=== PATIENT | female | born 1955 | race Caucasian/White ===

== ENCOUNTER 2024-03-14 15:14 | Emergency (ER) | payer SELFPAY | END 2024-03-14 15:23 | disposition left against medical advice (07) | LOC: ER 15:24 | PROVIDERS: Emergency Provider Emergency Medicine; PCP Internal Medicine | DX: Z53.21 Procedure and treatment not carried out due to patient leaving prior to being seen by health care provider (principal) ==

== ENCOUNTER 2024-07-25 16:10 | Emergency (ER) | payer MEDICARE, OTHER, SELFPAY ==
[2024-07-25 16:12] VITALS: BP 138/94; PULSE 82; TEMP 36.8; O2SAT 99; BMI 28.0
--- OUTSIDE RECORDS SUMMARY | 2024-07-25 16:24 | XMS_ITS | CCD ---
Author Organization [facility] [place] Care Team Providers Care Aeronautical Engineering Technologist Name Role Phone Edgard Brady Unavailable Unavailable Unavailable Unavailable Unavailable Dragan Sánchez Unavailable Unavailable JANE, DR MAYO Consulting Unavailable HAY, DR MAYO Attending Unavailable JANE, DR MAYO Admitting Unavailable JOSE ANTONIO, DR RENE Primary Care Unavailable REQUEST, DR MEDINA LISTED Consulting Unavaila bon BRADY, DR RENE Primary Care Unavailable REQUEST, DR MEDINA LISTED Attending Unavaila ble REQUEST, DR MEDINA LISTED Admitting Unavaila Edgard Vinson Unavailable Unavailable Unavailable Bev Alcantara Unavailable Ramon Chang Unavailable Ramon Chang Unavailable Chitra Singh Unavailable Park Morgan Unavailable Maty Rodas Unavailable DO Charlene Ramon E Primary Care Provider DO Estrella Changlin E Attending Provider Blanca Serrano Referring Unavailable Dr. Edgard Brady Primary Care Unavailab Blanca Tracy Attending Unavailable Blanca Serrano Referring Unavailable Dr. Edgard Brady Primary Care Unavailab Blanca Tracy Attending Unavailable Jf Toro Unavailable DO Charlene Ramon E Primary Care Provider DO Charlene Ramon E Attending Provider JONO Rodas Attending Provider Christiano Beyer Unavailable Ashley Willis Unavailable DO Charlene Ramon E Primary Care Provider DO Charlene Ramon E Referring Provider Self, Referral Attending Provider Unavailable DO Sugey Changitlin E Attending Provider MD Park Morgan Attending Provider CatoosaJaneth caraballo Unavailable Eriberto Albertina Unavailable DO Charlene Ramon E Primary Care Provider [phone] DO Dashawn Rodriguez Emergency Provider [phone] DO Ramon Chang E Attending Provider MD Park Morgan Referring Provider DO Charlene Ramon E Primary Care Provider CHAN Luu Emergency Provider Ramon Chang DO Primary Care Provider BLANCA SERRANO Attending EDGARD Hinds Primary Care Unavailable BLANCA SERRANO Attending EDGARD Hinds Primary Care Unavailable BLANCA SERRANO Attending EDGARD Hinds Primary Care Unavailable BLANCA SERRANO Attending EDGARD Hinds Primary Care Unavailable DRAGAN SÁNCHEZ Attending EDGARD Szymanski Primary Care Unavailable SUSANA SARAVIA Attending Unavailab le ANGELA-NOSSUSANA PARMAR Attending Unavailab le ANGELA-NOSSUSANA PARMAR Attending Unavailab le ANGELA-NOSSUSANA PARMAR Attending Unavailab le ANGELA-NOSSESUSANA Pino Attending Unavailab le SCHWERER, RAMON Primary Care Unavailable BELLO VÁZQUEZ Attending Unavailable SCHWERER, RAMON Primary Care Unavailable SCHWERER, RAMON Primary Care Unavailable DIETER WHITTINGTON Attending Unavailable Schwerer DO, Ramon E Primary Care Provider [phone] Mo Alcantara APRN Emergency Provider Schwerer DO, Ramon E Attending Provider Schwerer, Ramon E Admitting Unavailable Eddie, Park Referring Unavailable Schwerer, Ramon E Primary Care Unavailable Schwerer, Ramon E Attending Unavailable Schwerer, Ramon E Primary Care Unavailable Schwerer, Ramon E Attending Unavailable Schwerer, Ramon E Admitting Unavailable Antoine Luu Admitting Unavailable Antoine Luu Attending Unavailable Schwerer, Ramon E Primary Care Unavailable Dashawn Rodriguez Admitting Unavailable Dashawn Rodriguez Attending Unavailable Schwerer, Ramon E Primary Care Unavailable Mo Alcantara Admitting Unavailable Mo Alcantara Attending Unavailable Schwerer, Ramon E Primary Care Unavailable Schwerer DO, Ramon E Primary Care Provider [phone] Mo Alcantara APRN Emergency Provider [phone] Schwerer DO, Ramon E Attending Provider Allergies Allergy Classification Reported Allergen(s) Allergy Type Date of Onset Reaction(s) Facility (1 source) ARIPiprazole; Translations: [ARIPIPRAZOLE] Drug Allergy [address] [place] [address] 3 Repository (1 source) terconazole; Translations: [TERCONAZOLE] Drug Allergy [address] [place] [address] 3 Repository (1 source) DIVALPROEX; Translations: [DIVALPROEX] Propensity to adverse reactions to drug (disorder) [address] [place] [address] 3 Repository Medications Current Medications Medication Drug Class(es) Dates Sig (Normalized) Sig (Original) acetylcysteine 600 mg oral capsule (20 sources) Antidote, Mucolytic, Antidote for Acetaminophen Overdose take 2 capsules by mouth every twelve hours Nac 600 600 MG 2 tablets Orally Bid Active amitriptyline hydrochloride 50 mg oral tablet (20 sources) Tricyclic Antidepressant Start: 04-29-2024 End: 07-28-2024 take 2 tablets by mouth at bedtime amitriptyline (Elavil) 50 MG tablet Indications: Insomnia, unspecified type Take 2 tablets (100 mg) by mouth at bedtime 180 tablet 04/29/2024 07/28/2024 Active Start: 09-18-2023 End: 07-18-2024 take 1 tablet by mouth once daily at bedtime as needed Amitriptyline 50 mg tablet Active 50 MG PO Daily at bedtime as needed for insomnia September 18, 2023 12:00am Start: 03-07-2021 take 1 tablet by george th at bedtime Amitriptyline HCl - 25 MG Oral Tablet TAKE 1 TABLET BY MOUTH AT BEDTIME Quantity: 30 Refills: 0 Ordered: 07-Mar-2021 DO Start : 07-Mar-2021 Active Start: 10-20-2020 End: 09-18-2023 take 1 tablet by mouth once daily at bedtime as needed Amitriptyline 10 mg Tablet Discontinued 10 MG PO Daily at bedtime as needed for Insomnia October 20, 2020 12:00am September 18, 2023 9:55am take 1 tablet by george th every twenty-four hours Amitriptyline HCl 50 MG 1 tablet at bedtime Orally Once a day Active ascorbic acid 60 mg / beta carotene 5000 unt / copper sulfate 40 mg / dl-alpha tocopheryl acetate 30 unt / sodium selenite 0.04 mg / zinc oxide 40 mg oral tablet (7 sources) Vitamin C Multiple Vitamin (Multivitamin Adult) tablet 1 (one) time each day at the same time. Active atorvastatin 10 mg oral tablet (20 sources) HMG-CoA Reductase Inhibitor Start: End: take 1 tablet by mouth once daily at bedtime Atorvastatin (Lipitor) 10 mg tablet Active 10 MG PO Daily at bedtime July 02, 2024 1:34pm Start: 12-12-2020 take 1 tablet by george th every twenty-four hours Lipitor 20 MG 1 tablet Orally Once a day Dec, Active Augmentin Tablets 875 MG (2 sources) Start: 03-07-2021 take 1 tablet by mouth every twelve hours Augmentin Tablets 875 MG 1 tab(s) orally bid for 10 day(s) Feb, Active benzonatate 200 mg oral capsule (4 sources) Non-narcotic Antitussive Start: 06-23-2023 take 1 capsule by mouth three times daily as needed for cough Benzonatate 200 MG 1 capsule Orally Three times a day PRN cough for 7 days Jun, Active Start: 06-10-2023 take 1 capsule by mo [facility] three times daily as needed Tessalon Perles 100 MG 1 capsule as needed Orally Three times a day for 7 days May, Active carboxymethylcellulose 0.01 mg/mg ophthalmic gel (6 sources) Start: 01-11-2024 Carboxymethylcellulose Sodium (Refresh Celluvisc) 1 % dropperette,gel Active 1 DROPS EYE-BOTH Five times daily as needed for dry eye(s) January 11, 2024 12:00am cephalexin 500 mg oral capsule (9 sources) Cephalosporin Antibacterial Start: 04-26-2021 take 1 capsule by mouth every six hours Cephalexin 500 MG 1 capsule Orally QID for 10 Apr, Active Start: 03-20-2021 take 1 capsule by [facility] every six hours Cephalexin 500 MG 1 capsule Orally QID for 7 days Mar, Active cycloSPORINE 0.5 mg/ml ophthalmic suspension (20 sources) Calcineurin Inhibitor Immunosuppressant take 1 drop(s) into the eye(s) twice daily Restasis 0.05 % 1 drop into affected eye Ophthalmic Twice a day for 90 days Active take 1 drop(s) into the eye(s) twice daily Restasis 0.05 % 1 drop into affected eye Ophthalmic Twice a day for 90 days Active Cyclosporine (Restasis) 0.05 % dropperette (6 sources) Start: 01-11-2024 take 1 drop(s) into the eye(s) every twelve hours Cyclosporine (Restasis) 0.05 % dropperette Active 1 DROPS EYE-BOTH Every 12 hours January 10, 2024 11:00pm Start: 01-11-2024 take 1 drop(s) into the eye(s) every twelve hours Cyclosporine (Restasis) 0.05 % dropperette Active 1 DROPS EYE-BOTH Every 12 hours January 11, 2024 12:00am desoximetasone 2.5 mg/ml top ical cream (20 sources) Corticosteroid Topicort 0.25 % 1 application Externally Twice a day for 90 days Active Topicort 0.25 % 1 application Externally Twice a day for 90 days Active ergocalciferol 1.25 mg oral capsule (20 sources) Provitamin D2 Compound Start: 06-03-2024 Ergocalciferol (Ryan min D2) 1,250 mcg (50,000 unit) capsule Active 31455 UNIT PO every week June 03, 2024 5:01pm Start: 10-29-2023 End: 06-03-2024 take 1 capsule by mouth every week Ergocalciferol (Vitamin D2) 1,250 mcg (50,000 unit) capsule Discontinued 0 .ROUTE .COMPLEX October 29, 2023 1:01pm June 03, 2024 5:03pm TAKE 1 CAPSULE BY MOUTH EVERY WEEK Start: 10-29-2023 End: 06-03-2024 take 1 capsule by mouth every week Ergocalciferol (Vitamin D2) 1,250 mcg (50,000 unit) capsule Discontinued 0 .ROUTE .COMPLEX October 29, 2023 12:01pm June 03, 2024 4:03pm TAKE 1 CAPSULE BY MOUTH EVERY WEEK Start: 10-29-2023 take 1 capsule by mo ut every week Ergocalciferol (Vitamin D2) Active 0 .ROUTE .COMPLEX October 29, 2023 1:01pm TAKE 1 CAPSULE BY MOUTH EVERY WEEK Start: 2023 End: 2023 Ergocalciferol (Vitamin D2) 1,250 mcg (50,000 unit) capsule Discontinued 96702 UNIT PO every week 2023 12:00am 2023 8:48am Start: 2023 End: 2023 Ergocalciferol (Vitamin D2) 1,250 mcg (50,000 unit) capsule Discontinued 11122 UNIT PO every week October 27, 2023 11:00pm 2023 7:48am Start: 2023 End: 2023 take 80230 [IU] by mouth every week Ergocalciferol (Vitamin D2) Discontinued 82507 UNIT PO every week 2023 12:00am 2023 8:48am Start: 09-19-2022 End: 10-29-2023 take 1 capsule by mouth every week Ergocalciferol (Vitamin D2) 1,250 mcg (50,000 unit) capsule Discontinued 1250 MCG PO every week 2023 8:47am October 29, 2023 1:02pm Start: 05-29-2021 take 1 capsule by mo nch every week Vitamin D (Ergocalciferol) 1.25 MG (97198 UT) Oral Capsule TAKE 1 CAPSULE BY MOUTH EVERY WEEK Quantity: 12 Refills: 0 Ordered: 29-May-2021 DO Start : 29-May-2021 Active ferrous sulfate 325 mg oral tablet (20 sources) Start: 02-25-2019 End: 09-18-2023 Ferrous Sulfate 325 mg (65 m g iron) tablet Active 325 MG PO Every 48 hours September 18, 2023 9:57am Start: 02-25-2019 Ferrous Sulfat e Active 325 MG PO As Directed February 25, 2019 12:00am hydrALAZINE (4 sources) Arteriolar Vasodilator hydrALAZI NE HCl Active Iron (7 sources) take 1 tablet by mouth every oth er day Iron 325 (65 Fe) MG 1 tablet Orally every other day Active levothyroxine sodium 0.075 mg oral tablet (20 sources) l-Thyroxine Start: 06-08-2024 take 1 tablet by mouth once daily Levothyroxine (Synthroid) 75 mcg tablet Active 75 MCG PO Daily June 08, 2024 1:00am Start: 09-18-2023 End: 06-08-2024 take 1 capsule by mouth once daily Levothyroxine 75 mcg capsule Discontinued 75 MCG PO Daily June 07, 2024 9:58am June 08, 2024 8:50am Start: 10-09-2017 End: 09-18-2023 take 2 tablets by mouth once daily Levothyroxine 50 mcg Tablet Discontinued 100 MCG PO Daily October 09, 2017 12:00am September 18, 2023 9:58am Start: 10-09-2017 End: 09-18-2023 take 100 ug by mouth once daily Levothyroxine Disconti nued 100 MCG PO Daily October 09, 2017 12:00am September 18, 2023 9:58am take 1 tablet by george th before mealtime levothyroxine (Synthroid, Levoxyl) 75 MCG tablet Take 75 mcg by mouth in the morning. Take before meals. Active take 1 tablet by george once daily in the morning Synthroid 75 MCG TAKE ONE TABLET BY MOUTH EVERY DAY IN THE MORNING ON AN EMPTY STOMACH for 90 days Active Synthroid 25 MCG Oral Tablet Quantity: 0 Refills: 0 Ordered: 20-Feb-2016 DO Active Synthroid 25 MCG Oral Tablet Refills: 0 Active Magnesium (20 sources) Start: 02-25-2019 take 2 tablets by [facility] once daily Magnesium 200 mg Tablet Active 400 MG PO Daily February 25, 2019 12:00am Start: 02-25-2019 take 2 tablets by mo [facility] once daily Magnesium 200 mg Tablet Active 400 MG PO Daily February 24, 2019 11:00pm Start: 02-25-2019 take 400 mg by mouth once marilou y Magnesium Active 400 MG PO Daily February 24, 2019 11:00pm Start: 02-25-2019 take 400 mg by mouth once marilou y Magnesium Active 400 MG PO Daily February 25, 2019 12:00am Magnesium 400 MG as directed Orally Active Magnesium 400 MG as directed Orally BID Active magnesium oxide 400 mg oral tablet (7 sources) take 1 tablet by mouth in the morning magnesium oxide (Mag-Ox) 400 MG tablet Take 400 mg by mouth in the morning. Active Medrol Dose Pack as directed (2 sources) Start: 03-07-2021 Medrol Dose Pack as directed as directed orally as directed for 6 days Feb, Active Multivitamin preparation (12 sources) Start: 10-09-2017 take 1 tablet by mouth once daily Multivitamin Active 1 TAB PO Daily October 08, 2017 11:00pm Start: 10-09-2017 take 1 tablet by george once daily Multivitamin Active 1 TAB PO Daily October 09, 2017 12:00am Multivitamin Tablet (4 sources) Start: 10-09-2017 take 1 tablet by mouth once daily Multivitamin Tablet Active 1 TAB PO Daily October 09, 2017 12:00am Start: 10-09-2017 take 1 tablet by george once daily Multivitamin Tablet Active 1 TAB PO Daily October 08, 2017 11:00pm mupirocin 0.02 mg/mg topical ointment (20 sources) RNA Synthetase Inhibitor Antibacterial Start: 07-30-2021 Mupirocin 2 % 1 application PRN Externally Twice a day Jul, Active Start: 03-07-2021 Bactroban 2% 1 application topically bid Feb, Active Start: 01-29-2021 Mupirocin 2 % 1 application Externally Three times a day PRN for 5 day(s) Jan, Active Start: 09-12-2020 Mupirocin 2 % 1 application to affected area Externally once per day for 7 days September, Active ondansetron 8 mg oral tablet (3 sources) Serotonin-3 Receptor Antagonist Start: 06-10-2023 take 1 tablet by mouth every eight hours as needed Ondansetron HCl 8 MG 1 tablet Orally every 8 hours as needed for 7 days May, Active phentermine hydrochloride 37.5 mg oral capsule (2 sources) Sympathomimetic Amine Anorectic Start: 03-20-2021 take 1 capsule by mouth every twenty-four hours Adipex-P 37.5 MG 1 capsule Orally Once a day for 30 days Mar, Active 24 hr phentermine 7.5 mg / topiramate 46 mg extended release oral capsule (20 sources) Sympathomimetic Amine Anorectic Start: 11-28-2021 take 1 capsule by mouth every twenty-four hours Qsymia 7.5-46 MG 1 capsule Orally Once a day for 30 days BMI 33.97 Apr, Active Start: 11-28-2021 take 1 capsule by mo [facility] every twenty-four hours Qsymia 3.75-23 MG 1 capsule Orally Once a day for 14 days BMI 35.24 Nov, Active sertraline 100 mg oral tablet (20 sources) Serotonin Reuptake Inhibitor Start: 09-18-2023 End: 07-18-2024 take 1 tablet by mouth once daily Sertraline 100 mg tablet Active 100 MG PO Daily September 18, 2023 12:00am Start: 08-20-2021 take 1 tablet by george th once daily Sertraline HCl - 50 MG Oral Tablet TAKE 1 TABLET BY MOUTH ONCE DAILY Quantity: 90 Refills: 0 Ordered: 20-Aug-2021 DO Start : 20-Aug-2021 Active take 1 tablet by george th every twenty-four hours Zoloft 100 MG 1 tablet Orally Once a day Active Syringe 2-3 ML 3 ML (20 sources) Start: 05-29-2021 Start: 01-18-2022 Syringe 2-3 ML 3 ML as directed IM monthly for 90 days 25 g 1 in needle May, Active vancomycin 125 mg oral capsule (5 sources) Glycopeptide Antibacterial Start: 12-13-2021 take 1 capsule by mouth every six hours Vancomycin HCl 125 MG 1 capsule Orally every 6 hrs for 10 day(s) Dec, Active vitamin b12 1 mg/ml injectable solution (20 sources) Vitamin B12 Start: 06-07-2024 End: 06-08-2024 inject 1 mL by subcutaneous injection every month Cyanocobalamin (Vitamin B-12) 1,000 mcg/mL solution Active 0 .ROUTE .COMPLEX June 08, 2024 1:50pm INJECT 1 ml SUBCUTANEOUSLY EVERY month Start: 12-15-2023 inject 1 mL by subcu taneous injection every month Cyanocobalamin (Vitamin B-12) Active 0 .ROUTE .COMPLEX December 15, 2023 11:34am INJECT 1 ml SUBCUTANEOUSLY EVERY month Start: 07-04-2023 End: 12-15-2023 inject 1000 ug by subcutaneous injection every month Cyanocobalamin (Vitamin B-12) 1,000 mcg/mL solution Discontinued 1000 MCG SUBCUT every month July 04, 2023 9:58am December 15, 2023 11:34am Start: 07-04-2023 End: 12-15-2023 inject 1000 ug by subcutaneous injection every month Cyanocobalamin (Vitamin B-12) Discontinued 1000 MCG SUBCUT every month July 04, 2023 9:58am December 15, 2023 11:34am Start: 10-09-2017 End: 07-04-2023 inject 1000 ug by intramuscular injection every month Cyanocobalamin (Vitamin B-12) (Vitamin B-12) 1,000 mcg/mL Solution Discontinued 1000 MCG IM every month October 09, 2017 12:00am July 04, 2023 10:03am take 1 tablet by george th in the morning cyanocobalamin (Vitamin B-12) 1000 MCG tablet Take 1,000 mcg by mouth in the morning. Active Cyanocobalamin 1 000 MCG/ML 1 ml Injection ONCE A MONTH Active [facility] Vitamin B-12 1000 MCG Oral Tablet Quantity: 0 Refills: 0 Ordered: 20-Feb-2016 DO Active vitamin b6 100 mg oral tablet (20 sources) Start: 10-09-2017 take 1 tablet by mouth once daily Pyridoxine (Vitamin B6) (Vitamin B-6) 100 mg Tablet Active 100 MG PO Daily October 09, 2017 12:00am Vitamin B6 100 MG (20 sources) take 1 tablet by mouth once marilou y Vitamin B6 100 MG 1 tablet Orally Once a day Active Completed/Discontinued Medications Medication Drug Class(es) Dates Sig (Normalized) Sig (Original) acetaminophen 325 mg / oxyCODONE hydrochloride 5 mg oral tablet (6 sources) Opioid Agonist Start: 01-11-2024 End: 06-17-2024 take 1 tablet by mouth every six hours as needed for pain Oxycodone-Acetamino phen (Percocet) 5-325 mg tablet Discontinued 1 TAB PO Q6H as needed for pain 02 11January 11, 2024 June 17, 2024 9:43am B-12 - up to 1000 mcg (20 sources) Start: 01-24-2023 B-12 - up to 1000 mcg Jan, 1000 mcg Start: 08-12-2022 B-12 - up to 1 000 mcg Aug, 1000 mcg Start: 06-06-2022 B-12 - up to 1 000 mcg May, 1000 mcg Start: 03-25-2022 B-12 - up to 1 000 mcg Mar, 1 mL Start: 02-21-2022 B-12 - up to 1 000 mcg Feb, 1000 mcg Start: 01-21-2022 B-12 - up to 1 000 mcg Jan, 1000 mcg Start: 12-13-2021 B-12 - up to 1 000 mcg Dec, 1000 mcg Start: 11-08-2021 B-12 - up to 1 000 mcg Oct, 1000 mcg Start: 10-02-2021 B-12 - up to 1 000 mcg September, 1000 mcg Start: 09-03-2021 B-12 - up to 1 000 mcg Aug, 1000 mcg Start: 04-26-2021 B-12 - up to 1 000 mcg Apr, 1000 mcg Start: 11-28-2020 B-12 - up to 1 000 mcg Nov, 1000 mcg 24 hr buPROPion hydrochloride 150 mg extended release oral tablet (20 sources) Aminoketone Start: 10-09-2017 End: 02-25-2019 take 1 tablet by mouth once daily in the morning Bupropion Hcl (Wellbutrin Xl) 150 mg Tablet Extended Release 24 Hr Discontinued 150 MG PO Every morning October 09, 2017 12:00am February 25, 2019 9:44am [facility] Wellbutrin SR 150 MG Oral Tablet Extende d Release 12 Hour Quantity: 0 Refills: 0 Ordered: 20-Feb-2016 DO Active Centrum Silver Oral Tablet (2 sources) Centrum Silver O ral Tablet Refills: 0 Active Centrum Silver Oral Tablet (2 sources) Centrum Silver O ral Tablet Quantity: 0 Refills: 0 Ordered: 20-Feb-2016 DO Active cholestyramine resin 4000 mg powder for oral suspension (14 sources) Bile Acid Sequestrant Start: 08-14-19 take 1 dose by mouth twice daily as needed Cholestyramine 4 GM 1 packet mixed with water or non-carbonated drink Orally BID for 30 days Aug, Not-Taking/PRN Start: 08-13-2022 take 1 dose by mouth twice daily Cholestyramine 4 GM 1 packet mixed with water or non-carbonated drink Orally BID for 30 days Aug, Not-Taking ciprofloxacin 3 mg/ml ophthalmic solution (10 sources) Quinolone Antimicrobial Start: 08-23-2023 End: 09-18-2023 take 1 drop(s) into the eye(s) every six hours Ciprofloxacin Hcl 0.3 % drops Discontinued 2 DROPS EYE-LEFT Every 6 hours 09 13August 23, 2023 12:00am September 18, 2023 9:56am administer while awake Start: 08-23-2023 End: 09-18-2023 take 1 drop(s) into the eye(s) every six hours Ciprofloxacin Hcl Discontinued 2 DROPS EYE-LEFT Every 6 hours 09 13August 23, 2023 12:00am September 18, 2023 9:56am administer while awake colestipol hydrochloride 1000 mg oral tablet (20 sources) Bile Acid Sequestrant Start: 02-25-2019 End: 07-23-2023 Colestipol (Colestid) 1 gram Tablet Discontinued 1 GM PO Daily February 25, 2019 12:00am July 23, 2023 8:01am take 2 tablets by mo [facility] every twenty-four hours Colestid 1 GM 2 tablets Orally Once a da y for 30 days Not-Taking/PRN take 2 tablets by [facility] every twenty-four hours Colestid 1 GM 2 tablets Orally Once a da y for 30 days Not-Taking take 2 tablets by [facility] every twenty-four hours Cyanocobalamin (Vitamin B-12) 1,000 mcg/mL solution (4 sources) Start: 12-15-2023 End: 06-07-2024 inject 1 mL by subcutaneous injection every month Cyanocobalamin (Vitamin B-12) 1,000 mcg/mL solution Discontinued 0 .ROUTE .COMPLEX 1 December 15, 2023 11:34am June 07, 2024 9:54am INJECT 1 ml SUBCUTANEOUSLY EVERY month Start: 12-15-2023 End: 06-07-2024 inject 1 mL by subcutaneous injection every month Cyanocobalamin (Vitamin B-12) 1,000 mcg/mL solution Discontinued 0 .ROUTE .COMPLEX 1 December 15, 2023 10:34am June 07, 2024 8:54am INJECT 1 ml SUBCUTANEOUSLY EVERY month dexamethasone 1 mg/ml / neomycin 3.5 mg/ml / polymyxin b [id number] unt/ml ophthalmic suspension (6 sources) Aminoglycoside Antibacterial, Polymyxin-class Antibacterial, Corticosteroid Start: 01-11-2024 End: 06-17-2024 Neomycin-Polymyxin B-Dexameth 3.5mg/mL-10,000 unit/mL-0.1 % drops,suspension Discontinued DROPS January 11, 2024 12:00am June 17, 2024 9:43am dicyclomine hydrochloride 10 mg oral capsule (20 sources) Anticholinergic Start: 10-09-2017 End: 09-18-2023 take 1 capsule by mouth at bedtime Dicyclomine 10 mg Capsule Discontinued 10 MG PO before meals and at bedtime October 09, 2017 12:00am September 18, 2023 9:56am DULoxetine 30 mg delayed release oral capsule (20 sources) Serotonin and Norepinephrine Reuptake Inhibitor Start: 10-09-2017 End: 09-18-2023 take 1 capsule by mouth once daily Duloxetine 30 mg Capsule,Delayed Release(Dr/Ec) Discontinued 30 MG PO Daily October 09, 2017 12:00am September 18, 2023 9:56am Cymbalta 30 MG O ral Capsule Delayed Release Particles Quantity: 0 Refills: 0 Ordered: 20-Feb-2016 DO Active take 1 capsule by [facility] every twenty-four hours DULoxetine HCl 60 MG 1 capsule Orally On a day Active erythromycin 0.005 mg/mg ophthalmic ointment (2 sources) Macrolide, Macrolide Antimicrobial Start: 06-22-2019 Erythromycin 5 MG/GM Ophthalmic Ointment APPLY 1 STRIP Bedtime OS Quantity: 1 Refills: 3 Ordered: 22-Jun-2019 Abraham MCCLAIN, PhD, Blanca Start : 22-Jun-2019 Active famotidine 20 mg oral tablet (16 sources) Histamine-2 Receptor Antagonist Start: 10-20-2020 End: 09-18-2023 take 1 tablet by mouth twice daily Famotidine 20 mg Tablet Discontinued 20 MG PO Twice daily October 20, 2020 12:00am September 18, 2023 9:57am folic acid 1 mg oral tablet (20 sources) Start: 10-09-2017 End: 04-21-2024 take 1 tablet by mouth once daily Folic Acid 1 mg tablet Discontinued 1 MG PO Daily April 20, 2024 1:00pm April 21, 2024 10:07am Folic Acid 1 MG Oral Tablet Quantity: 0 Refills: 0 Ordered: 20-Feb-2016 DO Active furosemide 40 mg oral tablet (16 sources) Loop Diuretic Start: 02-25-2019 End: 10-20-2020 take 1 tablet by mouth once daily Furosemide (Lasix) 40 mg Tablet Discontinued 40 MG PO Daily February 25, 2019 12:00am October 20, 2020 11:04am hydroCHLOROthiazide 25 mg / triamterene 37.5 mg oral capsule (16 sources) Potassium-sparing Diuretic, Thiazide Diuretic Start: 02-25-2019 End: 10-20-2020 take 1 capsule by mouth once daily Triamterene-Hydr ochlorothiazid (Dyazide) 37.5-25 mg Capsule Discontinued 1 CAP PO Daily February 25, 2019 12:00am October 20, 2020 11:07am hydrOXYzine hydrochloride 25 mg oral tablet (20 sources) Antihistamine Start: 08-05-2023 End: 03-02-2024 take 1-2 tablets by mouth every eight hours as needed Hydroxyzine Hcl 25 mg tablet Discontinued 0 .ROUTE .COMPLEX March 02, 2024 7:57am March 02, 2024 7:58am 1-2 tabs by mouth every 8 hours as needed; Start: 01-12-2021 take 1-2 tablets by mouth every eight hours as needed hydrOXYzine HCl 25 MG 1-2 tabs Orally every 8 hrs, prn for 90 day(s) ATARAX Jan, Active Start: 01-01-2021 take 1 capsule by mo uth every eight hours as needed for anxiety hydrOXYzine Pamoate 25 MG Oral Capsule TAKE 1 CAPSULE EVERY 8 HOURS NEEDED for anxiety Quantity: 270 Refills: 0 Ordered: 20-Mar-2021 DO Start : 20-Mar-2021 Active Start: 10-09-2017 End: 08-05-2023 Hydroxyzine Hcl 10 mg Tablet Discontinued 25 MG PO Q4H as needed for Itching October 09, 2017 12:00am August 05, 2023 4:34pm Start: 10-09-2017 End: 08-05-2023 take 25 mg by mouth every four hours Hydroxyzine Hcl Discontinued 25 MG PO Q4H October 09, 2017 12:00am August 05, 2023 4:34pm take 1 tablet by george every six hours as needed for anxiety hydrOXYzine HCl (Atarax) 25 MG tablet Take 25 mg by mouth every 6 (six) hours if needed for anxiety (1-2 tablets). Active lamoTRIgine 25 mg oral tablet (4 sources) Mood Stabilizer, Anti-epileptic Agent LaMICtal 25 MG Oral Tablet Quantity: 0 Refills: 0 Ordered: 20-Feb-2016 DO Active LaMICtal 25 MG O ral Tablet Refills: 0 Active lisinopril 2.5 mg oral tablet (4 sources) Angiotensin Converting Enzyme Inhibitor Lisinopril 2.5 MG Or al Tablet Quantity: 0 Refills: 0 Ordered: 20-Feb-2016 DO Active Lisinopril 2.5 M G Oral Tablet Refills: 0 Active LORazepam 1 mg oral tablet (20 sources) Benzodiazepine Start: 10-09-2017 End: 09-18-2023 take 1 tablet by mouth once daily as needed for anxiety Lorazepam 1 mg Tablet Discontinued 1 MG PO Daily as needed for Anxiety October 09, 2017 12:00am September 18, 2023 9:58am LORazepam 1 MG O ral Tablet Quantity: 0 Refills: 0 Ordered: 20-Feb-2016 DO Active naproxen 500 mg oral tablet (20 sources) Nonsteroidal Anti-inflammatory Drug Start: 10-09-2017 End: 02-25-2019 take 1 tablet by mouth twice daily as needed for pain Naproxen 500 mg Tablet Discontinued 500 MG PO Twice daily as needed for Pain October 09, 2017 12:00am February 25, 2019 9:46am Naproxen Sodium 550 MG Oral Tablet Quantity: 0 Refills: 0 Ordered: 20-Feb-2016 DO Active Naproxen Sodium 550 MG Oral Tablet Refills: 0 Active omeprazole 20 mg delayed release oral tablet (20 sources) Proton Pump Inhibitor Start: 10-09-2017 End: 10-20-2020 take 1 tablet by mouth once daily Omeprazole 20 mg Tablet,Delayed Release (Dr/Ec) Discontinued 20 MG PO Daily October 09, 2017 12:00am October 20, 2020 11:06am [facility] Omeprazole 2 0 MG Oral Tablet Delayed Release Quantity: 0 Refills: 0 Ordered: 20-Feb-2016 DO Active pantoprazole 40 mg delayed release oral tablet (20 sources) Proton Pump Inhibitor Start: 09-18-2023 End: 06-08-2024 take 1 tablet by mouth twice daily Pantoprazole (Protonix) 40 mg tablet,delayed release (DR/EC) Discontinued 40 MG PO Twice daily June 07, 2024 9:58am June 08, 2024 1:51pm Start: 10-26-2020 take 1 tablet by george th every twenty-four hours Pantoprazole Sodium 40 MG 1 tablet Orally Once a day for 90 days Oct, Active potassium chloride 20 meq extended release oral tablet (16 sources) Start: 02-25-2019 End: 10-20-2020 take 1 tablet by mouth once daily Potassium Chloride 20 mEq Tablet Extended Release Discontinued 20 MEQ PO Daily February 25, 2019 12:00am October 20, 2020 11:06am 24 hr propranolol hydrochloride 80 mg extended release oral capsule (20 sources) beta-Adrenergi c Briana Start: 09-18-2023 End: 04-21-2024 take 1 capsule by mouth once daily Propranolol 80 mg capsule,extended release 24 hr Discontinued 80 MG PO Daily April 20, 2024 1:01pm April 21, 2024 10:07am Start: 10-09-2017 End: 09-18-2023 take 4 tablets by mouth twice daily Propranolol 20 mg Tablet Discontinued 80 MG PO Twice daily October 09, 2017 12:00am September 18, 2023 9:58am Start: 10-09-2017 End: 09-18-2023 take 80 mg by mouth twice daily Propranolol Discontinu ed 80 MG PO Twice daily October 09, 2017 12:00am September 18, 2023 9:58am take 1 capsule by mo [facility] every twenty-four hours at bedtime propranolol XL (Innopran XL) 80 MG 24 hr capsule Take 80 mg by mouth at bedtime. Active take 1 capsule by mo uth once daily Propranolol HCl ER 80 MG TAKE ONE CAPSULE BY MOUTH EVERY DAY for 90 Active Propranolol HCl - 20 MG Oral Tablet Quantity: 0 Refills: 0 Ordered: 20-Feb-2016 DO Active Propranolol HCl - 20 MG Oral Tablet Refills: 0 Active traZODone hydrochloride 50 mg oral tablet (20 sources) Serotonin Reuptake Inhibitor Start: 10-09-2017 End: 02-25-2019 take 25-100 mg by mouth once daily at bedtime as needed Trazodone 50 mg Tablet Discontinued 25 - 100 MG PO Daily at bedtime as needed for Insomnia October 09, 2017 12:00am February 25, 2019 9:46am traZODone HCl - 50 MG Oral Tablet Quantity: 0 Refills: 0 Ordered: 20-Feb-2016 DO Active triamcinolone acetonide 40 mg/ml injectable suspension (20 sources) Corticosteroid Start: 04-15-2022 Kenalog-40 Nov, 40 mg Start: 05-01-2020 Kenalog -40 mg Apr, 40 mg Start: 10-26-2019 Kenalog -40 mg Oct, 40 mg Start: 02-16-2019 Kenalog -40 mg Feb, 40 mg Problems Active Problems Problem Classification Problem Date Documented Da te Episodic/Chronic Allergic reactions (3 sources) Atopic neurodermatitis; Translations: [Atopic neurodermatitis] Onset: 1 Resolved: 1 Chronic Anxiety disorders (20 sources) Generalized anxiety disorder; Translations: [Generalized anxiety disorder] Onset: 2 Resolved: 2 Chronic Cardiac dysrhythmias (16 sources) Paroxysmal supraventricular tachycardia; Translations: [Supraventricular tachycardia] 12-13-2018 Chronic Cataract (7 sources) Nuclear senile cataract; Translations: [Senile nuclear sclerosis] Onset: 4 Chronic Chronic kidney disease (20 sources) Chronic kidney disease stage 3; Translations: [Chronic kidney disease, stage 3 (moderate)] 09-18-2023 Chronic Chronic kidney disease (9 sources) Chronic kidney disease; Translations: [Chronic kidney disease, stage 3 unspecified] Onset: 2 Resolved: 2 Coagulation and hemorrhagic disorders (1 source) Heterozygous Factor V Leiden mutation; Translations: [Activated protein C resistance] 07-09-2024 Chronic Deficiency and other anemia (20 sources) Anemia of renal disease; Translations: [Anemia in chronic kidney disease] Chronic Deficiency and other anemia (20 sources) Iron deficiency anemia; Translations: [Iron deficiency anemia, unspecified] 02-25-2019 Episodic Deficiency and other anemia (16 sources) Anemia; Translations: [Anemia, unspecified] 12-13-2018 Episodic Deficiency and other anemia (4 sources) Iron deficiency anemia, unspecified; Translations: [Iron deficiency anemia, unspecified] Onset: 5 06-17-2024 Episodic Disorders of lipid metabolism (20 sources) Mixed hyperlipidemia; Translations: [Mixed hyperlipidemia] Onset: 2 Resolved: 2 Chronic E Codes: Fall (1 source) Unspecified fall, initial encounter; Translations: [UNSPECIFIED FALL INITIAL ENCOUNTER] Onset: 2 Episodic Esophageal disorders (20 sources) Gastroesophageal reflux disease; Translations: [Gastro-esophageal reflux disease without esophagitis] 10-20-2020 Chronic Essential hypertension (20 sources) Essential hypertension; Translations: [Essential (primary) hypertension] Onset: 2 Resolved: 2 Chronic Gastroduodenal ulcer (except hemorrhage) (20 sources) Peptic ulcer; Translations: [Peptic ulcer, site unspecified, unspecified as acute or chronic, without hemorrhage or perforation] Chronic Hypertension with complications and secondary hypertension (20 sources) Chronic kidney disease due to hypertension; Translations: [Hypertensive chronic kidney disease with stage 1 through stage 4 chronic kidney disease, or unspecified chronic kidney disease] Onset: 2 Resolved: 2 Chronic Immunizations and screening for infectious disease (6 sources) Contact with and (suspected) exposure to other viral communicable diseases; Translations: [Contact with and (suspected) exposure to other viral communicable diseases] Onset: 1 Resolved: 1 Episodic Inflammation; infection of eye (except that caused by tuberculosis or sexually transmitteddisease) (2 sources) Punctate keratitis, bilateral; Translations: [Punctate keratitis, bilateral] Onset: 4 Chronic Influenza (1 source) Influenza due to other identified influenza virus with other respiratory manifestations Episodic Mood disorders (20 sources) Moderate major depression ; Translations: [Major depressive disorder, single episode, moderate] Onset: 2 Resolved: 2 Chronic Nutritional deficiencies (20 sources) Vitamin D deficiency; Translations: [Vitamin D deficiency, unspecified] Onset: 2 Resolved: 2 Chronic Nutritional deficiencies (20 sources) Deficiency of other specified B group vitamins; Translations: [Iron deficiency] Onset: 2 Resolved: 2 Episodic Open wounds of head; neck; and trunk (1 source) Penetrating wound with foreign body of left eyeball, initial encounter; Translations: [Penetrating wound with foreign body of left eyeball, initial encounter] Onset: 4 Episodic Osteoarthritis (20 sources) Arthritis of hand; Translations: [Primary osteoarthritis, 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 Other aftercare (1 source) Other halfway (current) drug therapy; Translations: [OTH STATE COMPTROLLER CURRENT DRUG THERAPY] Onset: 2 Episodic Other connective tissue disease (1 source) Presence of left artificial knee joint; Translations: [PRESENCE LEFT ARTIFICIAL KNEE JOINT] Onset: 2 Chronic Other connective tissue disease (20 sources) Recurrent falls ; Translations: [Repeated falls] Episodic Other connective tissue disease (11 sources) Trochanteric bursitis, left hip; Translations: [Enthesopathy of hip region] Episodic Other connective tissue disease (10 sources) Trochanteric bursitis; Translations: [Trochanteric bursitis, left hip] 07-22-2023 Episodic Other disorders of stomach and duodenum (16 sources) Disorder of function of stomach; Translations: [Disease of stomach and duodenum, unspecified] 10-20-2020 Episodic Other eye disorders (5 sources) Posterior vitreous detachment; Translations: [Vitreous degeneration] Chronic Other eye disorders (2 sources) Vitreous degeneration, bilateral; Translations: [Vitreous degeneration, bilateral] Onset: 4 Chronic Other eye disorders (1 source) Retained (nonmagnetic) (old) foreign body in lens, bilateral; Translations: [Retained (nonmagnetic) (old) foreign body in lens, bilateral] Onset: 5 Chronic Other eye disorders (3 sources) Corneal scar; Translations: [Bilateral corneal scars] Episodic Other eye disorders (2 sources) Corneal ulcer; Translations: [Corneal ulcer, unspecified] Episodic Other eye disorders (2 sources) Scar of cornea of bilateral eyes; Translations: [Corneal opacity, unspecified] Episodic Other eye disorders (2 sources) Dry eyes; Translations: [Tear film insufficiency, unspecified] Episodic Other eye disorders (6 sources) Pain in eye; Translations: [Ocular pain, right eye] 01-11-2024 Episodic Other eye disorders (3 sources) Device adherence; Translations: [Other specified disorders of eye and adnexa] 06-17-2024 Episodic Other gastrointestinal disorders (20 sources) Irritable bowel syndrome; Translations: [Mixed irritable bowel syndrome] Chronic Other gastrointestinal disorders (4 sources) Diarrhea, unspecified Onset: 2 Resolved: 2 Episodic Other injuries and conditions due to external causes (4 sources) Other specified injuries of head, initial encounter; Translations: [OTH SPEC INJURIES HEAD INITIAL ENC] Onset: 2 Episodic Other injuries and conditions due to external causes (10 sources) Disorder of eye; Translations: [Foreign body on external eye, part unspecified, unspecified eye, initial encounter] 08-23-2023 Episodic Other non-traumatic joint disorders (11 sources) Pain in left hip; Translations: [Pain in joint, pelvic region and thigh] Episodic Other non-traumatic joint disorders (10 sources) Hip pain; Translations: [Pain in left hip] 07-22-2023 Episodic Other nutritional; endocrine; and metabolic disorders (20 sources) Body mass index 30+ - obesity; Translations: [Body mass index (BMI) 34.0-34.9, adult] Chronic Other nutritional; endocrine; and metabolic disorders (1 source) Body mass index (BMI) 32.0-32.9, adult Onset: 2 Resolved: 2 Chronic Other nutritional; endocrine; and metabolic disorders (20 sources) Hypomagnesemia; Translations: [Hypomagnesemia] 09-18-2023 Chronic Other nutritional; endocrine; and metabolic disorders (5 sources) Hypomagnesemia; Translations: [Disorders of magnesium metabolism] Onset: 2 Resolved: 2 Chronic Other nutritional; endocrine; and metabolic disorders (20 sources) Obese class II; Translations: [Body mass index (BMI) 35.0-35.9, adult] Chronic Other nutritional; endocrine; and metabolic disorders (20 sources) Obesity; Translations: [Obesity, unspecified] Chronic Other nutritional; endocrine; and metabolic disorders (2 sources) Body mass index (BMI) 35.0-35.9, adult Onset: 2 Resolved: 2 Chronic Other nutritional; endocrine; and metabolic disorders (6 sources) Obesity, unspecified; Translations: [Obesity] Onset: 2 Resolved: 2 Chronic Other nutritional; endocrine; and metabolic disorders (20 sources) Obese class I; Translations: [Body mass index (BMI) 33.0-33.9, adult] Chronic Other nutritional; endocrine; and metabolic disorders (3 sources) Body mass index (BMI) 33.0-33.9, adult; Translations: [BMI 33.0-33.9,adult] Chronic Other nutritional; endocrine; and metabolic disorders (20 sources) Body mass index 40+ - severely obese; Translations: [Body mass index (BMI) 40.0-44.9, adult] Chronic Other nutritional; endocrine; and metabolic disorders (2 sources) Body mass index (BMI) 34.0-34.9, adult; Translations: [BMI 34.0-34.9,adult] Chronic Other nutritional; endocrine; and metabolic disorders (3 sources) H/O: hypothyroidism; Translations: [Personal history of other endocrine, metabolic, and immunity disorders] Episodic Other screening for suspected conditions (not mental disorders or infectious disease) (20 sources) Mammography abnormal; Translations: [Other abnormal and inconclusive findings on diagnostic imaging of breast] Onset: 2 Resolved: 2 Episodic Residual codes; unclassified (1 source) Acquired absence of other specified parts of digestive tract; Translations: [ACQ ABSENCE OTH PART DIGESTV TRACT] Onset: 2 Episodic Residual codes; unclassified (1 source) Acquired absence of both cervix and uterus; Translations: [ACQUIRED ABSENCE BOTH CERVIX AND UTERUS] Onset: 2 Episodic Residual codes; unclassified (2 sources) History of clinical finding in subject; Translations: [Personal history of other specified diseases] Episodic Residual codes; unclassified (3 sources) Insomnia; Translations: [Insomnia, unspecified] 04-19-2024 Episodic Residual codes; unclassified (3 sources) Family history of blood coagulation disorder; Translations: [Family history of diseases of the blood and blood-forming organs and certain disorders involving the immune mechanism] 06-17-2024 Episodic Residual codes; unclassified (4 sources) Family history of diseases of the blood and blood-forming organs and certain disorders involving the immune mechanism; Translations: [Family history of other blood disorders] Onset: 5 06-17-2024 Episodic Superficial injury; contusion (17 sources) Abrasion of left cornea; Translations: [Superficial injury of cornea] 08-23-2023 Episodic Thyroid disorders (20 sources) Hypothyroidism, unspecified; Translations: [Acquired hypothyroidism] Onset: 2 Resolved: 2 Chronic Unclassified (2 sources) Eye Exam; Translations: [Eye Exam] Onset: 4 Unclassified (2 sources) Contact Lens Follow-up; Translations: [Contact Lens Follow-up] Onset: 4 Unclassified (2 sources) Foreign Body in Eye Onset: 4 Unclassified (1 source) Eye Problem Onset: 4 Past or Other Problems Problem Classification Problem Date Documented Date Episodic/Chronic Blindness and vision defects (14 sources) Irregular astigmatism, bilateral; Translations: [Presbyopia] Onset: 07-01-2023 Episodic E Codes: Natural/environment (1 source) Bitten by dog, initial encounter; Translations: [Bitten by dog, initial encounter W54.0XXA] Onset: 03-07-2021 Resolved: 03-07-2021 Episodic Gastritis and duodenitis (2 sources) Gastritis; Translations: [Gastritis, unspecified, without bleeding] Episodic Intestinal infection (1 source) Enterocolitis due to Clostridium difficile, not specified as recurrent Onset: 12-21-2021 Resolved: 12-21-2021 Episodic Open wounds of extremities (1 source) Open bite of right hand, initial encounter; Translations: [Open bite of right hand, initial encounter S61.451A] Onset: 03-07-2021 Resolved: 03-07-2021 Episodic Other eye disorders (11 sources) Keratoconus, unspecified, bilateral; 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] Onset: 07-01-2023 Episodic Other eye disorders (2 sources) Dry eye; Translations: [Dry Eye] Onset: 10-07-2023 Episodic Other eye disorders (2 sources) Keratoconus Onset: 10-07-2023 Episodic Other eye disorders (2 sources) Dry eye syndrome of bilateral lacrimal glands; Translations: [Dry eye syndrome of bilateral lacrimal glands] Onset: 07-01-2023 Episodic Other eye disorders (2 sources) Unspecified corneal scar and opacity; Translations: [Unspecified corneal scar and opacity] Onset: 07-01-2023 Episodic Other eye disorders (2 sources) Other specified disorders of eye and adnexa; Translations: [Other specified disorders of eye and adnexa] Onset: 08-23-2023 Episodic Other eye disorders (1 source) Other specified disorders of eyelid; Translations: [Other specified disorders of eyelid] Onset: 01-11-2024 Episodic Other eye disorders (1 source) Ocular pain, bilateral; Translations: [Ocular pain, bilateral] Onset: 01-11-2024 Episodic Other eye disorders (1 source) Ocular pain, right eye; Translations: [Ocular pain, right eye] Onset: 01-11-2024 Episodic Other inflammatory condition of skin (3 sources) Lichen simplex chronicus Onset: 05-31-2021 Resolved: 09-03-2021 Episodic Unclassified (2 sources) Acute cough R05.1 Viral infection (1 source) COVID-19 Onset: 04-11-2021 Resolved: 04-11-2021 NEGATED: Highlighted row has not occurred!Residual codes; unclassified (2 sources) Disease Episodic Results Test Name Value Interpretation Reference Range Facility Alanine aminotransferase [En zymatic activity/volume] in Serum or PlasmaOrdered By: Ramon Chang on 07-01-2024 ALT [Catalytic activity/Vol] Alanine aminotransferase [Enzymatic activity/volume] in Serum or Plasma [facility] Albumin [Mass/volume] in Ser um or Plasma by Bromocresol green (BCG) dye binding methoOrdered By: Ramon Chang on 07-01-2024 Albumin BCG dye [Mass/Vol] Albumin [Mass/volume] in Serum or Plasma by Bromocresol green (BCG) dye binding metho 3.5-5.7 [facility] Alkaline phosphatase [Enzyma tic activity/volume] in Serum or PlasmaOrdered By: Ramon Chang on 07-01-2024 ALP [Catalytic activity/Vol] Alkaline phosphatase [Enzymatic activity/volume] in Serum or Plasma 34-104 [facility] Aspartate aminotransferase [ Enzymatic activity/volume] in Serum or PlasmaOrdered By: Ramon Chang on 07-01-2024 AST [Catalytic activity/Vol] Aspartate aminotransferase [Enzymatic activity/volume] in Serum or Plasma Low 13-39 [facility] Basophils Auto (Bld) [#/Vol] Ordered By: Ramon Chang on 07-01-2024 Basophils (Bld) [#/Vol] Automated basophil count 0.0-0.2 [facility] Basophils/100 WBC Auto (Bld) Ordered By: Ramon Chang on 07-01-2024 Basophils/100 WBC (Bld) Automated basophil % . [facility] Bilirubin.total [Mass/volume ] in Serum or PlasmaOrdered By: Ramon Chang on 07-01-2024 Bilirubin [Mass/Vol] Bilirubin.total [Mass/volume] in Serum or Plasma 0.3-1.0 [facility] Blood or tissue F5 gene muta tions identification by molecular genetics methodOrdered By: Ramon Chang on 07-01-2024 F5 gene targeted mutation analysis [employer] Nom (Bld/Tiss) F5 gene mutations found [Identifier] in Blood or Tissue by Molecular genetics method Abnormal . [facility] Comment on above: Result: c.1601G>A (p .[id number]) - Detected, HeterozygousThis result is associated with a 6- to 8-fold increased risk forvenous thromboembolism. See Additional Clinical Information andComments.Additional Clinical Information:Venous thromboembolism is a multifactorial diseaseinfluenced by genetic, environmental, and circumstantialrisk factors. The c.1601G>A (p. [id number]) variant in theF5 gene, commonly referred to as Factor V Leiden, is agenetic risk factor for venous thromboembolism.Heterozygous carriers of this variant have a 6- to 8-foldincreased risk for venous thromboembolism. Individualshomozygous for this variant (ie, with a copy of the varianton each chromosome) have an approximately 80-fold increasedrisk for venous thromboembolism. Individuals who carry tika c.*97G>A variant in the F2 gene and Factor V Leiden havean approximately 20-fold increased risk for venousthromboembolism. Risks are likely to be even higher in morecomplex genotype combinations involving the F2 c.*97G>Avariant and Factor V Leiden (PMID: [id number]). Additionalrisk factors include but are not limited to: deficiency ofprotein C, protein S, or antithrombin III, age, male sex,personal or family history of deep vein thromboembolism,smoking, surgery, prolonged immobilization, malignantneoplasm, tamoxifen treatment, raloxifene treatment, oralcontraceptive use, hormone replacement therapy, andpregnancy. Management of thrombotic risk and thromboticevents should follow established guidelines and fit theclinical circumstance. This result cannot predict theoccurrence or recurrence of a thrombotic event.Comment:Genetic counseling is recommended to discuss thepotential clinical implications of positive results, aswell as recommendations for testing family members.Genetic Coordinators are available for health careproviders to discuss results at [phone] ([phone]).Test Details:Variant Analyzed: c.1601G>A (p. [id number]), referred toas Factor V LeidenMethods/Limitations:DNA analysis of the F5 gene (NM_000130.5) was performedby PCR amplification followed by restriction enzymeanalysis. The diagnostic sensitivity is >99%. Results mustbe combined with clinical information for the most accurateinterpretation. Molecular-based testing is highly accurate,but as in any laboratory test, diagnostic errors may occur.False positive or false negative results may occur forreasons that include genetic variants, blood transfusions,bone marrow transplantation, somatic or tissue-specificmosaicism, mislabeled samples, or erroneous representationof family relationships.This test was developed and its performance characteristicsdetermined by [facility]. It has not been cleared orapproved by the Food and Drug Administration.References:Krunal S, Cherie TOLBERT, Chandana R, Monie WW, Uziel JH; ACMGProfessional Practice and Guidelines Committee. Addendum:[place] [employer] consensus statement onfactor V Leiden mutation testing. [employer] Med. 2020Jul 14.doi: 10.1038/c58050-066-66560-r. PMID: 28452222.Danielito TORRES. Factor V Leiden Thrombophilia. 1998September 22(Updated 2017May 15). In: Ellis MP, Panchito HH, Shiloh RA,et al., editors. [employer] Solutionsidris(R) (Internet). [place] ([place]):[facility]; 5438-3059. Availablefrom: https://www.ncbi.nlm.nih.gov/books/QNF5776/Nader S, Cherie TOLBERT, Hossein X, Zacarias B, Tamara EB, Magi P,Jay CS; ACMG Laboratory Logistics Research Engineer Committee.Venous thromboembolism laboratory testing (factor V Leidenand factor II c.*97G>A), 2018 update: a technical standardof the [place] [employer]). Jennifer Med. 2018 Apr;20(12):3998-1913. doi:10.1038/q62521-648-4887-h. Epub 2017Feb 13. PMID: 34506780. Calcium [Mass/volume] in Ser um or PlasmaOrdered By: Ramon Schwute on 07-01-2024 Calcium [Mass/Vol] Calcium [Mass/volume ] in Serum or Plasma 8.6-10.3 [facility] Carbon dioxide, total [Moles /volume] in Serum or PlasmaOrdered By: Ramon Schwerer on 07-01-2024 CO2 [Moles/Vol] Carbon dioxide, tota l [Moles/volume] in Serum or Plasma High 21.0-31.0 [facility] Chloride [Moles/volume] in S alicia or PlasmaOrdered By: Ramon Schwerer on 07-01-2024 Chloride [Moles/Vol] Chloride [Moles/vol ume] in Serum or Plasma 98-107 [facility] Cholesterol [Mass/volume] in Serum or PlasmaOrdered By: Ramon Chang on 07-01-2024 Cholesterol [Mass/Vol] Cholesterol [Mass/volume] in Serum or Plasma 140-200 [facility] Comment on above: Chol less than 200 m g/dl low riskChol 201-239 mg/dl borderline riskChol 240 mg/dl and greater high risk Cholesterol in HDL [Mass/vol ume] in Serum or PlasmaOrdered By: Ramon Chang on 07-01-2024 Cholesterol in HDL [Mass/Vol] Serum or plasma high density lipoprotein (HDL) cholesterol measurement 23- [facility] Comment on above: HDL CHOL ATP-III CLA SSIFICATION Cardiovascular RiskHDL > or equal to 60 mg/dL LOWHDL < 40 mg/dL HIGH Cholesterol in LDL Calc [Mas s/Vol]Ordered By: Ramon Chang on 07-01-2024 Cholesterol in LDL [Mass/Vol] Cholesterol in LDL [Mass/volume] in Serum or Plasma by calculation High 0-100 [facility] Comment on above: LDL ATP III CLASSIFI CATIONLDL less than 100 mg/dL OptimalLDL 100-129 mg/dL Near or above optimalLDL 130-159 mg/dL Borderline highLDL 160-189 mg/dL HighLDL greater than 189 mg/dL Very high Cholesterol in VLDL Calc [Ma ss/Vol]Ordered By: Ramon Chang on 07-01-2024 Cholesterol in VLDL [Mass/Vol] Cholesterol in VLDL [Mass/volume] in Serum or Plasma by calculation [facility] Complete Blood Count Auto Di ffon 07-01-2024 Basophils (Bld) [#/Vol] 0.0 10*3/uL Normal 0.0-0.2 [facility] Comment on above: Result Comment: PERF ORMED BY: [place] [address] PATHOLOGIST SAND MILL OPERATOR ROSS SAUL M.D. Performed By: #### T 4F, LIPID, CMP, TSH3, SCAN CBC #### [facility] [address] Basophils/100 WBC (Bld) 0.4 % Normal . [facility] Comment on above: Performed By: #### T 4F, LIPID, CMP, TSH3, SCAN CBC #### [address] Eosinophils (Bld) [#/Vol] 0.3 10*3/uL Normal 0.0-0.45 [facility] Comment on above: Performed By: #### T 4F, LIPID, CMP, TSH3, SCAN CBC #### [address] Eosinophils/100 WBC (Bld) 3.7 % Normal . [facility] Comment on above: Performed By: #### T 4F, LIPID, CMP, TSH3, SCAN CBC #### [address] Erythrocyte distribution width (RBC) [Ratio] 14.1 % Normal 11.9-15.3 [facility] Comment on above: Performed By: #### T 4F, LIPID, CMP, TSH3, SCAN CBC #### [address] Hematocrit (Bld) [Volume fraction] 39.2 % Normal 34.0-46.4 [facility] Comment on above: Performed By: #### T 4F, LIPID, CMP, TSH3, SCAN CBC #### [address] Hemoglobin (Bld) [Mass/Vol] 13.2 g/dL Normal 11.8-15.4 [facility] Comment on above: Performed By: #### T 4F, LIPID, CMP, TSH3, SCAN CBC #### [address] Lymphocytes (Bld) [#/Vol] 2.1 10*3/uL Normal 1.00-4.8 [facility] Comment on above: Performed By: #### T 4F, LIPID, CMP, TSH3, SCAN CBC #### [address] Lymphocytes/100 WBC (Bld) 26.3 % Normal . [facility] Comment on above: Performed By: #### T 4F, LIPID, CMP, TSH3, SCAN CBC #### [address] MCH (RBC) [Entitic mass] 29.8 pg Normal 24.7-34.3 [facility] Comment on above: Performed By: #### T 4F, LIPID, CMP, TSH3, SCAN CBC #### [address] MCV (RBC) [Entitic vol] 88.8 fL Normal 80-100 [facility] Comment on above: Performed By: #### T 4F, LIPID, CMP, TSH3, SCAN CBC #### [address] Mean Corpuscular HGB Conc 33.6 g/dL Normal 32.0-35.0 [facility] Comment on above: Performed By: #### T 4F, LIPID, CMP, TSH3, SCAN CBC #### [address] Monocytes (Bld) [#/Vol] 0.5 10*3/uL Normal 0.0-0.8 [facility] Comment on above: Performed By: #### T 4F, LIPID, CMP, TSH3, SCAN CBC #### [address] Monocytes/100 WBC (Bld) 6.4 % Normal . [facility] Comment on above: Performed By: #### T 4F, LIPID, CMP, TSH3, SCAN CBC #### [address] Neutrophils (Bld) [#/Vol] 5.0 10*3/uL Normal 1.8-7.7 [facility] Comment on above: Performed By: #### T 4F, LIPID, CMP, TSH3, SCAN CBC #### [address] Neutrophils/100 WBC (Bld) 63.2 % Normal . [facility] Comment on above: Performed By: #### T 4F, LIPID, CMP, TSH3, SCAN CBC #### [address] NRBC% 0.1 /100{WBC} Normal 0-0.5 [facility] Comment on above: Performed By: #### T 4F, LIPID, CMP, TSH3, SCAN CBC #### [address] Platelet mean volume (Bld) [Entitic vol] 9.0 fL Normal 6.3-10.[address] [facility] Comment on above: Performed By: #### T 4F, LIPID, CMP, TSH3, SCAN CBC #### [address] Platelets (Bld) [#/Vol] 311 10*3/uL Normal 150-450 [facility] Comment on above: Performed By: #### T 4F, LIPID, CMP, TSH3, SCAN CBC #### [address] RBC (Bld) [#/Vol] 4.42 10*6/uL Normal 3.60-5.00 [facility] Comment on above: Performed By: #### T 4F, LIPID, CMP, TSH3, SCAN CBC #### [address] WBC (Bld) [#/Vol] 7.9 10*3/uL Normal 3.8-11.6 [facility] Comment on above: Performed By: #### T 4F, LIPID, CMP, TSH3, SCAN CBC #### [address] Comprehensive Metabolic Pane rae 07-01-2024 Albumin [Mass/Vol] 3.9 g/dL Normal 3.5-5.7 [facility] Comment on above: Performed By: #### T 4F, LIPID, CMP, TSH3, SCAN CBC #### [address] Albumin/Globulin [Mass ratio] 1.7 {ratio} Normal [facility] Comment on above: Performed By: #### T 4F, LIPID, CMP, TSH3, SCAN CBC #### [facility] [address] [place] [address] ALP [Catalytic activity/Vol] 58 U/L Normal 34-104 [facility] Comment on above: Performed By: #### T 4F, LIPID, CMP, TSH3, SCAN CBC #### [address] ALT [Catalytic activity/Vol] 7 U/L Normal 7-52 [facility] Comment on above: Performed By: #### T 4F, LIPID, CMP, TSH3, SCAN CBC #### [address] Anion gap [Moles/Vol] 9.0 mmol/L Normal 6.0-15.0 [facility] Comment on above: Performed By: #### T 4F, LIPID, CMP, TSH3, SCAN CBC #### [address] AST [Catalytic activity/Vol] 12 U/L Low 13-39 [facility] Comment on above: Performed By: #### T 4F, LIPID, CMP, TSH3, SCAN CBC #### [place] [address] [place] Bilirubin [Mass/Vol] 0.4 mg/dL Normal 0.3-1.0 [facility] Comment on above: Performed By: #### T 4F, LIPID, CMP, TSH3, SCAN CBC #### [place] [address] [place] Calcium [Mass/Vol] 9.2 mg/dL Normal 8.6-10.3 [facility] Comment on above: Performed By: #### T 4F, LIPID, CMP, TSH3, SCAN CBC #### [facility] [address] [place] [address] [place] Chloride [Moles/Vol] 105 mmol/L Normal 98-107 [facility] Comment on above: Performed By: #### T 4F, LIPID, CMP, TSH3, SCAN CBC #### [facility] [address] [place] [address] [place] CO2 [Moles/Vol] 32.2 mmol/L High 21.0-31.0 [facility] Comment on above: Performed By: #### T 4F, LIPID, CMP, TSH3, SCAN CBC #### [address] Creatinine [Mass/Vol] 1.14 mg/dL Normal 0.60-1.20 [facility] Comment on above: Performed By: #### T 4F, LIPID, CMP, TSH3, SCAN CBC #### [address] Estimated GFR 51.788 mL/Min Normal [facility] Comment on above: Performed By: #### T 4F, LIPID, CMP, TSH3, SCAN CBC #### [address] Globulin (S) [Mass/Vol] 2.3 g/dL Normal [facility] Comment on above: Performed By: #### T 4F, LIPID, CMP, TSH3, SCAN CBC #### [address] Glucose [Mass/Vol] 74 mg/dL Normal 70-100 [facility] Comment on above: Result Comment: [facility] Glucose Reference Range is dependent on time and content of last meal. Glucose of more than 200 mg/dL in a nonstressed, ambulatory subject supports the diagnosis of Diabetes Mellitus. ADA recommended reference range Performed By: #### T 4F, LIPID, CMP, TSH3, SCAN CBC #### [address] Potassium [Moles/Vol] 4.2 mmol/L Normal 3.5-5.1 [facility] Comment on above: Performed By: #### T 4F, LIPID, CMP, TSH3, SCAN CBC #### [address] Protein [Mass/Vol] 6.2 g/dL Low 6.4-8.9 [facility] Comment on above: Performed By: #### T 4F, LIPID, CMP, TSH3, SCAN CBC #### [address] [address] [place] Sodium [Moles/Vol] 142 mmol/L Normal 136-145 [facility] Comment on above: Performed By: #### T 4F, LIPID, CMP, TSH3, SCAN CBC #### [facility] [address] Urea nitrogen [Mass/Vol] 12 mg/dL Normal 7-25 [facility] Comment on above: Performed By: #### T 4F, LIPID, CMP, TSH3, SCAN CBC #### [facility] [address] [place] [address] [place] Creatinine [Mass/volume] in Serum or PlasmaOrdered By: Ramon Chang on 07-01-2024 Creatinine [Mass/Vol] Creatinine [Mass/v olume] in Serum or Plasma 0.60-1.20 [facility] Eosinophils Auto (Bld) [#/Vo l]Ordered By: Ramon Chang on 07-01-2024 Eosinophils (Bld) [#/Vol] Automated eosinophil count 0.0-0.45 [facility] Eosinophils/100 WBC Auto (Bl d)Ordered By: Ramon Chang on 07-01-2024 Eosinophils/100 WBC (Bld) Automated eosinophil % . [facility] Erythrocyte distribution wid th Auto (RBC) [Ratio]Ordered By: Ramon Chang on 07-01-2024 Erythrocyte distribution width (RBC) [Ratio] Erythrocyte distribution width [Ratio] by Automated count 11.9-15.3 [facility] FE PROon 07-01-2024 % Iron Saturation 22.7 % Normal 20-50 [facility] Comment on above: Performed By: #### T 4F, LIPID, CMP, TSH3, SCAN CBC #### [facility] [address] [place] [address] [place] Ferritin [Mass/Vol] 123.4 ng/mL Normal 11.0-306.8 [facility] Comment on above: Performed By: #### T 4F, LIPID, CMP, TSH3, SCAN CBC #### [facility] [address] [place] [address] [place] Iron [Mass/Vol] 57 ug/dL Normal 50-212 [facility] Comment on above: Performed By: #### T 4F, LIPID, CMP, TSH3, SCAN CBC #### [facility] [address] [place] [id number] [facility] Total Iron Binding Capacity 251 ug/dL Low 255-450 [facility] Comment on above: Performed By: #### T 4F, LIPID, CMP, TSH3, SCAN CBC #### [facility] [address] [place] [id number] [facility] Transferrin [Mass/Vol] 179 mg/dL Low 203-362 [facility] Comment on above: Performed By: #### T 4F, LIPID, CMP, TSH3, SCAN CBC #### [facility] [address] [place] [id number] [facility] Factor V Leiden Mutationon 0 07-01-2024 Factor V Leiden Comment Critically abnormal . [facility] Comment on above: Result Comment: Resu lt: c.1601G>A ([id number]) - Detected, Heterozygous This result is associated with a 6- to 8-fold increased risk for venous thromboembolism. See Additional Clinical Information and Comments. Additional Clinical Information: Venous thromboembolism is a multifactorial disease influenced by genetic, environmental, and circumstantial risk factors. The c.1601G>A (p. [id number]) variant in the F5 gene, commonly referred to as Factor V Leiden, is a genetic risk factor for venous thromboembolism. Heterozygous carriers of this variant have a 6- to 8-fold increased risk for venous thromboembolism. Individuals homozygous for this variant (ie, with a copy of the variant on each chromosome) have an approximately 80-fold increased risk for venous thromboembolism. Individuals who carry both a c.*97G>A variant in the F2 gene and Factor V Leiden have an approximately 20-fold increased risk for venous thromboembolism. Risks are likely to be even higher in more complex genotype combinations involving the F2 c.*97G>A variant and Factor V Leiden (PMID: [id number]). Additional risk factors include but are not limited to: deficiency of protein C, protein S, or antithrombin III, age, male sex, personal or family history of deep vein thromboembolism, smoking, surgery, prolonged immobilization, malignant neoplasm, tamoxifen treatment, raloxifene treatment, oral contraceptive use, hormone replacement therapy, and . Management of thrombotic risk and thrombotic events should follow established guidelines and fit the clinical circumstance. This result cannot predict the occurrence or recurrence of a thrombotic event. Comment: Genetic counseling is recommended to discuss the potential clinical implications of positive results, as well as recommendations for testing family members. Genetic Coordinators are available for health care providers to discuss results at [phone] ([phone]). Test Details: Variant Analyzed: c.1601G>A (p. [id number]), referred to as Factor V Leiden Methods/Limitations: DNA analysis of the F5 gene (NM_000130.5) was performed by PCR amplification followed by restriction enzyme analysis. The diagnostic sensitivity is >99%. Results must be combined with clinical information for the most accurate interpretation. Molecular-based testing is highly accurate, but as in any laboratory test, diagnostic errors may occur. False positive or false negative results may occur for reasons that include genetic variants, blood transfusions, bone marrow transplantation, somatic or tissue-specific mosaicism, mislabeled samples, or erroneous representation of family relationships. This test was developed and its performance characteristics determined by [facility]. It has not been cleared or approved by the Food and Drug Administration. References: Krunal Godoy, Cherie TOLBERT, Chandana R, Monie WW, Uziel JH; ACMG Professional Practice and Guidelines Committee. Addendum: [place] [employer] consensus statement on factor V Leiden mutation testing. Jennifer Med. 2020Jul 14. doi: 10.1038/g23547-203-62703-i. PMID: 38038555. Danielito TORRES. Factor V Leiden Thrombophilia. 1998September 22 (Updated 2017May 15). In: Ellis MP, Panchito HH, Shiloh RA, et al., editors. Eve(R) (Internet). [place] ([place]): [facility], [place]; 6619-0120. Available from: https://www.ncbi.nlm.nih.gov/books/AFF1214/ Nader Godoy, Cherie TOLBERT, Hossein X, Zacarias B, Tamara EB, Magi P, Jay CS; [employer] Laboratory Logistics Research Engineer Committee. Venous thromboembolism laboratory testing (factor V Leiden and factor II c.*97G>A), 2018 update: a technical standard of the [place] [employer] and [employer]omics (ACMG). Jennifer Med. 2018 Apr;20(12):3768-4088. doi: 10.1038/[id number]-a. Epub 2017Feb 13. PMID: [id number]. Performed By: #### T 4F, LIPID, CMP, TSH3, SCAN CBC #### [facility] [address] Reviewed by: Comment Normal . [facility] Comment on above: Result Comment: Tech nical Component performed at [facility] Professional Component performed by: [employer] Julius Desir, Ph.D., [facility] Director, Molecular Genetics [id number] [place] [address] Performed at: - [email or web address] [address] [place], [place] [id number] [employer] Batch Mixer: Pascale Smith [facility], Phone: [phone] PERFORMED BY: [place] [address] PATHOLOGIST SAND MILL OPERATOR ROSS SAUL M.D. Performed By: #### T 4F, LIPID, CMP, TSH3, SCAN CBC #### [facility] [address] [place] [id number] [facility] Ferritin [Mass/volume] in Se rum or PlasmaOrdered By: Ramon Chang on 07-01-2024 Ferritin [Mass/Vol] Ferritin [Mass/volum e] in Serum or Plasma 11.0-306.8 [facility] Folate [Mass/volume] in Seru m or PlasmaOrdered By: Ramon Chang on 07-01-2024 Folate [Mass/Vol] Folate [Mass/volume] in Serum or Plasma >5.9 [facility] Comment on above: Folate reference ran ge: >5.9 ng/mlThe WHO technical consultation on folate and vitamin [id number] has determined that folate concentrations lessthan 4 ng/ml are considered deficient. Free T4 (Free Thyroxine)on 0 07-01-2024 Free T4 [Mass/Vol] 0.94 ng/dL Normal 0.61-1.12 [facility] Comment on above: Performed By: #### T 4F, LIPID, CMP, TSH3, SCAN CBC #### [facility] [address] Globulin Calc (S) [Mass/Vol] Ordered By: Ramon Chang on 07-01-2024 Globulin (S) [Mass/Vol] Serum globulin measurement by calculation (mass/volume) [facility] Glucose [Mass/volume] in Ser um or PlasmaOrdered By: Ramon Chang on 07-01-2024 Glucose [Mass/Vol] Glucose [Mass/volume ] in Serum or Plasma 70-100 [facility] Comment on above: ADA recommended refe rence rangeRandom Glucose Reference Range is dependent on time and content of last meal. Glucose of more than 200 mg/dL in a nonstressed, ambulatory subject supports the diagnosis of Diabetes Mellitus. Hematocrit Auto (Bld) [Volum e fraction]Ordered By: Ramon Chang on 07-01-2024 Hematocrit (Bld) [Volume fraction] Hematocrit [Volume Fraction] of Blood by Automated count 34.0-46.4 [facility] Hemoglobin [Mass/volume] in BloodOrdered By: Ramon Chang on 07-01-2024 Hemoglobin (Bld) [Mass/Vol] Hemoglobin [Mass/volume] in Blood 11.8-15.4 [facility] Iron [Mass/volume] in Serum or PlasmaOrdered By: Ramon Chang on 07-01-2024 Iron [Mass/Vol] Iron [Mass/volume] i n Serum or Plasma 50-212 [facility] Leukocytes [#/volume] correc brian for nucleated erythrocytes in Blood by Automated counOrdered By: Ramon Chang on 07-01-2024 WBC corrected for nucl RBC Auto (Bld) [#/Vol] Leukocytes [#/volume] corrected for nucleated erythrocytes in Blood by Automated coun 3.8-11.6 [facility] Lipid Panelon 07-01-2024 Cholesterol [Mass/Vol] 186 mg/dL Normal 140-200 [facility] Comment on above: Result Comment: Chol less than 200 mg/dl low risk Chol 201-239 mg/dl borderline risk Chol 240 mg/dl and greater high risk Performed By: #### T 4F, LIPID, CMP, TSH3, SCAN CBC #### [facility] [address] Cholesterol in HDL [Mass/Vol] 51 mg/dL Normal 23-92 [facility] Comment on above: Result Comment: HDL CHOL ATP-III CLASSIFICATION Cardiovascular Risk HDL > or equal to 60 mg/dL LOW HDL < 40 mg/dL HIGH Performed By: #### T 4F, LIPID, CMP, TSH3, SCAN CBC #### [facility] [address] Cholesterol.total/Cho lesterol in HDL [Mass ratio] 3.6 {ratio} Normal <5.0 [facility] Comment on above: Performed By: #### T 4F, LIPID, CMP, TSH3, SCAN CBC #### [facility] [address] LDL Cholesterol,Calculate d 116 mg/dL High 0-100 [facility] Comment on above: Result Comment: LDL ATP III CLASSIFICATION LDL less than 100 mg/dL Optimal LDL 100-129 mg/dL Near or above optimal LDL 130-159 mg/dL Borderline high LDL 160-189 mg/dL High LDL greater than 189 mg/dL Very high Performed By: #### T 4F, LIPID, CMP, TSH3, SCAN CBC #### [facility] [address] Triglyceride w/Reflex 95 mg/dL Normal 0-149 [facility] Comment on above: Result Comment: TRIG ATP III CLASSIFICATION TRIG less than 150 mg/dL Normal TRIG 150-199 mg/dL Borderline high TRIG 200-500 mg/dL High TRIG greater than 500 mg/dL Very high Standard traceable to the Center for Disease Conrtrol and Prevention (CDC) test method. Performed By: #### T 4F, LIPID, CMP, TSH3, SCAN CBC #### [facility] [address] VLDL CHOLESTEROL 19 mg/dL Normal [facility] Comment on above: Performed By: #### T 4F, LIPID, CMP, TSH3, SCAN CBC #### [facility] [address] [place] [address] [place] Lymphocytes Auto (Bld) [#/Vo l]Ordered By: Ramon Chang on 07-01-2024 Lymphocytes (Bld) [#/Vol] Lymphocytes [#/volume] in Blood by Automated count 1.00-4.8 [facility] Lymphocytes/100 WBC Auto (Bl d)Ordered By: Ramon Chang on 07-01-2024 Lymphocytes/100 WBC (Bld) Lymphocytes/100 leukocytes in Blood by Automated count . [facility] MCH Auto (RBC) [Entitic mass ]Ordered By: Ramon Chang on 07-01-2024 MCH (RBC) [Entitic mass] MCH [Entitic mass] by Automated count 24.7-34.3 [facility] MCHC Auto (RBC) [Mass/Vol]Or dered By: Ramon Chang on 07-01-2024 MCHC (RBC) [Mass/Vol] MCHC [Mass/volume] by Automated count 32.0-35.0 [facility] MCV Auto (RBC) [Entitic vol] Ordered By: Ramon Chang on 07-01-2024 MCV (RBC) [Entitic vol] MCV [Entitic volume] by Automated count 80-100 [facility] Monocytes Auto (Bld) [#/Vol] Ordered By: Ramon Chang on 07-01-2024 Monocytes (Bld) [#/Vol] Automated blood monocyte count 0.0-0.8 [facility] Monocytes/100 WBC Auto (Bld) Ordered By: Ramon Chang on 07-01-2024 Monocytes/100 WBC (Bld) Automated monocyte % . [facility] Neutrophils Auto (Bld) [#/Vo l]Ordered By: Ramon Chang on 07-01-2024 Neutrophils (Bld) [#/Vol] Neutrophils [#/volume] in Blood by Automated count 1.8-7.7 [facility] Neutrophils/100 WBC Auto (Bl d)Ordered By: Ramon Chang on 07-01-2024 Neutrophils/100 WBC (Bld) Automated neutrophil % . [facility] No Panel InformationOrdered By: Ramon Chang on 07-01-2024 Estimated GFR (CKD-EPI) 51.788 mL/Min [facility] Factor V Leiden Interpretation Comment . [facility] Comment on above: Technical Component performed at [facility] RTPProfessional Component performed by:[employer] [facility]. Libby Desir, Ph.D., FACMGDirector, Molecular [id number] [facility] [id number] at: TG - [facility] [id number] [facility], [place], [place] [id number] Director: Pascale Smith [facility], Phone: [phone] Pharmacy Creatinine Clearance (Chem N/A [facility] Nucleated erythrocytes [Pres ence] in Blood by Automated countOrdered By: Ramon Chang on 07-01-2024 Nucleated RBC Auto Ql (Bld) Nucleated erythrocytes [Presence] in Blood by Automated count 0-0.5 [facility] Platelet mean volume Auto (B ld) [Entitic vol]Ordered By: Ramon Chang on 07-01-2024 Platelet mean volume (Bld) [Entitic vol] Platelet mean volume [Entitic volume] in Blood by Automated count 6.3-10.7 [facility] Platelets Auto (Bld) [#/Vol] Ordered By: Ramon Chang on 07-01-2024 Platelets (Bld) [#/Vol] Platelets [#/volume] in Blood by Automated count 150-450 [facility] Potassium [Moles/volume] in Serum or PlasmaOrdered By: Ramon Chang on 07-01-2024 Potassium [Moles/Vol] Potassium [Moles/v olume] in Serum or Plasma 3.5-5.1 [facility] Protein [Mass/volume] in Ser um or PlasmaOrdered By: Ramon Chang on 07-01-2024 Protein [Mass/Vol] Protein [Mass/volume ] in Serum or Plasma Low 6.4-8.9 [facility] RBC Auto (Bld) [#/Vol]Ordere d By: Ramon Chang on 07-01-2024 RBC (Bld) [#/Vol] Erythrocytes [#/volu me] in Blood by Automated count 3.60-5.00 [facility] Serum or plasma albumin/glob ulin mass ratioOrdered By: Ramon Chang on 07-01-2024 Albumin/Globulin [Mass ratio] Serum or plasma albumin/globulin mass ratio [facility] Serum or plasma anion gap de terminationOrdered By: Ramon Chang on 07-01-2024 Anion gap [Moles/Vol] Serum or plasma an ion gap determination 6.0-15.0 [facility] Serum or plasma iron binding capacity measurement (mass/volume)Ordered By: Ramon Chang on 07-01-2024 Iron binding capacity [Mass/Vol] Iron binding capacity [Mass/volume] in Serum or Plasma Low 255-450 [facility] Serum or plasma iron saturat ion measurement (mass fraction)Ordered By: Ramon Chang on 07-01-2024 Iron saturation [Mass fraction] Iron saturation [Mass Fraction] in Serum or Plasma 20-50 [facility] Serum or plasma total choles terol/high density lipoprotein (HDL) cholesterol mass ratOrdered By: Ramon Chang on 07-01-2024 Cholesterol.total/Cho lesterol in HDL [Mass ratio] Serum or plasma total cholesterol/high density lipoprotein (HDL) cholesterol mass rat <5.0 [facility] Sodium [Moles/volume] in Ser um or PlasmaOrdered By: Ramon Chang on 07-01-2024 Sodium [Moles/Vol] Sodium [Moles/volume ] in Serum or Plasma 136-145 [facility] Thyroid Stimulating Hormoneo n 07-01-2024 TSH Qn 3.27 m[IU]/L Normal 0.45-5.[address] [facility] Comment on above: Performed By: #### T 4F, LIPID, CMP, TSH3, SCAN CBC #### [address] Thyrotropin [Units/volume] i n Serum or PlasmaOrdered By: Ramon Chang on 07-01-2024 TSH Qn Thyrotropin [Units/v olume] in Serum or Plasma 0.45-5.33 [facility] Thyroxine (T4) free [Mass/vo lume] in Serum or PlasmaOrdered By: Ramon Chang on 07-01-2024 Free T4 [Mass/Vol] Thyroxine (T4) free [Mass/volume] in Serum or Plasma 0.61-1.12 [facility] Transferrin [Mass/volume] in Serum or PlasmaOrdered By: Ramon Chang on 07-01-2024 Transferrin [Mass/Vol] Transferrin [Mass/volume] in Serum or Plasma Low 203-362 [facility] Triglyceride [Mass/volume] i n Serum or PlasmaOrdered By: Ramon Chang on 07-01-2024 Triglyceride [Mass/Vol] Triglyceride [Mass/volume] in Serum or Plasma 0-149 [facility] Comment on above: TRIG ATP III CLASSIF ICATIONTRIG less than 150 mg/dL NormalTRIG 150-199 mg/dL Borderline highTRIG 200-500 mg/dL High TRIG greater than 500 mg/dL Very highStandard traceable to the Center for Disease Conrtrol and Prevention (CDC) test method. Urea nitrogen [Mass/volume] in Serum or PlasmaOrdered By: Ramon Chang on 07-01-2024 Urea nitrogen [Mass/Vol] Urea nitrogen [Mass/volume] in Serum or Plasma 7-25 [facility] Vit. B12/Folate Profileon Cobalamin (Vitamin B12) [Mass/Vol] 892 pg/mL Normal 180-914 [facility] Comment on above: Performed By: #### T 4F, LIPID, CMP, TSH3, SCAN CBC #### [facility] [address] [id number] [facility] Folate 23.0 ng/mL Normal >5.9 [facility] Comment on above: Result Comment: Nel te reference range: >5.9 ng/ml The WHO technical consultation on folate and vitamin b12 deficiencies has determined that folate concentrations less than 4 ng/ml are considered deficient. Performed By: #### T 4F, LIPID, CMP, TSH3, SCAN CBC #### [facility] [address] [id number] [place] Vitamin B12 ser/plasOrdered By: Ramon Chang on 07-01-2024 Cobalamin (Vitamin B12) [Mass/Vol] Vitamin B12 ser/plas 180-914 [facility] Vitamin D 25 Hydroxy Totalon 07-01-2024 Vitamin D 25 Hydroxy Total 74.0 ng/mL Normal 30-100 [facility] Comment on above: Result Comment: RYAN MIN D STATUS 25(OH)VITAMIN D RANGE (ng/mL) Deficient <20 Insufficient 20 to <30 Sufficient 30 to 100 Reference: Je Cervantes, Shital CASTRO, et al. Evaluation,treatment, and prevention of vitamin D deficiency; an Endocrine Society clinical practice guideline. JCEM. 2010; 96(7):191-. PERFORMED BY: [place] [address] PATHOLOGIST [employer] M[employer] OPERATOR ROSS SAUL M.D. Performed By: #### T 4F, LIPID, CMP, TSH3, SCAN CBC #### [facility] [address] Vitamin D+Metabolites [Mass/ volume] in Serum or PlasmaOrdered By: Ramon Chang on 07-01-2024 Vitamin D+Metabolites [Mass/Vol] Vitamin D+Metabolites [Mass/volume] in Serum or Plasma 30-100 [facility] Comment on above: VITAMIN D STATUS 25( [place])VITAMIN D RANGE (ng/mL) Deficient <20 Insufficient 20 to <30Sufficient 30 to 100Reference: Je Cervantes, Shital CASTRO, et al. Evaluation,treatment, and prevention of vitamin D deficiency; an Endocrine Society clinical practice guideline. JCEM. 2010; 96(7):191-. WBC Auto (Bld) [#/Vol]Ordere d By: Ramon Chang on 07-01-2024 WBC (Bld) [#/Vol] Leukocytes [#/volume ] in Blood by Automated count 3.8-11.6 [facility] Alanine aminotransferase [En zymatic activity/volume] in Serum or PlasmaOrdered By: Ramon Chang on 09-03-2023 ALT [Catalytic activity/Vol] 11 U/L Normal 7-52 [facility] Comment on above: Performed By: #### T 4F, LIPID, CMP, TSH3, SCAN CBC #### [facility] [address] [id number] [place] Albumin [Mass/volume] in Ser um or Plasma by Bromocresol green (BCG) dye binding methoOrdered By: Ramon Chang on 09-03-2023 Albumin BCG dye [Mass/Vol] 4.1 g/dL 3.5-5.7 [facility] Alkaline phosphatase [Enzyma tic activity/volume] in Serum or PlasmaOrdered By: Ramon Chang on 09-03-2023 ALP [Catalytic activity/Vol] 66 U/L Normal 34-104 [facility] Comment on above: Performed By: #### T 4F, LIPID, CMP, TSH3, SCAN CBC #### [facility] [address] [place] [address] Aspartate aminotransferase [ Enzymatic activity/volume] in Serum or PlasmaOrdered By: Ramon Chang on 09-03-2023 AST [Catalytic activity/Vol] 16 U/L Normal 13-39 [facility] Comment on above: Performed By: #### T 4F, LIPID, CMP, TSH3, SCAN CBC #### [facility] [address] [place] [address] Automated basophil %Ordered By: Ramon Chang on 09-03-2023 Basophils/100 WBC (Bld) 0.9 % Normal . [facility] Comment on above: Performed By: #### T 4F, LIPID, CMP, TSH3, SCAN CBC #### [facility] [address] [place] [address] Automated basophil countOrde red By: Ramon Chang on 09-03-2023 Basophils (Bld) [#/Vol] 0.1 10*3/uL Normal 0.0-0.2 [facility] Comment on above: Performed By: #### T 4F, LIPID, CMP, TSH3, SCAN CBC #### [facility] [address] [place] [address] Automated blood monocyte cou ntOrdered By: Ramon Chang on 09-03-2023 Monocytes (Bld) [#/Vol] 0.8 10*3/uL Normal 0.0-0.8 [facility] Comment on above: Performed By: #### T 4F, LIPID, CMP, TSH3, SCAN CBC #### [facility] [address] Automated eosinophil %Ordere d By: Ramon Chang on 09-03-2023 Eosinophils/100 WBC (Bld) 4.1 % Normal . [facility] Comment on above: Performed By: #### T 4F, LIPID, CMP, TSH3, SCAN CBC #### [facility] [address] Automated eosinophil countOr dered By: Ramon Chang on 09-03-2023 Eosinophils (Bld) [#/Vol] 0.3 10*3/uL Normal 0.0-0.45 [facility] Comment on above: Performed By: #### T 4F, LIPID, CMP, TSH3, SCAN CBC #### [address] Automated erythrocytes count in urine sediment (number/area)Ordered By: Park Porterr on 09-03-2023 RBC Auto (Urine sed) [#/Area] 1-2 [HPF] 0-4 [facility] Automated leukocytes count i n urine sediment (number/area)Ordered By: Park Harringtondir on 09-03-2023 WBC Auto (Urine sed) [#/Area] 5-9 [HPF] 0-4 [facility] Automated monocyte %Ordered By: Ramon Mirandar on 09-03-2023 Monocytes/100 WBC (Bld) 9.1 % Normal . [facility] Comment on above: Performed By: #### T 4F, LIPID, CMP, TSH3, SCAN CBC #### [facility] [address] Automated neutrophil %Ordere d By: Ramon Mirandar on 09-03-2023 Neutrophils/100 WBC (Bld) 61.4 % Normal . [facility] Comment on above: Performed By: #### T 4F, LIPID, CMP, TSH3, SCAN CBC #### [address] Automated urine color determ inationOrdered By: Park Porterr on 09-03-2023 Color (U) Dark yellow Critically abnormal Yellow [facility] Comment on above: Order Comment: Reaso n for Exam Chronic kidney disease, stage 3 unspecified;Jah hy kid w cr Name Collection Type:: Clean-Voided Midstream Performed By: #### A DDONUAPLUS, CUU #### [facility] [address] Bilirubin Test strip Ql (U)O rdered By: Park Morgan on 09-03-2023 Bilirubin Ql (U) Negative Negative [facility] Bilirubin.total [Mass/volume ] in Serum or PlasmaOrdered By: Ramon Schwerer on 09-03-2023 Bilirubin [Mass/Vol] 0.4 mg/dL Normal 0.3-1.0 [facility] Comment on above: Performed By: #### T 4F, LIPID, CMP, TSH3, SCAN CBC #### [place] [address] [place] Calcium [Mass/volume] in Ser um or PlasmaOrdered By: Ramon Schwerer on 09-03-2023 Calcium [Mass/Vol] 9.9 mg/dL Normal 8.6-10.3 [facility] Comment on above: Performed By: #### T 4F, LIPID, CMP, TSH3, SCAN CBC #### [place] [address] [place] Carbon dioxide, total [Moles /volume] in Serum or PlasmaOrdered By: Ramon Schwerer on 09-03-2023 CO2 [Moles/Vol] 30.9 mmol/L Normal 21.0-31.[address] [facility] Comment on above: Performed By: #### T 4F, LIPID, CMP, TSH3, SCAN CBC #### [facility] [address] [place] [address] [place] Chloride [Moles/volume] in S alicia or PlasmaOrdered By: Ramon Schwerer on 09-03-2023 Chloride [Moles/Vol] 103 mmol/L Normal 98-107 [facility] Comment on above: Performed By: #### T 4F, LIPID, CMP, TSH3, SCAN CBC #### [facility] [address] [place] [address] [place] Cholesterol [Mass/volume] in Serum or PlasmaOrdered By: Ramon Chang on 09-03-2023 Cholesterol [Mass/Vol] 230 mg/dL High 140-200 [facility] Comment on above: Chol less than 200 m g/dl low riskChol 201-239 mg/dl borderline riskChol 240 mg/dl and greater high risk Result Comment: Chol less than 200 mg/dl low risk Chol 201-239 mg/dl borderline risk Chol 240 mg/dl and greater high risk Performed By: #### T 4F, LIPID, CMP, TSH3, SCAN CBC #### [facility] [address] [place] [address] [place] Cholesterol in LDL Calc [Mas s/Vol]Ordered By: Ramon Chang on 09-03-2023 Cholesterol in LDL [Mass/Vol] 146 mg/dL 0-100 [facility] Comment on above: LDL ATP III CLASSIFI CATIONLDL less than 100 mg/dL OptimalLDL 100-129 mg/dL Near or above optimalLDL 130-159 mg/dL Borderline highLDL 160-189 mg/dL HighLDL greater than 189 mg/dL Very high Cholesterol in VLDL Calc [Ma ss/Vol]Ordered By: Ramon Chang on 09-03-2023 Cholesterol in VLDL [Mass/Vol] 29 mg/dL [facility] Comprehensive Metabolic Pane rae 09-03-2023 Albumin [Mass/Vol] 4.1 g/dL Normal 3.5-5.7 [facility] Comment on above: Performed By: #### T 4F, LIPID, CMP, TSH3, SCAN CBC #### [facility] [address] [place] [address] [place] GFR/1.73 sq M.predicted MDRD (S/P/Bld) [Vol rate/Area] 52.665 mL/min/{1.73_m2} Normal [facility] Comment on above: Performed By: #### T 4F, LIPID, CMP, TSH3, SCAN CBC #### [facility] [address] [place] [address] [place] Creatinine [Mass/volume] in Serum or PlasmaOrdered By: Ramon Chang on 09-03-2023 Creatinine [Mass/Vol] 1.13 mg/dL Normal 0.60-1.20 [facility] Comment on above: Performed By: #### T 4F, LIPID, CMP, TSH3, SCAN CBC #### [facility] [address] [place] [address] [place] Creatinine [Mass/volume] in UrineOrdered By: Park Morgan on 09-03-2023 Creatinine (U) [Mass/Vol] 256.0 mg/dL [facility] Comment on above: No reference range e stablished Dipstick and Microscopicon 0 09-03-2023 Appearance (U) Cloudy Critically abnormal Clear [facility] Comment on above: Order Comment: Reaso n for Exam Chronic kidney disease, stage 3 unspecified;Jah hy kid w cr Name Collection Type:: Clean-Voided Midstream Performed By: #### A DDONUAPLUS, CUU #### [facility] [address] [place] [address] [place] Bacteria,Urine None Seen Normal None Seen [facility] Comment on above: Order Comment: Reaso n for Exam Chronic kidney disease, stage 3 unspecified;Jah hy kid w cr Name Collection Type:: Clean-Voided Midstream Performed By: #### A DDONUAPLUS, CUU #### [place] [address] [place] Bilirubin,Urine Negative Normal Negative [facility] Comment on above: Order Comment: Reaso n for Exam Chronic kidney disease, stage 3 unspecified;Jah hy kid w cr Name Collection Type:: Clean-Voided Midstream Performed By: #### A DDONUAPLUS, CUU #### [facility] [address] [place] [id number] [place] Glucose Ql (U) Normal Normal Normal [facility] Comment on above: Order Comment: Reaso n for Exam Chronic kidney disease, stage 3 unspecified;Jah hy kid w cr Name Collection Type:: Clean-Voided Midstream Performed By: #### A DDONUAPLUS, CUU #### [facility] [address] [id number] [place] Hyaline Casts,Urine 0-8 Normal 0-8 [facility] Comment on above: Order Comment: Reaso n for Exam Chronic kidney disease, stage 3 unspecified;Jah hy kid w cr Name Collection Type:: Clean-Voided Midstream Result Comment: PERF ORMED BY: [place] [address] PATHOLOGIST S[employer] M[employer] OPERATOR ADELA NARVAEZ M.D. Performed By: #### A DDONUAPLUS, CUU #### [place] [address] [place] Ketones Ql (U) Trace High Negative [facility] Comment on above: Order Comment: Reaso n for Exam Chronic kidney disease, stage 3 unspecified;Jah hy kid w cr Name Collection Type:: Clean-Voided Midstream Performed By: #### A DDONUAPLUS, CUU #### [place] [address] [place] Leukocyte esterase Test strip Ql (U) 1+ High Negative [facility] Comment on above: Order Comment: Reaso n for Exam Chronic kidney disease, stage 3 unspecified;Jah hy kid w cr Name Collection Type:: Clean-Voided Midstream Performed By: #### A DDONUAPLUS, CUU #### [place] [address] [place] Nitrite,Urine Negative Normal Negative [facility] Comment on above: Order Comment: Reaso n for Exam Chronic kidney disease, stage 3 unspecified;Jah hy kid w cr Name Collection Type:: Clean-Voided Midstream Performed By: #### A DDONUAPLUS, CUU #### [place] [id number] [place] Occult Blood,Urine Negative Normal Negative [facility] Comment on above: Order Comment: Reaso n for Exam Chronic kidney disease, stage 3 unspecified;Jah hy kid w cr Name Collection Type:: Clean-Voided Midstream Performed By: #### A DDONUAPLUS, CUU #### [address] [address] [place] Protein,Urine Trace High Negative [facility] Comment on above: Order Comment: Reaso n for Exam Chronic kidney disease, stage 3 unspecified;Jah hy kid w cr Name Collection Type:: Clean-Voided Midstream Performed By: #### A DDONUAPLUS, CUU #### [place] [address] [place] RBC,Urine 1-2 Normal 0-4 [facility] Comment on above: Order Comment: Reaso n for Exam Chronic kidney disease, stage 3 unspecified;Jah hy kid w cr Name Collection Type:: Clean-Voided Midstream Performed By: #### A DDONUAPLUS, CUU #### [address] Specificy [place],Urine 1.027 Normal 1.001-1.03 0 [facility] Comment on above: Order Comment: Reaso n for Exam Chronic kidney disease, stage 3 unspecified;Jah hy kid w cr Name Collection Type:: Clean-Voided Midstream Performed By: #### A DDONUAPLUS, CUU #### [place] [address] [place] Squamous Epithelial Cell,Urine 5-9 High 0-2 [facility] Comment on above: Order Comment: Reaso n for Exam Chronic kidney disease, stage 3 unspecified;Jah hy kid w cr Name Collection Type:: Clean-Voided Midstream Performed By: #### A DDONUAPLUS, CUU #### [place] [address] [place] Urobilinogen,Urine Normal Normal Normal [facility] Comment on above: Order Comment: Reaso n for Exam Chronic kidney disease, stage 3 unspecified;Jah hy kid w cr Name Collection Type:: Clean-Voided Midstream Performed By: #### A DDONUAPLUS, CUU #### [place] [id number] [place] WBC,Urine 5-9 High 0-4 [facility] Comment on above: Order Comment: Reaso n for Exam Chronic kidney disease, stage 3 unspecified;Jah hy kid w cr Name Collection Type:: Clean-Voided Midstream Performed By: #### A DDONUAPLUS, CUU #### [facility] [address] Erythrocyte distribution wid th [Ratio] by Automated countOrdered By: Ramon Chang on 09-03-2023 Erythrocyte distribution width (RBC) [Ratio] 14.4 % Normal 11.9-15.3 [facility] Comment on above: Performed By: #### T 4F, LIPID, CMP, TSH3, SCAN CBC #### [facility] [address] Erythrocytes [#/volume] in B lood by Automated countOrdered By: Ramon Chang on 09-03-2023 RBC (Bld) [#/Vol] 5.07 10*6/uL High 3.60-5.00 [facility] Comment on above: Performed By: #### T 4F, LIPID, CMP, TSH3, SCAN CBC #### [address] Glucose [Mass/volume] in Ser um or PlasmaOrdered By: Ramon Chang on 09-03-2023 Glucose [Mass/Vol] 71 mg/dL Normal 70-100 [facility] Comment on above: ADA recommended refe rence rangeRandom Glucose Reference Range is dependent on time and content of last meal. Glucose of more than 200 mg/dL in a nonstressed, ambulatory subject supports the diagnosis of Diabetes Mellitus. Result Comment: [place] om Glucose Reference Range is dependent on time and content of last meal. Glucose of more than 200 mg/dL in a nonstressed, ambulatory subject supports the diagnosis of Diabetes Mellitus. ADA recommended reference range Performed By: #### T 4F, LIPID, CMP, TSH3, SCAN CBC #### [facility] [address] [place] [address] [place] Hematocrit [Volume Fraction] of Blood by Automated countOrdered By: Ramon Chang on 09-03-2023 Hematocrit (Bld) [Volume fraction] 45.2 % Normal 34.0-46.4 [facility] Comment on above: Performed By: #### T 4F, LIPID, CMP, TSH3, SCAN CBC #### [facility] [address] Hemoglobin [Mass/volume] in BloodOrdered By: Ramon Chang on 09-03-2023 Hemoglobin (Bld) [Mass/Vol] 14.8 g/dL Normal 11.8-15.4 [facility] Comment on above: Performed By: #### T 4F, LIPID, CMP, TSH3, SCAN CBC #### [facility] [address] Ketones Auto test strip (U) [Mass/Vol]Ordered By: Park Morgan on 09-03-2023 Ketones (U) [Mass/Vol] Trace Negative [facility] Laboratory - UrinalysisOrder ed By: aPrk Morgan on 09-03-2023 Hyaline casts LM Ql (Urine sed) 0-8 [LPF] 0-8 [facility] Leukocytes [#/volume] correc brian for nucleated erythrocytes in Blood by Automated counOrdered By: Ramon Chang on 09-03-2023 WBC corrected for nucl RBC Auto (Bld) [#/Vol] 8.3 10*3/uL 3.8-11.6 [facility] Leukocytes [#/volume] in Blo od by Automated countOrdered By: Ramon Chang on 09-03-2023 WBC (Bld) [#/Vol] 8.3 10*3/uL Normal 3.8-11.6 [facility] Comment on above: Performed By: #### T 4F, LIPID, CMP, TSH3, SCAN CBC #### [facility] [address] Lipid Panelon 09-03-2023 LDL Cholesterol,Calculate d 146 mg/dL High 0-100 [facility] Comment on above: Result Comment: LDL ATP III CLASSIFICATION LDL less than 100 mg/dL Optimal LDL 100-129 mg/dL Near or above optimal LDL 130-159 mg/dL Borderline high LDL 160-189 mg/dL High LDL greater than 189 mg/dL Very high Performed By: #### T 4F, LIPID, CMP, TSH3, SCAN CBC #### [facility] [address] Triglyceride w/Reflex 147 mg/dL Normal 0-149 [facility] Comment on above: Result Comment: TRIG ATP III CLASSIFICATION TRIG less than 150 mg/dL Normal TRIG 150-199 mg/dL Borderline high TRIG 200-500 mg/dL High TRIG greater than 500 mg/dL Very high Standard traceable to the Center for Disease Conrtrol and Prevention (CDC) test method. Performed By: #### T 4F, LIPID, CMP, TSH3, SCAN CBC #### [address] VLDL CHOLESTEROL 29 mg/dL Normal [facility] Comment on above: Performed By: #### T 4F, LIPID, CMP, TSH3, SCAN CBC #### [address] Lymphocytes [#/volume] in Bl ood by Automated countOrdered By: Ramon Chang on 09-03-2023 Lymphocytes (Bld) [#/Vol] 2.0 10*3/uL Normal 1.00-4.8 [facility] Comment on above: Performed By: #### T 4F, LIPID, CMP, TSH3, SCAN CBC #### [address] Lymphocytes/100 leukocytes i n Blood by Automated countOrdered By: Ramon Chang on 09-03-2023 Lymphocytes/100 WBC (Bld) 24.5 % Normal . [facility] Comment on above: Performed By: #### T 4F, LIPID, CMP, TSH3, SCAN CBC #### [place] [address] [place] MCH [Entitic mass] by Automa brian countOrdered By: Ramon Chang on 09-03-2023 MCH (RBC) [Entitic mass] 29.2 pg Normal 24.7-34.3 [facility] Comment on above: Performed By: #### T 4F, LIPID, CMP, TSH3, SCAN CBC #### [address] MCHC Auto (RBC) [Mass/Vol]Or dered By: Ramon Chang on 09-03-2023 MCHC (RBC) [Mass/Vol] 32.7 g/dL 32.0-35.0 [facility] MCV [Entitic volume] by Auto mated countOrdered By: Ramon Chang on 09-03-2023 MCV (RBC) [Entitic vol] 89.2 fL Normal 80-100 [facility] Comment on above: Performed By: #### T 4F, LIPID, CMP, TSH3, SCAN CBC #### [facility] [address] Magnesium [Mass/volume] in S alicia or PlasmaOrdered By: Park Morgan on 09-03-2023 Magnesium [Mass/Vol] 1.5 mg/dL Low 1.9-2.7 [facility] Comment on above: Order Comment: Bret n for Exam Chronic kidney disease, stage 3 unspecified;Jah spaulding kid w cr Performed By: #### M G, [id number], URIC #### [facility] [address] Neutrophils [#/volume] in Bl ood by Automated countOrdered By: Ramon Chang on 09-03-2023 Neutrophils (Bld) [#/Vol] 5.1 10*3/uL Normal 1.8-7.7 [facility] Comment on above: Performed By: #### T 4F, LIPID, CMP, TSH3, SCAN CBC #### [facility] [address] Nitrite Test strip Ql (U)Ord ered By: Park Morgan on 09-03-2023 Nitrite Ql (U) Negative Negative [facility] No Panel InformationOrdered By: Ramon Chang on 09-03-2023 Estimated GFR (CKD-EPI) 52.665 mL/Min [facility] Creatinine Clearance (Chem N/A [facility] Nucleated erythrocytes [Pres ence] in Blood by Automated countOrdered By: Ramon Chang on 09-03-2023 Nucleated RBC Auto Ql (Bld) 0.1 /100{WBC} 0-0.5 [facility] Parathyrin.intact [Mass/volu me] in Serum or PlasmaOrdered By: Park Morgan on 09-03-2023 Parathyrin.intact [Mass/Vol] 63.0 pg/mL [facility] Parathyroid Hormone Intacton 09-03-2023 Parathyroid Hormone Intact 63.0 pg/mL Normal [facility] Comment on above: Order Comment: Reaso n for Exam Chronic kidney disease, stage 3 unspecified;Jah hy kid w cr Result Comment: PERF ORMED BY: [place] [address] PATHOLOGIST [employer] M[employer] OPERATOR ADELA NARVAEZ M.D. Performed By: #### P TH #### [facility] [address] [place] [address] Platelet adequacy [Presence] in Blood by Light microscopyOrdered By: Ramon Chang on 09-03-2023 Platelets LM Ql (Bld) Normal Normal [facility] Platelet mean volume [Entiti c volume] in Blood by Automated countOrdered By: Ramon Chang on 09-03-2023 Platelet mean volume (Bld) [Entitic vol] 9.8 fL Normal 6.3-10.7 [facility] Comment on above: Performed By: #### T 4F, LIPID, CMP, TSH3, SCAN CBC #### [facility] [address] [place] [address] Platelet morphology finding [Identifier] in BloodOrdered By: Ramon Chang on 09-03-2023 Platelet morphology finding Nom (Bld) N/A [facility] Platelets Large [Presence] i n Blood by Light microscopyOrdered By: Ramon Chang on 09-03-2023 Platelets Large LM Ql (Bld) Slight [facility] Platelets [#/volume] in Bloo d by Automated countOrdered By: Ramon Chang on 09-03-2023 Platelets (Bld) [#/Vol] 328 10*3/uL Normal 150-450 [facility] Comment on above: Performed By: #### T 4F, LIPID, CMP, TSH3, SCAN CBC #### [facility] [address] [place] [address] [place] Potassium [Moles/volume] in Serum or PlasmaOrdered By: Ramon Schwerer on 09-03-2023 Potassium [Moles/Vol] 4.4 mmol/L Normal 3.5-5.1 [facility] Comment on above: Performed By: #### T 4F, LIPID, CMP, TSH3, SCAN CBC #### [facility] [address] Protein Auto test strip (U) [Mass/Vol]Ordered By: Park Eddie on 09-03-2023 Protein (U) [Mass/Vol] Trace mg/dL Negative [facility] Protein Creat Ratio Ur Rando mon 09-03-2023 Creatinine, Urine (Random) 256.0 mg/dL Normal [facility] Comment on above: Order Comment: Reaso n for Exam Chronic kidney disease, stage 3 unspecified;Jah hy kid w cr Result Comment: No r eference range established Performed By: #### P ROCRERAT #### [address] Urine Protein/Creatinine Ratio 74 mg/g{Cre} Normal 0-200 [facility] Comment on above: Order Comment: Reaso n for Exam Chronic kidney disease, stage 3 unspecified;Jah hy kid w cr Result Comment: PERF ORMED BY: [place] [address] PATHOLOGIST [employer]AND MILL OPERATOR ADELA NARVAEZ M.D. Performed By: #### P ROCRERAT #### [facility] [address] [place] [address] [place] Protein [Mass/volume] in Ser um or PlasmaOrdered By: Ramon Schwerer on 09-03-2023 Protein [Mass/Vol] 6.7 g/dL Normal 6.4-8.9 [facility] Comment on above: Performed By: #### T 4F, LIPID, CMP, TSH3, SCAN CBC #### [facility] [address] [place] [address] [place] Protein [Mass/volume] in Uri neOrdered By: Park Eddie on 09-03-2023 Protein (U) [Mass/Vol] 19 mg/dL High 0-9 [facility] Comment on above: Order Comment: Reaso n for Exam Chronic kidney disease, stage 3 unspecified;Jah hy kid w cr Performed By: #### P HILTON #### [address] RBC morphologyOrdered By: Sugey Chang on 09-03-2023 RBC morphology finding Nom (Bld) Normal Normal Normal [facility] Comment on above: Performed By: #### T 4F, LIPID, CMP, TSH3, SCAN CBC #### [address] Scan and CBCon 09-03-2023 Large Platelets Slight Normal [facility] Comment on above: Result Comment: PERF ORMED BY: [place] [address] PATHOLOGIST SAND MILL OPERATOR ADELA NARVAEZ M.D. Performed By: #### T 4F, LIPID, CMP, TSH3, SCAN CBC #### [address] Mean Corpuscular HGB Conc 32.7 g/dL Normal 32.0-35.0 [facility] Comment on above: Performed By: #### T 4F, LIPID, CMP, TSH3, SCAN CBC #### [address] NRBC% 0.1 /100{WBC} Normal 0-0.5 [facility] Comment on above: Performed By: #### T 4F, LIPID, CMP, TSH3, SCAN CBC #### [address] Platelet Estimate Normal Normal Normal [facility] Comment on above: Performed By: #### T 4F, LIPID, CMP, TSH3, SCAN CBC #### [address] Serum globulin measurement b y calculation (mass/volume)Ordered By: Ramon Chang on 09-03-2023 Globulin (S) [Mass/Vol] 2.6 g/dL Normal [facility] Comment on above: Performed By: #### T 4F, LIPID, CMP, TSH3, SCAN CBC #### [facility] [address] Serum or plasma albumin/glob ulin mass ratioOrdered By: Ramon Chang on 09-03-2023 Albumin/Globulin [Mass ratio] 1.6 {ratio} Normal [facility] Comment on above: Performed By: #### T 4F, LIPID, CMP, TSH3, SCAN CBC #### [facility] [address] Serum or plasma anion gap de terminationOrdered By: Ramon Chang on 09-03-2023 Anion gap [Moles/Vol] 12.5 mmol/L Normal 6.0-15.0 [facility] Comment on above: Performed By: #### T 4F, LIPID, CMP, TSH3, SCAN CBC #### [facility] [address] [place] [address] Serum or plasma high density lipoprotein (HDL) cholesterol measurementOrdered By: Ramon Chang on 09-03-2023 Cholesterol in HDL [Mass/Vol] 55 mg/dL Normal 23-92 [facility] Comment on above: HDL CHOL ATP-III CLA SSIFICATION Cardiovascular RiskHDL > or equal to 60 mg/dL LOWHDL < 40 mg/dL HIGH Result Comment: HDL CHOL ATP-III CLASSIFICATION Cardiovascular Risk HDL > or equal to 60 mg/dL LOW HDL < 40 mg/dL HIGH Performed By: #### T 4F, LIPID, CMP, TSH3, SCAN CBC #### [facility] [address] [place] [address] Serum or plasma total choles terol/high density lipoprotein (HDL) cholesterol mass ratOrdered By: Ramon Chang on 09-03-2023 Cholesterol.total/Cho lesterol in HDL [Mass ratio] 4.2 {ratio} Normal <5.0 [facility] Comment on above: Performed By: #### T 4F, LIPID, CMP, TSH3, SCAN CBC #### [facility] [address] [place] [address] Sodium [Moles/volume] in Ser um or PlasmaOrdered By: Ramon Chang on 09-03-2023 Sodium [Moles/Vol] 142 mmol/L Normal 136-145 [facility] Comment on above: Performed By: #### T 4F, LIPID, CMP, TSH3, SCAN CBC #### [facility] [address] Specific gravity Auto test s trip (U) [Rel density]Ordered By: Park Morgan on 09-03-2023 Specific gravity (U) [Rel density] 1.027 1.001-1.03 0 [facility] Squamous epithelial cells de tection in urine sediment by light microscopyOrdered By: Park Morgan on 09-03-2023 Epithelial cells.squamous LM Ql (Urine sed) 5-9 [HPF] 0-2 [facility] Thyrotropin [Units/volume] i n Serum or PlasmaOrdered By: Ramon Chang on 09-03-2023 TSH Qn 2.00 m[IU]/L Normal 0.45-5.33 [facility] Comment on above: Result Comment: PERF ORMED BY: [place] [address] PATHOLOGIST SAND MILL OPERATOR ADELA NARVAEZ M.D. Performed By: #### T 4F, LIPID, CMP, TSH3, SCAN CBC #### [facility] [address] Thyroxine (T4) free [Mass/vo lume] in Serum or PlasmaOrdered By: Ramon Chang on 09-03-2023 Free T4 [Mass/Vol] 0.92 ng/dL Normal 0.61-1.12 [facility] Comment on above: Performed By: #### T 4F, LIPID, CMP, TSH3, SCAN CBC #### [facility] [address] [place] [address] [place] Triglyceride [Mass/volume] i n Serum or PlasmaOrdered By: Ramon Chang on 09-03-2023 Triglyceride [Mass/Vol] 147 mg/dL 0-149 [facility] Comment on above: TRIG ATP III CLASSIF ICATIONTRIG less than 150 mg/dL NormalTRIG 150-199 mg/dL Borderline highTRIG 200-500 mg/dL High TRIG greater than 500 mg/dL Very highStandard traceable to the Center for Disease Conrtrol and Prevention (CDC) test method. Urate [Mass/volume] in Serum or PlasmaOrdered By: Park Morgan on 09-03-2023 Urate [Mass/Vol] 4.2 mg/dL Normal 2.3-6.[address] [facility] Comment on above: Order Comment: Reaso n for Exam Chronic kidney disease, stage 3 unspecified;Jah hy kid w cr Performed By: #### T 4F, LIPID, CMP, TSH3, SCAN CBC #### [facility] [address] [place] [address] Urea nitrogen [Mass/volume] in Serum or PlasmaOrdered By: Ramon Chang on 09-03-2023 Urea nitrogen [Mass/Vol] 13 mg/dL Normal 7-25 [facility] Comment on above: Performed By: #### T 4F, LIPID, CMP, TSH3, SCAN CBC #### [facility] [address] [place] [address] Urine Cultureon 09-03-2023 Bacteria identified Cx Nom (U) 40,000 colonies/ml mixed bacterial skin contaminants 2 Days PERFORMED BY: [place] [address] PATHOLOGIST SAND MILL OPERATOR ADELA NARVAEZ M.D. Normal [facility] Comment on above: Performed By: #### A DDONUAPLUS, CUU #### [facility] [address] [place] [address] Urine bacteria detection by automated methodOrdered By: Park Morgan on 09-03-2023 Bacteria Auto Ql (U) None seen None Seen [facility] Urine clarity by refractomet ry automatedOrdered By: Park Morgan on 09-03-2023 Clarity Refractometry automated (U) Cloudy Clear [facility] Urine culture routineOrdered By: Park Morgan on 09-03-2023 Bacteria identified Cx Nom (U) 2 Days [facility] Urine glucose measurement by automated test strip (mass/volume)Ordered By: Park Morgan on 09-03-2023 Glucose Auto test strip (U) [Mass/Vol] Normal mg/dL Normal [facility] Urine hemoglobin detection b y automated test stripOrdered By: Park Morgan on 09-03-2023 Hemoglobin Auto test strip Ql (U) Negative Negative [facility] Urine leukocyte esterase det ection by automated test stripOrdered By: Park Morgan on 09-03-2023 Leukocyte esterase Auto test strip Ql (U) 1+ Negative [facility] Urine pH measurement by auto mated test stripOrdered By: Park Morgan on 09-03-2023 pH (U) 5.5 [pH] Normal 5.0-9.0 [facility] Comment on above: Order Comment: Bret gallardo for Exam Chronic kidney disease, stage 3 unspecified;Jah portillo cr Name Collection Type:: Clean-Voided Midstream Performed By: #### A DDONUAPLUS, CUU #### [facility] [address] Urine protein/creatinine rat ioOrdered By: Park Morgan on 09-03-2023 Protein/Creatinine (U) [Ratio] 74 mg/g{Cre} 0-200 [facility] Urobilinogen Auto test strip (U) [Mass/Vol]Ordered By: Park Morgan on 09-03-2023 Urobilinogen (U) [Mass/Vol] Normal mg/dL Normal [facility] Vitamin D 25 Hydroxy Totalon 09-03-2023 Vitamin D 25 Hydroxy Total 72.8 ng/mL Normal 30-100 [facility] Comment on above: Order Comment: Bret n for Exam Chronic kidney disease, stage 3 unspecified;Jah smith w cr Result Comment: RYAN MIN D STATUS 25(OH)VITAMIN D RANGE (ng/mL) Deficient <20 Insufficient 20 to <30 Sufficient 30 to 100 Reference: Samia MF,Je NC, Shital CASTRO, et al. Evaluation,treatment, and prevention of vitamin D deficiency; an Endocrine Society clinical practice guideline. JCEM. 2010; 96(7):1911-30. PERFORMED BY: [facility] [address] [place] [address] PATHOLOGIST SAND MILL OPERATOR ADELA NARVAEZ M.D. Performed By: #### T 4F, LIPID, CMP, TSH3, SCAN CBC #### [facility] [address] Vitamin D+Metabolites [Mass/ volume] in Serum or PlasmaOrdered By: Park Morgan on 09-03-2023 Vitamin D+Metabolites [Mass/Vol] 72.8 ng/mL 30-100 [facility] Comment on above: VITAMIN D STATUS 25( [place])VITAMIN D RANGE (ng/mL) Deficient <20 Insufficient 20 to <30Sufficient 30 to 100Reference: Samia MF,Je NC, Shital CASTRO, et al. Evaluation,treatment, and prevention of vitamin D deficiency; an Endocrine Society clinical practice guideline. JCEM. 2010; 96(7):1911-30. COVID/FLU/RSV RT-PCRon 05-29 SARS-CoV-2 (COVID-19) RNA CHEY+probe Ql (Unsp spec) Negative [place] Other COVID/FLU/RSV RT-PCR Positive [facility] Other COVID/FLU/RSV RT-PCR Negative [facility] Other Albumin [Mass/volume] in Ser um or Plasma by Bromocresol green (BCG) dye binding methoOrdered By: Park Morgan on 10-04-2022 Albumin BCG dye [Mass/Vol] 4.1 g/dL 3.5-5.7 [facility] Automated erythrocytes count in urine sediment (number/area)Ordered By: Park Morgan on 10-04-2022 RBC Auto (Urine sed) [#/Area] 0-1 [HPF] 0-4 [facility] Automated leukocytes count i n urine sediment (number/area)Ordered By: Park Morgan on 10-04-2022 WBC Auto (Urine sed) [#/Area] 3-4 [HPF] 0-4 [facility] Bilirubin Auto test strip Ql (U)Ordered By: Park Morgan on 10-04-2022 Bilirubin Ql (U) Negative Negative [facility] Calcium [Mass/volume] in Ser um or PlasmaOrdered By: Park Morgan on 10-04-2022 Calcium [Mass/Vol] 9.4 mg/dL 8.6-10.3 [facility] Carbon dioxide, total [Moles /volume] in Serum or PlasmaOrdered By: Prak Morgan on 10-04-2022 CO2 [Moles/Vol] 29.1 mmol/L 21.0-31.[address] [facility] Chloride [Moles/volume] in S alicia or PlasmaOrdered By: Park Morgan on 10-04-2022 Chloride [Moles/Vol] 103 mmol/L 98-107 [facility] Creatinine [Mass/volume] in Serum or PlasmaOrdered By: Park Morgan on 10-04-2022 Creatinine [Mass/Vol] 1.17 mg/dL 0.60-1.20 [facility] Creatinine [Mass/volume] in UrineOrdered By: Park Morgan on 10-04-2022 Creatinine (U) [Mass/Vol] 113.0 mg/dL 11.0-20.0 [facility] Erythrocyte distribution wid th Auto (RBC) [Ratio]Ordered By: Park Morgan on 10-04-2022 Erythrocyte distribution width (RBC) [Ratio] 13.5 % 11.9-15.3 [facility] Ferritin [Mass/volume] in Se rum or PlasmaOrdered By: Park Morgan on 10-04-2022 Ferritin [Mass/Vol] 58.4 ng/mL 11.0-306.8 [facility] Glucose [Mass/volume] in Ser um or PlasmaOrdered By: Park Morgan on 10-04-2022 Glucose [Mass/Vol] 91 mg/dL 70-100 [facility] Comment on above: ADA recommended refe rence rangeRandom Glucose Reference Range is dependent on time and content of last meal. Glucose of more than 200 mg/dL in a nonstressed, ambulatory subject supports the diagnosis of Diabetes Mellitus. Hematocrit Auto (Bld) [Volum e fraction]Ordered By: Park Morgan on 10-04-2022 Hematocrit (Bld) [Volume fraction] 40.4 % 34.0-46.4 [facility] Hemoglobin [Mass/volume] in BloodOrdered By: Park Morgan on 10-04-2022 Hemoglobin (Bld) [Mass/Vol] 13.4 g/dL 11.8-15.4 [facility] Iron [Mass/volume] in Serum or PlasmaOrdered By: Park Morgan on 10-04-2022 Iron [Mass/Vol] 115 ug/dL 50-212 [facility] Iron binding capacity [Mass/ volume] in Serum or PlasmaOrdered By: Park Porterr on 10-04-2022 Iron binding capacity [Mass/Vol] 302 ug/dL 255-450 [facility] Iron saturation [Mass Fracti on] in Serum or PlasmaOrdered By: Park Morgan on 10-04-2022 Iron saturation [Mass fraction] 38.1 % 20-50 [facility] Ketones Auto test strip (U) [Mass/Vol]Ordered By: Park Morgan on 10-04-2022 Ketones (U) [Mass/Vol] Negative Negative [facility] Leukocytes [#/volume] correc brian for nucleated erythrocytes in Blood by Automated counOrdered By: Park Morgan on 10-04-2022 WBC corrected for nucl RBC Auto (Bld) [#/Vol] 6.8 10*3/uL 3.8-11.6 [facility] MCH Auto (RBC) [Entitic mass ]Ordered By: Park Morgan on 10-04-2022 MCH (RBC) [Entitic mass] 28.9 pg 24.7-34.3 [facility] MCHC Auto (RBC) [Mass/Vol]Or dered By: Park Morgan on 10-04-2022 MCHC (RBC) [Mass/Vol] 33.1 g/dL 32.0-35.0 [facility] MCV Auto (RBC) [Entitic vol] Ordered By: Park Morgan on 10-04-2022 MCV (RBC) [Entitic vol] 87.3 fL 80-100 [facility] Magnesium [Mass/volume] in S alicia or PlasmaOrdered By: Park Morgan on 10-04-2022 Magnesium [Mass/Vol] 1.5 mg/dL 1.9-2.7 [facility] No Panel InformationOrdered By: Park Morgan on 10-04-2022 Estimated GFR (CKD-EPI) 50.828 mL/Min [facility] Creatinine Clearance (Chem N/A [facility] Parathyrin.intact [Mass/volu me] in Serum or PlasmaOrdered By: Park Morgan on 10-04-2022 Parathyrin.intact [Mass/Vol] 73.3 pg/mL 1288 [facility] Phosphate [Mass/volume] in S alicia or PlasmaOrdered By: Park Morgan on 10-04-2022 Phosphate [Mass/Vol] 3.5 mg/dL 3.7-7.2 [facility] Platelet mean volume Auto (B ld) [Entitic vol]Ordered By: Park Morgan on 10-04-2022 Platelet mean volume (Bld) [Entitic vol] 9.0 fL 6.3-10.7 [facility] Platelets Auto (Bld) [#/Vol] Ordered By: Park Morgan on 10-04-2022 Platelets (Bld) [#/Vol] 302 10*3/uL 150-450 [facility] Potassium [Moles/volume] in Serum or PlasmaOrdered By: Park Morgan on 10-04-2022 Potassium [Moles/Vol] 4.4 mmol/L 3.5-5.1 [facility] Protein Auto test strip (U) [Mass/Vol]Ordered By: Park Morgan on 10-04-2022 Protein (U) [Mass/Vol] Negative Negative [facility] Protein [Mass/volume] in Uri neOrdered By: Park Morgan on 10-04-2022 Protein (U) [Mass/Vol] 8 mg/dL 0-9 [facility] RBC Auto (Bld) [#/Vol]Ordere d By: Park Morgan on 10-04-2022 RBC (Bld) [#/Vol] 4.63 10*6/uL 3.60-5.00 [facility] Serum or plasma anion gap de terminationOrdered By: Park Morgan on 10-04-2022 Anion gap [Moles/Vol] 12.3 mmol/L 6.0-15.0 [facility] Sodium [Moles/volume] in Ser um or PlasmaOrdered By: Park Morgan on 10-04-2022 Sodium [Moles/Vol] 140 mmol/L 136-145 [facility] Squamous epithelial cells de tection in urine sediment by light microscopyOrdered By: Park Morgan on 10-04-2022 Epithelial cells.squamous LM Ql (Urine sed) None seen [HPF] 0-2 [facility] Transferrin [Mass/volume] in Serum or PlasmaOrdered By: Park Morgan on 10-04-2022 Transferrin [Mass/Vol] 216 mg/dL 203-362 [facility] Urate [Mass/volume] in Serum or PlasmaOrdered By: Park Morgan on 10-04-2022 Urate [Mass/Vol] 4.4 mg/dL 2.3-6.[address] [facility] Urea nitrogen [Mass/volume] in Serum or PlasmaOrdered By: Park Morgan on 10-04-2022 Urea nitrogen [Mass/Vol] 19 mg/dL 7-25 [facility] Urine appearanceOrdered By: Park Morgan on 10-04-2022 Appearance (U) Clear Clear [facility] Urine bacteria detection by automated methodOrdered By: Park Morgan on 10-04-2022 Bacteria Auto Ql (U) 1+ None Seen [facility] Urine colorOrdered By: Park Morgan on 10-04-2022 Color (U) Yellow Yellow [facility] Urine glucose measurement by automated test strip (mass/volume)Ordered By: Park Morgan on 10-04-2022 Glucose Auto test strip (U) [Mass/Vol] Normal mg/dL Normal [facility] Urine hemoglobin detection b y automated test stripOrdered By: Park Morgan on 10-04-2022 Hemoglobin Auto test strip Ql (U) Negative Negative [facility] Urine leukocyte esterase det ection by automated test stripOrdered By: Park Morgan on 10-04-2022 Leukocyte esterase Auto test strip Ql (U) 1+ Negative [facility] Urine nitrite detection by a utomated test stripOrdered By: Park Morgan on 10-04-2022 Nitrite Auto test strip Ql (U) Negative Negative [facility] Urine protein/creatinine rat ioOrdered By: Park Morgan on 10-04-2022 Protein/Creatinine (U) [Ratio] 71 mg/g{Cre} 0-200 [facility] Urobilinogen Auto test strip (U) [Mass/Vol]Ordered By: Park Morgan on 10-04-2022 Urobilinogen (U) [Mass/Vol] Normal mg/dL Normal [facility] Vitamin D+Metabolites [Mass/ volume] in Serum or PlasmaOrdered By: Park Morgan on 10-04-2022 Vitamin D+Metabolites [Mass/Vol] 55.0 ng/mL 30-100 [facility] Comment on above: VITAMIN D STATUS 25( [place])VITAMIN D RANGE (ng/mL) Deficient <20 Insufficient 20 to <30Sufficient 30 to 100Reference: Samia CARDONA,Je ALFARO, Shital CASTRO, et al. Evaluation,treatment, and prevention of vitamin D deficiency; an Endocrine Society clinical practice guideline. JCEM. 2010; 96(7):1911-30. pH Auto test strip (U)Ordere d By: Park Morgan on 10-04-2022 pH (U) 1.025 [pH] 1.001-1.03 0 [facility] pH (U) 5.5 [pH] 5.0-9.0 [facility] Cholesterol [Mass/volume] in Serum or PlasmaOrdered By: Ramon Chang on 09-03-2022 Cholesterol [Mass/Vol] 180 mg/dL 140-200 [facility] Comment on above: Chol less than 200 m g/dl low riskChol 201-239 mg/dl borderline riskChol 240 mg/dl and greater high risk Cholesterol in LDL Calc [Mas s/Vol]Ordered By: Ramon Chang on 09-03-2022 Cholesterol in LDL [Mass/Vol] 87 mg/dL 0-100 [facility] Comment on above: LDL ATP III CLASSIFI CATIONLDL less than 100 mg/dL OptimalLDL 100-129 mg/dL Near or above optimalLDL 130-159 mg/dL Borderline highLDL 160-189 mg/dL HighLDL greater than 189 mg/dL Very high Cholesterol in VLDL Calc [Ma ss/Vol]Ordered By: Ramon Chang on 09-03-2022 Cholesterol in VLDL [Mass/Vol] 15 mg/dL [facility] Folate [Mass/volume] in Seru m or PlasmaOrdered By: Ramon Chang on 09-03-2022 Folate [Mass/Vol] 30.0 ng/mL >5.9 [facility] Comment on above: Folate reference ran ge: >5.9 ng/mlThe WHO technical consultation on folate and vitamin [id number] has determined that folate concentrations lessthan 4 ng/ml are considered deficient. Serum or plasma high density lipoprotein (HDL) cholesterol measurementOrdered By: Ramon Chang on 09-03-2022 Cholesterol in HDL [Mass/Vol] 78 mg/dL 35-85 [facility] Comment on above: HDL CHOL ATP-III CLA SSIFICATION Cardiovascular RiskHDL > or equal to 60 mg/dL LOWHDL < 40 mg/dL HIGH Serum or plasma total choles terol/high density lipoprotein (HDL) cholesterol mass ratOrdered By: Ramon Chang on 09-03-2022 Cholesterol.total/Cho lesterol in HDL [Mass ratio] 2.3 {ratio} <5.0 [facility] Triglyceride [Mass/volume] i n Serum or PlasmaOrdered By: Ramon Chang on 09-03-2022 Triglyceride [Mass/Vol] 77 mg/dL 0-149 [facility] Comment on above: TRIG ATP III CLASSIF ICATIONTRIG less than 150 mg/dL NormalTRIG 150-199 mg/dL Borderline highTRIG 200-500 mg/dL High TRIG greater than 500 mg/dL Very highStandard traceable to the Center for Disease Conrtrol and Prevention (CDC) test method. Vitamin B12 ser/plasOrdered By: Ramon Chang on 09-03-2022 Cobalamin (Vitamin B12) [Mass/Vol] 768 pg/mL 180-914 [facility] Albumin [Mass/volume] in Ser um or PlasmaOrdered By: Maty Rodas on 03-18-2022 Albumin [Mass/Vol] 3.6 g/dL 3.2-5.5 [facility] Creatinine and Glomerular fi ltration rate.predicted panel (S/P/Bld)Ordered By: Maty Rodas on 03-18-2022 Creatinine [Mass/Vol] 1.17 mg/dL 0.44-1.03 [facility] Estimated glomerular filtrat ion rate (GFR) non- AmericanOrdered By: Maty Rodas on 03-18-2022 GFR/1.73 sq M.predicted among non-blacks MDRD (S/P/Bld) [Vol rate/Area] 46 mL/Min [facility] Globulin Calc (S) [Mass/Vol] Ordered By: Maty Rodas on 03-18-2022 Globulin (S) [Mass/Vol] 2.8 g/dL [facility] No Panel InformationOrdered By: Maty Rodas on 03-18-2022 Estimated GFR () 56 mL/Min [facility] Comment on above: GFR estimated refere nce range: According to KDOQI guidelines, <60 ml/min/1.73m2 is sufficient to diagnose a patient with chronic kidney disease. Pharmacy Creatinine Clearance (Chem N/A [facility] Protein [Mass/volume] in Ser um or PlasmaOrdered By: Maty Rodas on 03-18-2022 Protein [Mass/Vol] 6.4 g/dL 6.1-7.9 [facility] Serum or plasma alanine jameson otransferase measurement without P-5'-P (enzymatic activiOrdered By: Maty Rodas on 03-18-2022 ALT No additional P-5'-P [Catalytic activity/Vol] 15 U/L 10-60 [facility] Serum or plasma albumin/glob ulin mass ratioOrdered By: Maty Rodas on 03-18-2022 Albumin/Globulin [Mass ratio] 1.3 {ratio} [facility] Serum or plasma alkaline oli sphatase measurement (enzymatic activity/volume)Ordered By: Maty Rodas on 03-18-2022 ALP [Catalytic activity/Vol] 72 U/L 32-92 [facility] Serum or plasma anion gap de terminationOrdered By: Maty Rodas on 03-18-2022 Anion gap [Moles/Vol] 12.1 mmol/L 6.0-15.0 [facility] Serum or plasma aspartate am inotransferase measurement (enzymatic activity/volume)Ordered By: Maty Rodas on 03-18-2022 AST [Catalytic activity/Vol] 16 U/L 10-42 [facility] Serum or plasma calcium renato urement (mass/volume)Ordered By: Maty Rodas on 03-18-2022 Calcium [Mass/Vol] 8.9 mg/dL 8.2-10.2 [facility] [facility] Serum or plasma chloride raisa surement (moles/volume)Ordered By: Maty Rodas on 03-18-2022 Chloride [Moles/Vol] 107 mmol/L 95-114 [facility] Serum or plasma glucose renato urement (mass/volume)Ordered By: Maty Rodas on 03-18-2022 Glucose [Mass/Vol] 76 mg/dL 70-100 [facility] Comment on above: ADA recommended refe rence rangeRandom Glucose Reference Range is dependent on time and content of last meal. Glucose of more than 200 mg/dL in a nonstressed, ambulatory subject supports the diagnosis of Diabetes Mellitus. Serum or plasma potassium me asurement (moles/volume)Ordered By: Maty Rodas on 03-18-2022 Potassium [Moles/Vol] 3.8 mmol/L 3.5-5.1 [facility] Serum or plasma sodium measu rement (moles/volume)Ordered By: Maty Rodas on 03-18-2022 Sodium [Moles/Vol] 139 mmol/L 136-146 [facility] Serum or plasma total biliru bin measurement (mass/volume)Ordered By: Maty Rodas on 03-18-2022 Bilirubin [Mass/Vol] 0.3 mg/dL 0.3-1.2 [facility] Serum or plasma total carbon dioxide measurement (moles/volume)Ordered By: Maty Rodas on 03-18-2022 CO2 [Moles/Vol] 23.7 mmol/L 22.0-30.[address] [facility] Serum or plasma urea nitroge n measurement (mass/volume)Ordered By: Maty Rodas on 03-18-2022 Urea nitrogen [Mass/Vol] 19 mg/dL 9 [facility] Clostridioides difficile tox in B tcdB gene [Presence] in Stool by CHEY with probe deteOrdered By: Ramon Chang on 01-08-2022 C. difficile toxin B tcdB gene CHEY+probe Ql (Stl) Negative Negative [facility] Comment on above: Testing performed by RT-PCR Detection in stool of any of Campylobacter coli, Campylobacter jejuni, and CampylobacOrdered By: Ramon Chang on 01-08-2022 C. coli+jejuni+upsaliens is DNA CHEY+non-probe Ql (Stl) Not detected Not Detected [facility] Detection in stool of any of Vibrio cholerae, Vibrio parahaemolyticus, and Vibrio vulOrdered By: Ramon Chang on 01-08-2022 V. cholerae+parahaemolyt icus+vulnificus DNA CHEY+non-probe Ql (Stl) Not detected Not Detected [facility] Detection in stool of either or both Clostridium difficile toxin A and B genes by tarOrdered By: Ramon Chang on 01-08-2022 C. difficile toxin A+B tcdA+tcdB genes CHEY+non-probe Ql (Stl) Not detected Not Detected [facility] Detection in stool of either or both Salmonella enterica and Salmonella bongori DNA bOrdered By: Ramon Chang on 01-08-2022 S. enterica+bongori DNA CHEY+non-probe Ql (Stl) Not detected Not Detected [facility] Detection in stool of either or both enteroaggregative Escherichia coli Julio plasmid aOrdered By: Ramon Chang on 01-08-2022 E. coli enteroaggregative Julio plasmid aggR+aatA genes CHEY+non-probe Ql (Stl) Not detected Not Detected [facility] Escherichia coli O157 DNA [P resence] in Stool by CHEY with non-probe detectionOrdered By: Ramon Chang on 01-08-2022 E. coli O157 DNA CHEY+non-probe Ql (Stl) Not applicable Not Detected [facility] Escherichia coli Stx1 and St x2 toxin stx1+stx2 genes [Presence] in Stool by CHEY withOrdered By: Ramon Chang on 01-08-2022 E. coli stx1+stx2 genes CHEY+non-probe Ql (Stl) Not detected Not Detected [facility] Escherichia coli enteropatho genic eae gene [Presence] in Stool by CHEY with non-probeOrdered By: Ramon Chang on 01-08-2022 E. coli enteropathogenic eae gene CHEY+non-probe Ql (Stl) Not detected Not Detected [facility] Escherichia coli enterotoxig enic ltA+st1a+st1b genes [Presence] in Stool by CHEY withOrdered By: Ramon Chang on 01-08-2022 E. coli enterotoxigenic ltA+st1a+st1b genes CHEY+non-probe Ql (Stl) Not detected Not Detected [facility] Lactoferrin, Stool WBCon Lactoferrin, Stool WBC [facility] [employer] Other No Panel InformationOrdered By: Ramon Chang on 01-08-2022 Adenovirus Types 40, 41 Not detected Not Detected [facility] Stool Astrovirus (PCR) Not detected Not Detected [facility] Stool Cryptosporidium PCR Not detected Not Detected [facility] Stool Cyclospora cayetanensis (PCR) Not detected Not Detected [facility] Stool Entamoeba histolytica (PCR) Not detected Not Detected [facility] Stool Giardia Lamblia PCR Not detected Not Detected [facility] Stool Norovirus GI/GII PCR Not detected Not Detected [facility] Stool Rotavirus (PCR) Not detected Not Detected [facility] Stool Sapovirus (PCR) Not detected Not Detected [facility] Comment on above: Performed at: [facility] [address] [id number] [employer] Batch Mixer: Ernie Dawson MD, Phone: [phone] Performed at: [facility] [address] [id number] Director: Ernie Dawson MD, Phone: [phone] Shigella species+EIEC invasi on plasmid antigen H ipaH gene [Presence] in Stool by NAAOrdered By: Ramon Chang on 01-08-2022 Shigella species+EIEC invasion plasmid antigen H ipaH gene CHEY+non-probe Ql (Stl) Not detected Not Detected [facility] Stool Plesiomonas shigelloid es DNA detection by non-probe and target amplification meOrdered By: Ramon Chang on 01-08-2022 P. shigelloides DNA CHEY+non-probe Ql (Stl) Not detected Not Detected [facility] Vibrio cholerae DNA [Presenc e] in Stool by CHEY with non-probe detectionOrdered By: Ramon Chang on 01-08-2022 V. cholerae DNA CHEY+non-probe Ql (Stl) Not detected Not Detected [facility] Yersinia enterocolitica DNA [Presence] in Stool by CHEY with non-probe detectionOrdered By: Ramon Chang on 01-08-2022 Y. enterocolitica DNA CHEY+non-probe Ql (Stl) Not detected Not Detected [facility] Body fluid albumin measureme nt (mass/volume)Ordered By: Ramon Chang on 12-21-2021 Albumin (Body fld) [Mass/Vol] 3.4 g/dL 3.2-5.5 [facility] Creatinine and Glomerular fi ltration rate.predicted panel (S/P/Bld)Ordered By: Ramon Chang on 12-21-2021 Creatinine [Mass/Vol] 0.97 mg/dL 0.44-1.03 [facility] Estimated glomerular filtrat ion rate (GFR) non- AmericanOrdered By: Ramon Chang on 12-21-2021 GFR/1.73 sq M.predicted among non-blacks MDRD (S/P/Bld) [Vol rate/Area] 57 mL/Min [facility] Globulin Calc (S) [Mass/Vol] Ordered By: Ramon Chang on 12-21-2021 Globulin (S) [Mass/Vol] 2.8 g/dL [facility] No Panel InformationOrdered By: Ramon Chang on 12-21-2021 Estimated GFR () > 60 mL/Min [facility] Comment on above: GFR estimated refere nce range: According to KDOQI guidelines, <60 ml/min/1.73m2 is sufficient to diagnose a patient with chronic kidney disease. Pharmacy Creatinine Clearance (Chem N/A [facility] Protein [Mass/volume] in Ser um or PlasmaOrdered By: Ramon Chang on 12-21-2021 Protein [Mass/Vol] 6.2 g/dL 6.1-7.9 [facility] Serum or plasma alanine jameson otransferase measurement without P-5'-P (enzymatic activiOrdered By: Ramon Chang on 12-21-2021 ALT No additional P-5'-P [Catalytic activity/Vol] 19 U/L 10-60 [facility] Serum or plasma albumin/glob ulin mass ratioOrdered By: Ramon Chang on 12-21-2021 Albumin/Globulin [Mass ratio] 1.2 {ratio} [facility] Serum or plasma alkaline oli sphatase measurement (enzymatic activity/volume)Ordered By: Ramon Chang on 12-21-2021 ALP [Catalytic activity/Vol] 133 U/L 32-92 [facility] Serum or plasma aspartate am inotransferase measurement (enzymatic activity/volume)Ordered By: Ramon Chang on 12-21-2021 AST [Catalytic activity/Vol] 18 U/L 10-42 [facility] Serum or plasma calcium renato urement (mass/volume)Ordered By: Ramon Chang on 12-21-2021 Calcium [Mass/Vol] 9.5 mg/dL 8.2-10.2 [facility] Serum or plasma chloride raisa surement (moles/volume)Ordered By: Ramon Chang on 12-21-2021 Chloride [Moles/Vol] 101 mmol/L 95-114 [facility] Serum or plasma glucose renato urement (mass/volume)Ordered By: Ramon Chang on 12-21-2021 Glucose [Mass/Vol] 92 mg/dL 70-100 [facility] Comment on above: ADA recommended refe rence range Random Glucose Reference Range is dependent on time and content of last meal. Glucose of more than 200 mg/dL in a nonstressed, ambulatory subject supports the diagnosis of Diabetes Mellitus. Serum or plasma potassium me asurement (moles/volume)Ordered By: Ramon Chang on 12-21-2021 Potassium [Moles/Vol] 4.1 mmol/L 3.5-5.1 [facility] Serum or plasma sodium measu rement (moles/volume)Ordered By: Ramon Chang on 12-21-2021 Sodium [Moles/Vol] 139 mmol/L 136-146 [facility] Serum or plasma total biliru bin measurement (mass/volume)Ordered By: Ramon Chang on 12-21-2021 Bilirubin [Mass/Vol] 0.5 mg/dL 0.3-1.2 [facility] Serum or plasma total carbon dioxide measurement (moles/volume)Ordered By: Ramon Chang on 12-21-2021 CO2 [Moles/Vol] 25.7 mmol/L 22.0-30.[address] [facility] Serum or plasma urea nitroge n measurement (mass/volume)Ordered By: Ramon Chang on 12-21-2021 Urea nitrogen [Mass/Vol] 11 mg/dL 9-23 [facility] No Panel InformationOrdered By: Ramon Chang on 12-18-2021 Ova and Parasite Result 1 [facility] Albumin [Mass/volume] in Ser um or PlasmaOrdered By: Ramon Chang on 12-13-2021 Albumin [Mass/Vol] 3.8 g/dL 3.2-5.5 [facility] Amylaseon 12-13-2021 Amylase 26 U/L Low 28-100 U/L [facility] Other Basophils Auto (Bld) [#/Vol] Ordered By: Ramon Chang on 12-13-2021 Basophils (Bld) [#/Vol] 0.1 10*3/uL 0.0-0.2 [facility] Basophils/100 WBC Auto (Bld) Ordered By: Ramon Chang on 12-13-2021 Basophils/100 WBC (Bld) 0.5 % . [facility] Blood hemoglobin measurement (mass/volume)Ordered By: Ramon Chang on 12-13-2021 Hemoglobin (Bld) [Mass/Vol] 12.5 g/dL 11.8-15.4 [facility] Blood leukocytes automated c ount (number/volume)Ordered By: Ramon Chang on 12-13-2021 WBC (Bld) [#/Vol] 10.6 10*3/uL 4.5-11.0 [facility] Clostridioides difficile tox in B tcdB gene [Presence] in Stool by CHEY with probe deteOrdered By: Ramon Chang on 12-13-2021 C. difficile toxin B tcdB gene CHEY+probe Ql (Stl) Positive Negative [facility] Comment on above: Testing performed by RT-PCR Clostridium Difficileon Clostridium Difficile [place] [facility] Other Complete Blood Count Auto Di ffon 12-13-2021 Basophils (Bld) [#/Vol] 0.072209007 10*3/uL Normal 0.0-0.2 10*3/uL [facility] Other Basophils/100 WBC (Bld) 0.500 % . % [facility] Other Eosinophils (Bld) [#/Vol] 0.250784889 10*3/uL Normal 0.0-0.45 10*3/uL [facility] Other Eosinophils/100 WBC (Bld) 3.200 % . % [facility] Other Erythrocyte distribution width (RBC) [Ratio] 13.500 % Normal 11.9-15.3 % [facility] Other Hematocrit (Bld) [Volume fraction] 38.500 % Normal 34.0-46.4 % [facility] Other Hemoglobin (Bld) [Mass/Vol] 12.175958 g/dL Normal 11.8-15.4 g/dL [facility] Other Lymphocytes (Bld) [#/Vol] 1.877182539 10*3/uL Normal 1.00-4.8 10*3/uL [facility] Other Lymphocytes/100 WBC (Bld) 14.500 % . % [facility] Other MCH (RBC) [Entitic mass] 28.8000 pg Normal 24.7-34.3 pg [facility] Other MCV (RBC) [Entitic vol] 88.4000 fL Normal 80-100 fL [facility] Other Monocytes (Bld) [#/Vol] 0.598335370 10*3/uL High 0.0-0.8 10*3/uL [facility] Other Monocytes/100 WBC (Bld) 8.100 % . % [facility] Other Neutrophils (Bld) [#/Vol] 7.971691050 10*3/uL High 1.8-7.7 10*3/uL [facility] Other Neutrophils/100 WBC (Bld) 73.700 % . % [facility] Other Platelet mean volume (Bld) [Entitic vol] 10.0000 fL Normal 6.3-10.7 fL [facility] Other RBC (Bld) [#/Vol] 4.7388455479 10*6/uL Normal 3. 60-5.00 10*6/uL [facility] Other WBC (Bld) [#/Vol] 10.350663047 10*3/uL Normal 3. 8-11.6 10*3/uL [facility] Other Complete Blood Count Auto Diff 10.6 10*3/uL Normal 4.5-11.0 10*3/uL [facility] Other Complete Blood Count Auto Diff 32.6 g/dL Normal 32.0-35.0 g/dL [facility] Other Complete Blood Count Auto Diff 0.1 % Normal 0-0.5 % [facility] Other Complete Blood Count Auto Di ffOrdered By: Ramon Chang on 12-13-2021 Platelets (Bld) [#/Vol] 310 10*3/uL 150-450 [facility] Creatinine and Glomerular fi ltration rate.predicted panel (S/P/Bld)Ordered By: Ramon Chang on 12-13-2021 Creatinine [Mass/Vol] 1.32 mg/dL 0.44-1.03 [facility] Eosinophils Auto (Bld) [#/Vo l]Ordered By: Ramon Chang on 12-13-2021 Eosinophils (Bld) [#/Vol] 0.3 10*3/uL 0.0-0.45 [facility] Eosinophils/100 WBC Auto (Bl d)Ordered By: Ramon Chang on 12-13-2021 Eosinophils/100 WBC (Bld) 3.2 % . [facility] Erythrocyte distribution wid th Auto (RBC) [Ratio]Ordered By: Ramon Chang on 12-13-2021 Erythrocyte distribution width (RBC) [Ratio] 13.5 % 11.9-15.3 [facility] Estimated glomerular filtrat ion rate (GFR) non- AmericanOrdered By: Ramon Chang on 12-13-2021 GFR/1.73 sq M.predicted among non-blacks MDRD (S/P/Bld) [Vol rate/Area] 40 mL/Min [facility] Giardia lamblia Ag [Presence ] in Stool by ImmunoassayOrdered By: Ramon Chang on 12-13-2021 G. lamblia Ag IA Ql (Stl) Negative Negative [facility] Comment on above: Performed at: [address] [id number] [employer]: Madhav Alvarado PhD, Phone: [phone] Globulin Calc (S) [Mass/Vol] Ordered By: Ramon Chang on 12-13-2021 Globulin (S) [Mass/Vol] 2.9 g/dL [facility] Hematocrit Auto (Bld) [Volum e fraction]Ordered By: Ramon Chang on 12-13-2021 Hematocrit (Bld) [Volume fraction] 38.5 % 34.0-46.4 [facility] Laboratory - Chemistry and C hemistry - challengeOrdered By: Ramon Chang on 12-13-2021 Lipase [Catalytic activity/Vol] 27.0 U/L 22-51 [facility] Laboratory - Hematology and Cell countsOrdered By: Ramon Chang on 12-13-2021 Nucleated RBC/100 WBC (Bld) [Ratio] 0.1 % 0-0.5 [facility] Lactoferrin, Stool WBCon Lactoferrin, Stool WBC [facility] Other Lymphocytes Auto (Bld) [#/Vo l]Ordered By: Ramon Chang on 12-13-2021 Lymphocytes (Bld) [#/Vol] 1.5 10*3/uL 1.00-4.8 [facility] Lymphocytes/100 WBC Auto (Bl d)Ordered By: Ramon Chang on 12-13-2021 Lymphocytes/100 WBC (Bld) 14.5 % . [facility] MCH Auto (RBC) [Entitic mass ]Ordered By: Ramon Chang on 12-13-2021 MCH (RBC) [Entitic mass] 28.8 pg 24.7-34.3 [facility] MCHC Auto (RBC) [Mass/Vol]Or dered By: Ramon Chang on 12-13-2021 MCHC (RBC) [Mass/Vol] 32.6 g/dL 32.0-35.0 [facility] MCV Auto (RBC) [Entitic vol] Ordered By: Ramon Chang on 12-13-2021 MCV (RBC) [Entitic vol] 88.4 fL 80-100 [facility] Monocytes Auto (Bld) [#/Vol] Ordered By: Ramon Chang on 12-13-2021 Monocytes (Bld) [#/Vol] 0.9 10*3/uL 0.0-0.8 [facility] Monocytes/100 WBC Auto (Bld) Ordered By: Ramon Chang on 12-13-2021 Monocytes/100 WBC (Bld) 8.1 % . [facility] Neutrophils Auto (Bld) [#/Vo l]Ordered By: Ramon Chang on 12-13-2021 Neutrophils (Bld) [#/Vol] 7.8 10*3/uL 1.8-7.7 [facility] Neutrophils/100 WBC Auto (Bl d)Ordered By: Ramon Chang on 12-13-2021 Neutrophils/100 WBC (Bld) 73.7 % . [facility] No Panel InformationOrdered By: Ramon Chang on 12-13-2021 Estimated GFR () 48 mL/Min [facility] Comment on above: GFR estimated refere nce range: According to KDOQI guidelines, <60 ml/min/1.73m2 is sufficient to diagnose a patient with chronic kidney disease. Pharmacy Creatinine Clearance (Chem N/A [facility] Platelet mean volume Auto (B ld) [Entitic vol]Ordered By: Ramon Chang on 12-13-2021 Platelet mean volume (Bld) [Entitic vol] 10.0 fL 6.3-10.7 [facility] Protein [Mass/volume] in Ser um or PlasmaOrdered By: Ramon Chang on 12-13-2021 Protein [Mass/Vol] 6.7 g/dL 6.1-7.9 [facility] RBC Auto (Bld) [#/Vol]Ordere d By: Ramon Chang on 12-13-2021 RBC (Bld) [#/Vol] 4.35 10*6/uL 3.60-5.00 [facility] Serum or plasma alanine jameson otransferase measurement without P-5'-P (enzymatic activiOrdered By: Ramon Chang on 12-13-2021 ALT No additional P-5'-P [Catalytic activity/Vol] 61 U/L 10-60 [facility] Serum or plasma albumin/glob ulin mass ratioOrdered By: Ramon Chang on 12-13-2021 Albumin/Globulin [Mass ratio] 1.3 {ratio} [facility] Serum or plasma alkaline oli sphatase measurement (enzymatic activity/volume)Ordered By: Ramon Chang on 12-13-2021 ALP [Catalytic activity/Vol] 244 U/L 32-92 [facility] Serum or plasma amylase renato urement (enzymatic activity/volume)Ordered By: Ramon Chang on 12-13-2021 Amylase [Catalytic activity/Vol] 26 U/L 28-100 [facility] Serum or plasma aspartate am inotransferase measurement (enzymatic activity/volume)Ordered By: Ramon Chang on 12-13-2021 AST [Catalytic activity/Vol] 68 U/L 10-42 [facility] Serum or plasma calcium renato urement (mass/volume)Ordered By: Ramon Chang on 12-13-2021 Calcium [Mass/Vol] 9.5 mg/dL 8.2-10.2 [facility] Serum or plasma chloride raias surement (moles/volume)Ordered By: Ramon Chang on 12-13-2021 Chloride [Moles/Vol] 103 mmol/L 95-114 [facility] Serum or plasma glucose renato urement (mass/volume)Ordered By: Ramon Chang on 12-13-2021 Glucose [Mass/Vol] 93 mg/dL 70-100 [facility] Comment on above: ADA recommended refe rence range Random Glucose Reference Range is dependent on time and content of last meal. Glucose of more than 200 mg/dL in a nonstressed, ambulatory subject supports the diagnosis of Diabetes Mellitus. Serum or plasma potassium me asurement (moles/volume)Ordered By: Ramon Chang on 12-13-2021 Potassium [Moles/Vol] 3.9 mmol/L 3.5-5.1 [facility] Serum or plasma sodium measu rement (moles/volume)Ordered By: Ramon Chang on 12-13-2021 Sodium [Moles/Vol] 136 mmol/L 136-146 [facility] Serum or plasma total biliru bin measurement (mass/volume)Ordered By: Ramon Chang on 12-13-2021 Bilirubin [Mass/Vol] 0.9 mg/dL 0.3-1.2 [facility] Serum or plasma total carbon dioxide measurement (moles/volume)Ordered By: Ramon Chang on 12-13-2021 CO2 [Moles/Vol] 25.9 mmol/L 22.0-30.[address] [facility] Serum or plasma urea nitroge n measurement (mass/volume)Ordered By: Ramon Chang on 12-13-2021 Urea nitrogen [Mass/Vol] 13 mg/dL 9- [facility] Ophthalmic Eye Examon 2021 Ophthalmic Eye Exam DOCUMENT REVIEWED BY : Blanca Bar OD PhD DOCUMENT SIGNED ELECTRONICALLY BY Blanca Bar OD PhD ON 10/19/2021 04:22:05 PM [place] [address] [address] [place] [address] THIS EXAM WAS COMPLETED ON: 10/16/2021 00:00:00 BY: Blanca Bar OD PhD Meenu Diallo performed [id number] Exam Date: Saturday, October 16, 2021 PATIENT NAME: YUNI ARCHIBALD DATE: 1955 AGE: 65 GENDER: Female RACE: White PRIMARY CARE PHYSICIAN: Ramon Chang History Chief Complaint/Reason For Visit: Problem-Routine eye exam, vision is stable. Lost latest pair of cls a few months ago, has an old pair in now. Dryness, over wears lenses.,No floaters, no flashes, Context/Onset-gradual, Location-both eyes, Duration-two years, HISTORY OF PRESENT ILLNESS: PROBLEM: Routine eye exam, vision is stable. Lost recent pair of cls a few months ago, has an old pair in now. Dryness, over wears lenses.,No floaters, no flashes CONTEXT/ONSET: gradual LOCATION: both eyes DURATION: two years FAMILY HISTORY: :Denied Family history of No pertinent family history CURRENT MEDICATIONS: Centrum Silver Oral Tablet - Tablet, [Reported] Colestid 1 GM Oral Tablet - Tablet, [Reported] [facility] Omeprazole 20 MG Oral Tablet Delayed Release - Tablet Delayed Release, [Reported] [facility] Vitamin B-12 1000 MCG Oral Tablet - Tablet, [Reported] Cymbalta 30 MG Oral Capsule Delayed Release Particles - Capsule Delayed Release Particles, [Reported] Erythromycin 5 MG/GM Ophthalmic Ointment - #1 3.5 GM Tube, Ointment, APPLY 1 STRIP Bedtime OS, 3 refills, Evaluate Folic Acid 1 MG Oral Tablet - Tablet, [Reported] LaMICtal 25 MG Oral Tablet - Tablet, [Reported] Lisinopril 2.5 MG Oral Tablet - Tablet, [Reported] LORazepam 1 MG Oral Tablet - Tablet, [Reported] Naproxen Sodium 550 MG Oral Tablet - Tablet, [Reported] Propranolol HCl - 20 MG Oral Tablet - Tablet, [Reported] Synthroid 25 MCG Oral Tablet - Tablet, [Reported] traZODone HCl - 50 MG Oral Tablet - Tablet, [Reported] Wellbutrin SR 150 MG Oral Tablet Extended Release 12 Hour - Tablet Extended Release 12 Hour, [Reported] ALLERGIES: No Known Drug Allergies Exam ORIENTATION, MOOD AND AFFECT: Alert AND oriented x3 RIGHT EYE LEFT EYE UNCORRECTED VA Old pair w/ readers 20/20-3 Old pair w/ readers 20/25-3 MANIFEST REFRACTION -7.75 035 x +2.50 -7.75 SPHER add +2.50 BEST RHETT FINAL VA 20/70+2 20/70+1 OVER REFRACTION PLANO SPHER -0.50 SPHER OVER REFRACTION VA 20/20-2 20/25 VISION WITH CONTACT LENSES 20/20-2 20/40 PRESSURE METHOD: Applanation Applanation PRESSURES: 14 15 DATE-TIME: 10/16/2021 10:38:52 AM 10/16/2021 10:38:52 AM [employer]IPAL [employer] SOFTWARE ENGINEER: robert jones EXTERNAL EYE EXAM: LID: Good Position Good Position PUPIL: PERRL/no APD PERRL/no APD ADNEXA: Normal Normal MUSCLE BALANCE: Ortho OCULAR MOTILITY: Full ANTERIOR SEGMENT EXAM: TEARFILM: Good Good CONJUNCTIVA: White and quiet White and quiet CORNEA: anterior stromal scarring and scar vs dissolving infiltrate mild epithelial haze with F <1mm at site of previous ring and thinning ulcer, no epi defect or stain, no other signs of inflammation , stromal ghost vessels ANTERIOR CHAMBER: Deep and quiet Deep and quiet IRIS: Round and reactive Round and reactive LENS: 1.5 NS 1.5 NS ANTERIOR VITREOUS: Clear Clear FUNDUS EXAM: DILATION and NUMBING DROPS: Tropicamine 1% OU 10/16/2021 10:57:07 AM CUP TO DISC: .20 .20 OPTIC DISC: Godley and sharp Godley and sharp VITREOUS: Clear. 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 thinner centrally, over 100-200 microns thicker towards periphery OS- Sim K0 48.9D/50.5D, center thickness: 457 microns, thinner centrally, over 100-200 microns thicker towards periphery Pentacam interpretation: OD-Sim k: 49.9D/51.4D, center thickness: 466 microns. thinner centrally, over 100-200 microns thicker towards periphery OS- Sim K0 48.9D/50.5D, center thickness: 457 microns, thinner centrally, over 100-200 microns thicker towards periphery Pentacam interpretation: OD-Sim k: 49.9D/51.4D, center thickness: 466 microns. thinner centrally, over 100-200 microns thicker towards periphery OS- Sim K0 48.9D/50.5D, center thickness: 457 wendy (more content not included)... Normal [employer] Quick Testingon 2020 Result Positive [facility] Other PROGRESSon 04-15-2019 PROGRESS HNO ID: [id number] Author: [employer] V Service: ? Author Type: Physician Type: Progress Notes Filed: 05/15/2019 8:41 PM Note Text: K abrasion resolving Left eye. Recommend continue gatifloxacin four times a day Left eye for x 3 days then stop. Start lid scrubs twice a day. Wayne Left eye done today, but poor quality. F/U with Dr Harrison on Mon as sched. I have interviewed and examined Yuni Archibald. I have confirmed and edited as necessary the chief complaint, history of present illness, past medical history, medications, family history, social history, review of systems, and exam findings as obtained by others. I agree with the assessment and plan as stated above, and have discussed the management of this patient with the Resident/Fellow/Optometris t, if applicable. Tata MAE MD April 15, 2019 1:38 PM [facility] PROGRESS HNO ID: [id number] Author: Connie Rivera (Sarahi) Juvenal Service: ? Author Type: HEALTH SAFETY AND ENVIRONMENT MANAGER Type: Progress Notes Filed: 05/15/2019 8:41 PM Note Text: ASSESSMENT/PLAN: 1. Keratoconus, stable, bilateral - ICD9: 371.61, ICD10: H18.613 (primary diagnosis) - CORNEAL TOPOGRAPHY ATLAS OU (BOTH EYES) - PROPARACAINE 0.5 % EYE DROPS Pt referred for monitoring corneal abrasion while Dr. Harrison out of town. No yemi abrasion, SPK inferior cornea. Few areas of stromal haze appear to be old scars, no active infiltrate. Continue emycin jayda QHS OS, continue gatifloxacin QID OS. RTC s scheduled with Dr. Harrison 04/19/19, here sooner if worsening symptoms 2. Abrasion of left cornea, initial encounter - ICD9: 918.1, ICD10: S05.02XA H/O multiple abrasions/infections with longstanding RGP wear. May recommend refit once corneal abrasion heals. Connie Sanford, SARAHI I have confirmed and edited as necessary the relevant ophthalmic history, ROS, and the exam findings as obtained by others. I have seen and examined this patient. I have discussed the case and the management of this patient's care with the resident or fellow as appropriate. I also have reviewed and agree with the assessment and plan as stated above and agree with all of its relevant components. Connie Sanford, SARAHI April 15, 2019 1:18 PM [facility] Vital Signs Date Time Vital Sign Value Performing Clinician Facility 07-19-2024 08:52-0400 Body height 154.94 cm Ramon Schwerer DO Work Phone: [facility] 07-19-2024 08:52-0400 Body mass index (BMI) [Ratio] 27.6 kg/m2 Ramon Schwerer DO Work Phone: [facility] 07-19-2024 08:52-0400 Body weight 66.22 kg Ramon Schwerer DO Work Phone: [facility] 06-17-2024 09:53-0500 Body height 154.94 cm Ramon Schwerer DO Work Phone: [facility] 06-17-2024 09:53-0500 Body temperature 97.8 [degF] Ramon Schwerer DO Work Phone: [facility] 06-17-2024 09:53-0500 Body weight 67.3 kg Ramon Schwerer DO Work Phone: [facility] 06-17-2024 09:53-0500 Diastolic blood pressure 82 mm[Hg] Ramon Schwerer DO Work Phone: [facility] 06-17-2024 09:53-0500 Heart rate 94 /min Ramon Schwerer DO Work Phone: [facility] 06-17-2024 09:53-0500 Respiratory rate 16 /min Ramon Schwerer DO Work Phone: [facility] 06-17-2024 09:53-0500 SaO2% (BldA) [Mass fraction] 97 % Ramon Schwerer DO Work Phone: [facility] 06-17-2024 09:53-0500 Systolic blood pressure 145 mm[Hg] Ramon Schwerer DO Work Phone: [facility] 06-17-2024 08:50-0500 Body height 154.94 cm [facility] 06-17-2024 08:50-0500 Body mass index (BMI) [Ratio] 28 kg/m2 [facility] 06-17-2024 08:50-0500 Body temperature 98.3 [degF] [facility] 06-17-2024 08:50-0500 Body weight 67.35 kg [facility] 06-17-2024 08:50-0500 Diastolic blood pressure 68 mm[Hg] [facility] 06-17-2024 08:50-0500 Heart rate 101 /min [facility] 06-17-2024 08:50-0500 SaO2% (BldA) [Mass fraction] 96 % [facility] 06-17-2024 08:50-0500 Systolic blood pressure 108 mm[Hg] [facility] 04-29-2024 10:48-0500 Body mass index (BMI) [Ratio] 25.58 kg/m2 Susana Angela-Nossek TECHNOLOGY SALES SPECIALIST-LEGAL PROJECT MANAGER Work Phone: [facility] 04-29-2024 10:48-0500 Body weight 67.59 kg Susana Angela-Nossek TECHNOLOGY SALES SPECIALIST-LEGAL PROJECT MANAGER Work Phone: [facility] 04-29-2024 10:48-0500 Diastolic blood pressure 80 mm[Hg] Susana Angela-Nossek TECHNOLOGY SALES SPECIALIST-LEGAL PROJECT MANAGER Work Phone: [facility] 04-29-2024 10:48-0500 Heart rate 98 /min Susana Angela-Nossek TECHNOLOGY SALES SPECIALIST-LEGAL PROJECT MANAGER Work Phone: [facility] 04-29-2024 10:48-0500 Systolic blood pressure 120 mm[Hg] Susana Angela-Nossek TECHNOLOGY SALES SPECIALIST-LEGAL PROJECT MANAGER Work Phone: [facility] 02-24-2024 14:48-0400 Body mass index (BMI) [Ratio] 25.58 kg/m2 Susana Angela-Nossek TECHNOLOGY SALES SPECIALIST-LEGAL PROJECT MANAGER Work Phone: [facility] 02-24-2024 14:48-0400 Body weight 67.59 kg Susana Angela-Nossek TECHNOLOGY SALES SPECIALIST-LEGAL PROJECT MANAGER Work Phone: [facility] 02-24-2024 14:48-0400 Diastolic blood pressure 70 mm[Hg] Susana Angela-Nossek TECHNOLOGY SALES SPECIALIST-LEGAL PROJECT MANAGER Work Phone: [facility] 02-24-2024 14:48-0400 Heart rate 98 /min Susana Angela-Nossek TECHNOLOGY SALES SPECIALIST-LEGAL PROJECT MANAGER Work Phone: [facility] 02-24-2024 14:48-0400 Systolic blood pressure 118 mm[Hg] Susana Angela-Nossek TECHNOLOGY SALES SPECIALIST-LEGAL PROJECT MANAGER Work Phone: [facility] 01-11-2024 18:58-0400 Body temperature 97.9 [degF] DO Ramon Schwerer Work Phone: [facility] 01-11-2024 18:58-0400 Diastolic blood pressure 67 mm[Hg] DO Ramon Schwerer Work Phone: [phone] [place] [address] 01-11-2024 18:58-0400 Heart rate 84 /min DO Ramon Schwerer Work Phone: [facility] 01-11-2024 18:58-0400 Respiratory rate 18 /min DO Ramon Schwerer Work Phone: [facility] 01-11-2024 18:58-0400 SaO2% (BldA) [Mass fraction] 98 % DO Ramon Schwerer Work Phone: [facility] 01-11-2024 18:58-0400 Systolic blood pressure 148 mm[Hg] DO Ramon Schwerer Work Phone: [facility] 01-11-2024 18:57-0400 Body height 154.94 cm DO Ramon Schwerer Work Phone: [facility] 01-11-2024 18:57-0400 Body weight 69 kg DO Ramon Schwerer Work Phone: [facility] 10-22-2023 08:02-0400 Body height 154.94 cm DO Ramon Schwerer Work Phone: [facility] 10-22-2023 08:02-0400 Body mass index (BMI) [Ratio] 29.2 kg/m2 DO Ramon Schwerer Work Phone: [facility] 10-22-2023 08:02-0400 Body weight 70.3 kg DO Ramon Schwerer Work Phone: [facility] 09-18-2023 09:51-0400 Body height 154.94 cm DO Ramon Schwerer Work Phone: [facility] 09-18-2023 09:51-0400 Body mass index (BMI) [Ratio] 29.9 kg/m2 DO Ramon Schwerer Work Phone: [facility] 09-18-2023 09:51-0400 Body temperature 96.7 [degF] DO Ramon Schwerer Work Phone: [facility] 09-18-2023 09:51-0400 Body weight 71.78 kg DO Ramon Schwerer Work Phone: [facility] 09-18-2023 09:51-0400 Diastolic blood pressure 60 mm[Hg] DO Ramon Schwerer Work Phone: [facility] 09-18-2023 09:51-0400 Heart rate 86 /min DO Ramon Schwerer Work Phone: [facility] 09-18-2023 09:51-0400 Respiratory rate 16 /min DO Ramon Schwerer Work Phone: [facility] 09-18-2023 09:51-0400 SaO2% (BldA) [Mass fraction] 96 % DO Ramon Schwerer Work Phone: [facility] 09-18-2023 09:51-0400 Systolic blood pressure 110 mm[Hg] DO Ramon Schwerer Work Phone: [facility] 08-23-2023 07:23-0400 Body height 154.94 cm DO Ramon Schwerer Work Phone: [facility] 08-23-2023 07:23-0400 Body weight 73 kg DO Ramon Schwerer Work Phone: [facility] 08-23-2023 07:21-0400 Body temperature 98 [degF] DO Ramon Schwerer Work Phone: [facility] 08-23-2023 07:21-0400 Diastolic blood pressure 58 mm[Hg] DO Ramon Schwerer Work Phone: [facility] 08-23-2023 07:21-0400 Heart rate 95 /min DO Ramon Schwerer Work Phone: [facility] 08-23-2023 07:21-0400 Respiratory rate 18 /min DO Ramon Schwerer Work Phone: [facility] 08-23-2023 07:21-0400 SaO2% (BldA) [Mass fraction] 97 % DO Ramon Schwerer Work Phone: [facility] 08-23-2023 07:21-0400 Systolic blood pressure 109 mm[Hg] DO Ramon Schwerer Work Phone: [facility] 07-23-2023 08:04-0400 Body height 154.94 cm DO Ramon Schwerer Work Phone: [facility] 07-23-2023 08:04-0400 Body mass index (BMI) [Ratio] 31.4 kg/m2 DO Ramon Schwerer Work Phone: [facility] 07-23-2023 08:04-0400 Body weight 75.29 kg DO Ramon Schwerer Work Phone: [facility] 06-10-2023 17:30-0500 Body height 154.94 cm DO Ramon Schwerer Work Phone: [facility] 06-10-2023 17:30-0500 Body weight 79.83 kg DO Ramon Schwerer Work Phone: [facility] 05-29-2023 09:00-0500 Body height 154.94 cm Albertina Eriberto Other [facility] 05-29-2023 09:00-0500 Body mass index (BMI) [Ratio] 33.63 kg/m2 Albertina Eriberto Other [facility] Other 05-29-2023 09:00-0500 Body temperature 99.8 [degF] Albertina Eriberto Other [facility] Other 05-29-2023 09:00-0500 Body weight 80.74 kg Albertina Eriberto Other [facility] Other 05-29-2023 09:00-0500 Body weight 80.73 kg DO Ramon Gironerer Work Phone: [facility] 05-29-2023 09:00-0500 Respiratory rate 18 /min Albertina Eriberto Other [facility] Other 05-29-2023 09:00-0500 SaO2% (BldA) [Mass fraction] 94 % Albertina Eriberto Other [facility] Other 03-24-2023 08:15-0500 Body height 154.94 cm Janeth Rodriguez Other [facility] Other 03-24-2023 08:15-0500 Body mass index (BMI) [Ratio] 37.03 kg/m2 Janeth Rodriguez Other [facility] Other 03-24-2023 08:15-0500 Body weight 88.91 kg Janeth Rodriguez Other [facility] Other 01-24-2023 10:30-0400 Body height 154.94 cm Ramon Schwerer Other [facility] Other 01-24-2023 10:30-0400 Body mass index (BMI) [Ratio] 37.16 kg/m2 Ramon Schwerer Other [facility] Other 01-24-2023 10:30-0400 Body temperature 96.8 [degF] Ramon Schwerer Other [facility] Other 01-24-2023 10:30-0400 Body weight 89.22 kg Ramon Schwerer Other [facility] Other 01-24-2023 10:30-0400 Diastolic blood pressure 82 mm[Hg] Ramon Schwerer Other [facility] Other 01-24-2023 10:30-0400 SaO2% (BldA) [Mass fraction] 94 % Ramon Schwerer Other [facility] Other 01-24-2023 10:30-0400 Systolic blood pressure 136 mm[Hg] Ramon Schwerer Other [facility] Other 11-20-2022 08:15-0400 Body height 154.94 cm Jf Toro Other [facility] Other 11-20-2022 08:15-0400 Body mass index (BMI) [Ratio] 37.79 kg/m2 Jf Toro Other [facility] Other 11-20-2022 08:15-0400 Body weight 90.72 kg Jf Toro Other [facility] Other 10-10-2022 09:20-0400 Body height 154.94 cm Park Eddie Other [facility] Other 10-10-2022 09:20-0400 Body mass index (BMI) [Ratio] 38.18 kg/m2 Park Eddie Other [facility] Other 10-10-2022 09:20-0400 Body temperature 96.9 [degF] Park Eddie Other [facility] Other 10-10-2022 09:20-0400 Body weight 91.67 kg Park Eddie Other [facility] Other 10-10-2022 09:20-0400 Diastolic blood pressure 70 mm[Hg] Park Eddie Other [facility] Other 10-10-2022 09:20-0400 Respiratory rate 18 /min Park Eddie Other [facility] Other 10-10-2022 09:20-0400 SaO2% (BldA) [Mass fraction] 93 % Park Eddie Other [facility] Other 10-10-2022 09:20-0400 Systolic blood pressure 114 mm[Hg] Park Eddie Other [facility] Other 05-01-2022 14:30-0500 Body height 154.94 cm Christiano Bishopy Other [facility] Other 05-01-2022 14:30-0500 Body mass index (BMI) [Ratio] 34.23 kg/m2 Christiano Bishopy Other [facility] Other 05-01-2022 14:30-0500 Body weight 82.19 kg Christiano Medranotty Other [facility] Other 05-01-2022 14:30-0500 Diastolic blood pressure 77 mm[Hg] Christiano Ditty Other [facility] Other 05-01-2022 14:30-0500 Systolic blood pressure 110 mm[Hg] Christiano Ditty Other [facility] Other 04-30-2022 09:15-0500 Body height 154.94 cm Chitra Singh Other [facility] Other 04-15-2022 09:00-0500 Body height 154.94 cm Jf Toro Other [facility] Other 04-15-2022 09:00-0500 Body mass index (BMI) [Ratio] 34.14 kg/m2 fJ Toro Other [facility] Other 04-15-2022 09:00-0500 Body weight 81.97 kg Jf Toro Other [facility] Other 04-11-2022 15:30-0500 Body height 154.94 cm Maty Scally Other [facility] Other 04-11-2022 15:30-0500 Body mass index (BMI) [Ratio] 34.14 kg/m2 Maty Scally Other [facility] Other 04-11-2022 15:30-0500 Body weight 81.97 kg Maty Scally Other [facility] Other 04-11-2022 15:30-0500 Diastolic blood pressure 68 mm[Hg] Maty Scally Other [facility] Other 04-11-2022 15:30-0500 Respiratory rate 18 /min Maty Scally Other [facility] Other 04-11-2022 15:30-0500 SaO2% (BldA) [Mass fraction] 100 % Maty Scally Other [facility] Other 04-11-2022 15:30-0500 Systolic blood pressure 121 mm[Hg] Maty Scally Other [facility] Other 02-07-2022 11:00-0400 Body height 154.94 cm Maty Scally Other [facility] Other 02-07-2022 11:00-0400 Body mass index (BMI) [Ratio] 33.97 kg/m2 Maty Scally Other [facility] Other 02-07-2022 11:00-0400 Body weight 81.56 kg Maty Scally Other [facility] Other 02-07-2022 11:00-0400 Diastolic blood pressure 74 mm[Hg] Maty Scally Other [facility] Other 02-07-2022 11:00-0400 Respiratory rate 18 /min Maty Scally Other [facility] Other 02-07-2022 11:00-0400 SaO2% (BldA) [Mass fraction] 100 % Maty Scally Other [facility] Other 02-07-2022 11:00-0400 Systolic blood pressure 130 mm[Hg] Maty Scally Other [facility] Other 01-09-2022 14:30-0400 Body height 154.94 cm Maty Scally Other [facility] Other 01-09-2022 14:30-0400 Body mass index (BMI) [Ratio] 34.18 kg/m2 Maty Scally Other [facility] Other 01-09-2022 14:30-0400 Body weight 82.06 kg Maty Scally Other [facility] Other 01-09-2022 14:30-0400 Diastolic blood pressure 65 mm[Hg] Maty Scally Other [facility] Other 01-09-2022 14:30-0400 Respiratory rate 18 /min Maty Scally Other [facility] Other 01-09-2022 14:30-0400 SaO2% (BldA) [Mass fraction] 98 % Maty Rodas Other [facility] Other 01-09-2022 14:30-0400 Systolic blood pressure 112 mm[Hg] Maty Rodas Other [facility] Other 12-21-2021 10:00-0400 Body height 154.94 cm Ramon Schwerer Other [facility] Other 12-21-2021 10:00-0400 Body mass index (BMI) [Ratio] 34.38 kg/m2 Ramon Schwerer Other [facility] Other 12-21-2021 10:00-0400 Body temperature 97.3 [degF] Ramon Schwerer Other [facility] Other 12-21-2021 10:00-0400 Body weight 82.56 kg Ramon Schwerer Other [facility] Other 12-21-2021 10:00-0400 Diastolic blood pressure 76 mm[Hg] Ramon Schwerer Other [facility] Other 12-21-2021 10:00-0400 SaO2% (BldA) [Mass fraction] 97 % Ramon Schwerer Other [facility] Other 12-21-2021 10:00-0400 Systolic blood pressure 122 mm[Hg] Ramon Schwerer Other [facility] Other 12-13-2021 08:45-0400 Body height 154.94 cm Ramon Schwerer Other [facility] Other 12-13-2021 08:45-0400 Body temperature 97.8 [degF] Ramon Schwerer Other [facility] Other 12-13-2021 08:45-0400 Diastolic blood pressure 72 mm[Hg] Ramon Schwerer Other [facility] Other 12-13-2021 08:45-0400 SaO2% (BldA) [Mass fraction] 98 % Ramon Schwerer Other [facility] Other 12-13-2021 08:45-0400 Systolic blood pressure 110 mm[Hg] Ramon Schwerer Other [facility] Other 10-25-2021 12:40-0400 Body height 157.48 cm Park Eddie Other [facility] Other 10-25-2021 12:40-0400 Body mass index (BMI) [Ratio] 33.69 kg/m2 Park Eddie Other [facility] Other 10-25-2021 12:40-0400 Body temperature 97.1 [degF] Park Eddie Other [facility] Other 10-25-2021 12:40-0400 Body weight 83.55 kg Park Eddie Other [facility] Other 10-25-2021 12:40-0400 Diastolic blood pressure 78 mm[Hg] Park Eddie Other [facility] Other 10-25-2021 12:40-0400 Respiratory rate 18 /min Park Eddie Other [facility] Other 10-25-2021 12:40-0400 SaO2% (BldA) [Mass fraction] 93 % Park Eddie Other [facility] Other 10-25-2021 12:40-0400 Systolic blood pressure 117 mm[Hg] Park Eddie Other [facility] Other 09-10-2021 09:45-0400 Body height 157.48 cm Ramon Schwerer Other [facility] Other 09-10-2021 09:45-0400 Body mass index (BMI) [Ratio] 32.41 kg/m2 Ramon Schwerer Other [facility] Other 09-10-2021 09:45-0400 Body temperature 97.3 [degF] Ramon Schwerer Other [facility] Other 09-10-2021 09:45-0400 Body weight 80.38 kg Ramon Schwerer Other [facility] Other 09-10-2021 09:45-0400 Diastolic blood pressure 82 mm[Hg] Ramon Schwerer Other [facility] Other 09-10-2021 09:45-0400 SaO2% (BldA) [Mass fraction] 96 % Ramon Schwerer Other [facility] Other 09-10-2021 09:45-0400 Systolic blood pressure 122 mm[Hg] Ramon Schwerer Other [facility] Other 04-11-2021 10:00-0500 Body height 157.48 cm Bev Alcantara Other [facility] Other 04-11-2021 10:00-0500 Body mass index (BMI) [Ratio] 35.84 kg/m2 Bev Colemanmond Other [facility] Other 04-11-2021 10:00-0500 Body temperature 97 [degF] Bev Maricruz Other [facility] Other 04-11-2021 10:00-0500 Body weight 88.91 kg Bev Colemanmond Other [facility] Other 04-11-2021 10:00-0500 Respiratory rate 18 /min Bev Alcantara Other [facility] Other 04-11-2021 10:00-0500 SaO2% (BldA) [Mass fraction] 94 % Bev Alcantara Other [facility] Other 03-07-2021 10:50-0400 Body height 157.48 cm Bev Colemanmond Other [facility] Other 03-07-2021 10:50-0400 Body mass index (BMI) [Ratio] 11.16 kg/m2 Bev Maricruz Other [facility] Other 03-07-2021 10:50-0400 Body temperature 99.9 [degF] Bev Maricruz Other [facility] Other 03-07-2021 10:50-0400 Body weight 27.67 kg Bev Alcantara Other [facility] Other 03-07-2021 10:50-0400 Diastolic blood pressure 74 mm[Hg] Bev Alcantara Other [facility] Other 03-07-2021 10:50-0400 Respiratory rate 18 /min Bev Alcantara Other [facility] Other 03-07-2021 10:50-0400 SaO2% (BldA) [Mass fraction] 97 % Bev Alcantara Other [facility] Other 03-07-2021 10:50-0400 Systolic blood pressure 108 mm[Hg] Bev Alcantara Other [facility] Other Encounters Encounter Date Encounter Type Care Provider Facility Start: 07-19-2024 End: 07-19-2024 ambulatory Ramon E Schwerer DO Work Phone: [facility] Work Phone: Start: 07-19-2024 End: 07-19-2024 Patient encounter procedure Ramon Schwerer DO Work Phone: [facility] Work Phone: Start: 07-01-2024 End: 07-01-2024 Patient encounter procedure Ramon Schwerer DO Work Phone: [facility] [place] Work Phone: Start: 07-01-2024 End: 07-01-2024 ambulatory Ramon E Schwerer DO Work Phone: [facility] Work Phone: Start: 06-17-2024 End: 06-17-2024 [facility] Work Phone: Start: 06-17-2024 End: 06-17-2024 ambulatory [facility] Work Phone: Start: 06-17-2024 End: 06-17-2024 Patient encounter procedure [facility] [place] Work Phone: Start: 05-01-2024 End: 05-01-2024 Emergency department patient visit [facility] Start: 04-29-2024 End: 04-29-2024 Bamboo flowsheet Susana Allen Angela-Nossek TECHNOLOGY SALES SPECIALIST-LEGAL PROJECT MANAGER Work Phone: [facility] Start: 04-29-2024 End: 04-29-2024 Bamboo flowsheet Susana Allen Angela-Nossek TECHNOLOGY SALES SPECIALIST-LEGAL PROJECT MANAGER Work Phone: [facility] Start: 04-29-2024 End: 04-29-2024 Office outpatient visit 25 minutes Susana Allen Angela-Nossek TECHNOLOGY SALES SPECIALIST-LEGAL PROJECT MANAGER Work Phone: [facility] Comment on above: Insomnia, unspecifie d type Start: 04-29-2024 End: 04-29-2024 ambulatory SUSANA Allen ANGELA-NOSSEK Not Available Start: 04-19-2024 End: 04-19-2024 Refill Susana Allen Angela-Nossek TECHNOLOGY SALES SPECIALIST-LEGAL PROJECT MANAGER Work Phone: [facility] Comment on above: Generalized anxiety disorder (CMS/HCC); Moderate episode of recurrent major depressive disorder (CMS/HCC); Insomnia, unspecified type Start: 03-24-2024 End: 03-24-2024 Emergency department patient visit [facility] Start: 03-14-2024 End: 03-14-2024 Emergency department patient visit [facility] Start: 03-01-2024 End: 03-01-2024 ambulatory DO Ramon E Schwerer Work Phone: [facility] Work Phone: Start: 03-01-2024 End: 03-01-2024 Patient encounter procedure DO Ramon Schwerer Work Phone: [facility] Work Phone: Start: 02-24-2024 End: 02-24-2024 Office outpatient visit 25 minutes Susana Allen Angela-Nossek TECHNOLOGY SALES SPECIALIST-LEGAL PROJECT MANAGER Work Phone: [facility] Comment on above: Generalized anxiety disorder (CMS/HCC); Moderate episode of recurrent major depressive disorder (CMS/HCC) Start: 02-24-2024 End: 02-24-2024 ambulatory SUSANA Allen ANGELA-NOSSEK Not Available Start: 02-24-2024 End: 02-24-2024 Bamboo flowsheet Susana Allen Angela-Nossek TECHNOLOGY SALES SPECIALIST-LEGAL PROJECT MANAGER Work Phone: [facility] Start: 02-24-2024 End: 02-24-2024 Bamboo flowsheet Susana Allen Angela-Nossek TECHNOLOGY SALES SPECIALIST-LEGAL PROJECT MANAGER Work Phone: [facility] Start: 01-14-2024 End: 01-14-2024 ambulatory [facility] Ambulatory Start: 01-14-2024 Non-patient / Non-visit DO Ramon Schwerer Work Phone: [facility] Work Phone: Start: 01-11-2024 End: 01-11-2024 Emergency department patient visit DO Ramon Gironerer Work Phone: [facility] Work Phone: Start: 11-27-2023 End: 11-27-2023 ambulatory SUSANA Tiffany ANGELA-NOSSEK Not Available Start: 11-25-2023 End: 11-25-2023 ambulatory [facility] Ambulatory Start: 11-11-2023 End: 11-11-2023 ambulatory [facility] Ambulatory Start: 2023 Non-patient / Non-visit DO Ramon Schwerer Work Phone: [facility] [place] Work Phone: Start: 10-22-2023 End: 10-22-2023 ambulatory DO Ramon E Schwerer Work Phone: [facility] Work Phone: Start: 10-22-2023 End: 10-22-2023 Patient encounter procedure DO Ramon Schwerer Work Phone: [facility] Work Phone: Start: 10-07-2023 End: 10-07-2023 ambulatory [facility] Ambulatory Start: 09-18-2023 End: 09-18-2023 ambulatory DO Ramon E Schwerer Work Phone: [facility] Work Phone: Start: 09-18-2023 End: 09-18-2023 Patient encounter procedure DO Ramon Schwerer [facility] [place] Work Phone: Start: 09-03-2023 End: 09-03-2023 Patient encounter procedure DO Ramon Schwerer Work Phone: [facility] [place] Work Phone: Start: 09-03-2023 End: 09-03-2023 ambulatory DO Ramon E Schwerer Work Phone: [facility] Work Phone: Start: 08-26-2023 Non-patient / Non-visit DO Ramon Schwerer Work Phone: [facility] Work Phone: Start: 08-23-2023 End: 08-23-2023 Emergency department patient visit DO Ramon Schwerer Work Phone: [facility] Work Phone: Start: 08-12-2023 End: 08-12-2023 ambulatory SUSANA SARAVIA Not Available Start: 08-05-2023 Non-patient / Non-visit DO Ramon Schwerer Work Phone: [facility] Work Phone: Start: 07-23-2023 End: 07-23-2023 Patient encounter procedure DO Ramon Schwerer Work Phone: [facility] Work Phone: Start: 07-01-2023 End: 07-01-2023 ambulatory [facility] Ambulatory Start: 06-23-2023 End: 06-23-2023 ambulatory Ramon Schwerer Other [facility] Other Start: 06-23-2023 Telephone encounter Ramon Schwerer [facility] Start: 06-16-2023 End: 06-16-2023 ambulatory Ramon Schwerer Other [facility] Other Start: 06-16-2023 Telephone encounter Ramon Schwerer [facility] Start: 06-10-2023 End: 06-10-2023 ambulatory Ramon Schwerer Other [facility] Other Start: 06-10-2023 Telephone encounter Ramon Schwerer [facility] Start: 06-10-2023 End: 06-10-2023 Patient encounter procedure DO Ramon Schwerer Work Phone: [facility]- Start: 05-29-2023 End: 05-29-2023 ambulatory Albertina Eriberto Other [facility] Other Start: 05-29-2023 Office outpatient visit 15 minutes Albertina Eriberto [facility] [place] Start: 05-29-2023 End: 05-29-2023 Patient encounter procedure DO Ramon Schwerer Work Phone: [facility]- Start: 05-13-2023 End: 05-13-2023 ambulatory SUSANA SARAVIA Not Available Start: 05-01-2023 End: 05-01-2023 ambulatory Ramon Schwerer Other [facility] Other Start: 05-01-2023 Telephone encounter Ramon Schwerer [facility] [place] Start: 04-10-2023 End: 04-10-2023 ambulatory Ramon Schwerer Other [facility] Other Start: 04-10-2023 Telephone encounter Ramon Schwerer [facility] [place] Start: 03-24-2023 End: 03-24-2023 ambulatory Janeth Rodriguez Other [facility] Other Start: 03-24-2023 Office outpatient visit 15 minutes Janeth Rodriguez [facility] Start: 01-24-2023 End: 01-24-2023 ambulatory Ramon Schwerer Other [facility] Other Start: 01-24-2023 Office outpatient visit 25 minutes Ramon Schwerer [facility] [place] Start: 01-06-2023 End: 01-06-2023 ambulatory Park Eddie Other [facility] Other Start: 01-06-2023 Telephone encounter Park Eddie [facility] Start: 11-20-2022 End: 11-20-2022 ambulatory Jf Toro Other [facility] Other Start: 11-20-2022 Office outpatient visit 15 minutes Jf Toro [facility] [place] [facility] Start: 10-10-2022 End: 10-10-2022 ambulatory Park Eddie Other [facility] Other Start: 10-10-2022 Office outpatient visit 25 minutes Park Eddie [facility] [place] Start: 10-04-2022 End: 10-04-2022 Patient encounter procedure DO Ramon Schwerer Work Phone: [facility] Start: 09-03-2022 End: 09-03-2022 ambulatory DO Ramon E Schwerer Work Phone: [facility] Work Phone: Start: 09-03-2022 End: 09-03-2022 Patient encounter procedure DO Ramon Schwerer Work Phone: [facility] Start: 09-02-2022 End: 09-02-2022 Patient encounter procedure DO Ramon Schwerer Work Phone: [facility] Work Phone: Start: 08-23-2022 End: 08-23-2022 ambulatory Ramon Schwerer Other [facility] Other Start: 08-23-2022 Telephone encounter Ramon Schwerer [facility] [place] Start: 08-12-2022 End: 08-12-2022 ambulatory Ramon Schwerer Other [facility] Other Start: 08-12-2022 Nursing evaluation o f patient and report Ramon Schwerer [facility] [place] Start: 08-12-2022 Telephone encounter Ramon Schwerer [facility] Start: 07-22-2022 End: 07-22-2022 ambulatory Ramon Schwerer Other [facility] Other Start: 07-22-2022 Telephone encounter Ramon Schwerer [facility] [place] Start: 06-25-2022 End: 06-25-2022 ambulatory Ramon Schwerer Other [facility] Other Start: 06-25-2022 Telephone encounter Ramon Schwerer [facility] [place] Start: 06-06-2022 End: 06-06-2022 ambulatory Ramon Schwerer Other [facility] Other Start: 06-06-2022 Nursing evaluation o f patient and report Ramon Schwerer [facility] [place] Start: 05-31-2022 End: 05-31-2022 ambulatory Azmaranda Dawsons Other [facility] Other Start: 05-31-2022 Telephone encounter Azmaranda Dawsons [facility] Start: 05-01-2022 End: 05-01-2022 ambulatory Christiano Beyer Other [facility] Other Start: 05-01-2022 Patient encounter procedure Christiano Beyer [facility] Start: 04-30-2022 End: 04-30-2022 ambulatory Chitra Singh Other [facility] Other Start: 04-30-2022 IBT FOR OBESITY GROU P 2-10 30M Chitra Singh [facility] Start: 04-30-2022 Telephone encounter Ramon Schwerer [facility] [place] Start: 04-18-2022 End: 04-18-2022 ambulatory Ramon Schwerer Other [facility] Other Start: 04-18-2022 Telephone encounter Ramon Chang [facility] [place] Start: 04-15-2022 End: 04-15-2022 ambulatory Jf Youngley Other [facility] Other Start: 04-15-2022 Office outpatient visit 15 minutes Jf Youngley [facility] Start: 04-11-2022 (FCCCWMNF/U) Weight Management f/u Maty Rodas [facility] Start: 04-11-2022 End: 04-11-2022 ambulatory Maty Adrianna Other [facility] Other Start: 03-27-2022 End: 03-27-2022 ambulatory Maty Louiesarahi Other [facility] Other Start: 03-27-2022 Telephone encounter Maty gregory [facility] Start: 03-25-2022 End: 03-25-2022 ambulatory Ramon Schwerer Other [facility] Other Start: 03-25-2022 Nursing evaluation o f patient and report Ramon [facility] Start: 03-25-2022 Telephone encounter Matyluba brownes [facility] Start: 03-21-2022 End: 03-21-2022 ambulatory Maty Louiesarahi Other [facility] Other Start: 03-21-2022 Telephone encounter Maty gregory [facility] Start: 03-18-2022 End: 03-18-2022 ambulatory DO Ramon Chang Work Phone: [facility] Work Phone: Start: 03-18-2022 End: 03-18-2022 Patient encounter procedure DO Ramon Chang Work Phone: [facility] Start: 03-12-2022 End: 03-12-2022 ambulatory Ramon Gironerer Other [facility] Other Start: 03-12-2022 Telephone encounter Ramon Gironerer [facility] Start: 02-21-2022 End: 02-21-2022 ambulatory Ramon Gironerer Other [facility] Other Start: 02-21-2022 Nursing evaluation o f patient and report Ramon Mirandar [facility] Start: 02-18-2022 End: 02-18-2022 ambulatory Jf Toro Other [facility] Other Start: 02-18-2022 Office outpatient visit 15 minutes Jf Toro [facility] Start: 02-07-2022 Registered Recurring DO Marbin Chang Work Phone: [facility] Start: 02-07-2022 (FCCWMNF/U) Weight Management f/u [facility] Start: 02-07-2022 End: 02-07-2022 ambulatory Maty Scally Other [facility] Other Start: 01-21-2022 End: 01-21-2022 ambulatory Ramon Gironerer Other [facility] Other Start: 01-21-2022 Nursing evaluation o f patient and report Ramon Mirandar [facility] Start: 01-09-2022 (FCCWMNF/U) [facility] Start: 01-09-2022 End: 01-09-2022 ambulatory Maty Rodas Other [facility] Other Start: 01-09-2022 Registered Recurring DO Kadajuanli n Schwerer Work Phone: [facility] Start: 01-08-2022 End: 01-08-2022 ambulatory Ramon Schwerer Other [facility] Other Start: 01-08-2022 Telephone encounter Ramon Schwerer [facility] Start: 01-08-2022 End: 01-08-2022 Patient encounter procedure DO Ramon Schwerer Work Phone: [facility] Start: 12-25-2021 End: 12-25-2021 ambulatory Maty Rodas Other [facility] Other Start: 12-25-2021 Telephone encounter Maty Rodas [facility] Start: 12-21-2021 End: 12-21-2021 ambulatory Ramon Schwerer Other [facility] Other Start: 12-21-2021 Office outpatient visit 15 minutes Ramon Schwerer [facility] Start: 12-21-2021 End: 12-21-2021 Patient encounter procedure DO Ramon Schwerer Work Phone: [facility] Start: 12-13-2021 End: 12-13-2021 ambulatory Ramon Schwerer Other [facility] Other Start: 12-13-2021 Office outpatient visit 25 minutes Ramon Schwerer [facility] Start: 12-13-2021 Telephone encounter Ramon Schwerer [facility] Start: 12-13-2021 End: 12-13-2021 Patient encounter procedure DO Ramon Chang Work Phone: [facility] Start: 11-21-2021 End: 11-21-2021 ambulatory Maty Rodas Other [facility] Other Start: 11-21-2021 Telephone encounter Maty Gutierrez [facility] Start: 11-08-2021 End: 11-08-2021 ambulatory Ramon Schwerer Other [facility] Other Start: 11-08-2021 Nursing evaluation o f patient and report Ramon Schwerer [facility] [place] Start: 11-07-2021 End: 11-07-2021 ambulatory Chitra Singh Other [facility] Other Start: 11-07-2021 Encounter by cheikh Singh [facility] Start: 10-25-2021 End: 10-25-2021 ambulatory Park Eddie Other [facility] Other Start: 10-25-2021 Office outpatient visit 25 minutes Park Eddie [facility] Start: 10-19-2021 Patient encounter procedure Edgard Brady Work Phone: [facility] Work Phone: Start: 10-16-2021 [id number] Start: 10-16-2021 Patient encounter procedure Edgard Brady Work Phone: [facility]mil[facility] Work Phone: Start: 10-02-2021 End: 10-02-2021 ambulatory Ramon Schwerer Other [facility] Other Start: 10-02-2021 Nursing evaluation o f patient and report Ramon Schwerer [facility] [place] Start: 10-01-2021 End: 10-01-2021 ambulatory Chitra Singh Other [facility] Other Start: 10-01-2021 Telephone encounter Chitra Singh [facility] Start: 09-10-2021 End: 09-10-2021 ambulatory Ramon Schwerer Other [facility] Other Start: 09-10-2021 Office outpatient visit 25 minutes Ramon Schwerer [facility] [place] Start: 09-10-2021 Telephone encounter Ramon Schwerer [facility] [place] Start: 09-09-2021 End: 09-09-2021 ambulatory Ramon Schwerer Other [facility] Other Start: 09-09-2021 Encounter by [employer] Ramon Schwerer [facility] [place] Start: 09-03-2021 End: 09-03-2021 ambulatory Ramon Schwerer Other [facility] Other Start: 09-03-2021 Nursing evaluation o f patient and report Ramon Schwerer [facility] [place] Start: 09-03-2021 Telephone encounter Ramon Schwerer [facility] [place] Start: 08-28-2021 ambulatory Blanca Serrano Facility:[id number] Start: 07-30-2021 End: 07-30-2021 ambulatory Ramon Schwerer Other [facility] Other Start: 07-30-2021 Encounter by [employer] Ramon Schwerer [facility] [place] Start: 07-21-2021 End: 07-21-2021 ambulatory Ramon Schwerer Other [facility] Other Start: 07-21-2021 Encounter by cheikh ray Ramon Schwerer [facility] [place] Start: 07-20-2021 End: 07-20-[address] MARIA ESTHER LARA Facility: Start: 06-04-2021 End: 06-04-2021 ambulatory Ramon Schwerer Other [facility] Other Start: 06-04-2021 Telephone encounter Ramon Schwerer [facility] [place] Start: 05-31-2021 End: 05-31-2021 ambulatory Ramon Schwerer Other [facility] Other Start: 05-31-2021 Telephone encounter Ramon Schwerer [facility] [place] Start: 05-29-2021 End: 05-29-2021 ambulatory Ramon Schwerer Other [facility] Other Start: 05-29-2021 Telephone encounter Ramon Schwerer [facility] [place] Start: 04-12-2021 End: 04-12-2021 ambulatory Ramon Schwerer Other [facility] Other Start: 04-12-2021 Telephone encounter Ramon Schwerer [facility] [place] Start: 04-11-2021 (URG) Urgent Care Visit Bev Alcantara [facility] [place] Start: 04-11-2021 End: 04-11-2021 ambulatory Bev Alcantara Other [facility] Other Start: 03-07-2021 Office outpatient visit 15 minutes Bev Alcantara [facility] [place] Start: 03-07-2021 Telephone encounter Ramon Schwerer [facility] [place] Start: 08-01-2020 End: 08-02-[address] NONE LISTED REQUEST Facility: Start: 02-16-2019 Patient encounter procedure Dragan Sánchez [facility] B102 Work Phone: Start: 01-22-2019 Patient encounter procedure Dragan Sánchez [facility]102 Work Phone: Procedures Date Procedure Procedure Detail Performing Clinician Start: 09-03-2023 Urine culture DO Marbin Chang Work Phone: Start: 07-01-2023 CORNEAL TOPOGRAPHY - OU - BOTH EYES BLANCA SERRANO Start: 09-02-2022 Screening mammograph y of bilateral breasts DO Ramon Chang Work Phone: History of No histor y of surgery Dragan Sánchez Lactoferrin measurement DO Alvarez Chang Work Phone: No history of surgery Edgard Brady Work Phone: Ova and Parasite Result 1 DO Ramon [employer] Work Phone: Ova OR parasites identification DO Ramon Chang Work Phone: Plan of Treatment Date Care Activity Detail Author Start: 07-28-2024 End: 07-28-2024 Patient encounter procedure 07/28/2024 9:30 AM EDT Office Visit [facility] [address] [place] [address] Susana Saravia, TECHNOLOGY SALES SPECIALIST-LEGAL PROJECT MANAGER [address] [facility] [address] [place] [address] [facility] Start: 07-01-2024 [facility] Start: 05-24-2024 End: 05-24-2024 Social Work 05/24/2024 10:30 AM EST Social Work [facility] [address] [place] [id number] Wolf Rangel, KAJAL [facility] Start: 04-29-2024 End: 04-29-2024 Patient encounter procedure 04/29/2024 11:00 AM EST Office Visit [facility] [address] [place] [id number] Susana Saravia, [facility]-LEGAL PROJECT MANAGER [address] [facility] [address] [place] [address] Arrived [facility] Comment on above: Arrived Start: 04-28-2024 End: 04-28-2024 Patient encounter procedure 04/28/2024 8:30 AM EST Office Visit [facility] [address] [facility] [address] [place] [address] Susana Saravia, [facility] [address] [facility] [address] [place] [address] [facility] Start: 02-24-2024 End: 02-24-2024 Patient encounter procedure 02/24/2024 3:00 PM EDT Office Visit [facility] [address] [facility] [address] [place] [address] Susana Saravia, [facility] [address] [facility] [address] [place] [address] Arrived [facility] Comment on above: Arrived Start: 01-11-2024 Influenza vaccination Influenza Vacc ine (#1) [facility] Start: 09-03-2023 Bacteria identified in Urine by Culture [facility] Start: 10-22-2022 EPVDILATED, Provider : Blanca Serrano, Status: Pen, Time: 10:15 AM EPVDILATED, Provider: Blanca Serrano, Status: Pen, Time: 10:15 AM [facility]-Cs[facility]zeutscvfh-[facility] well [address] Work Phone: Start: 01-09-2022 Registered Recurring Registered Recu rring [facility] Start: 01-08-2022 End: 01-08-2022 Patient encounter procedure Departed [facility] [place] Start: 12-21-2021 End: 12-21-2021 Patient encounter procedure Departed [facility] Start: 1993 Screening for malign ant neoplasm of breast Mammogram [facility] Start: 1953 Screening for malign ant neoplasm of colon [facility] Comprehensive metabo lic 1999 panel - Serum or Plasma [facility] DXA Skeletal system.axial Views for bone density [facility] F5 gene mutations fo und [Identifier] in Blood or Tissue by Molecular genetics method Nominal [facility] Patient Education [facility] Work Phone: Patient referral [facility] Work Phone: Renal function 1999 panel - Serum or Plasma [facility] Immunizations Immunization Date Immunization Notes Care Provider Fa cility 03-04-2024 COVID-19 (PFIZER) 12Y and older [facility] 03-04-2024 influenza, high dose seasonal, preservative-free [facility] 10-14-2023 RSV, preF3, adj, pf [facility] 10-14-2023 tetanus toxoid, redu susannah diphtheria toxoid, and acellular pertussis vaccine, adsorbed [facility] 03-02-2023 COVID-19 (PFIZER) 12Y and older [facility] 03-02-2023 influenza virus vaccine, unspecified formulation Susana Saravia TECHNOLOGY SALES SPECIALIST-LEGAL PROJECT MANAGER Work Phone: [facility] 11-23-2022 zoster vaccine recombinant [facility] 08-31-2022 zoster vaccine recombinant [facility] 03-10-2022 influenza, seasonal, injectable Park Eddie Other [facility] 11-20-2021 COVID-19 Comirnaty (Pfizer) Tri-Sucrose 12+ [facility] 03-20-2021 influenza virus vaccine, unspecified formulation DO Ramon Schwerer Work Phone: [facility] 03-20-2021 influenza, high dose seasonal, preservative-free Ramon Schwerer Other [facility] Other 11-28-2020 B-12 - up to 1000 mcg Bev Maricruz Other [place] [employer] Other 08-01-2020 COVID-19 Vaccine Pfi zer - Documentation Purposes Only Bev Maricruz Other [facility] 07-10-2020 COVID-19 Vaccine Pfi zer - Documentation Purposes Only Bev Maricruz Other [facility] 05-01-2020 Kenalog -40 mg Bev Maricruz Other [place] [employer] Other 03-06-2020 pneumococcal conjuga te vaccine, 13 valent Bev Maricruz Other [facility] 10-26-2019 Kenalog -40 mg Bev Maricruz Other [facility] [employer] Other 03-05-2019 pneumococcal polysaccharide vaccine, 23 valent Bev Maricruz Other [facility] 02-16-2019 Kenalog -40 mg Bev Maricruz Other [facility] [employer] Other 02-09-2019 pneumococcal conjuga te vaccine, 13 valent Bev Maricruz Other [facility] Payers Date Payer Category Payer Medicare MEDICARE [id number] 2007 Government (not [facility] or Medicaid) [id number] 1959 Medicare [id number] 1959 Self-pay 1959 Unknown [id number] 1953 Unknown [id number] 2.16.840.1.209386.3.579. 2.593 1953 Unknown [id number] 2.16.840.1.245237.3.579. 2.356 1953 Unknown [id number] 2.16.840.1.490529.3.579. 2.356 1953 Unknown [id number] 2.16.840.1.213390.3.579. 2.1244 1953 Unknown [id number] 2.16.840.1.175758.3.579. 2.1244 1953 Unknown [id number] 2.16.840.1.177198.3.579. 2.1244 1953 Unknown [id number] 2.16.840.1.005780.3.579. 2.1244 1953 Unknown [id number] 2.16.840.1.853736.3.579. 2.1244 1953 Unknown [id number] 2.16.840.1.051221.3.579. 2.1259 1953 Unknown [id number] 2.16.840.1.528229.3.579. 2.1259 1953 Unknown [id number] 2.16.840.1.760599.3.579. 2.1259 1953 Unknown [id number] 2.16.840.1.640457.3.579. 2.1259 1953 Unknown [id number] 2.16.840.1.264399.3.579. 2.1259 1953 Unknown [id number] 2.16.840.1.868733.3.579. 2.1286 1953 Unknown [id number] 2.16.840.1.806804.3.579. 2.1286 1953 Unknown [id number] 2.16.840.1.399776.3.579. 2.1286 Unknown [id number] 2.16.840.1.139583.3.579. 2.593 Unknown Unknown [id number] 2.16.840.1.170211.3.579. 2.531 Unknown [id number] 2.16.840.1.383592.3.579. 2.531 Unknown [id number] 2.16.840.1.329036.3.579. 2.531 Unknown [id number] 2.16.840.1.948727.3.579. 2.531 Unknown [id number] 2.16.840.1.674117.3.579. 2.531 Social History Date Type Detail Facility Assertion Unknown if ever smoked [facility]102 Work Phone: Start: 11-27-2023 End: 04-29-2024 Never a smoker Never a smoker [facility] [address] Work Phone: Start: 11-27-2023 End: 04-29-2024 Sex Assigned At [facility] Start: 10-20-2020 End: 06-17-2024 Tobacco smoking status WVIS Never smoked tobacco (finding) [facility] Start: 1955 Sex Assigned At Female F [facility] Start: 09-21-2022 Tobacco use and exposure Smokeless tobacco non-user [facility] Start: 11-27-2023 End: 04-29-2024 Alcoholic beverage intake Ex-drinker (finding) [facility] Start: 03-12-2023 Alcohol Comment 2-3 coffee/pop [facility] Start: 09-26-2022 Gender identity Identifies as female gender (finding) [facility] Start: 09-26-2022 Sexual orientation Heterosexual (jenelle das) [facility] Start: 04-29-2024 Education 17 [facility] Start: 04-29-2024 Alcohol Comment 2-3 coffee/pop daily [facility] Start: 06-17-2024 End: 07-19-2024 Sex Female (finding) [facility] NEGATED: Highlighted row - - DY-Zjnfjfamqvatw-Wzl t pined[facility]102 Work Phone: Medical Equipment Procedure Code Equipment Code Equipment Origin al Text Equipment Identifier Dates Insulin Syringe-Needle U-100 (Bd Insulin Syringe) 1 mL 27 gauge x 1/2 syringe Start: 07-04-2023 Insulin Syringe-Needle U-100 (Bd Insulin Syringe) 1 mL 27 gauge x 1/2 syringe Start: 07-04-2023 Insulin Syringe-Needle U-100 (Bd Insulin Syringe) 1 mL 27 gauge x 1/2 syringe Start: 07-04-2023 Insulin Syringe-Needle U-100 (Bd Insulin Syringe) 1 mL 27 gauge x 1/2 syringe Start: 07-04-2023 Insulin Syringe-Needle U-100 (Bd Insulin Syringe) 1 mL 27 gauge x 1/2 syringe Start: 07-04-2023 Insulin Syringe-Needle U-100 (Bd Insulin Syringe) 1 mL 27 gauge x 1/2 syringe Start: 07-04-2023 Insulin Syringe-Needle U-100 (Bd Insulin Syringe) 1 mL 27 gauge x 1/2 syringe Start: 07-04-2023 Syringe With Nee dle (Bd Allergy Syringe) 1 mL 28 gauge x 1/2 syringe Start: 06-07-2024 Insulin Syringe-Needle U-100 (Bd Insulin Syringe) 1 mL 27 gauge x 1/2 syringe Start: 07-04-2023 Syringe With Nee dle (Bd Allergy Syringe) 1 mL 28 gauge x 1/2 syringe Start: 06-07-2024 Insulin Syringe-Needle U-100 (Bd Insulin Syringe) 1 mL 27 gauge x 1/2 syringe Start: 07-04-2023 Syringe With Nee dle (Bd Allergy Syringe) 1 mL 28 gauge x 1/2 syringe Start: 06-07-2024 Insulin Syringe-Needle U-100 (Bd Insulin Syringe) 1 mL 27 gauge x 1/2 syringe Start: 07-04-2023 Syringe With Nee dle (Bd Allergy Syringe) 1 mL 28 gauge x 1/2 syringe Start: 06-07-2024 Functional Status Date Assessment Result Facility NEGATED: Highlighted row Functional performance Functional status health issues are not documented Disease JB-Gwddjmipdqgxe-Vx [place] [facility]102 Work Phone: Mental Status Date Assessment Result Facility NEGATED: Highlighted row Cognitive function [Interpretation] Cognitive status health issues are not documented Disease SE-Msvrkzhbfuicp-Wn [place] B102 Work Phone: Clinical Notes 03-07-2021 to 06-17-2024 Note Date & Type Note Facility 06-17-2024 Evaluation note Diagnosis Onset Date Resolution B12 deficiency acute June 172024 8:35am Jah hy kid w cr kid I-IV acute June 17, 2024 8:35am CKD (chronic kidney disease) stage 3, GFR 30-59 ml/min acute June 17 8:35am Family history of factor V deficiency acute June 17 8:35am Hyperlipidemia, mixed acute Feb ru2024 8:35am Hypothyroidism (acquired) acute June 17 8:35am Iron deficiency anemia acute 2024 8:35am Medicare annual wellness visit, subsequent acute June 17, 2024 8:35am Vitamin D deficiency acute 2024 8:35am Hypertension, essential chronic F ebru2024 8:35am [facility] Work Phone: 1(162) 695-751902-06-2025 Evaluation note* Diagnosis Onset Date Resolution Status Admit Date B12 deficiency acute June 172024 8:35am Jah hy kid w cr kid I-IV acute June 17, 2024 8:35am CKD (chronic kidney disease) stage 3, GFR 30-59 ml/min acute Februa ry 2024 8:35am Family history of factor V deficiency acute June 17 8:35am Hyperlipidemia, mixed acute Feb ru2024 8:35am Hypothyroidism (acquired) acute June 17, 2024 8:35am Iron deficiency anemia acute Fe bru2024 8:35am Medicare annual wellness vis it, subsequent acute June 17 8:35am Vitamin D deficiency acute Febr ua2024 8:35am Hypertension, essential chronic F ebruary 2024 8:35am Left hip pain acute July 19, 2024 8:46am Trochanteric bursitis, left hip acut e July 19, 2024 8:46am [facility] Work Phone: 1(717) 248-948912-19-2024 History of Present illness Narrative* Susana MillerMagaliRos, TECHNOLOGY SALES SPECIALIST-LEGAL PROJECT MANAGER - 04/29/2024 11:00 AM EST Images from the original note were not included. Yuni Archibald is a 68 y.o. female presents for Medication Management. HPI: Patient is here for medication follow up Patient has improved since last appt. Mood is reported as not depressed, feeling sad. Anxiety is under control. Sleeping 5-6 hours. Medication compliant. No reported side effects. Denies abuse of substances. Medical problems since last visit. Was in ER- for eye problems. Psychosocial stressors include grieving. Involved in mu-ism. SUBJECTIVE: PAST MEDICAL HISTORY: Past Medical History: Diagnosis Date Anxiety Depression (CMS/HCC) Disease of thyroid gland (CMS/HCC) History of drug abuse (CMS/HCC) ALLERGIES: No Known Allergies SURGICAL HISTORY: No past surgical history on file. FAMILY HISTORY: Family History Problem Relation Name Age of Onset Depression Mother Yuni Palacios Anxiety disorder Mother Yuni Palacios Heart disease Father Sharif Hernandezcer Alcohol abuse Father Sharif Suzanne Stroke Father Sharif Suzanne Kidney cancer Sister Depression Brother Robert Palaicos SOCIAL HISTORY: Social History Tobacco Use Smoking status: Never Smokeless tobacco: Never Vaping Use Vaping status: Never Used Substance Use Topics Alcohol use: Not Currently Comment: 2-3 coffee/pop daily Drug use: Not Currently Types: Amphetamines, Benzodiazepines, Hydrocodone, Oxycodone Comment: opiates clean since 2005 Depression: Not at risk (04/29/2024) PHQ-2 PHQ-2 Score: 0 REVIEW OF SYMPTOMS - MENTAL STATUS EXAM Appearance Appearance: Casual dress, normal grooming and hygiene Attitude Attitude: Cooperative, conversant, engaged, and with good eye contact. Behavior Cooperative, conversant, engaged, and with good eye contact. 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 Insight/Judgement Good OBJECTIVE: Visit Vitals BP 120/80 (BP Location: Right arm, Patient Position: Sitting, BP Cuff Size: Adult) Pulse 98 Wt 149 lb BMI 25.58 kg/m Smoking Status Never BSA 1.75 m No results found for: TSH Lab Results Component Value Date GLU 110 (H) 10/14/2020 CALCIUM 8.6 10/14/2020 NA 90 10/13/2020 CO2 23 10/14/2020 BUN 13 10/14/2020 CREATININE 1.15 (H) 10/14/2020 Lab Results Component Value Date WBC 5.3 10/14/2020 No results found for: CHOL No results found for: HDL No results found for: LDLCALC No results found for: TRIG ASSESSMENT AND PLAN: Assessment/Plan Moderate episode of recurrent major depressive disorder (HCC) (CMS/HCC) Generalized anxiety disorder (CMS/HCC) Psych Medication List Zoloft Tablet, 100 MG, 1 tablet, Orally, Once a day, depression and anxiety hydrOXYzine HCl Tablet, 25 MG, 1-2 tablets, Orally, every 4 hours as needed, Notes: prn itching or anxious-ordered by PCP Amitriptyline HCl Tablet, 50mg 1-2 tablet at bedtime, Orally, Once a day due to difficulty sleeping Discussed resuming counseling -patient agreed after New Year. Patient was seen Face to Face, Reviewed chart documents and documentation, Visit time : 30 min Follow up: 3 months documented in this encounterSaint [facility] [id number] Telephone encounter Note* Telephone Encounter - Amber Villalobos - 04/19/2024 9:10 AM EST Patient called in needing 90 day supply of Sertraline sent to her [facility]. [facility] [id number] Miscellaneous Notes* Telephone Encounter - Amber Villalobos - 04/19/2024 9:10 AM EST Patient called in needing 90 day supply of Sertraline sent to her [facility] by Mail. * Telephone Encounter - Mireya Flanagan - 04/19/2024 8:39 AM EST Patient would like a refill on Amitriptyline. She would like 30 tablets sent to [facility] in [place] and 90 tablets sent to her [facility] by Mail mail order company. documented in this encounterSaint Mary[facility] Health [id number] Telephone encounter Note* Telephone Encounter - Mireya Flanagan - 04/19/2024 8:39 AM EST Patient would like a refill on Amitriptyline. She would like 30 tablets sent to [facility] in [place] and 90 tablets sent to her [facility] Mail mail order [id number]. [facility] [id number] History of Present illness Narrative* Susana Sommer, TECHNOLOGY SALES SPECIALIST-LEGAL PROJECT MANAGER - 02/24/2024 3:30 PM EDT Images from the original note were not included. Yuni Archibald is a 68 y.o. female presents for Medication Management. HPI: Patient is here for medication follow up. Patient has been stable since last appt. Mood is reported as great. Anxiety is manageable. Sleep difficulty sleeping 5hours. Medication compliant. No reported side effects. Denies abuse of substances. Medical problems since last visit. Psychosocial stressors include loss of mother. SUBJECTIVE: PAST MEDICAL HISTORY: Past Medical History: Diagnosis Date Anxiety Depression (CMS/HCC) Disease of thyroid gland (CMS/HCC) History of drug abuse (CMS/HCC) ALLERGIES: No Known Allergies SURGICAL HISTORY: No past surgical history on file. FAMILY HISTORY: Family History Problem Relation Name Age of Onset Depression Mother Yuni Suzanne Anxiety disorder Mother Yuni Palacios Heart disease Father Sharif Hallowell Alcohol abuse Father Sharif Hallowell Stroke Father Sharif Hallowell Kidney cancer Sister Depression Brother Robert Suzanne SOCIAL HISTORY: Social History Tobacco Use Smoking status: Never Smokeless tobacco: Never Vaping Use Vaping status: Never Used Substance Use Topics Alcohol use: Not Currently Comment: 2-3 coffee/pop Drug use: Not Currently Types: Amphetamines, Benzodiazepines, Hydrocodone, Oxycodone Comment: opiates clean since 2005 Depression: Not at risk (11/27/2023) PHQ-2 PHQ-2 Score: 0 REVIEW OF SYMPTOMS - MENTAL STATUS EXAM Appearance Appearance: Casual dress, normal grooming and hygiene Attitude Attitude: Cooperative, conversant, engaged, and with good eye contact. Behavior Cooperative, conversant, engaged, and with good eye contact. Speech Normal, clear, regular rate, rhythm and volume Affect full affect appropriate with mood Mood sad Thought Process Organized and Clear Thought Content No Suicidal Ideation and No Homicidal ideation Perception No perceptual abnormalities noted Orientation Appropriate to age, Person, Place, and Time Memory/Concentration Short term intact and halfway intact Insight/Judgement Good OBJECTIVE: Visit Vitals Smoking Status Never No results found for: TSH Lab Results Component Value Date GLU 110 (H) 10/14/2020 CALCIUM 8.6 10/14/2020 NA 90 10/13/2020 CO2 23 10/14/2020 BUN 13 10/14/2020 CREATININE 1.15 (H) 10/14/2020 Lab Results Component Value Date WBC 5.3 10/14/2020 No results found for: CHOL No results found for: HDL No results found for: LDLCALC No results found for: TRIG ASSESSMENT AND PLAN: Assessment/Plan Assess/Plan SmartLinks: Moderate episode of recurrent major depressive disorder (HCC) ([facility]/HCC) Generalized anxiety disorder ([facility]/HCC) Psych Medication List Zoloft Tablet, 100 MG, 1 tablet, Orally, Once a day, hydrOXYzine HCl Tablet, 25 MG, 1-2 tablets, Orally, every 4 hours as needed, Notes: prn itching or anxious-ordered by PCP Increase Amitriptyline HCl Tablet, 100 MG, 1 tablet at bedtime, Orally, Once a day due to difficulty sleeping Continue amitriptylline for insomnia Patient was seen Face to Face, Reviewed chart documents and documentation, Visit time : 30 min Follow up -2months documented in this encounterSaint Mary's Health [id number] Evaluation note* Encounter Date Diagnosis Assessment Notes Treatment Notes Treatment Clinical Notes Jun, Acute cough (ICD-10 - R05.1) [facility] 02-05-2024 Evaluation note* Encounter Date Diagnosis Assessment Notes Treatment Notes Treatment Clinical Notes Jun, Acute cough (ICD-10 - R05.1) [facility] 01-18-2024 Evaluation note* Encounter Date Diagnosis Assessment Notes Treatment Notes Treatment Clinical Notes May, Contact with and (suspected) exposure to other viral communicable diseases (ICD-10 - Z20.828) May, Influenza A (ICD-10 - J10.1) Rest. Drink plenty of fluids. Continue to take Tylenol as needed for fever or discomfort. You are being diagnosed with influenza A which is a virus. You are outside the window for any Tamiflu. Continue to take the kgly-fzl-yowcpfi Delsym for your cough as needed. Follow-up with your PCP if symptoms persist. Go to the ER if you develop shortness of breath, difficulty breathing, chest pain, or pain with breathing. Patient is a 67-year-old female that presents to urgent care with complaints of cough congestion runny nose fever chills sore throat for the past several days. She denies any vomiting or diarrhea. She does endorse nausea. Patient states that she has been taking Delsym for her cough [id number] as well as Tylenol for her fevers and chills. Patient was tested for COVID flu and RSV via PCR and tested positive for influenza A. Patient is being encouraged to rest drink plenty of fluids continue the Tylenol and Delsym pfrq-zvh-inagseg as needed. She is aware that she can take pavf-tvw-dvaxajs cold and flu medicine for symptom management. She is encouraged to follow-up with her PCP. Patient is to go to the ER if she develops shortness of breath, difficulty breathing, chest pain, or pain with taking a deep breath. [facility] Other 11-13-2023 Evaluation note* Encounter Date Diagnosis Assessment Notes Treatment Notes Treatment Clinical Notes Mar, Left hip pain (ICD-10 - M25.552) Mar, Trochanteric bursitis of left hip (ICD-10 - M70.62) Yuni returns with left trochanteric bursitis. We have injected this previously with good results. At this juncture we have discussed the findings and diagnosis as well as personally reviewed appropriate imaging and performed interpretation of related testing and examination with the patient in office today. She wants to move forward with another injection today. Risks and benefit of injection were discussed and verbal consent was obtained. Under sterile technique the patient's left greater trochanteric bursa was injected via the lateral approach with 4 cc of Marcaine and 1 cc of Kenalog, this was tolerated well without any adverse reaction. Band-Aid was applied to the area. The patient has been involved in our cooperative treatment plan and agrees to move forward with treatment at this time. See orders for this visit as documented in the electronic medical record. Examination and assessment of this patient was performed by Janeth Rodriguez NP and patient will continue with the treatment plan per Dr. Toro, who initiated this treatment plan. Dr. Toro is present in the office today and providing supervision. [facility] 09-15-2023 Evaluation note* Encounter Date Diagnosis Assessment Notes Treatment Notes Treatment Clinical Notes Jan, Hypertension, essential (ICD-10 - I10) controlled Jan, Hyperlipidemia, mixed (ICD-10 - E78.2) she stopped lipitor because she was getting muscle aches/weakness. will give some time off until she feels those symptoms have resolved and then we can consider pravastatin. Jan, B12 deficiency (ICD-10 - E53.8) requested injection today. Jan, Diarrhea of presumed infectious origin (ICD-10 - R19.7) diarrhea x 5-6 days. well hydrated. encouraged no immodium as it is presumed infectious at this time. i did order stool studies and labs that if come early next week if not resolved then she can get these done. she is in no distress today in the office. hx of c diff but this feels different. continue bland diet. [facility] 08-28-2023 Evaluation note* Encounter Date Diagnosis Assessment Notes Treatment Notes Treatment Clinical Notes Dec, Vitamin D deficiency (ICD-10 - E55.9) [facility] 07-12-2023 Evaluation note* Encounter Date Diagnosis Assessment Notes Treatment Notes Treatment Clinical Notes Nov, Left hip pain (ICD-10 - M25.552) Nov, Trochanteric bursitis of left hip (ICD-10 - M70.62) Yuni returns with left trochanteric bursitis. We have injected this previously with good results. At this juncture we have discussed the findings and diagnosis as well as personally reviewed appropriate imaging and performed interpretation of related testing and examination with the patient in office today. She wants to move forward with another injection today. Risks and benefit of injection were discussed and verbal consent was obtained. Under sterile technique the patient's left greater trochanteric bursa was injected via the lateral approach with 4 cc of Marcaine and 1 cc of Kenalog, this was tolerated well without any adverse reaction. Band-Aid was applied to the area. The patient has been involved in our cooperative treatment plan and agrees to move forward with treatment at this time. See orders for this visit as documented in the electronic medical record. Patient was prepped and cortisone was injected into the greater trochanteric bursa under sterile conditions. Patient tolerated injection well with no adverse reactions. [facility] 06-01-2023 Evaluation note* Encounter Date Diagnosis Assessment Notes Treatment Notes Treatment Clinical Notes Oct, Jah spaulding kid w cr kid I-IV (ICD-10 - I12.9) Her blood pressure has been controlled. Her blood pressure has been controlled. She is currently on dietary modification.She appears to be euvolemic. 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 Her serum creatinine is 1.1 mg/dL. Her UA showed no evidence of proteinuria or hematuria. Her renal ultrasound shows no evidence of the renal mass, kidney stone or hydronephrosis. I discussed with her the importance of good HTN control to slow down the progression of disease. I advised her to continue to avoid NSAIDs. Oct, Vitamin D deficiency (ICD-10 - E55.9) She has vitamin D deficiency but her calcium, phosphorus are within normal. Continue oral ergocalciferol 50,000 unit weekly. Oct, Hypomagnesemia (ICD-10 - E83.42) She has hypomagnesemia due to the pantoprazole. I have advised her to comply with the magnesium oxide 400 mg daily. Oct, Dyslipidemia (ICD-10 - E78.5) Continue current dose of the Lipitor. Monitor LFTs and lipid profile periodically with PCP [facility] 04-03-2023 Evaluation note* Encounter Date Diagnosis Assessment Notes Treatment Notes Treatment Clinical Notes Aug, B12 deficiency (ICD-10 - E53.8) Aug, Chronic kidney disease, stage 3 unspecified (ICD-10 - N18.30) Aug, Hyperlipidemia, mixed (ICD-10 - E78.2) [facility] 01-26-2023 Evaluation note* Encounter Date Diagnosis Assessment Notes Treatment Notes Treatment Clinical Notes May, B12 deficiency (ICD-10 - E53.8) [facility] 01-20-2023 Evaluation note* Encounter Date Diagnosis Assessment Notes Treatment Notes Treatment Clinical Notes May, Vitamin D deficiency (ICD-10 - E55.9) [facility] 12-21-2022 Evaluation note* Encounter Date Diagnosis Assessment Notes Treatment Notes Treatment Clinical Notes Apr, Diarrhea (ICD-10 - R19.7) CONTINUE COLESTID 2 TABLETS DAILY MAY START BENEFIBER Apr, GERD (gastroesophageal reflux disease) (ICD-10 - K21.9) CONTINUE PANTOPRAZOLE 40 MG TWICE A DAY [facility] 12-20-2022 Evaluation note* Encounter Date Diagnosis Assessment Notes Treatment Notes Treatment Clinical Notes Apr, Obesity, unspecified classification, unspecified obesity type, unspecified whether serious comorbidity present (ICD-10 - E66.9) Apr, BMI 34.0-34.9,adult (ICD-10 - Z68.34) Apr, Other Summary of Visi t: (A) Presentation of Plate Method discussed (B) Sample meal ideas reviewed (C) exercise recommendations reviewed Patient set the following goals: - patient set personal goal using given handout. [facility] 12-05-2022 Evaluation note* Encounter Date Diagnosis Assessment Notes Treatment Notes Treatment Clinical Notes Apr, Left hip pain (ICD-10 - M25.552) Apr, Trochanteric bursitis of left hip (ICD-10 - M70.62) Yuni returns with left trochanteric bursitis. We have injected this previously with good results. At this juncture we have discussed the findings and diagnosis as well as personally reviewed appropriate imaging and performed interpretation of related testing and examination with the patient in office today. She wants to move forward with another injection today. Risks and benefit of injection were discussed and verbal consent was obtained. Under sterile technique the patient's left greater trochanteric bursa was injected via the lateral approach with 4 cc of Marcaine and 1 cc of Kenalog, this was tolerated well without any adverse reaction. Band-Aid was applied to the area. The patient has been involved in our cooperative treatment plan and agrees to move forward with treatment at this time. See orders for this visit as documented in the electronic medical record. This appears to be pain secondary to greater trochanteric bursitis. Discussed treatment options as oral or topical NSAIDs, physical therapy with iontophoresis, or cortisone injection to the greater trochanteric bursa. We performed a 1/1cc marcaine / kenalog cortisone injection into the left bursa under sterile technique. Patient tolerated the injection well without adverse reaction. [facility] 12-01-2022 Evaluation note* Encounter Date Diagnosis Assessment Notes Treatment Notes Treatment Clinical Notes Apr, Hypothyroidism (acquired) (ICD-10 - E03.9) Interval assessment and optimization necessary- per PCP Apr, Obesity (ICD-10 - E66.9) Apr, Hypertension, essential (ICD-10 - I10) We discussed that the AHA recommends no more than 2,300 mg a daily as an ideal limit, but no more than 1,500 mg daily for most adults, especially those with HTN. Soduim intake below 1,000 mg per day can further improve blood pressure and heart health. Apr, Moderate major depression (ICD-10 - F32.1) Discussion on how mental health affects her food choices reports he 01 Dec, 2022 Generalized anxiety disorder (ICD-10 - F41.1) Stable, no worsening with qsymia, psychiatrist stopped lorazepam. Apr, Hyperlipidemia, mixed (ICD-10 - E78.2) Discussed risks of elevated LDL. Encouraged intake of foods low in saturated fat as well as supplements (sarah, fish oil). Discussed LDL contributing to insulin resistance and increase cardiovascular risk factors. Apr, BMI 33.0-33.9,adult (ICD-10 - Z68.33) Apr, Other I have spent 30 minutes with this patient and over 50% of the visit was counseling done by myself, Lizet BILL. Plan, purchase and prepare healthy foods. Use shopping list, electronic shopping to curb impulse buying. Stock pantry with healthy foods. Keep fruits and vegetables accessible. Avoid bringing unhealthy foods in to the home. Plan family meals minimally 3 x per week. Decrease screen time. [facility] 11-14-2022 Evaluation note* Encounter Date Diagnosis Assessment Notes Treatment Notes Treatment Clinical Notes Mar, B12 deficiency (ICD-10 - E53.8) [facility] 10-13-2022 Evaluation note* Encounter Date Diagnosis Assessment Notes Treatment Notes Treatment Clinical Notes Feb, B12 deficiency (ICD-10 - E53.8) [facility] 10-10-2022 Evaluation note* Encounter Date Diagnosis Assessment Notes Treatment Notes Treatment Clinical Notes Feb, Left hip pain (ICD-10 - M25.552) Feb, Trochanteric bursitis of left hip (ICD-10 - M70.62) Yuni returns with left trochanteric bursitis. We have injected this previously with good results. At this juncture we have discussed the findings and diagnosis as well as personally reviewed appropriate imaging and performed interpretation of related testing and examination with the patient in office today. She does tell me she wants to have relief for an upcoming trip in April. We discussed a repeat injection which the patient does not proceed with. I have recommended holding off on this as if she gets an injection today I do not want to perform another injection within that timeframe so she should return closer to her trip and we will perform a bursal injection at that time. She is agreeable to this. Home exercise program given The patient has been involved in our cooperative treatment plan and agrees to move forward with treatment at this time. See orders for this visit as documented in the electronic medical record. Discussed with patient to return before her vacation to proceed with injection. Patient given AAOS handout for stretching exerceses [facility] 09-29-2022 Evaluation note* Encounter Date Diagnosis Assessment Notes Treatment Notes Treatment Clinical Notes Jan, Hypothyroidism (acquired) (ICD-10 - E03.9) Interval assessment and optimization necessary- per PCP Jan, Obesity (ICD-10 - E66.9) Jan, Hypertension, essential (ICD-10 - I10) We discussed that the AHA recommends no more than 2,300 mg a daily as an ideal limit, but no more than 1,500 mg daily for most adults, especially those with HTN. Soduim intake below 1,000 mg per day can further improve blood pressure and heart health. 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 Jan, Hyperlipidemia, mixed (ICD-10 - E78.2) Discussed risks of elevated LDL. Encouraged intake of foods low in saturated fat as well as supplements (sarah, fish oil). Discussed LDL contributing to insulin resistance and increase cardiovascular risk factors. Jan, BMI 33.0-33.9,adult (ICD-10 - Z68.33) Jan, Other I have spent 30 minutes with this patient and over 50% of the visit was counseling done by myself, Lizet BILL. Plan, purchase and prepare healthy foods. Use shopping list, electronic shopping to curb impulse buying. Stock pantry with healthy foods. Keep fruits and vegetables accessible. Avoid bringing unhealthy foods in to the home. Plan family meals minimally 3 x per week. Decrease screen time. [facility] 09-12-2022 Evaluation note* Encounter Date Diagnosis Assessment Notes Treatment Notes Treatment Clinical Notes Jan, B12 deficiency (ICD-10 - E53.8) [facility] 08-31-2022 Evaluation note* Encounter Date Diagnosis Assessment Notes Treatment Notes Treatment Clinical Notes Dec, BMI 35.0-35.9,adult (ICD-10 - Z68.35) Plan, purchase and prepare healthy foods. Use shopping list, electronic shopping to curb impulse buying. Stock pantry with healthy foods. Keep fruits and vegetables accessible. Avoid bringing unhealthy foods in to the home. Plan family meals minimally 3 x per week. Decrease screen time. Dec, Obesity (ICD-10 - E66.9) Dec, Hypothyroidism (acquired) (ICD-10 - E03.9) Interval assessment and optimization necessary- per PCP Dec, Hypertension, essential (ICD-10 - I10) We discussed that the AHA recommends no more than 2,300 mg a daily as an ideal limit, but no more than 1,500 mg daily for most adults, especially those with HTN. Soduim intake below 1,000 mg per day can further improve blood pressure and heart health. Dec, Moderate major depression (ICD-10 - F32.1) Discussion on how mental health affects her food choices reports he Dec, Generalized anxiety disorder (ICD-10 - F41.1) Dec, Hyperlipidemia, mixed (ICD-10 - E78.2) Discussed risks of elevated LDL. Encouraged intake of foods low in saturated fat as well as supplements (sarah, fish oil). Discussed LDL contributing to insulin resistance and increase cardiovascular risk factors. Dec, Other I have spent 30 minutes with this patient and over 50% of the visit was counseling done by myself, Lizet BILL. [facility] 08-30-2022 Evaluation note* Encounter Date Diagnosis Assessment Notes Treatment Notes Treatment Clinical Notes Dec, Diarrhea, unspecified type (ICD-10 - R19.7) [facility] 08-12-2022 Evaluation note* Encounter Date Diagnosis Assessment Notes Treatment Notes Treatment Clinical Notes Dec, C. difficile diarrhea (ICD-10 - A04.72) elevated alk phos on last labs. will recheck labs today. Over all seems to be improving. Had a set back yesterday into today. She will call in 3 days after she finishes round of vanco with an update on her diarrhea. [facility] 08-04-2022 Evaluation note* Encounter Date Diagnosis Assessment Notes Treatment Notes Treatment Clinical Notes Dec, Diarrhea, unspecified type (ICD-10 - R19.7) Has had at least 5 days of diarrhea but not more. This is complete water per her report. We will do stool studies. We will also get some updated blood work. She reports she can barely keep any fluids and her on exam she does not appear dehydrated. I did discuss with her though that if she really cannot keep anything down over the next couple days she will need to go to the ER for IV fluids. She agrees with this plan today. We will follow-up next week. I did ask her to stop the Imodium as this is not helping and if this is infectious needs to clear out. No other sick contacts. No recent antibiotics. We will call her with the results of the stool study and the blood work. She knows to call us with any new symptoms and we will follow-up next week. Dec, B12 deficiency (ICD-10 - E53.8) [facility] 07-13-2022 Evaluation note* Encounter Date Diagnosis Assessment Notes Treatment Notes Treatment Clinical Notes Nov, BMI 35.0-35.9,adult (ICD-10 - Z68.35) discussed concommitant risk for serotonin syndrome with 3 agents phenteramine, zoloft and amytriptilline. She will hold amytriptyline, better with lower dose phenteramine. she is aware of signs and symptoms to watch for. She understands risk for increased heart rate, arrythmia and accepts this risk. Phenteramine reviewed with Dr Chang. OAARS was reviewed without concerns for compliance or alternate stimulants. She will call if retal ibrahim exceeds $98 and in that case will send to [email or web address] for [facility] pay ibrahim, in that case she will need to set up account with them for payment and shipment [facility] Other 06-30-2022 Evaluation note* Encounter Date Diagnosis Assessment Notes Treatment Notes Treatment Clinical Notes Oct, B12 deficiency (ICD-10 - E53.8) [facility] 06-16-2022 Evaluation note* Encounter Date Diagnosis Assessment Notes Treatment Notes Treatment Clinical Notes Oct, Jah smith w cr kid I-IV (ICD-10 - I12.9) Her blood pressure has been controlled. Her blood pressure has been controlled. She is currently on dietary modification.She appears to be euvolemic. 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 Her serum creatinine is 1.1 mg/dL. Her UA showed no evidence of proteinuria or hematuria. Her renal ultrasound shows no evidence of the renal mass, kidney stone or hydronephrosis. I discussed with her the importance of good HTN control to slow down the progression of disease. I advised her to continue to avoid NSAIDs. Oct, Vitamin D deficiency (ICD-10 - E55.9) She has vitamin D deficiency but her calcium, phosphorus are within normal. Continue oral ergocalciferol 50,000 unit weekly. Oct, Iron deficiency (ICD-10 - E61.1) Her hemoglobin is within normal limit. She has a low iron stores. I have advised to resume oral iron every other day Oct, Hypomagnesemia (ICD-10 - E83.42) She has hypomagnesemia due to the pantoprazole. I have advised her to resume the magnesium oxide 400 mg daily. [facility] 05-24-2022 Evaluation note* Encounter Date Diagnosis Assessment Notes Treatment Notes Treatment Clinical Notes September, B12 deficiency (ICD-10 - E53.8) [facility] 05-02-2022 Evaluation note* Encounter Date Diagnosis Assessment Notes Treatment Notes Treatment Clinical Notes September, Hypothyroidism (acquired) (ICD-10 - E03.9) labs good 12/2020. stable. September, Hyperlipidemia, mixe d (ICD-10 - E78.2) LDL went from 204-120. She does not take this regularly. She is working at good diet and weight loss. She would like to get off the Lipitor but for now we will continue. September, BMI 32.0-32.9,adult (ICD-10 - Z68.32) Had been on adipex in the past. i did give her 1 month a few months ago but she gained weight during that month. She is interested in the weight managament clinic. [facility] 04-25-2022 Evaluation note* Encounter Date Diagnosis Assessment Notes Treatment Notes Treatment Clinical Notes Aug, Neurodermatitis (ICD-10 - L28.0) Aug, Hypothyroidism (acquired) (ICD-10 - E03.9) [facility] 03-21-2022 Evaluation note* Encounter Date Diagnosis Assessment Notes Treatment Notes Treatment Clinical Notes Jul, Neurodermatitis (ICD-10 - L28.0) Jul, Hyperlipidemia, mixe d (ICD-10 - E78.2) [facility] 01-24-2022 Evaluation note* Encounter Date Diagnosis Assessment Notes Treatment Notes Treatment Clinical Notes May, Abnormal mammogram (ICD-10 - R92.8) [facility] 01-18-2022 Evaluation note* Encounter Date Diagnosis Assessment Notes Treatment Notes Treatment Clinical Notes May, Vitamin D deficiency (ICD-10 - E55.9) [facility] 12-01-2021 Evaluation note* Encounter Date Diagnosis Assessment Notes Treatment Notes Treatment Clinical Notes Apr, Contact with and (suspected) exposure to other viral communicable diseases (ICD-10 - Z20.828) Apr, COVID-19 (ICD-10 - U07.1) Apr, Other Additional time spent conducting pre-visit phone call, screening for symptoms, instructions on social distancing, application and removal of PPE, and cleaning of examination room, equipment and supplies was preformed. Patient education given for testing methodology and results. Patient care instructions given in writting by [facility] document. Additional time spent conducting pre-visit phone call, screening for symptoms, instructions on social distancing, application and removal of PPE, and cleaning of examination room, equipment and supplies was preformed. Patient education given for testing methodology and results. Patient care instructions given in writting by [facility] document. [facility] Other 10-27-2021 Evaluation note* Encounter Date Diagnosis Assessment Notes Treatment Notes Treatment Clinical Notes Feb, Open bite of right hand, initial encounter (ICD-10 - S61.451A) Feb, Bitten by dog, initi al encounter (ICD-10 - W54.0XXA) Keep the wounds clean and dry. Apply antibiotic ointment to the wounds as directed. Continue home medications as prescribed. Take the Augmentin as prescribed until gone. Take the Medrol Dosepak as prescribed until gone. Follow-up with your family physician if no improvement in 3 to 4 days Feb, Atopic neurodermatit is (ICD-10 - L20.81) [facility] Other Evaluation noteNo InformationNort iGlue Other Evaluation noteNortShoobs Other Evaluation noteNo assessment information available [facility] Work Phone: Evaluation note* Diagnosis Onset Date Resolution Status Left hip pain acute Trochanteric bursitis, left hip acute [facility] Work Phone: Evaluation note* Diagnosis Onset Date Resolution Status Left hip pain acute Trochanteric bursitis, left hip acute Jah hy kid w cr kid I-IV acu te CKD (chronic kidney disease) stage 3, GFR 30-59 ml/min acute Hyperlipidemia, mixed acute Hypomagnesemia acute Vitamin D deficiency acute [facility] Work Phone: Evaluation note* Diagnosis Onset Date Resolution Status Jah hy kid w cr kid I-IV acu te CKD (chronic kidney disease) stage 3, GFR 30-59 ml/min acute Hyperlipidemia, mixed acute Hypomagnesemia acute Vitamin D deficiency acute Left hip pain acute Trochanteric bursitis, left hip acute [facility] Work Phone: Evaluation note* Diagnosis Generalized anxiety disorder (CMS/HCC) Generalized anxiety disorder Moderate episode of recurrent major depressive disorder (CMS/HCC) [facility] Diagnosis Generalized anxiety disorder (CMS/HCC) Generalized anxiety disorder Moderate episode of recurrent major depressive disorder (CMS/HCC) Insomnia, unspecified type [facility] Diagnosis Insomnia, unspecified type [facility] Narrative - Reported* Type Description Date Medical History Hypothyroidism Medical History IBS Medical History Acid Reflux Medical History Hx of Edema Medical History Anemia Medical History Chronic Depression Medical History LEFT EYE CORNEA Medical History kidney issues Medical History neuro-dermatitis Surgical History intestinal blockage -ileus Surgical History Hysterectomy Surgical History GallBladder Removal Surgical History Cyst Removed from tailbone Surgical History Left Knee Replacement Surgical History Tonsillectomy/Adenoidectomy Hospitalization History See Surgical History Hospitalization History Pneumonia, UTI 10/2020 [facility] Other History general Narrative - ReportedNort iGlue Other History general Narrative - Reported* Type Description Date Medical History Hypothyroidism Medical History IBS Medical History Acid Reflux Medical History Hx of Edema Medical History Anemia Medical History Chronic Depression Medical History LEFT EYE CORNEA Medical History kidney issues Medical History neuro-dermatitis Medical History hyperlipidemia Surgical History intestinal blockage -ileus Surgical History Hysterectomy Surgical History GallBladder Removal Surgical History Cyst Removed from tailbone Surgical History Left Knee Replacement Surgical History Tonsillectomy/Adenoidectomy Hospitalization History See Surgical History Hospitalization History Pneumonia, UTI 10/2020 [facility] Hospital Discharge instructions Additional Instructions Follow-up with your eye doctor Return to ED if you develop worsening symptoms [facility] Work [facility]: Summary Purpose Family History Unknown Family Member Name Dates Details Denies No pertinent family h istory: Mother, Father(V49.89, Z78.9) Status: Unknown Family Member Name Dates Details Denies No pertinent family h istory: Mother, Father(V49.89, Z78.9) Status: Relationship Condition Age at Onset Recorded Date/T matt Not Specified No pertinent family history Unknown Relationship Condition Age at Onset Recorded Date/T matt Not Specified No pertinent family history Unknown brother Unknown Family history of blood clots Unknown father Heart disease Unknown Unknown family member Unknown Not Specified Family history of mental disorder Unknow n Relationship Condition Age at Onset Recorded Date/T matt Not Specified No pertinent family history Unknown brother Unknown Family history of blood clots Unknown father Heart disease Unknown Unknown family member Unknown mother Family history of mental disorder Unknown Advance Directives Advance Directive Response Recorded Date/ Time Advance Directives No March 12:04pm Advance Directive Response Recorded Date/ Time Advance Directives No March 11:04am Advance Directive Response Recorded Date/ Time Advance Directives No June 07, 2024 8:08am Advance Directive Response Recorded Date/ Time Advance Directives No June 07, 2024 9:08am Chief Complaint and Reason for Visit Chief Complaint R19.7 N18.30 R19.7 Obesity Chief Complaint R19.7 Obesity Z68.33 Chief Complaint Screening e53.8 e78.2 Chief Complaint Screening e53.8 e78.2 N18.30 I12.9 E55.9 E61.1 Chief Complaint Cough, Congestion Fever, Vomiting, Here The 18 4 Month follow up Amb Documentation left eye problem Reason for Visit Left hip pain Trochanteric bursitis, left hip Chief Complaint Fever, Vomiting, Her e The 18 4 Month follow up Amb Documentation left eye problem Amb Documentation e03.9 i10 e78.2 Reason for Visit Left hip pain Trochanteric bursitis, left hip Chief Complaint 4 Month follow up Amb Documentation left eye problem Amb Documentation e03.9 i10 e78.2 RENAL 1 yr f/u Reason for Visit Left hip pain Trochanteric bursitis, left hip Jah hy kid w cr kid I-IV CKD (chronic kidney disease) stage 3, GFR 30-59 ml/min Hyperlipidemia, mixed Hypomagnesemia Vitamin D deficiency Chief Complaint Amb Documentation left eye problem Amb Documentation e03.9 i10 e78.2 RENAL 1 yr f/u October/ Reason for Visit Jah hy kid w cr kid I-IV CKD (chronic kidney disease) stage 3, GFR 30-59 ml/min Hyperlipidemia, mixed Hypomagnesemia Vitamin D deficiency Left hip pain Trochanteric bursitis, left hip Chief Complaint October/ Amb Documentation Bilat eye pain, watery Reason for Visit Left hip pain Trochanteric bursitis, left hip Chief Complaint Bilat eye pain, wate ry Amb Documentation 4 MONTHS Reason for Visit Left hip pain Trochanteric bursitis, left hip Chief Complaint Admit Date MAWV June 17, 2024 8 :35am Chief Complaint Admit Date MAWV June 17, 2024 8 :35am Contacts stuck in eyes June 17 9:46am Reason for Visit Admit Date B12 deficiency June 17, 2024 8 :35am Jah hy kid w cr kid I-IV June 17, 2 025 8:35am CKD (chronic kidney disease) stage 3, GF R 30-59 ml/min June 17, 2024 8:35am Family history of factor V deficiency Fe 2024 8:35am Hyperlipidemia, mixed June 17, 2024 8:35am Hypothyroidism (acquired) June 17, 2024 8:35am Iron deficiency anemia June 17 8:35am Medicare annual wellness visit, subseque nt June 17, 2024 8:35am Vitamin D deficiency June 17, 2024 8:35am Hypertension, essential June 17 8:35am Chief Complaint Admit Date MAWV June 17, 2024 8 :35am Contacts stuck in eyes June 17 9:46am n18.30 i10 i12.9 e55.9 e78.2 e03.9 e53.8 d50.9 z83 July 01, 2024 11:52am Chief Complaint Admit Date MAWV June 17, 2024 8 :35am Contacts stuck in eyes June 17 9:46am n18.30 i10 i12.9 e55.9 e78.2 e03.9 e53.8 d50.9 z83 July 01, 2024 11:52am OP/SP LT HIP PAIN July 19, 2024 8:4 6am Reason for Visit Admit Date B12 deficiency June 17, 2024 8 :35am Jah hy kid w cr kid I-IV June 17 025 8:35am CKD (chronic kidney disease) stage 3, GF R 30-59 ml/min June 17, 2024 8:35am Family history of factor V deficiency 2024 8:35am Hyperlipidemia, mixed June 17, 2024 8:35am Hypothyroidism (acquired) June 17, 2024 8:35am Iron deficiency anemia June 17 8:35am Medicare annual wellness visit, subseque nt June 17, 2024 8:35am Vitamin D deficiency June 17, 2024 8:35am Hypertension, essential June 17 8:35am Left hip pain July 19, 2024 8:4 6am Trochanteric bursitis, left hip July 192024 8:46am Additional Source Comments INFORMATION SOURCE (unrecogn ized section and content) DATE CREATED AUTHOR 05/15/2019 [facility] DATE CREATED AUTHOR AUTHOR'S ORGANIZ ATION 07/23/2021 [facility] DATE CREATED AUTHOR AUTHOR'S ORGANIZ ATION 10/20/2021 [facility] DATE CREATED AUTHOR AUTHOR'S ORGANIZ ATION 02/08/2022 [facility] DATE CREATED AUTHOR AUTHOR'S ORGANIZ ATION 03/19/2024 [facility] DATE CREATED AUTHOR AUTHOR'S ORGANIZ ATION 05/02/2024 [facility] EPIC DATE CREATED AUTHOR AUTHOR'S ORGANIZ ATION 05/04/2024 [facility] DATE CREATED AUTHOR AUTHOR'S ORGANIZ ATION 07/09/2024 [facility] REASON FOR VISIT (unrecogniz ed section and content) Reason Comments Med Management Follow-up Reason Onset Date Comments Med Refill 04/19/2024 Care Teams (unrecognized sec tion and content) Team Status: Active Member Role Status Dates Ramon Chang DO Primary Care Provider Active Team Status: Inactive Member Role Status Dates Ramon Chang DO Primary Care Provider Active Start: October 22, 2023 End: October 22, 2023 Jf Toro DO Attending Provider Active S tart: October 22, 2023 End: October 22, 2023 Team Status: Active Member Role Status Dates Ramon Chang DO Primary Care Provider Active Start: 2023 Marcia Rai CMA Attending Provider Active St art: 2023 Team Status: Inactive Member Role Status Dates Ramon Chang DO Primary Care Provider Active Start: January 11, 2024 End: January 11, 2024 Antoine Luu PA-C Emergency Provider Active Start: January 11, 2024 End: January 11, 2024 Team Status: Active Member Role Status Dates Ramon Chang DO Primary Care Provider Active Start: August 05, 2023 Christelle Perry LPN Attending Provider Active Start: August 05, 2023 Team Status: Inactive Member Role Status Dates Ramon Chang , DO Primary Care Provider Active Start: August 23, 2023 End: August 23, 2023 Dashawn Rodriguez DO Emergency Provider Active Sta rt: August 23, 2023 End: August 23, 2023 Team Status: Active Member Role Status Dates Ramon Chang , DO Primary Care Provider Active Start: August 26, 2023 Deann Fowler LPN Attending Provider Active Sta rt: August 26, 2023 Team Status: Inactive Member Role Status Dates Ramon Chang , DO Primary Care Pro vider, Attending Provider Active Start: September 03, 2023 End: September 03, 2023 Park Morgan MD Referring Provider Active Start : September 03, 2023 End: September 03, 2023 Team Status: Inactive Member Role Status Dates Ramon Chang , DO Primary Care Provider Active Start: September 18, 2023 End: September 18, 2023 Park Morgan MD Attending Provider Active Start : September 18, 2023 End: September 18, 2023 Team Status: Inactive Member Role Status Dates Ramon Chang , DO Primary Care Provider, Attendi ng Provider Active Team Status: Active Member Role Status Dates Ramon Chang , DO Primary Care Provider, Attendi ng Provider Active Team Status: Inactive Member Role Status Dates Ramon Chang , DO Primary Care Provider Active Maty Rodas APRN Attending Provider Active Team Status: Inactive Member Role Status Dates Ramon Chang , DO Primary Care Provider, Referri ng Provider Active Referral Self Attending Provider Active Team Status: Inactive Member Role Status Dates Ramon Chang , DO Primary Care Provider Active Park Morgan MD Attending Provider Active Team Status: Inactive Member Role Status Dates Albertina Wei RN Attending Provider Active Start : May 29, 2023 End: May 29, 2023 Team Status: Inactive Member Role Status Dates Karo Rice APRN Attending Provider Active Start: June 10, 2023 End: June 10, 2023 Team Status: Inactive Member Role Status Dates Ramon Chang , DO Primary Care Provider Active Start: July 23, 2023 End: July 23, 2023 Jf Toro DO Active Start: July 23, 2023 End: July 23, 2023 Janeth Rodriguez NP-C Attending Provider Active Start: July 23, 2023 End: July 23, 2023 Aeronautical Engineering Technologist Relationship Specialty Start Date End Date Ramon Chang DO [address] [place] [phone] PCP - General Family Medicine 10/02/22 Aeronautical Engineering Technologist Relationship Specialty Start Date End Date Ramon Chang DO [address] [place] [phone] PCP - General Family Medicine 10/02/22 Team Status: Active Member Role Status Dates Ramon Chang DO Primary Care Provider Active Start: January 14, 2024 Angelica Duggan Attending Provider Active Start: January 14, 2024 Team Status: Inactive Member Role Status Dates Ramon Chang DO Primary Care Provider Active Start: March 01, 2024 End: March 01, 2024 Jf Toro DO Attending Provider Active S tart: March 01, 2024 End: March 01, 2024 Aeronautical Engineering Technologist Relationship Specialty Start Date End Date Ramon Chang DO [address] [place] [phone] PCP - General Family Medicine 10/02/22 Aeronautical Engineering Technologist Relationship Specialty Start Date End Date Ramon Chang DO [address] [place] [id number] PCP - General Family Medicine 10/02/22 Aeronautical Engineering Technologist Relationship Specialty Start Date End Date Ramon Chang DO [address] [place] [phone] PCP - General Family Medicine 10/02/22 Team Status: Inactive Member Role Status Dates Ramon Chang , DO Primary Care Pro vider, Attending Provider Active Start: June 17, 2024 End: June 17, 2024 Team Status: Inactive Member Role Status Dates Ramon Chang , DO Primary Care Provider Active Start: June 17, 2024 End: June 17, 2024 Mo Alcantara APRN Emergency Provider Active Start: June 17, 2024 End: June 17, 2024 Team Status: Inactive Member Role Status Dates Ramon Chang , DO Primary Care Pro vider, Attending Provider Active Start: July 01, 2024 End: July 01, 2024 Team Status: Inactive Member Role Status Dates Ramon Chang , DO Primary Care Provider Active Start: July 19, 2024 End: July 19, 2024 Jf Toro , Attending Provider Active S tart: July 19, 2024 End: July 19, 2024 Goals (unrecognized section and content) Goals may be documented in a n alternate section FOR RECORDS PERTAINING TO PATIENTS WHO ARE OR HAVE BEEN ENROLLED IN A CHEMICAL DEPENDENCY/SUBSTANCEABUSE PROGRAM, SOME INFORMATION MAY BE OMITTED. This clinical summary was aggregated from multiple sources. Caution should be exercised in using it in the provision of clinical care. This summary normalizes information from multiple sources, and as a consequence, information in this document may materially change the coding, format and clinical context of patient data. In addition, data may be omitted in some cases. CLINICAL DECISIONS SHOULD BE BASED ON THE PRIMARY CLINICAL RECORDS. [facility]. provides no warranty or guarantee of the accuracy or completeness of information in this document.
[2024-07-25] MEDS: TETRACAINE HCL 0.5% OP SOL 80 DROP/4 ML BOTTLE OP (16:32)
--- NOTE | 2024-07-25 16:39 | ED.EYEPROB1 ---
HPI - Eye Problem General Chief complaint: Eye Problems Stated complaint: EYE ISSUE Time Seen by Provider: 07/25/24 16:18 Source: patient Mode of arrival: walk-in Limitations: no limitations History of Present Illness HPI Narrative: 68-year-old female presents here with chief complaint of contact lenses stuck in her eye. She believes she has 2 contact lenses in her left and possibly 1 in her right eye. She was unable to get them out on her own at home. She did drive herself here. She states she has no one at home to help her. Related Data Home Medications ?Medication ?Instructions ?Recorded ?Confirmed amitriptyline 50 mg tablet 50 mg PO BEDTIME 07/25/24 07/25/24 atorvastatin 10 mg tablet 10 mg PO DAILY 07/25/24 07/25/24 cyanocobalamin (vitamin B-12) 1,000 mcg IM .qmonth 07/25/24 07/25/24 1,000 mcg/mL injection solution ergocalciferol (vitamin D2) 1,250 1,250 mcg PO QWEEK 07/25/24 07/25/24 mcg (50,000 unit) capsule hydroxyzine HCl 25 mg tablet 25 mg PO Q8H PRN itching 07/25/24 07/25/24 levothyroxine 75 mcg tablet 75 mcg PO DAILY 07/25/24 07/25/24 Previous Rx's ?Medication ?Instructions ?Recorded ketorolac 0.4 % eye drops 1 drp ophthalmic (eye) Q6H 3 days 07/25/24 #5 mL tobramycin 0.3 % eye drops 2 drp ophthalmic (eye) Q4H #5 mL 07/25/24 Allergies Allergy/AdvReac Type Severity Reaction Status Date / Time No Known Drug Allergies Allergy Verified 07/25/24 16:17 Review of Systems ROS Narrative All Systems are negative except as noted/marked.All systems reviewed and otherwise negative PFSH PFSH Social History Little interest or pleasure in doing things: not at all Feeling down, depressed, or hopeless: not at all Exam Narrative Exam Narrative: All Systems are negative except as noted/marked.All systems reviewed and otherwise negative Nurses note and vital signs reviewed and patient is not hypoxic. General: The patient appears well and in no apparent distress. Patient is resting comfortably on cart. Skin: Warm, dry, no pallor noted. There is no rash noted. Head: Normocephalic, atraumatic Eye: Contact lens noted to the left upper eyelid, no foreign body to the right. left conjunctiva red and injected, right conjunctive within normal limits, no drainage, EOMI. PERRL Ears, Nose, Mouth, and Throat: oral mucosa is moist. Nares patent. Mouth without vesicles. Ear canals patent. Tm's without Erythema Cardiovascular: Regular Rate and Rhythm Respiratory: Patient is in no distress, no accessory muscle use, lungs are clear to auscultation, no wheezing, rales or rhonchi Musculoskeletal: The patient has no evidence of calf tenderness, no pitting edema, symmetrical pulses noted bilaterally Neurological: A&O x4, normal speech Psychiatric: Cooperative Constitutional Vital Signs, click to edit/add: Last Vital Signs Temp 98.3 F 07/25/24 16:12 Pulse 82 07/25/24 16:12 Resp 20 07/25/24 16:12 BP 138/94 H 07/25/24 16:12 Pulse Ox 99 07/25/24 16:12 Course Vital Signs Vital signs: Vital Signs Temperature 98.3 F 07/25/24 16:12 Pulse Rate 82 07/25/24 16:12 Respiratory Rate 20 07/25/24 16:12 Blood Pressure 138/94 H 07/25/24 16:12 Pulse Oximetry 99 07/25/24 16:12 Temperature 98.3 F 07/25/24 16:12 Pulse Rate 82 07/25/24 16:12 Respiratory Rate 20 07/25/24 16:12 Blood Pressure 138/94 H 07/25/24 16:12 Pulse Oximetry 99 07/25/24 16:12 MDM - Eye Problem MDM Narrative Medical decision making narrative: 68-year-old female presents here with chief complaint of contact lenses stuck in her eye. She believes she has 2 contact lenses in her left and possibly 1 in her right eye. She was unable to get them out on her own at home. She did drive herself here. She states she has no one at home to help her. Left eye was anesthetized with tetracaine small contact lens was noted to the upper eyelid was able to be removed with the eye plunger. Right eyelid was examined and showed no acute contact lens noted. Patient we discharged home follow-up with her primary care or eye doctor. Left eye and right eye are irritated from retained contact lenses she believes may be her contact lenses from her right eye is at home on the floor she was unable to see it. She will be discharged home with tobrex and ocular prescription. Differential Diagnosis Differential diagnosis: Likely corneal abrasion, conjunctivitis and other (retained contact lens) Medical Records Attestation: I reviewed the patient's medical records. Discharge Plan Discharge Chief Complaint: Eye Problems Clinical Impression: Foreign body in external eye, Conjunctivitis Patient Disposition: Home, Self-Care Time of Disposition Decision: 16:37 Condition: Good Prescriptions / Home Meds: New tobramycin 0.3 % drops 2 drp ophthalmic (eye) Q4H Qty: 5 0RF ketorolac 0.4 % drops 1 drp ophthalmic (eye) Q6H 3 Days Qty: 5 0RF No Action levothyroxine 75 mcg tablet 75 mcg PO DAILY hydroxyzine HCl 25 mg tablet 25 mg PO Q8H PRN (Reason: itching) ergocalciferol (vitamin D2) 1,250 mcg (50,000 unit) capsule 1,250 mcg PO QWEEK cyanocobalamin (vitamin B-12) 1,000 mcg/mL solution 1,000 mcg IM .qmonth atorvastatin 10 mg tablet 10 mg PO DAILY amitriptyline 50 mg tablet 50 mg PO BEDTIME Print Language: [place] Instructions: Eye Foreign Body (ED) Referrals: Ricarda Chang DO [Primary Care Provider] - 1 week Discharge Date/Time: 07/25/24 16:43
== END 2024-07-25 16:43 | disposition home or self-care (01) ==
PROVIDERS: Emergency Provider Emergency Medicine
DX: T15.82XA Foreign body in other and multiple parts of external eye, left eye, initial encounter (principal); W44.8XXA Other foreign body entering into or through a natural orifice, initial encounter
CPT/HCPCS: 99283

== ENCOUNTER 2024-07-27 02:49 | Emergency (ER) | payer MEDICARE, OTHER, SELFPAY ==
[2024-07-27 02:51] VITALS: BP 118/60; PULSE 72; TEMP 36.8; O2SAT 99; BMI 28.9
[2024-07-27 02:53] VITALS: PULSE 69
--- OUTSIDE RECORDS SUMMARY | 2024-07-27 02:57 | XMS_ITS | CCD ---
Author Organization [facility] Providers Care Genetic Coordinator Name Role Phone Edgard Brady Unavailable Unavailable [...] MEDINA LISTED Admitting Unavaila Edgard Vinson Unavailable [phone] Unavailable Unavailable Bev Alcantara Unavailable SchwRamon unger Unavailable Schwute Ramon Unavailable Chitra Singh Unavailable Park Morgan Unavailable Maty Rodas Unavailable DO Charlene Ramon E Primary Care Provider DO Ramon Chang E Attending Provider Blanca Serrano Referring Unavailable Dr. Edgard Brady Primary Care Unavailab Blanca Tracy Attending Unavailable Blanca Serrano Referring Unavailable Dr. Edgard Brady Primary Care Unavailab Blanca Tracy Attending Unavailable Jf Toro Unavailable DO Charlene Ramon E Primary Care Provider DO Ramon Chang E Attending Provider JONO Rodash C Attending Provider Christiano Beyer Unavailable Ashley Willis Unavailable DO Charlene Ramon E Primary Care Provider DO Charlene Ramon E Referring Provider Self, Referral Attending Provider Unavailable DO Estrella Changlin E Attending Provider MD Park Morgan Attending Provider [phone] JenniferJaneth Unavailable Albertina Wei Unavailable DO Charlene Ramon E Primary Care Provider DO Dashawn Rodriguez Emergency Provider [phone] DO Ramon Chang E Attending Provider MD Park Morgan Referring Provider DO Charlene Ramon E Primary Care Provider [phone] CHAN Luu Emergency Provider Ramon Chang DO Primary Care Provider [phone] BLANCA SERRANO Attending EDGARD Hinds Primary Care Unavailable BLANCA SERRANO Attending EDGARD Hinds Primary Care Unavailable BLANCA SERRANO Attending EDGARD Hinds Primary Care Unavailable BLANCA SERRANO Attending EDGARD Hinds Primary Care Unavailable RDAGAN SÁNCHEZ Attending EDGARD Szymanski Primary Care Unavailable SUSANA SARAVIA Attending Unavailab le ANGELA-NOSSUSANA PARMAR Attending Unavailab le ANGELA-NOSSUSANA PARMAR Attending Unavailab le ANGELA-NOSSUSANA PARMAR Attending Unavailab le ANGELA-NOSSUSANA PARMAR Attending Unavailab le Schwerer DO, Ramon E Primary Care Provider [phone] Mo Alcantara APRN Emergency Provider Schwerer DO, [...] DO, Ramon E Primary Care Provider [phone] Mo Alcantara APRN Emergency Provider [phone] Schwerer DO, Ramon E Attending Provider BELLO VÁZQUEZ Attending Unavailable SCHWERER, RAMON Primary Care Unavailable SCHWERER, RAMON Primary Care Unavailable SCHWERER, RAMON Primary Care Unavailable DIETER WHITTINGTON Attending Unavailable SCHWERER, RAMON Primary Care Unavailable MARY HUSSEIN Attending Unavailable Allergies Allergy Classification Reported Allergen(s) Allergy Type Date of Onset Reaction(s) Facility (1 source) ARIPiprazole; Translations: [ARIPIPRAZOLE] Drug Allergy [address] [place] [address] 3 Repository (1 source) terconazole; Translations: [TERCONAZOLE] Drug Allergy [address] [place] [address] 3 Repository (1 source) DIVALPROEX; Translations: [DIVALPROEX] Propensity to adverse reactions to drug (disorder) [address] [place] [address] 3 Repository Medications Current Medications Medication Drug [...] Start: 06-10-2023 take 1 capsule by [facility] three times daily as needed Tessalon Perles [...] Active Start: 03-20-2021 take 1 capsule by [facility] every six hours Cephalexin 500 MG [...] D2) 1,250 mcg (50,000 unit) capsule Active 97823 UNIT PO every week June 03, 2024 [...] D2) 1,250 mcg (50,000 unit) capsule Discontinued 22405 UNIT PO every week 2023 12:00am 2023 8:48am Start: 2023 End: 2023 Ergocalciferol (Vitamin D2) 1,250 mcg (50,000 unit) capsule Discontinued 32719 UNIT PO every week October 27, 2023 11:00pm 2023 7:48am Start: 2023 End: 2023 take 28334 [IU] by mouth every week Ergocalciferol (Vitamin D2) Discontinued 57548 UNIT PO every week 2023 12:00am 2023 8:48am Start: 09-19-2022 End: 10-29-2023 take 1 capsule by mouth every week Ergocalciferol (Vitamin D2) 1,250 mcg (50,000 unit) capsule Discontinued 1250 MCG PO every week 2023 8:47am October 29, 2023 1:02pm Start: 05-29-2021 take 1 capsule by mo [facility] every week Vitamin D (Ergocalciferol) 1.25 MG (42576 UT) Oral Capsule TAKE 1 CAPSULE BY [...] meals. Active take 1 tablet by george th once daily in the morning Synthroid 75 MCG TAKE ONE TABLET BY MOUTH EVERY DAY IN THE MORNING ON AN EMPTY STOMACH for 90 days Active Synthroid 25 MCG Oral Tablet Quantity: 0 Refills: 0 Ordered: 20-Feb-2016 DO Active Synthroid 25 MCG Oral Tablet Refills: 0 Active Magnesium (20 sources) Start: 02-25-2019 take 2 tablets by [facility] once daily Magnesium 200 mg Tablet Active 400 MG PO Daily February 25, 2019 12:00am Start: 02-25-2019 take 2 tablets by [facility] once daily Magnesium 200 mg Tablet Active [...] Start: 10-09-2017 take 1 tablet by george [facility] once daily Multivitamin Active 1 TAB PO Daily October 09, 2017 12:00am Multivitamin Tablet (4 sources) Start: 10-09-2017 take 1 tablet by mouth once daily Multivitamin Tablet Active 1 TAB PO Daily October 09, 2017 12:00am Start: 10-09-2017 take 1 tablet by george th once daily Multivitamin Tablet Active 1 TAB PO Daily October 08, 2017 11:00pm mupirocin 0.02 mg/mg topical ointment (20 sources) RNA Synthetase Inhibitor Antibacterial Start: 03-21-2022 Mupirocin 2 % 1 application PRN Externally [...] Start: 11-28-2021 take 1 capsule by [facility] every twenty-four hours Qsymia 3.75-23 MG 1 [...] 3 ML (20 sources) Start: 05-29-2021 Start: 05-29-2021 Syringe 2-3 ML 3 ML as directed [...] solution Discontinued 1000 MCG SUBCUT every month 1 July 04, 2023 9:58am December 15, 2023 [...] TAB PO Q6H as needed for pain 10 January 11, 2024 June 17, 2024 9:43am B-12 [...] 25, 2019 9:44am take 1 tablet by george every twelve hours Wellbutrin SR 150 MG [...] 23, 2023 8:01am take 2 tablets by [facility] every twenty-four hours Colestid 1 GM 2 tablets Orally Once a da y for 30 days Not-Taking/PRN take 2 tablets by [facility] every twenty-four hours Colestid 1 GM 2 tablets Orally Once a da y for 30 days Not-Taking take 2 tablets by [facility] every twenty-four hours Cyanocobalamin (Vitamin B-12) [...] / neomycin 3.5 mg/ml / polymyxin b 18833 unt/ml ophthalmic suspension (6 sources) Aminoglycoside Antibacterial, [...] 20-Feb-2016 DO Active take 1 capsule by [facility] every twenty-four hours DULoxetine HCl 60 [...] 2023 9:58am take 1 capsule by mo [facility] every twenty-four hours at bedtime propranolol XL [...] [Iron deficiency] Onset: 2 Resolved: 2 Episodic Osteoarthritis (20 sources) Arthritis of hand; Translations: [Primary osteoarthritis, 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 Other aftercare (1 source) Other penitentiary (current) drug therapy; 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] Onset: 2 Episodic Other [...] encounter S61.451A] Onset: 03-07-2021 Resolved: 03-07-2021 Episodic Open wounds of head; neck; and trunk (1 source) Penetrating wound with foreign body of left eyeball, initial encounter; Translations: [Penetrating wound with foreign body of left eyeball, initial encounter] Onset: 03-24-2024 Episodic Other eye disorders (11 sources) Keratoconus, [...] opacity] Onset: 07-01-2023 Episodic Other eye disorders (1 source) Other specified disorders of eyelid; Translations: [Other specified disorders of eyelid] Onset: 01-11-2024 Episodic Other eye disorders (1 source) Ocular pain, bilateral; Translations: [Ocular pain, bilateral] Onset: 01-11-2024 Episodic Other eye disorders (1 source) Ocular pain, right eye; Translations: [Ocular pain, right eye] Onset: 01-11-2024 Episodic Other eye disorders (2 sources) Other specified disorders of eye and adnexa; Translations: [Other specified disorders of eye and adnexa] Onset: 08-23-2023 Episodic Other inflammatory condition of skin (3 [...] aminotransferase [Enzymatic activity/volume] in Serum or Plasma 7-52 [facility] Albumin [Mass/volume] in Ser um or Plasma by Bromocresol green (BCG) dye binding methoOrdered By: Ramon Chang on 07-01-2024 Albumin BCG dye [Mass/Vol] Albumin [Mass/volume] in Serum or Plasma by Bromocresol green (BCG) dye binding metho 3.5-5.7 [facility] Alkaline phosphatase [Enzyma tic activity/volume] in Serum or PlasmaOrdered By: Ramon Chang on 07-01-2024 ALP [Catalytic activity/Vol] Alkaline phosphatase [Enzymatic activity/volume] in Serum or Plasma 34-104 [facility] Aspartate aminotransferase [ Enzymatic activity/volume] in Serum or PlasmaOrdered By: Ramon Chang on 07-01-2024 AST [Catalytic activity/Vol] Aspartate aminotransferase [Enzymatic activity/volume] in Serum or Plasma Low 13-39 [facility] Basophils Auto (Bld) [#/Vol] Ordered By: Ramon Chang on 07-01-2024 Basophils (Bld) [#/Vol] Automated basophil count 0.0-0.2 [facility] Basophils/100 WBC Auto (Bld) Ordered By: Ramon Chang on 07-01-2024 Basophils/100 WBC (Bld) Automated basophil % . [facility] Bilirubin.total [Mass/volume ] in Serum or PlasmaOrdered By: Ramon Chang on 07-01-2024 Bilirubin [Mass/Vol] Bilirubin.total [Mass/volume] in Serum or Plasma 0.3-1.0 [facility] Blood or tissue F5 gene muta tions identification by molecular genetics methodOrdered By: Ramon Chang on 07-01-2024 F5 gene targeted mutation analysis Molgen Nom (Bld/Tiss) F5 gene mutations found [Identifier] in Blood or Tissue by Molecular genetics method Abnormal . [facility] Comment on above: Result: c.1601G>A (p .[id number]) - Detected, HeterozygousThis result is associated with a 6- to 8-fold increased risk forvenous thromboembolism. See Additional Clinical Information andComments.Additional Clinical Information:Venous thromboembolism is a multifactorial diseaseinfluenced by genetic, environmental, and circumstantialrisk factors. The c.1601G>A (p. [id number]) variant in theF5 gene, commonly referred to [...] F2 c.*97G>Avariant and Factor V Leiden (PMID: 04873258). Additionalrisk factors include but are not limited [...] for health careproviders to discuss results at [phone] ([phone]).Test Details:Variant Analyzed: c.1601G>A (p. [id number]), referred toas Factor V LeidenMethods/Limitations:DNA analysis of [...] was developed and its performance characteristicsdetermined by [facility]. It has not been cleared orapproved by the Food and Drug Administration.References:Krunal Godoy, Cherie TOLBERT, Chandana R, Monie WW, Uziel JH; ACMGProfessional Practice and Guidelines Committee. Addendum:[place] [employer] consensus statement onfactor V Leiden mutation testing. Jennifer Med. 2020Jul 14.doi: 10.1038/s38305-169-51637-d. PMID: 97870404.Danielito TORRES. Factor V Leiden Thrombophilia. 1998September 22(Updated 2017May 15). In: Ellis MP, Panchito HH, Shiloh RA,et al., editors. Eve(R) (Internet). [place] ([place]):[facility]; 7621-5461. Availablefrom: https://www.ncbi.nlm.nih.gov/books/RCC4019/Nader Godoy, Cherie TOLBERT, Hossein X, Zacarias B, Tamara EB, Magi P,Jay CS; ACMG Laboratory Kinesiotherapist Committee.Venous thromboembolism laboratory testing (factor V Leidenand factor II c.*97G>A), 2018 update: a technical standardof the [place] [employer] and [employer](ACMG). Jennifer Med. 2018 Apr;20(12):0034-7495. doi:10.1038/v77440-050-0307-f. Epub 2017Feb 13. PMID: 04339284. Calcium [Mass/volume] in Ser um or PlasmaOrdered By: Ramon Chang on 07-01-2024 Calcium [Mass/Vol] Calcium [Mass/volume ] in Serum or Plasma 8.6-10.3 [facility] Carbon dioxide, total [Moles /volume] in Serum or PlasmaOrdered By: Ramon Chang on 07-01-2024 CO2 [Moles/Vol] Carbon dioxide, tota l [Moles/volume] in Serum or Plasma High 21.0-31.0 [facility] Chloride [Moles/volume] in S alicia or PlasmaOrdered By: Ramon Chang on 07-01-2024 Chloride [Moles/Vol] Chloride [Moles/vol ume] in Serum or Plasma 98-107 [facility] Cholesterol [Mass/volume] in Serum or PlasmaOrdered By: Ramon Chang on 07-01-2024 Cholesterol [Mass/Vol] Cholesterol [Mass/volume] in Serum or Plasma 140-200 [facility] Comment on above: Chol less than 200 m g/dl low riskChol 201-239 mg/dl borderline riskChol 240 mg/dl and greater high risk Cholesterol in HDL [Mass/vol ume] in Serum or PlasmaOrdered By: Ramon Chang on 07-01-2024 Cholesterol in HDL [Mass/Vol] Serum or plasma high density lipoprotein (HDL) cholesterol measurement 23- [facility] Comment on above: HDL CHOL ATP-III CLA SSIFICATION Cardiovascular RiskHDL > or equal to 60 mg/dL LOWHDL < 40 mg/dL HIGH Cholesterol in LDL Calc [Mas s/Vol]Ordered By: Ramon Chang on 07-01-2024 Cholesterol in LDL [Mass/Vol] Cholesterol in LDL [Mass/volume] in Serum or Plasma by calculation High 0-100 [facility] Comment on above: LDL ATP III CLASSIFI CATIONLDL less than 100 mg/dL OptimalLDL 100-129 mg/dL Near or above optimalLDL 130-159 mg/dL Borderline highLDL 160-189 mg/dL HighLDL greater than 189 mg/dL Very high Cholesterol in VLDL Calc [Ma ss/Vol]Ordered By: Ramon Chang on 07-01-2024 Cholesterol in VLDL [Mass/Vol] Cholesterol in VLDL [Mass/volume] in Serum or Plasma by calculation [facility] Complete Blood Count Auto Di ffon 07-01-2024 Basophils (Bld) [#/Vol] 0.0 10*3/uL Normal 0.0-0.2 [facility] Comment on above: Result Comment: PERF ORMED BY: [facility] [address] [place] [address] PATHOLOGIST B2B SALES MANAGER ROSS SAUL M.D. Performed By: #### T 4F, LIPID, CMP, TSH3, SCAN CBC #### [facility] [address] Basophils/100 WBC (Bld) 0.4 % Normal . [facility] Comment on above: Performed By: #### T 4F, LIPID, CMP, TSH3, SCAN CBC #### [address] Eosinophils (Bld) [#/Vol] 0.3 10*3/uL Normal 0.0-0.45 [facility] Comment on above: Performed By: #### T 4F, LIPID, CMP, TSH3, SCAN CBC #### [address] Eosinophils/100 WBC (Bld) 3.7 % Normal . [facility] Comment on above: Performed By: #### T 4F, LIPID, CMP, TSH3, SCAN CBC #### [address] Erythrocyte distribution width (RBC) [Ratio] 14.1 % Normal 11.9-15.3 [facility] Comment on above: Performed By: #### T 4F, LIPID, CMP, TSH3, SCAN CBC #### [address] Hematocrit (Bld) [Volume fraction] 39.2 % Normal 34.0-46.4 [facility] Comment on above: Performed By: #### T 4F, LIPID, CMP, TSH3, SCAN CBC #### [address] Hemoglobin (Bld) [Mass/Vol] 13.2 g/dL Normal 11.8-15.4 [facility] Comment on above: Performed By: #### T 4F, LIPID, CMP, TSH3, SCAN CBC #### [place] [address] [place] Lymphocytes (Bld) [#/Vol] 2.1 10*3/uL Normal 1.00-4.8 [facility] Comment on above: Performed By: #### T 4F, LIPID, CMP, TSH3, SCAN CBC #### [place] [address] [place] Lymphocytes/100 WBC (Bld) 26.3 % Normal . [facility] Comment on above: Performed By: #### T 4F, LIPID, CMP, TSH3, SCAN CBC #### [address] MCH (RBC) [Entitic mass] 29.8 pg Normal 24.7-34.3 [facility] Comment on above: Performed By: #### T 4F, LIPID, CMP, TSH3, SCAN CBC #### [address] MCV (RBC) [Entitic vol] 88.8 fL Normal 80-100 [facility] Comment on above: Performed By: #### T 4F, LIPID, CMP, TSH3, SCAN CBC #### [address] Mean Corpuscular HGB Conc 33.6 g/dL Normal 32.0-35.0 [facility] Comment on above: Performed By: #### T 4F, LIPID, CMP, TSH3, SCAN CBC #### [address] Monocytes (Bld) [#/Vol] 0.5 10*3/uL Normal 0.0-0.8 [facility] Comment on above: Performed By: #### T 4F, LIPID, CMP, TSH3, SCAN CBC #### [address] Monocytes/100 WBC (Bld) 6.4 % Normal . [facility] Comment on above: Performed By: #### T 4F, LIPID, CMP, TSH3, SCAN CBC #### [address] Neutrophils (Bld) [#/Vol] 5.0 10*3/uL Normal 1.8-7.7 [facility] Comment on above: Performed By: #### T 4F, LIPID, CMP, TSH3, SCAN CBC #### [address] Neutrophils/100 WBC (Bld) 63.2 % Normal . [facility] Comment on above: Performed By: #### T 4F, LIPID, CMP, TSH3, SCAN CBC #### [address] NRBC% 0.1 /100{WBC} Normal 0-0.[address] [facility] Comment on above: Performed By: #### T 4F, LIPID, CMP, TSH3, SCAN CBC #### [address] Platelet mean volume (Bld) [Entitic vol] 9.0 fL Normal 6.3-10.7 [facility] Comment on above: Performed By: #### T 4F, LIPID, CMP, TSH3, SCAN CBC #### [address] Platelets (Bld) [#/Vol] 311 10*3/uL Normal 150-450 [facility] Comment on above: Performed By: #### T 4F, LIPID, CMP, TSH3, SCAN CBC #### [address] RBC (Bld) [#/Vol] 4.42 10*6/uL Normal 3.60-5.00 [facility] Comment on above: Performed By: #### T 4F, LIPID, CMP, TSH3, SCAN CBC #### [address] WBC (Bld) [#/Vol] 7.9 10*3/uL Normal 3.8-11.6 [facility] Comment on above: Performed By: #### T 4F, LIPID, CMP, TSH3, SCAN CBC #### [address] Comprehensive Metabolic Pane rae 07-01-2024 Albumin [Mass/Vol] 3.9 g/dL Normal 3.5-5.7 [facility] Comment on above: Performed By: #### T 4F, LIPID, CMP, TSH3, SCAN CBC #### [address] Albumin/Globulin [Mass ratio] 1.7 {ratio} Normal [facility] Comment on above: Performed By: #### T 4F, LIPID, CMP, TSH3, SCAN CBC #### [address] ALP [Catalytic activity/Vol] 58 U/L Normal 34-104 [facility] Comment on above: Performed By: #### T 4F, LIPID, CMP, TSH3, SCAN CBC #### [address] ALT [Catalytic activity/Vol] 7 U/L Normal 7-52 [facility] Comment on above: Performed By: #### T 4F, LIPID, CMP, TSH3, SCAN CBC #### [address] Anion gap [Moles/Vol] 9.0 mmol/L Normal 6.0-15.0 [facility] Comment on above: Performed By: #### T 4F, LIPID, CMP, TSH3, SCAN CBC #### [address] AST [Catalytic activity/Vol] 12 U/L Low 13-39 [facility] Comment on above: Performed By: #### T 4F, LIPID, CMP, TSH3, SCAN CBC #### [address] Bilirubin [Mass/Vol] 0.4 mg/dL Normal 0.3-1.0 [facility] Comment on above: Performed By: #### T 4F, LIPID, CMP, TSH3, SCAN CBC #### [address] Calcium [Mass/Vol] 9.2 mg/dL Normal 8.6-10.3 [facility] Comment on above: Performed By: #### T 4F, LIPID, CMP, TSH3, SCAN CBC #### [address] Chloride [Moles/Vol] 105 mmol/L Normal 98-107 [facility] Comment on above: Performed By: #### T 4F, LIPID, CMP, TSH3, SCAN CBC #### [place] [address] CO2 [Moles/Vol] 32.2 mmol/L High 21.0-31.0 [facility] Comment on above: Performed By: #### T 4F, LIPID, CMP, TSH3, SCAN CBC #### [facility] [address] Creatinine [Mass/Vol] 1.14 mg/dL Normal 0.60-1.20 [facility] Comment on above: Performed By: #### T 4F, LIPID, CMP, TSH3, SCAN CBC #### [address] Estimated GFR 51.788 mL/Min Normal [facility] Comment on above: Performed By: #### T 4F, LIPID, CMP, TSH3, SCAN CBC #### [address] Globulin (S) [Mass/Vol] 2.3 g/dL Normal [facility] Comment on above: Performed By: #### T 4F, LIPID, CMP, TSH3, SCAN CBC #### [address] Glucose [Mass/Vol] 74 mg/dL Normal 70-100 [facility] Comment on above: Result Comment: [place] Glucose Reference Range is dependent on time and content of last meal. Glucose of more than 200 mg/dL in a nonstressed, ambulatory subject supports the diagnosis of Diabetes Mellitus. ADA recommended reference range Performed By: #### T 4F, LIPID, CMP, TSH3, SCAN CBC #### [address] Potassium [Moles/Vol] 4.2 mmol/L Normal 3.5-5.1 [facility] Comment on above: Performed By: #### T 4F, LIPID, CMP, TSH3, SCAN CBC #### [address] Protein [Mass/Vol] 6.2 g/dL Low 6.4-8.9 [facility] Comment on above: Performed By: #### T 4F, LIPID, CMP, TSH3, SCAN CBC #### [facility] [address] [place] [address] [place] Sodium [Moles/Vol] 142 mmol/L Normal 136-145 [facility] Comment on above: Performed By: #### T 4F, LIPID, CMP, TSH3, SCAN CBC #### [facility] [address] [place] [address] [place] Urea nitrogen [Mass/Vol] 12 mg/dL Normal 7-25 [facility] Comment on above: Performed By: #### T 4F, LIPID, CMP, TSH3, SCAN CBC #### [facility] [address] [place] [address] [place] Creatinine [Mass/volume] in Serum or PlasmaOrdered By: Ramon Chang on 07-01-2024 Creatinine [Mass/Vol] Creatinine [Mass/v olume] in Serum or Plasma 0.60-1.20 [facility] Eosinophils Auto (Bld) [#/Vo l]Ordered By: Ramon Chang on 07-01-2024 Eosinophils (Bld) [#/Vol] Automated eosinophil count 0.0-0.45 [facility] Eosinophils/100 WBC Auto (Bl d)Ordered By: Ramon Chang on 07-01-2024 Eosinophils/100 WBC (Bld) Automated eosinophil % . [facility] Erythrocyte distribution wid th Auto (RBC) [Ratio]Ordered By: Ramon Chang on 07-01-2024 Erythrocyte distribution width (RBC) [Ratio] Erythrocyte distribution width [Ratio] by Automated count 11.9-15.3 [facility] FE PROon 07-01-2024 % Iron Saturation 22.7 % Normal 20-50 [facility] Comment on above: Performed By: #### T 4F, LIPID, CMP, TSH3, SCAN CBC #### [facility] [address] [place] [address] [place] Ferritin [Mass/Vol] 123.4 ng/mL Normal 11.0-306.8 [facility] Comment on above: Performed By: #### T 4F, LIPID, CMP, TSH3, SCAN CBC #### [facility] [address] [place] [id number] [facility] Iron [Mass/Vol] 57 ug/dL Normal 50-212 [facility] Comment on above: Performed By: #### T 4F, LIPID, CMP, TSH3, SCAN CBC #### [facility] [address] [place] [address] [facility] Total Iron Binding Capacity 251 ug/dL Low 255-450 [facility] Comment on above: Performed By: #### T 4F, LIPID, CMP, TSH3, SCAN CBC #### [facility] [address] [place] [address] [facility] Transferrin [Mass/Vol] 179 mg/dL Low 203-362 [facility] Comment on above: Performed By: #### T 4F, LIPID, CMP, TSH3, SCAN CBC #### [facility] [address] [place] [id number] [facility] Factor V Leiden Mutationon 0 07-01-2024 Factor V Leiden Comment Critically abnormal . [facility] Comment on above: Result Comment: Resu lt: c.1601G>A (p.[id number]) - Detected, Heterozygous This result is associated with a 6- to 8-fold increased risk for venous thromboembolism. See Additional Clinical Information and Comments. Additional Clinical Information: Venous thromboembolism is a multifactorial disease influenced by genetic, environmental, and circumstantial risk factors. The c.1601G>A (p. [id number]) variant in the F5 gene, commonly referred [...] c.*97G>A variant and Factor V Leiden (PMID: 45862717). Additional risk factors include but are not [...] health care providers to discuss results at [phone] (4037). Test Details: Variant Analyzed: c.1601G>A (p. [id number]), referred to as Factor V Leiden Methods/Limitations: [...] developed and its performance characteristics determined by [facility]. It has not been cleared or approved by the Food and Drug Administration. References: Krunal Godoy, Cherie TOLBERT, Chandana R, Monie WW, Uziel JH; ACMG Professional Practice and Guidelines Committee. Addendum: [place] [employer] Medical Genetics consensus statement on factor V Leiden mutation testing. Jennifer Med. 2020Jul 14. doi: 10.1038/[id number]-[id number]. PMID: [id number]. Danielito TORRES. Factor V Leiden Thrombophilia. 1998September 22 (Updated 2017May 15). In: Ellis MP, Panchito HH, Shiloh RA, et al., editors. Eve(R) (Internet). [place] ([place]): [facility], [place]; [id number]. Available from: https://www.ncbi.nlm.nih.gov/books/SEX8543/ Nader Godoy, Cherie TOLBERT, Hossein X, Zacarias B, Tamara EB, aMgi P, Jay CS; [facility] Laboratory Kinesiotherapist Committee. Venous thromboembolism laboratory testing (factor V Leiden and factor II c.*97G>A), 2018 update: a technical standard of the [place] [employer] (ACMG). Jennifer Med. 2018 Apr;20(12):6942-1406. doi: 10.1038/[id number]. Epub 2017Feb 13. PMID: [id number]. Performed By: #### T 4F, LIPID, CMP, TSH3, SCAN CBC #### [facility] [address] Reviewed by: Comment Normal . [facility] Comment on above: Result Comment: Tech nical Component performed at [facility] Professional Component performed by: [employer] Julius Desir, Ph.D., [facility] Director, Molecular Genetics [address] [facility] Performed at: - [facility] [address] [place], [place] [id number] Actor Understudy: Pascale Smith [facility], Phone: [phone] PERFORMED BY: [place] [address] PATHOLOGIST B2B SALES MANAGER ROSS SAUL M.D. Performed By: #### T 4F, LIPID, CMP, TSH3, SCAN CBC #### [address] Ferritin [Mass/volume] in Se rum or PlasmaOrdered By: Ramon Chang on 07-01-2024 Ferritin [Mass/Vol] Ferritin [Mass/volum e] in Serum or Plasma 11.0-306.8 [facility] Folate [Mass/volume] in Seru m or PlasmaOrdered By: Ramon Chang on 07-01-2024 Folate [Mass/Vol] Folate [Mass/volume] in Serum or Plasma >5.9 [facility] Comment on above: Folate reference ran ge: >5.9 ng/mlThe WHO technical consultation on folate and vitamin [id number] has determined that folate concentrations lessthan 4 ng/ml are considered deficient. Free T4 (Free Thyroxine)on 0 07-01-2024 Free T4 [Mass/Vol] 0.94 ng/dL Normal 0.61-1.12 [facility] Comment on above: Performed By: #### T 4F, LIPID, CMP, TSH3, SCAN CBC #### [facility] [address] Globulin Calc (S) [Mass/Vol] Ordered By: Ramon Chang on 07-01-2024 Globulin (S) [Mass/Vol] Serum globulin measurement by calculation (mass/volume) [facility] Glucose [Mass/volume] in Ser um or PlasmaOrdered By: Ramon Chang on 07-01-2024 Glucose [Mass/Vol] Glucose [Mass/volume ] in Serum or Plasma 70-100 [facility] Comment on above: ADA recommended refe rence rangeRandom Glucose Reference Range is dependent on time and content of last meal. Glucose of more than 200 mg/dL in a nonstressed, ambulatory subject supports the diagnosis of Diabetes Mellitus. Hematocrit Auto (Bld) [Volum e fraction]Ordered By: Ramon Chang on 07-01-2024 Hematocrit (Bld) [Volume fraction] Hematocrit [Volume Fraction] of Blood by Automated count 34.0-46.4 [facility] Hemoglobin [Mass/volume] in BloodOrdered By: Ramon Chang on 07-01-2024 Hemoglobin (Bld) [Mass/Vol] Hemoglobin [Mass/volume] in Blood 11.8-15.4 [facility] Iron [Mass/volume] in Serum or PlasmaOrdered By: Ramon Chang on 07-01-2024 Iron [Mass/Vol] Iron [Mass/volume] i n Serum or Plasma 50-212 [facility] Leukocytes [#/volume] correc brian for nucleated erythrocytes in Blood by Automated counOrdered By: Ramon Chang on 07-01-2024 WBC corrected for nucl RBC Auto (Bld) [#/Vol] Leukocytes [#/volume] corrected for nucleated erythrocytes in Blood by Automated coun 3.8-11.6 [facility] Lipid Panelon 07-01-2024 Cholesterol [Mass/Vol] 186 mg/dL Normal 140-200 [facility] Comment on above: Result Comment: Chol less than 200 mg/dl low risk Chol 201-239 mg/dl borderline risk Chol 240 mg/dl and greater high risk Performed By: #### T 4F, LIPID, CMP, TSH3, SCAN CBC #### [facility] [address] [place] [address] [place] Cholesterol in HDL [Mass/Vol] 51 mg/dL Normal 23-92 [facility] Comment on above: Result Comment: HDL CHOL ATP-III CLASSIFICATION Cardiovascular Risk HDL > or equal to 60 mg/dL LOW HDL < 40 mg/dL HIGH Performed By: #### T 4F, LIPID, CMP, TSH3, SCAN CBC #### [facility] [address] [place] [address] [place] Cholesterol.total/Cho lesterol in HDL [Mass ratio] 3.6 {ratio} Normal <5.0 [facility] Comment on above: Performed By: #### T 4F, LIPID, CMP, TSH3, SCAN CBC #### [facility] [address] LDL Cholesterol,Calculate d 116 mg/dL High 0-100 [facility] Comment on above: Result Comment: LDL ATP III CLASSIFICATION LDL less than 100 mg/dL Optimal LDL 100-129 mg/dL Near or above optimal LDL 130-159 mg/dL Borderline high LDL 160-189 mg/dL High LDL greater than 189 mg/dL Very high Performed By: #### T 4F, LIPID, CMP, TSH3, SCAN CBC #### [facility] [address] [place] [id number] [facility] Triglyceride w/Reflex 95 mg/dL Normal 0-149 [facility] Comment on above: Result Comment: TRIG ATP III CLASSIFICATION TRIG less than 150 mg/dL Normal TRIG 150-199 mg/dL Borderline high TRIG 200-500 mg/dL High TRIG greater than 500 mg/dL Very high Standard traceable to the Center for Disease Conrtrol and Prevention (CDC) test method. Performed By: #### T 4F, LIPID, CMP, TSH3, SCAN CBC #### [facility] [address] [place] [id number] [place] VLDL CHOLESTEROL 19 mg/dL Normal [facility] Comment on above: Performed By: #### T 4F, LIPID, CMP, TSH3, SCAN CBC #### [facility] [address] [place] [id number] [facility] Lymphocytes Auto (Bld) [#/Vo l]Ordered By: Ramon Chang on 07-01-2024 Lymphocytes (Bld) [#/Vol] Lymphocytes [#/volume] in Blood by Automated count 1.00-4.8 [facility] Lymphocytes/100 WBC Auto (Bl d)Ordered By: Ramon Chang on 07-01-2024 Lymphocytes/100 WBC (Bld) Lymphocytes/100 leukocytes in Blood by Automated count . [facility] MCH Auto (RBC) [Entitic mass ]Ordered By: Ramon Chang on 07-01-2024 MCH (RBC) [Entitic mass] MCH [Entitic mass] by Automated count 24.7-34.3 [facility] MCHC Auto (RBC) [Mass/Vol]Or dered By: Ramon Chang on 07-01-2024 MCHC (RBC) [Mass/Vol] MCHC [Mass/volume] by Automated count 32.0-35.0 [facility] MCV Auto (RBC) [Entitic vol] Ordered By: Ramon Chang on 07-01-2024 MCV (RBC) [Entitic vol] MCV [Entitic volume] by Automated count 80-100 [facility] Monocytes Auto (Bld) [#/Vol] Ordered By: Ramon Chang on 07-01-2024 Monocytes (Bld) [#/Vol] Automated blood monocyte count 0.0-0.8 [facility] Monocytes/100 WBC Auto (Bld) Ordered By: Ramon Chang on 07-01-2024 Monocytes/100 WBC (Bld) Automated monocyte % . [facility] Neutrophils Auto (Bld) [#/Vo l]Ordered By: Ramon Chang on 07-01-2024 Neutrophils (Bld) [#/Vol] Neutrophils [#/volume] in Blood by Automated count 1.8-7.7 [facility] Neutrophils/100 WBC Auto (Bl d)Ordered By: Ramon Chang on 07-01-2024 Neutrophils/100 WBC (Bld) Automated neutrophil % . [facility] No Panel InformationOrdered By: Ramon Chang on 07-01-2024 Estimated GFR (CKD-EPI) 51.788 mL/Min [facility] Factor V Leiden Interpretation Comment . [facility] Comment on above: Technical Component performed at [facility] Component performed by:[employer] [facility] HospitalsW. Libby Desir, Ph.D., FACMGDirector, Molecular [id number] [facility] [id number] at: - [facility] [id number] [place], [place] [id number] Director: Pascale Smith [facility], Phone: [phone] Pharmacy Creatinine Clearance (Chem N/A [facility] Nucleated erythrocytes [Pres ence] in Blood by Automated countOrdered By: Ramon Chang on 07-01-2024 Nucleated RBC Auto Ql (Bld) Nucleated erythrocytes [Presence] in Blood by Automated count 0-0.5 [facility] Platelet mean volume Auto (B ld) [Entitic vol]Ordered By: Ramon Chang on 07-01-2024 Platelet mean volume (Bld) [Entitic vol] Platelet mean volume [Entitic volume] in Blood by Automated count 6.3-10.7 [facility] Platelets Auto (Bld) [#/Vol] Ordered By: Ramon Chang on 07-01-2024 Platelets (Bld) [#/Vol] Platelets [#/volume] in Blood by Automated count 150-450 [facility] Potassium [Moles/volume] in Serum or PlasmaOrdered By: Ramon Chang on 07-01-2024 Potassium [Moles/Vol] Potassium [Moles/v olume] in Serum or Plasma 3.5-5.1 [facility] Protein [Mass/volume] in Ser um or PlasmaOrdered By: Ramon Chang on 07-01-2024 Protein [Mass/Vol] Protein [Mass/volume ] in Serum or Plasma Low 6.4-8.9 [facility] RBC Auto (Bld) [#/Vol]Ordere d By: Ramon Chang on 07-01-2024 RBC (Bld) [#/Vol] Erythrocytes [#/volu me] in Blood by Automated count 3.60-5.00 [facility] Serum or plasma albumin/glob ulin mass ratioOrdered By: Ramon Chang on 07-01-2024 Albumin/Globulin [Mass ratio] Serum or plasma albumin/globulin mass ratio [facility] Serum or plasma anion gap de terminationOrdered By: Ramon Chang on 07-01-2024 Anion gap [Moles/Vol] Serum or plasma an ion gap determination 6.0-15.0 [facility] Serum or plasma iron binding capacity measurement (mass/volume)Ordered By: Ramon Chang on 07-01-2024 Iron binding capacity [Mass/Vol] Iron binding capacity [Mass/volume] in Serum or Plasma Low 255-450 [facility] Serum or plasma iron saturat ion measurement (mass fraction)Ordered By: Ramon Chang on 07-01-2024 Iron saturation [Mass fraction] Iron saturation [Mass Fraction] in Serum or Plasma 20-50 [facility] Serum or plasma total choles terol/high density lipoprotein (HDL) cholesterol mass ratOrdered By: Ramon Chang on 07-01-2024 Cholesterol.total/Cho lesterol in HDL [Mass ratio] Serum or plasma total cholesterol/high density lipoprotein (HDL) cholesterol mass rat <5.0 [facility] Sodium [Moles/volume] in Ser um or PlasmaOrdered By: Ramon Chang on 07-01-2024 Sodium [Moles/Vol] Sodium [Moles/volume ] in Serum or Plasma 136-145 [facility] Thyroid Stimulating Hormoneo n 07-01-2024 TSH Qn 3.27 m[IU]/L Normal 0.45-5.33 [facility] Comment on above: Performed By: #### T 4F, LIPID, CMP, TSH3, SCAN CBC #### [facility] [address] Thyrotropin [Units/volume] i n Serum or PlasmaOrdered By: Ramon Chang on 07-01-2024 TSH Qn Thyrotropin [Units/v olume] in Serum or Plasma 0.45-5.33 [facility] Thyroxine (T4) free [Mass/vo lume] in Serum or PlasmaOrdered By: Ramon Chang on 07-01-2024 Free T4 [Mass/Vol] Thyroxine (T4) free [Mass/volume] in Serum or Plasma 0.61-1.12 [facility] Transferrin [Mass/volume] in Serum or PlasmaOrdered By: Ramon Chang on 07-01-2024 Transferrin [Mass/Vol] Transferrin [Mass/volume] in Serum or Plasma Low 203-362 [facility] Triglyceride [Mass/volume] i n Serum or PlasmaOrdered By: Ramon Chang on 07-01-2024 Triglyceride [Mass/Vol] Triglyceride [Mass/volume] in Serum or Plasma 0-149 [facility] Comment on above: TRIG ATP III CLASSIF ICATIONTRIG less than 150 mg/dL NormalTRIG 150-199 mg/dL Borderline highTRIG 200-500 mg/dL High TRIG greater than 500 mg/dL Very highStandard traceable to the Center for Disease Conrtrol and Prevention (CDC) test method. Urea nitrogen [Mass/volume] in Serum or PlasmaOrdered By: Ramon Chang on 07-01-2024 Urea nitrogen [Mass/Vol] Urea nitrogen [Mass/volume] in Serum or Plasma 7-25 [facility] Vit. B12/Folate Profileon Cobalamin (Vitamin B12) [Mass/Vol] 892 pg/mL Normal 180-914 [facility] Comment on above: Performed By: #### T 4F, LIPID, CMP, TSH3, SCAN CBC #### [facility] [address] Folate 23.0 ng/mL Normal >5.9 [facility] Comment on above: Result Comment: Nel te reference range: >5.9 ng/ml The WHO technical consultation on folate and vitamin b12 deficiencies has determined that folate concentrations less than 4 ng/ml are considered deficient. Performed By: #### T 4F, LIPID, CMP, TSH3, SCAN CBC #### [facility] [address] [place] [id number] [place] Vitamin B12 ser/plasOrdered By: Ramon Chang on 07-01-2024 Cobalamin (Vitamin B12) [Mass/Vol] Vitamin B12 ser/plas 180-914 [facility] Vitamin D 25 Hydroxy Totalon 07-01-2024 Vitamin D 25 Hydroxy Total 74.0 ng/mL Normal 30-100 [facility] Comment on above: Result Comment: RYAN MIN D STATUS 25(OH)VITAMIN D RANGE (ng/mL) Deficient <20 Insufficient 20 to <30 Sufficient 30 to 100 Reference: Je Cervantes, Shital CASTRO, et al. Evaluation,treatment, and prevention of vitamin D deficiency; an Endocrine Society clinical practice guideline. JCEM. 2010; 96(7):1911-. PERFORMED BY: [place] [address] PATHOLOGIST B2B SALES MANAGER ROSS SAUL M.D. Performed By: #### T 4F, LIPID, CMP, TSH3, SCAN CBC #### [address] Vitamin D+Metabolites [Mass/ volume] in Serum or PlasmaOrdered By: Ramon Chang on 07-01-2024 Vitamin D+Metabolites [Mass/Vol] Vitamin D+Metabolites [Mass/volume] in Serum or Plasma 30-100 [facility] Comment on above: VITAMIN D STATUS 25( [place])VITAMIN D RANGE (ng/mL) Deficient <20 Insufficient 20 to <30Sufficient 30 to 100Reference: Je Cervantes, Shital CASTRO, et al. Evaluation,treatment, and prevention of vitamin D deficiency; an Endocrine Society clinical practice guideline. JCEM. 2010; 96(7):1911-30. WBC Auto (Bld) [#/Vol]Ordere d By: Ramon Chang on 07-01-2024 WBC (Bld) [#/Vol] Leukocytes [#/volume ] in Blood by Automated count 3.8-11.6 [facility] Alanine aminotransferase [En zymatic activity/volume] in Serum or PlasmaOrdered By: Ramon Chang on 09-03-2023 ALT [Catalytic activity/Vol] 11 U/L Normal 7-52 [facility] Comment on above: Performed By: #### T 4F, LIPID, CMP, TSH3, SCAN CBC #### [facility] [address] [place] [address] Albumin [Mass/volume] in Ser um or Plasma by Bromocresol green (BCG) dye binding methoOrdered By: Ramon Chang on 09-03-2023 Albumin BCG dye [Mass/Vol] 4.1 g/dL 3.5-5.7 [facility] Alkaline phosphatase [Enzyma tic activity/volume] in Serum or PlasmaOrdered By: Ramon Chang on 09-03-2023 ALP [Catalytic activity/Vol] 66 U/L Normal 34-104 [facility] Comment on above: Performed By: #### T 4F, LIPID, CMP, TSH3, SCAN CBC #### [address] Aspartate aminotransferase [ Enzymatic activity/volume] in Serum or PlasmaOrdered By: Ramon Chang on 09-03-2023 AST [Catalytic activity/Vol] 16 U/L Normal 13-39 [facility] Comment on above: Performed By: #### T 4F, LIPID, CMP, TSH3, SCAN CBC #### [facility] [address] [place] [address] Automated basophil %Ordered By: Ramon Chang on 09-03-2023 Basophils/100 WBC (Bld) 0.9 % Normal . [facility] Comment on above: Performed By: #### T 4F, LIPID, CMP, TSH3, SCAN CBC #### [facility] [address] [place] [address] Automated basophil countOrde red By: Ramon Chang on 09-03-2023 Basophils (Bld) [#/Vol] 0.1 10*3/uL Normal 0.0-0.2 [facility] Comment on above: Performed By: #### T 4F, LIPID, CMP, TSH3, SCAN CBC #### [facility] [address] [place] [address] Automated blood monocyte cou ntOrdered By: Ramon Chang on 09-03-2023 Monocytes (Bld) [#/Vol] 0.8 10*3/uL Normal 0.0-0.8 [facility] Comment on above: Performed By: #### T 4F, LIPID, CMP, TSH3, SCAN CBC #### [facility] [address] Automated eosinophil %Ordere d By: Ramon Chang on 09-03-2023 Eosinophils/100 WBC (Bld) 4.1 % Normal . [facility] Comment on above: Performed By: #### T 4F, LIPID, CMP, TSH3, SCAN CBC #### [address] Automated eosinophil countOr dered By: Ramon Chang on 09-03-2023 Eosinophils (Bld) [#/Vol] 0.3 10*3/uL Normal 0.0-0.45 [facility] Comment on above: Performed By: #### T 4F, LIPID, CMP, TSH3, SCAN CBC #### [address] Automated erythrocytes count in urine sediment (number/area)Ordered By: Park Morgan on 09-03-2023 RBC Auto (Urine sed) [#/Area] 1-2 [HPF] 0-4 [facility] Automated leukocytes count i n urine sediment (number/area)Ordered By: Park Morgan on 09-03-2023 WBC Auto (Urine sed) [#/Area] 5-9 [HPF] 0-4 [facility] Automated monocyte %Ordered By: Ramon Chang on 09-03-2023 Monocytes/100 WBC (Bld) 9.1 % Normal . [facility] Comment on above: Performed By: #### T 4F, LIPID, CMP, TSH3, SCAN CBC #### [facility] [address] Automated neutrophil %Ordere d By: Ramon Chang on 09-03-2023 Neutrophils/100 WBC (Bld) 61.4 % Normal . [facility] Comment on above: Performed By: #### T 4F, LIPID, CMP, TSH3, SCAN CBC #### [address] Automated urine color determ inationOrdered By: Park Morgan on 09-03-2023 Color (U) Dark yellow Critically abnormal Yellow [facility] Comment on above: Order Comment: Simoneo n for Exam Chronic kidney disease, stage 3 unspecified;Jah hy kid w cr Name Collection Type:: Clean-Voided Midstream Performed By: #### A DDONUAPLUS, CUU #### [facility] [address] Bilirubin Test strip Ql (U)O rdered By: Park Morgan on 09-03-2023 Bilirubin Ql (U) Negative Negative [facility] Bilirubin.total [Mass/volume ] in Serum or PlasmaOrdered By: Ramon Chang on 09-03-2023 Bilirubin [Mass/Vol] 0.4 mg/dL Normal 0.3-1.0 [facility] Comment on above: Performed By: #### T 4F, LIPID, CMP, TSH3, SCAN CBC #### [facility] [address] [place] [address] [place] Calcium [Mass/volume] in Ser um or PlasmaOrdered By: Ramon Gironerer on 09-03-2023 Calcium [Mass/Vol] 9.9 mg/dL Normal 8.6-10.3 [facility] Comment on above: Performed By: #### T 4F, LIPID, CMP, TSH3, SCAN CBC #### [facility] [address] [place] [address] [place] Carbon dioxide, total [Moles /volume] in Serum or PlasmaOrdered By: Ramon Gironerer on 09-03-2023 CO2 [Moles/Vol] 30.9 mmol/L Normal 21.0-31.0 [facility] Comment on above: Performed By: #### T 4F, LIPID, CMP, TSH3, SCAN CBC #### [facility] [address] [place] [address] [place] Chloride [Moles/volume] in S alicia or PlasmaOrdered By: Ramon Schwerer on 09-03-2023 Chloride [Moles/Vol] 103 mmol/L Normal 98-107 [facility] Comment on above: Performed By: #### T 4F, LIPID, CMP, TSH3, SCAN CBC #### [facility] [address] [place] [address] [place] Cholesterol [Mass/volume] in Serum or PlasmaOrdered By: Ramon Chang on 09-03-2023 Cholesterol [Mass/Vol] 230 mg/dL High 140-200 [facility] Comment on above: Chol less than 200 m g/dl low riskChol 201-239 mg/dl borderline riskChol 240 mg/dl and greater high risk Result Comment: Chol less than 200 mg/dl low risk Chol 201-239 mg/dl borderline risk Chol 240 mg/dl and greater high risk Performed By: #### T 4F, LIPID, CMP, TSH3, SCAN CBC #### [facility] [address] [place] [address] [place] Cholesterol in LDL Calc [Mas s/Vol]Ordered By: Ramon Chang on 09-03-2023 Cholesterol in LDL [Mass/Vol] 146 mg/dL 0-100 [facility] Comment on above: LDL ATP III CLASSIFI CATIONLDL less than 100 mg/dL OptimalLDL 100-129 mg/dL Near or above optimalLDL 130-159 mg/dL Borderline highLDL 160-189 mg/dL HighLDL greater than 189 mg/dL Very high Cholesterol in VLDL Calc [Ma ss/Vol]Ordered By: Ramon Chang on 09-03-2023 Cholesterol in VLDL [Mass/Vol] 29 mg/dL [facility] Comprehensive Metabolic Pane rae 09-03-2023 Albumin [Mass/Vol] 4.1 g/dL Normal 3.5-5.7 [facility] Comment on above: Performed By: #### T 4F, LIPID, CMP, TSH3, SCAN CBC #### [facility] [address] [place] [address] [place] GFR/1.73 sq M.predicted MDRD (S/P/Bld) [Vol rate/Area] 52.665 mL/min/{1.73_m2} Normal [facility] Comment on above: Performed By: #### T 4F, LIPID, CMP, TSH3, SCAN CBC #### [facility] [address] Creatinine [Mass/volume] in Serum or PlasmaOrdered By: Ramon Chang on 09-03-2023 Creatinine [Mass/Vol] 1.13 mg/dL Normal 0.60-1.20 [facility] Comment on above: Performed By: #### T 4F, LIPID, CMP, TSH3, SCAN CBC #### [facility] [address] [place] [address] [place] Creatinine [Mass/volume] in UrineOrdered By: Park Morgan on 09-03-2023 Creatinine (U) [Mass/Vol] 256.0 mg/dL [facility] Comment on above: No reference range e stablished Dipstick and Microscopicon 0 09-03-2023 Appearance (U) Cloudy Critically abnormal Clear [facility] Comment on above: Order Comment: Reaso n for Exam Chronic kidney disease, stage 3 unspecified;Jah hy kid w cr Name Collection Type:: Clean-Voided Midstream Performed By: #### A DDONUAPLUS, CUU #### [facility] [address] [place] [id number] [place] Bacteria,Urine None Seen Normal None Seen [facility] Comment on above: Order Comment: Reaso n for Exam Chronic kidney disease, stage 3 unspecified;Jah hy kid w cr Name Collection Type:: Clean-Voided Midstream Performed By: #### A DDONUAPLUS, CUU #### [facility] [address] [place] [address] [place] Bilirubin,Urine Negative Normal Negative [facility] Comment on above: Order Comment: Reaso n for Exam Chronic kidney disease, stage 3 unspecified;Jah hy kid w cr Name Collection Type:: Clean-Voided Midstream Performed By: #### A DDONUAPLUS, CUU #### [facility] [address] [place] [id number] [place] Glucose Ql (U) Normal Normal Normal [facility] Comment on above: Order Comment: Reaso n for Exam Chronic kidney disease, stage 3 unspecified;Jah hy kid w cr Name Collection Type:: Clean-Voided Midstream Performed By: #### A DDONUAPLUS, CUU #### [facility] [address] Hyaline Casts,Urine 0-8 Normal 0-8 [facility] Comment on above: Order Comment: Reaso n for Exam Chronic kidney disease, stage 3 unspecified;Jah hy kid w cr Name Collection Type:: Clean-Voided Midstream Result Comment: PERF ORMED BY: [place] [address] PATHOLOGIST [employer]2B SALES MANAGER ADELA NARVAEZ M.D. Performed By: #### A DDONUAPLUS, CUU #### [facility] [address] Ketones Ql (U) Trace High Negative [facility] Comment on above: Order Comment: Reaso n for Exam Chronic kidney disease, stage 3 unspecified;Jah hy kid w cr Name Collection Type:: Clean-Voided Midstream Performed By: #### A DDONUAPLUS, CUU #### [address] Leukocyte esterase Test strip Ql (U) 1+ High Negative [facility] Comment on above: Order Comment: Reaso n for Exam Chronic kidney disease, stage 3 unspecified;Jah hy kid w cr Name Collection Type:: Clean-Voided Midstream Performed By: #### A DDONUAPLUS, CUU #### [place] [address] [place] Nitrite,Urine Negative Normal Negative [facility] Comment on above: Order Comment: Reaso n for Exam Chronic kidney disease, stage 3 unspecified;Jah hy kid w cr Name Collection Type:: Clean-Voided Midstream Performed By: #### A DDONUAPLUS, CUU #### [place] [address] [place] Occult Blood,Urine Negative Normal Negative [facility] Comment on above: Order Comment: Reaso n for Exam Chronic kidney disease, stage 3 unspecified;Jah hy kid w cr Name Collection Type:: Clean-Voided Midstream Performed By: #### A DDONUAPLUS, CUU #### [place] [id number] [place] Protein,Urine Trace High Negative [facility] Comment on above: Order Comment: Reaso n for Exam Chronic kidney disease, stage 3 unspecified;Jah hy kid w cr Name Collection Type:: Clean-Voided Midstream Performed By: #### A DDONUAPLUS, CUU #### [facility] [address] [place] [address] [place] RBC,Urine 1-2 Normal 0-4 [facility] Comment on above: Order Comment: Reaso n for Exam Chronic kidney disease, stage 3 unspecified;Jah hy kid w cr Name Collection Type:: Clean-Voided Midstream Performed By: #### A DDONUAPLUS, CUU #### [facility] [address] [place] [address] [place] Specificy [place],Urine 1.027 Normal 1.001-1.03 0 [facility] Comment on above: Order Comment: Reaso n for Exam Chronic kidney disease, stage 3 unspecified;Jah hy kid w cr Name Collection Type:: Clean-Voided Midstream Performed By: #### A DDONUAPLUS, CUU #### [facility] [address] [place] [id number] [place] Squamous Epithelial Cell,Urine 5-9 High 0-2 [facility] Comment on above: Order Comment: Reaso n for Exam Chronic kidney disease, stage 3 unspecified;Jah hy kid w cr Name Collection Type:: Clean-Voided Midstream Performed By: #### A DDONUAPLUS, CUU #### [facility] [address] [place] [address] [place] Urobilinogen,Urine Normal Normal Normal [facility] Comment on above: Order Comment: Reaso n for Exam Chronic kidney disease, stage 3 unspecified;Jah hy kid w cr Name Collection Type:: Clean-Voided Midstream Performed By: #### A DDONUAPLUS, CUU #### [facility] [address] [place] [id number] [place] WBC,Urine 5-9 High 0-4 [facility] Comment on above: Order Comment: Reaso n for Exam Chronic kidney disease, stage 3 unspecified;Jah hy kid w cr Name Collection Type:: Clean-Voided Midstream Performed By: #### A DDONUAPLUS, CUU #### [facility] [address] Erythrocyte distribution wid th [Ratio] by Automated countOrdered By: Ramon Chang on 09-03-2023 Erythrocyte distribution width (RBC) [Ratio] 14.4 % Normal 11.9-15.3 [facility] Comment on above: Performed By: #### T 4F, LIPID, CMP, TSH3, SCAN CBC #### [facility] [address] Erythrocytes [#/volume] in B lood by Automated countOrdered By: Ramon Chang on 09-03-2023 RBC (Bld) [#/Vol] 5.07 10*6/uL High 3.60-5.00 [facility] Comment on above: Performed By: #### T 4F, LIPID, CMP, TSH3, SCAN CBC #### [address] Glucose [Mass/volume] in Ser um or PlasmaOrdered By: Ramon Chang on 09-03-2023 Glucose [Mass/Vol] 71 mg/dL Normal 70-100 [facility] Comment on above: ADA recommended refe rence rangeRandom Glucose Reference Range is dependent on time and content of last meal. Glucose of more than 200 mg/dL in a nonstressed, ambulatory subject supports the diagnosis of Diabetes Mellitus. Result Comment: [place] Glucose Reference Range is dependent on time and content of last meal. Glucose of more than 200 mg/dL in a nonstressed, ambulatory subject supports the diagnosis of Diabetes Mellitus. ADA recommended reference range Performed By: #### T 4F, LIPID, CMP, TSH3, SCAN CBC #### [facility] [address] [place] [address] [place] Hematocrit [Volume Fraction] of Blood by Automated countOrdered By: Ramon Chang on 09-03-2023 Hematocrit (Bld) [Volume fraction] 45.2 % Normal 34.0-46.4 [facility] Comment on above: Performed By: #### T 4F, LIPID, CMP, TSH3, SCAN CBC #### [facility] [address] Hemoglobin [Mass/volume] in BloodOrdered By: Ramon Chang on 09-03-2023 Hemoglobin (Bld) [Mass/Vol] 14.8 g/dL Normal 11.8-15.4 [facility] Comment on above: Performed By: #### T 4F, LIPID, CMP, TSH3, SCAN CBC #### [facility] [address] Ketones Auto test strip (U) [Mass/Vol]Ordered By: Park Morgan on 09-03-2023 Ketones (U) [Mass/Vol] Trace Negative [facility] Laboratory - UrinalysisOrder ed By: Park Morgan on 09-03-2023 Hyaline casts LM Ql (Urine sed) 0-8 [LPF] 0-8 [facility] Leukocytes [#/volume] correc brian for nucleated erythrocytes in Blood by Automated counOrdered By: Ramon Chang on 09-03-2023 WBC corrected for nucl RBC Auto (Bld) [#/Vol] 8.3 10*3/uL 3.8-11.6 [facility] Leukocytes [#/volume] in Blo od by Automated countOrdered By: Ramon Chang on 09-03-2023 WBC (Bld) [#/Vol] 8.3 10*3/uL Normal 3.8-11.6 [facility] Comment on above: Performed By: #### T 4F, LIPID, CMP, TSH3, SCAN CBC #### [facility] [address] Lipid Panelon 09-03-2023 LDL Cholesterol,Calculate d 146 mg/dL High 0-100 [facility] Comment on above: Result Comment: LDL ATP III CLASSIFICATION LDL less than 100 mg/dL Optimal LDL 100-129 mg/dL Near or above optimal LDL 130-159 mg/dL Borderline high LDL 160-189 mg/dL High LDL greater than 189 mg/dL Very high Performed By: #### T 4F, LIPID, CMP, TSH3, SCAN CBC #### [address] Triglyceride w/Reflex 147 mg/dL Normal 0-149 [facility] Comment on above: Result Comment: TRIG ATP III CLASSIFICATION TRIG less than 150 mg/dL Normal TRIG 150-199 mg/dL Borderline high TRIG 200-500 mg/dL High TRIG greater than 500 mg/dL Very high Standard traceable to the Center for Disease Conrtrol and Prevention (CDC) test method. Performed By: #### T 4F, LIPID, CMP, TSH3, SCAN CBC #### [address] VLDL CHOLESTEROL 29 mg/dL Normal [facility] Comment on above: Performed By: #### T 4F, LIPID, CMP, TSH3, SCAN CBC #### [address] Lymphocytes [#/volume] in Bl ood by Automated countOrdered By: Ramon Chang on 09-03-2023 Lymphocytes (Bld) [#/Vol] 2.0 10*3/uL Normal 1.00-4.8 [facility] Comment on above: Performed By: #### T 4F, LIPID, CMP, TSH3, SCAN CBC #### [address] Lymphocytes/100 leukocytes i n Blood by Automated countOrdered By: Ramon Chang on 09-03-2023 Lymphocytes/100 WBC (Bld) 24.5 % Normal . [facility] Comment on above: Performed By: #### T 4F, LIPID, CMP, TSH3, SCAN CBC #### [address] MCH [Entitic mass] by Automa brian countOrdered By: Ramon Chang on 09-03-2023 MCH (RBC) [Entitic mass] 29.2 pg Normal 24.7-34.3 [facility] Comment on above: Performed By: #### T 4F, LIPID, CMP, TSH3, SCAN CBC #### [address] MCHC Auto (RBC) [Mass/Vol]Or dered By: Ramon Chang on 09-03-2023 MCHC (RBC) [Mass/Vol] 32.7 g/dL 32.0-35.0 [facility] MCV [Entitic volume] by Auto mated countOrdered By: Ramon Chang on 09-03-2023 MCV (RBC) [Entitic vol] 89.2 fL Normal 80-100 [facility] Comment on above: Performed By: #### T 4F, LIPID, CMP, TSH3, SCAN CBC #### [facility] [address] Magnesium [Mass/volume] in S alicia or PlasmaOrdered By: Park Morgan on 09-03-2023 Magnesium [Mass/Vol] 1.5 mg/dL Low 1.9-2.7 [facility] Comment on above: Order Comment: Reaso n for Exam Chronic kidney disease, stage 3 unspecified;Jah hy kid w cr Performed By: #### M G, [id number], URIC #### [facility] [address] Neutrophils [#/volume] in Bl ood by Automated countOrdered By: Ramon Chang on 09-03-2023 Neutrophils (Bld) [#/Vol] 5.1 10*3/uL Normal 1.8-7.7 [facility] Comment on above: Performed By: #### T 4F, LIPID, CMP, TSH3, SCAN CBC #### [facility] [address] Nitrite Test strip Ql (U)Ord ered By: Park Morgan on 09-03-2023 Nitrite Ql (U) Negative Negative [facility] No Panel InformationOrdered By: Ramon Chang on 09-03-2023 Estimated GFR (CKD-EPI) 52.665 mL/Min [facility] Creatinine Clearance (Chem N/A [facility] Nucleated erythrocytes [Pres ence] in Blood by Automated countOrdered By: Ramon Chang on 09-03-2023 Nucleated RBC Auto Ql (Bld) 0.1 /100{WBC} 0-0.5 [facility] Parathyrin.intact [Mass/volu me] in Serum or PlasmaOrdered By: Park Morgan on 09-03-2023 Parathyrin.intact [Mass/Vol] 63.0 pg/mL [facility] Parathyroid Hormone Intacton 09-03-2023 Parathyroid Hormone Intact 63.0 pg/mL Normal [facility] Comment on above: Order Comment: Reaso n for Exam Chronic kidney disease, stage 3 unspecified;Jah hy kid w cr Result Comment: PERF ORMED BY: [place] [address] PATHOLOGIST [employer] SAL[employer] MANAGER ADELA NARVAEZ M.D. Performed By: #### P TH #### [address] Platelet adequacy [Presence] in Blood by Light microscopyOrdered By: Ramon Chang on 09-03-2023 Platelets LM Ql (Bld) Normal Normal [facility] Platelet mean volume [Entiti c volume] in Blood by Automated countOrdered By: Ramon Chang on 09-03-2023 Platelet mean volume (Bld) [Entitic vol] 9.8 fL Normal 6.3-10.7 [facility] Comment on above: Performed By: #### T 4F, LIPID, CMP, TSH3, SCAN CBC #### [facility] [address] [place] [address] Platelet morphology finding [Identifier] in BloodOrdered By: Ramon Chang on 09-03-2023 Platelet morphology finding Nom (Bld) N/A [facility] Platelets Large [Presence] i n Blood by Light microscopyOrdered By: Ramon Chang on 09-03-2023 Platelets Large LM Ql (Bld) Slight [facility] Platelets [#/volume] in Bloo d by Automated countOrdered By: Ramon Chang on 09-03-2023 Platelets (Bld) [#/Vol] 328 10*3/uL Normal 150-450 [facility] Comment on above: Performed By: #### T 4F, LIPID, CMP, TSH3, SCAN CBC #### [facility] [address] [place] [address] [place] Potassium [Moles/volume] in Serum or PlasmaOrdered By: Ramon Schwerer on 09-03-2023 Potassium [Moles/Vol] 4.4 mmol/L Normal 3.5-5.1 [facility] Comment on above: Performed By: #### T 4F, LIPID, CMP, TSH3, SCAN CBC #### [facility] [address] [place] [address] [place] Protein Auto test strip (U) [Mass/Vol]Ordered By: Park Eddie on 09-03-2023 Protein (U) [Mass/Vol] Trace mg/dL Negative [facility] Protein Creat Ratio Ur Rando mon 09-03-2023 Creatinine, Urine (Random) 256.0 mg/dL Normal [facility] Comment on above: Order Comment: Reaso n for Exam Chronic kidney disease, stage 3 unspecified;Jah hy kid w cr Result Comment: No r eference range established Performed By: #### P ROCRERAT #### [address] Urine Protein/Creatinine Ratio 74 mg/g{Cre} Normal 0-200 [facility] Comment on above: Order Comment: Reaso n for Exam Chronic kidney disease, stage 3 unspecified;Jah hy kid w cr Result Comment: PERF ORMED BY: [place] [address] PATHOLOGIST [employer] SAL[employer] MANAGER ADELA NARVAEZ M.D. Performed By: #### P ROCRERAT #### [place] [address] [place] Protein [Mass/volume] in Ser um or PlasmaOrdered By: Ramon Schwerer on 09-03-2023 Protein [Mass/Vol] 6.7 g/dL Normal 6.4-8.9 [facility] Comment on above: Performed By: #### T 4F, LIPID, CMP, TSH3, SCAN CBC #### [facility] [address] [place] [id number] [place] Protein [Mass/volume] in Uri neOrdered By: Park Eddie on 09-03-2023 Protein (U) [Mass/Vol] 19 mg/dL High 0-9 [facility] Comment on above: Order Comment: Reaso n for Exam Chronic kidney disease, stage 3 unspecified;Jah hy kid w cr Performed By: #### P HILTON #### [address] RBC morphologyOrdered By: Sugey Chang on 09-03-2023 RBC morphology finding Nom (Bld) Normal Normal Normal [facility] Comment on above: Performed By: #### T 4F, LIPID, CMP, TSH3, SCAN CBC #### [address] Scan and CBCon 09-03-2023 Large Platelets Slight Normal [facility] Comment on above: Result Comment: PERF ORMED BY: [place] [address] PATHOLOGIST [employer] SAL[employer] MANAGER ADELA NARVAEZ M.D. Performed By: #### T 4F, LIPID, CMP, TSH3, SCAN CBC #### [address] Mean Corpuscular HGB Conc 32.7 g/dL Normal 32.0-35.0 [facility] Comment on above: Performed By: #### T 4F, LIPID, CMP, TSH3, SCAN CBC #### [address] NRBC% 0.1 /100{WBC} Normal 0-0.[address] [facility] Comment on above: Performed By: #### T 4F, LIPID, CMP, TSH3, SCAN CBC #### [address] Platelet Estimate Normal Normal Normal [facility] Comment on above: Performed By: #### T 4F, LIPID, CMP, TSH3, SCAN CBC #### [address] Serum globulin measurement b y calculation (mass/volume)Ordered By: Ramon Chang on 09-03-2023 Globulin (S) [Mass/Vol] 2.6 g/dL Normal [facility] Comment on above: Performed By: #### T 4F, LIPID, CMP, TSH3, SCAN CBC #### [facility] [address] [place] [address] Serum or plasma albumin/glob ulin mass ratioOrdered By: Ramon Chang on 09-03-2023 Albumin/Globulin [Mass ratio] 1.6 {ratio} Normal [facility] Comment on above: Performed By: #### T 4F, LIPID, CMP, TSH3, SCAN CBC #### [facility] [address] [place] [address] Serum or plasma anion gap de terminationOrdered By: Ramon Chang on 09-03-2023 Anion gap [Moles/Vol] 12.5 mmol/L Normal 6.0-15.0 [facility] Comment on above: Performed By: #### T 4F, LIPID, CMP, TSH3, SCAN CBC #### [facility] [address] [place] [address] Serum or plasma high density lipoprotein (HDL) cholesterol measurementOrdered By: Ramon Chang on 09-03-2023 Cholesterol in HDL [Mass/Vol] 55 mg/dL Normal 23-92 [facility] Comment on above: HDL CHOL ATP-III CLA SSIFICATION Cardiovascular RiskHDL > or equal to 60 mg/dL LOWHDL < 40 mg/dL HIGH Result Comment: HDL CHOL ATP-III CLASSIFICATION Cardiovascular Risk HDL > or equal to 60 mg/dL LOW HDL < 40 mg/dL HIGH Performed By: #### T 4F, LIPID, CMP, TSH3, SCAN CBC #### [facility] [address] [place] [address] Serum or plasma total choles terol/high density lipoprotein (HDL) cholesterol mass ratOrdered By: Ramon Chang on 09-03-2023 Cholesterol.total/Cho lesterol in HDL [Mass ratio] 4.2 {ratio} Normal <5.0 [facility] Comment on above: Performed By: #### T 4F, LIPID, CMP, TSH3, SCAN CBC #### [facility] [address] [place] [address] Sodium [Moles/volume] in Ser um or PlasmaOrdered By: Ramon Chang on 09-03-2023 Sodium [Moles/Vol] 142 mmol/L Normal 136-145 [facility] Comment on above: Performed By: #### T 4F, LIPID, CMP, TSH3, SCAN CBC #### [facility] [address] Specific gravity Auto test s trip (U) [Rel density]Ordered By: Park Morgan on 09-03-2023 Specific gravity (U) [Rel density] 1.027 1.001-1.03 0 [facility] Squamous epithelial cells de tection in urine sediment by light microscopyOrdered By: Park Morgan on 09-03-2023 Epithelial cells.squamous LM Ql (Urine sed) 5-9 [HPF] 0-2 [facility] Thyrotropin [Units/volume] i n Serum or PlasmaOrdered By: Ramon Chang on 09-03-2023 TSH Qn 2.00 m[IU]/L Normal 0.45-5.33 [facility] Comment on above: Result Comment: PERF ORMED BY: [place] [address] PATHOLOGIST [employer] SAL[employer] MANAGER ADELA NARVAEZ M.D. Performed By: #### T 4F, LIPID, CMP, TSH3, SCAN CBC #### [facility] [address] Thyroxine (T4) free [Mass/vo lume] in Serum or PlasmaOrdered By: Ramon Chang on 09-03-2023 Free T4 [Mass/Vol] 0.92 ng/dL Normal 0.61-1.12 [facility] Comment on above: Performed By: #### T 4F, LIPID, CMP, TSH3, SCAN CBC #### [facility] [address] Triglyceride [Mass/volume] i n Serum or PlasmaOrdered By: Ramon Chang on 09-03-2023 Triglyceride [Mass/Vol] 147 mg/dL 0-149 [facility] Comment on above: TRIG ATP III CLASSIF ICATIONTRIG less than 150 mg/dL NormalTRIG 150-199 mg/dL Borderline highTRIG 200-500 mg/dL High TRIG greater than 500 mg/dL Very highStandard traceable to the Center for Disease Conrtrol and Prevention (CDC) test method. Urate [Mass/volume] in Serum or PlasmaOrdered By: Park Morgan on 09-03-2023 Urate [Mass/Vol] 4.2 mg/dL Normal 2.3-6.6 [facility] Comment on above: Order Comment: Reaso n for Exam Chronic kidney disease, stage 3 unspecified;Jah hy kid w cr Performed By: #### T 4F, LIPID, CMP, TSH3, SCAN CBC #### [facility] [address] [place] [address] [place] Urea nitrogen [Mass/volume] in Serum or PlasmaOrdered By: Ramon Chang on 09-03-2023 Urea nitrogen [Mass/Vol] 13 mg/dL Normal 7-25 [facility] Comment on above: Performed By: #### T 4F, LIPID, CMP, TSH3, SCAN CBC #### [facility] [address] [place] [id number] [place] Urine Cultureon 09-03-2023 Bacteria identified Cx Nom (U) 40,000 colonies/ml mixed bacterial skin contaminants 2 Days PERFORMED BY: [place] [address] PATHOLOGIST [employer] SAL[employer] MANAGER ADELA NARVAEZ M.D. Normal [facility] Comment on above: Performed By: #### A DDONUAPLUS, CUU #### [facility] [address] [place] [address] Urine bacteria detection by automated methodOrdered By: Park Morgan on 09-03-2023 Bacteria Auto Ql (U) None seen None Seen [facility] Urine clarity by refractomet ry automatedOrdered By: Park Morgan on 09-03-2023 Clarity Refractometry automated (U) Cloudy Clear [facility] Urine culture routineOrdered By: Park Morgan on 09-03-2023 Bacteria identified Cx Nom (U) 2 Days [facility] Urine glucose measurement by automated test strip (mass/volume)Ordered By: Park Harringtondir on 09-03-2023 Glucose Auto test strip (U) [Mass/Vol] Normal mg/dL Normal [facility] Urine hemoglobin detection b y automated test stripOrdered By: Park Eddie on 09-03-2023 Hemoglobin Auto test strip Ql (U) Negative Negative [facility] Urine leukocyte esterase det ection by automated test stripOrdered By: Park Eddie on 09-03-2023 Leukocyte esterase Auto test strip Ql (U) 1+ Negative [facility] Urine pH measurement by auto mated test stripOrdered By: Park Eddie on 09-03-2023 pH (U) 5.5 [pH] Normal 5.0-9.0 [facility] Comment on above: Order Comment: Reaso n for Exam Chronic kidney disease, stage 3 unspecified;Jah portillo cr Name Collection Type:: Clean-Voided Midstream Performed By: #### A BEATRICEONUALOLLY, CUU #### [address] Urine protein/creatinine rat ioOrdered By: Park Harringtondir on 09-03-2023 Protein/Creatinine (U) [Ratio] 74 mg/g{Cre} 0-200 [facility] Urobilinogen Auto test strip (U) [Mass/Vol]Ordered By: Park Harringtondir on 09-03-2023 Urobilinogen (U) [Mass/Vol] Normal mg/dL Normal [facility] Vitamin D 25 Hydroxy Totalon 09-03-2023 Vitamin D 25 Hydroxy Total 72.8 ng/mL Normal 30-100 [facility] Comment on above: Order Comment: Reaso n for Exam Chronic kidney disease, stage 3 unspecified;Jah chelly smith w cr Result Comment: RYAN MIN D STATUS 25(OH)VITAMIN D RANGE (ng/mL) Deficient <20 Insufficient 20 to <30 Sufficient 30 to 100 Reference: Samia MF,Je ALFARO, Shital CASTRO, et al. Evaluation,treatment, and prevention of vitamin D deficiency; an Endocrine Society clinical practice guideline. JCEM. 2010; 96(7):1911-30. PERFORMED BY: [place] [address] PATHOLOGIST [employer] SALES MANAGER ADELA NARVAEZ M.D. Performed By: #### T 4F, LIPID, CMP, TSH3, SCAN CBC #### [address] Vitamin D+Metabolites [Mass/ volume] in Serum or PlasmaOrdered By: Park Morgan on 09-03-2023 Vitamin D+Metabolites [Mass/Vol] 72.8 ng/mL 30-100 [facility] Comment on above: VITAMIN D STATUS 25( OH)VITAMIN D RANGE (ng/mL) Deficient <20 Insufficient 20 to <30Sufficient 30 to 100Reference: Samia MF,Je ALFARO, Shital CASTRO, et al. Evaluation,treatment, and prevention of vitamin D deficiency; an Endocrine Society clinical practice guideline. JCEM. 2010; 96(7):1911-30. COVID/FLU/RSV RT-PCRon 05-29 SARS-CoV-2 (COVID-19) RNA CHEY+probe Ql (Unsp spec) Negative [facility] [place] Other COVID/FLU/RSV RT-PCR [facility] [employer] Other COVID/FLU/RSV [facility] Other Albumin [Mass/volume] in Ser um or Plasma by Bromocresol green (BCG) dye binding methoOrdered By: Park Morgan on 10-04-2022 Albumin BCG dye [Mass/Vol] 4.1 g/dL 3.5-5.7 [facility] Automated erythrocytes count in urine sediment (number/area)Ordered By: Park Morgan on 10-04-2022 RBC Auto (Urine sed) [#/Area] 0-1 [HPF] 0-4 [facility] Automated leukocytes count i n urine sediment (number/area)Ordered By: Park Morgan on 10-04-2022 WBC Auto (Urine sed) [#/Area] 3-4 [HPF] 0-4 [facility] Bilirubin Auto test strip Ql (U)Ordered By: Park Morgan on 10-04-2022 Bilirubin Ql (U) Negative Negative [facility] Calcium [Mass/volume] in Ser um or PlasmaOrdered By: Park Morgan on 10-04-2022 Calcium [Mass/Vol] 9.4 mg/dL 8.6-10.3 [facility] Carbon dioxide, total [Moles /volume] in Serum or PlasmaOrdered By: Park Morgan on 10-04-2022 CO2 [Moles/Vol] 29.1 mmol/L 21.0-31.0 [facility] Chloride [Moles/volume] in S alicia or PlasmaOrdered By: Park Morgan on 10-04-2022 Chloride [Moles/Vol] 103 mmol/L 98-107 [facility] Creatinine [Mass/volume] in Serum or PlasmaOrdered By: Park Morgan on 10-04-2022 Creatinine [Mass/Vol] 1.17 mg/dL 0.60-1.20 [facility] Creatinine [Mass/volume] in UrineOrdered By: Park Morgan on 10-04-2022 Creatinine (U) [Mass/Vol] 113.0 mg/dL 11.0-20.0 [facility] Erythrocyte distribution wid th Auto (RBC) [Ratio]Ordered By: Park Morgan on 10-04-2022 Erythrocyte distribution width (RBC) [Ratio] 13.5 % 11.9-15.3 [facility] Ferritin [Mass/volume] in Se rum or PlasmaOrdered By: Park Morgan on 10-04-2022 Ferritin [Mass/Vol] 58.4 ng/mL 11.0-306.8 [facility] Glucose [Mass/volume] in Ser um or PlasmaOrdered By: Park Morgan on 10-04-2022 Glucose [Mass/Vol] 91 mg/dL 70-100 [facility] Comment on above: ADA recommended refe rence rangeRandom Glucose Reference Range is dependent on time and content of last meal. Glucose of more than 200 mg/dL in a nonstressed, ambulatory subject supports the diagnosis of Diabetes Mellitus. Hematocrit Auto (Bld) [Volum e fraction]Ordered By: Park Morgan on 10-04-2022 Hematocrit (Bld) [Volume fraction] 40.4 % 34.0-46.4 [facility] Hemoglobin [Mass/volume] in BloodOrdered By: Park Morgan on 10-04-2022 Hemoglobin (Bld) [Mass/Vol] 13.4 g/dL 11.8-15.4 [facility] Iron [Mass/volume] in Serum or PlasmaOrdered By: Park Morgan on 10-04-2022 Iron [Mass/Vol] 115 ug/dL 50-212 [facility] Iron binding capacity [Mass/ volume] in Serum or PlasmaOrdered By: Park Porterr on 10-04-2022 Iron binding capacity [Mass/Vol] 302 ug/dL 255-450 [facility] Iron saturation [Mass Fracti on] in Serum or PlasmaOrdered By: Park Morgan on 10-04-2022 Iron saturation [Mass fraction] 38.1 % 20-50 [facility] Ketones Auto test strip (U) [Mass/Vol]Ordered By: Park Morgan on 10-04-2022 Ketones (U) [Mass/Vol] Negative Negative [facility] Leukocytes [#/volume] correc brian for nucleated erythrocytes in Blood by Automated counOrdered By: Park Morgan on 10-04-2022 WBC corrected for nucl RBC Auto (Bld) [#/Vol] 6.8 10*3/uL 3.8-11.6 [facility] MCH Auto (RBC) [Entitic mass ]Ordered By: Park Morgan on 10-04-2022 MCH (RBC) [Entitic mass] 28.9 pg 24.7-34.3 [facility] MCHC Auto (RBC) [Mass/Vol]Or dered By: Park Morgan on 10-04-2022 MCHC (RBC) [Mass/Vol] 33.1 g/dL 32.0-35.0 [facility] MCV Auto (RBC) [Entitic vol] Ordered By: Park Morgan on 10-04-2022 MCV (RBC) [Entitic vol] 87.3 fL 80-100 [facility] Magnesium [Mass/volume] in S alicia or PlasmaOrdered By: Park Morgan on 10-04-2022 Magnesium [Mass/Vol] 1.5 mg/dL 1.9-2.7 [facility] No Panel InformationOrdered By: Park Morgan on 10-04-2022 Estimated GFR (CKD-EPI) 50.828 mL/Min [facility] Creatinine Clearance (Chem N/A [facility] Parathyrin.intact [Mass/volu me] in Serum or PlasmaOrdered By: Park Morgan on 10-04-2022 Parathyrin.intact [Mass/Vol] 73.3 pg/mL 12-88 [facility] Phosphate [Mass/volume] in S alicia or PlasmaOrdered By: Park Morgan on 10-04-2022 Phosphate [Mass/Vol] 3.5 mg/dL 3.7-7.2 [facility] Platelet mean volume Auto (B ld) [Entitic vol]Ordered By: Park Morgan on 10-04-2022 Platelet mean volume (Bld) [Entitic vol] 9.0 fL 6.3-10.7 [facility] Platelets Auto (Bld) [#/Vol] Ordered By: Park Morgan on 10-04-2022 Platelets (Bld) [#/Vol] 302 10*3/uL 150-450 [facility] Potassium [Moles/volume] in Serum or PlasmaOrdered By: Park Morgan on 10-04-2022 Potassium [Moles/Vol] 4.4 mmol/L 3.5-5.1 [facility] Protein Auto test strip (U) [Mass/Vol]Ordered By: Park Morgan on 10-04-2022 Protein (U) [Mass/Vol] Negative Negative [facility] Protein [Mass/volume] in Uri neOrdered By: Park Morgan on 10-04-2022 Protein (U) [Mass/Vol] 8 mg/dL 0-9 [facility] RBC Auto (Bld) [#/Vol]Ordere d By: Park Morgan on 10-04-2022 RBC (Bld) [#/Vol] 4.63 10*6/uL 3.60-5.00 [facility] Serum or plasma anion gap de terminationOrdered By: Park Morgan on 10-04-2022 Anion gap [Moles/Vol] 12.3 mmol/L 6.0-15.0 [facility] Sodium [Moles/volume] in Ser um or PlasmaOrdered By: Park Morgan on 10-04-2022 Sodium [Moles/Vol] 140 mmol/L 136-145 [facility] Squamous epithelial cells de tection in urine sediment by light microscopyOrdered By: Park Morgan on 10-04-2022 Epithelial cells.squamous LM Ql (Urine sed) None seen [HPF] 0-2 [facility] Transferrin [Mass/volume] in Serum or PlasmaOrdered By: Park Morgan on 10-04-2022 Transferrin [Mass/Vol] 216 mg/dL 203-362 [facility] Urate [Mass/volume] in Serum or PlasmaOrdered By: Park Morgan on 10-04-2022 Urate [Mass/Vol] 4.4 mg/dL 2.3-6.6 [facility] Urea nitrogen [Mass/volume] in Serum or PlasmaOrdered By: Park Morgan on 10-04-2022 Urea nitrogen [Mass/Vol] 19 mg/dL 7-25 [facility] Urine appearanceOrdered By: Park Morgan on 10-04-2022 Appearance (U) Clear Clear [facility] Urine bacteria detection by automated methodOrdered By: Park Morgan on 10-04-2022 Bacteria Auto Ql (U) 1+ None Seen [facility] Urine colorOrdered By: Park Morgan on 10-04-2022 Color (U) Yellow Yellow [facility] Urine glucose measurement by automated test strip (mass/volume)Ordered By: Park Morgan on 10-04-2022 Glucose Auto test strip (U) [Mass/Vol] Normal mg/dL Normal [facility] Urine hemoglobin detection b y automated test stripOrdered By: Park Morgan on 10-04-2022 Hemoglobin Auto test strip Ql (U) Negative Negative [facility] Urine leukocyte esterase det ection by automated test stripOrdered By: Park Morgan on 10-04-2022 Leukocyte esterase Auto test strip Ql (U) 1+ Negative [facility] Urine nitrite detection by a utomated test stripOrdered By: Park Moragn on 10-04-2022 Nitrite Auto test strip Ql (U) Negative Negative [facility] Urine protein/creatinine rat ioOrdered By: Park Morgan on 10-04-2022 Protein/Creatinine (U) [Ratio] 71 mg/g{Cre} 0-200 [facility] Urobilinogen Auto test strip (U) [Mass/Vol]Ordered By: Park Morgan on 10-04-2022 Urobilinogen (U) [Mass/Vol] Normal mg/dL Normal [facility] Vitamin D+Metabolites [Mass/ volume] in Serum or PlasmaOrdered By: Park Morgan on 10-04-2022 Vitamin D+Metabolites [Mass/Vol] 55.0 ng/mL 30-100 [facility] Comment on above: VITAMIN D STATUS 25( [place])VITAMIN D RANGE (ng/mL) Deficient <20 Insufficient 20 to <30Sufficient 30 to 100Reference: Samia MF,Je NC, Shital CASTRO, et al. Evaluation,treatment, and prevention of vitamin D deficiency; an Endocrine Society clinical practice guideline. JCEM. 2010; 96(7):1911-30. pH Auto test strip (U)Ordere d By: Park Morgan on 10-04-2022 pH (U) 1.025 [pH] 1.001-1.03 0 [facility] pH (U) 5.5 [pH] 5.0-9.0 [facility] Cholesterol [Mass/volume] in Serum or PlasmaOrdered By: Ramon Chang on 09-03-2022 Cholesterol [Mass/Vol] 180 mg/dL 140-200 [facility] Comment on above: Chol less than 200 m g/dl low riskChol 201-239 mg/dl borderline riskChol 240 mg/dl and greater high risk Cholesterol in LDL Calc [Mas s/Vol]Ordered By: Ramon Chang on 09-03-2022 Cholesterol in LDL [Mass/Vol] 87 mg/dL 0-100 [facility] Comment on above: LDL ATP III CLASSIFI CATIONLDL less than 100 mg/dL OptimalLDL 100-129 mg/dL Near or above optimalLDL 130-159 mg/dL Borderline highLDL 160-189 mg/dL HighLDL greater than 189 mg/dL Very high Cholesterol in VLDL Calc [Ma ss/Vol]Ordered By: Ramon Chang on 09-03-2022 Cholesterol in VLDL [Mass/Vol] 15 mg/dL [facility] Folate [Mass/volume] in Seru m or PlasmaOrdered By: Ramon Chang on 09-03-2022 Folate [Mass/Vol] 30.0 ng/mL >5.9 [facility] Comment on above: Folate reference ran ge: >5.9 ng/mlThe WHO technical consultation on folate and vitamin [id number] has determined that folate concentrations lessthan 4 ng/ml are considered deficient. Serum or plasma high density lipoprotein (HDL) cholesterol measurementOrdered By: Ramon Chang on 09-03-2022 Cholesterol in HDL [Mass/Vol] 78 mg/dL 35-85 [facility] Comment on above: HDL CHOL ATP-III CLA SSIFICATION Cardiovascular RiskHDL > or equal to 60 mg/dL LOWHDL < 40 mg/dL HIGH Serum or plasma total choles terol/high density lipoprotein (HDL) cholesterol mass ratOrdered By: Ramon Chang on 09-03-2022 Cholesterol.total/Cho lesterol in HDL [Mass ratio] 2.3 {ratio} <5.0 [facility] Triglyceride [Mass/volume] i n Serum or PlasmaOrdered By: Ramon Chang on 09-03-2022 Triglyceride [Mass/Vol] 77 mg/dL 0-149 [facility] Comment on above: TRIG ATP III CLASSIF ICATIONTRIG less than 150 mg/dL NormalTRIG 150-199 mg/dL Borderline highTRIG 200-500 mg/dL High TRIG greater than 500 mg/dL Very highStandard traceable to the Center for Disease Conrtrol and Prevention (CDC) test method. Vitamin B12 ser/plasOrdered By: Ramon Chang on 09-03-2022 Cobalamin (Vitamin B12) [Mass/Vol] 768 pg/mL 180-914 [facility] Albumin [Mass/volume] in Ser um or PlasmaOrdered By: Maty Rodas on 03-18-2022 Albumin [Mass/Vol] 3.6 g/dL 3.2-5.5 [facility] Creatinine and Glomerular fi ltration rate.predicted panel (S/P/Bld)Ordered By: Maty Rodas on 03-18-2022 Creatinine [Mass/Vol] 1.17 mg/dL 0.44-1.03 [facility] Estimated glomerular filtrat ion rate (GFR) non- AmericanOrdered By: Maty Rodas on 03-18-2022 GFR/1.73 sq M.predicted among non-blacks MDRD (S/P/Bld) [Vol rate/Area] 46 mL/Min [facility] Globulin Calc (S) [Mass/Vol] Ordered By: Maty Rodas on 03-18-2022 Globulin (S) [Mass/Vol] 2.8 g/dL [facility] No Panel InformationOrdered By: Maty Rodas on 03-18-2022 Estimated GFR () 56 mL/Min [facility] Comment on above: GFR estimated refere nce range: According to KDOQI guidelines, <60 ml/min/1.73m2 is sufficient to diagnose a patient with chronic kidney disease. Pharmacy Creatinine Clearance (Chem N/A [facility] Protein [Mass/volume] in Ser um or PlasmaOrdered By: Maty Rodas on 03-18-2022 Protein [Mass/Vol] 6.4 g/dL 6.1-7.9 [facility] Serum or plasma alanine jameson otransferase measurement without P-5'-P (enzymatic activiOrdered By: Maty Rodas on 03-18-2022 ALT No additional P-5'-P [Catalytic activity/Vol] 15 U/L 10-60 [facility] Serum or plasma albumin/glob ulin mass ratioOrdered By: Maty Rodas on 03-18-2022 Albumin/Globulin [Mass ratio] 1.3 {ratio} [facility] Serum or plasma alkaline oli sphatase measurement (enzymatic activity/volume)Ordered By: Maty Rodas on 03-18-2022 ALP [Catalytic activity/Vol] 72 U/L 32-92 [facility] Serum or plasma anion gap de terminationOrdered By: Maty Rodas on 03-18-2022 Anion gap [Moles/Vol] 12.1 mmol/L 6.0-15.0 [facility] Serum or plasma aspartate am inotransferase measurement (enzymatic activity/volume)Ordered By: Mayt Rodas on 03-18-2022 AST [Catalytic activity/Vol] 16 U/L 10-42 [facility] Serum or plasma calcium renato urement (mass/volume)Ordered By: Maty Rodas on 03-18-2022 Calcium [Mass/Vol] 8.9 mg/dL 8.2-10.2 [facility] Serum or plasma chloride raisa surement (moles/volume)Ordered By: Maty Rodas on 03-18-2022 Chloride [Moles/Vol] 107 mmol/L 95-114 [facility] Serum or plasma glucose renato urement (mass/volume)Ordered By: Maty Rodas on 03-18-2022 Glucose [Mass/Vol] 76 mg/dL 70-100 [facility] Comment on above: ADA recommended refe rence rangeRandom Glucose Reference Range is dependent on time and content of last meal. Glucose of more than 200 mg/dL in a nonstressed, ambulatory subject supports the diagnosis of Diabetes Mellitus. Serum or plasma potassium me asurement (moles/volume)Ordered By: Maty Rodas on 03-18-2022 Potassium [Moles/Vol] 3.8 mmol/L 3.5-5.1 [facility] Serum or plasma sodium measu rement (moles/volume)Ordered By: Maty Rodas on 03-18-2022 Sodium [Moles/Vol] 139 mmol/L 136-146 [facility] Serum or plasma total biliru bin measurement (mass/volume)Ordered By: Maty Rodas on 03-18-2022 Bilirubin [Mass/Vol] 0.3 mg/dL 0.3-1.2 [facility] Serum or plasma total carbon dioxide measurement (moles/volume)Ordered By: Maty Rodas on 03-18-2022 CO2 [Moles/Vol] 23.7 mmol/L 22.0-30.0 [facility] Serum or plasma urea nitroge n measurement (mass/volume)Ordered By: Maty Rodas on 03-18-2022 Urea nitrogen [Mass/Vol] 19 mg/dL 9-23 [facility] Clostridioides difficile tox in B tcdB gene [Presence] in Stool by CHEY with probe deteOrdered By: Ramon Chang on 01-08-2022 C. difficile toxin B tcdB gene CHEY+probe Ql (Stl) Negative Negative [facility] Comment on above: Testing performed by RT-PCR Detection in stool of any of Campylobacter coli, Campylobacter jejuni, and CampylobacOrdered By: Ramon Chang on 01-08-2022 C. coli+jejuni+upsaliens is DNA CHEY+non-probe Ql (Stl) Not detected Not Detected [facility] Detection in stool of any of Vibrio cholerae, Vibrio parahaemolyticus, and Vibrio vulOrdered By: Ramon Chang on 01-08-2022 V. cholerae+parahaemolyt icus+vulnificus DNA CHEY+non-probe Ql (Stl) Not detected Not Detected [facility] Detection in stool of either or both Clostridium difficile toxin A and B genes by tarOrdered By: Ramon Chang on 01-08-2022 C. difficile toxin A+B tcdA+tcdB genes CHEY+non-probe Ql (Stl) Not detected Not Detected [facility] Detection in stool of either or both Salmonella enterica and Salmonella bongori DNA bOrdered By: Ramon Chang on 01-08-2022 S. enterica+bongori DNA CHEY+non-probe Ql (Stl) Not detected Not Detected [facility] Detection in stool of either or both enteroaggregative Escherichia coli Julio plasmid aOrdered By: Ramon Chang on 01-08-2022 E. coli enteroaggregative Julio plasmid aggR+aatA genes CHEY+non-probe Ql (Stl) Not detected Not Detected [facility] Escherichia coli O157 DNA [P resence] in Stool by CHEY with non-probe detectionOrdered By: Ramon Chang on 01-08-2022 E. coli O157 DNA CHEY+non-probe Ql (Stl) Not applicable Not Detected [facility] Escherichia coli Stx1 and St x2 toxin stx1+stx2 genes [Presence] in Stool by CHEY withOrdered By: Ramon Chang on 01-08-2022 E. coli stx1+stx2 genes CHEY+non-probe Ql (Stl) Not detected Not Detected [facility] Escherichia coli enteropatho genic eae gene [Presence] in Stool by CHEY with non-probeOrdered By: Ramon Chang on 01-08-2022 E. coli enteropathogenic eae gene CHEY+non-probe Ql (Stl) Not detected Not Detected [facility] Escherichia coli enterotoxig enic ltA+st1a+st1b genes [Presence] in Stool by CHEY withOrdered By: Ramon Chang on 01-08-2022 E. coli enterotoxigenic ltA+st1a+st1b genes CHEY+non-probe Ql (Stl) Not detected Not Detected [facility] Lactoferrin, Stool WBCon Lactoferrin, Stool WBC [facility] PO-MO Other No Panel InformationOrdered By: Ramon Chang on 01-08-2022 Adenovirus Types 40, 41 Not detected Not Detected [facility] Stool Astrovirus (PCR) Not detected Not Detected [facility] Stool Cryptosporidium PCR Not detected Not Detected [facility] Stool Cyclospora cayetanensis (PCR) Not detected Not Detected [facility] Stool Entamoeba histolytica (PCR) Not detected Not Detected [facility] Stool Giardia Lamblia PCR Not detected Not Detected [facility] Stool Norovirus GI/GII PCR Not detected Not Detected [facility] Stool Rotavirus (PCR) Not detected Not Detected [facility] Stool Sapovirus (PCR) Not detected Not Detected [facility] Comment on above: Performed at: [employer] [facility] [id number] Actor Understudy: Ernie Dawson MD, Phone: [phone] Performed at: [facility] [address] [id number] Director: Ernie Dawson MD, Phone: [phone] Shigella species+EIEC invasi on plasmid antigen H ipaH gene [Presence] in Stool by NAAOrdered By: Ramon Chang on 01-08-2022 Shigella species+EIEC invasion plasmid antigen H ipaH gene CHEY+non-probe Ql (Stl) Not detected Not Detected [facility] Stool Plesiomonas shigelloid es DNA detection by non-probe and target amplification meOrdered By: Ramon Chang on 01-08-2022 P. shigelloides DNA CHEY+non-probe Ql (Stl) Not detected Not Detected [facility] Vibrio cholerae DNA [Presenc e] in Stool by CHEY with non-probe detectionOrdered By: Ramon Chang on 01-08-2022 V. cholerae DNA CHEY+non-probe Ql (Stl) Not detected Not Detected [facility] Yersinia enterocolitica DNA [Presence] in Stool by CHEY with non-probe detectionOrdered By: Ramon Chang on 01-08-2022 Y. enterocolitica DNA CHEY+non-probe Ql (Stl) Not detected Not Detected [facility] Body fluid albumin measureme nt (mass/volume)Ordered By: Ramon Chang on 12-21-2021 Albumin (Body fld) [Mass/Vol] 3.4 g/dL 3.2-5.5 [facility] Creatinine and Glomerular fi ltration rate.predicted panel (S/P/Bld)Ordered By: Ramon Chang on 12-21-2021 Creatinine [Mass/Vol] 0.97 mg/dL 0.44-1.03 [facility] Estimated glomerular filtrat ion rate (GFR) non- AmericanOrdered By: Ramon Chang on 12-21-2021 GFR/1.73 sq M.predicted among non-blacks MDRD (S/P/Bld) [Vol rate/Area] 57 mL/Min [facility] Globulin Calc (S) [Mass/Vol] Ordered By: Ramon Chang on 12-21-2021 Globulin (S) [Mass/Vol] 2.8 g/dL [facility] No Panel InformationOrdered By: Ramon Chang on 12-21-2021 Estimated GFR () > 60 mL/Min [facility] Comment on above: GFR estimated refere nce range: According to KDOQI guidelines, <60 ml/min/1.73m2 is sufficient to diagnose a patient with chronic kidney disease. Pharmacy Creatinine Clearance (Chem N/A [facility] Protein [Mass/volume] in Ser um or PlasmaOrdered By: Rmaon Chang on 12-21-2021 Protein [Mass/Vol] 6.2 g/dL 6.1-7.9 [facility] Serum or plasma alanine jameson otransferase measurement without P-5'-P (enzymatic activiOrdered By: Ramon Chang on 12-21-2021 ALT No additional P-5'-P [Catalytic activity/Vol] 19 U/L 10-60 [facility] Serum or plasma albumin/glob ulin mass ratioOrdered By: Ramon Chang on 12-21-2021 Albumin/Globulin [Mass ratio] 1.2 {ratio} [facility] Serum or plasma alkaline oli sphatase measurement (enzymatic activity/volume)Ordered By: Ramon Chang on 12-21-2021 ALP [Catalytic activity/Vol] 133 U/L 32-92 [facility] Serum or plasma aspartate am inotransferase measurement (enzymatic activity/volume)Ordered By: Ramon Chang on 12-21-2021 AST [Catalytic activity/Vol] 18 U/L 10-42 [facility] Serum or plasma calcium renato urement (mass/volume)Ordered By: Ramon Chang on 12-21-2021 Calcium [Mass/Vol] 9.5 mg/dL 8.2-10.2 [facility] Serum or plasma chloride raisa surement (moles/volume)Ordered By: Ramon Chang on 12-21-2021 Chloride [Moles/Vol] 101 mmol/L 95-114 [facility] Serum or plasma glucose renato urement (mass/volume)Ordered By: Ramon Chang on 12-21-2021 Glucose [Mass/Vol] 92 mg/dL 70-100 [facility] Comment on above: ADA recommended refe rence range Random Glucose Reference Range is dependent on time and content of last meal. Glucose of more than 200 mg/dL in a nonstressed, ambulatory subject supports the diagnosis of Diabetes Mellitus. Serum or plasma potassium me asurement (moles/volume)Ordered By: Ramon Chang on 12-21-2021 Potassium [Moles/Vol] 4.1 mmol/L 3.5-5.1 [facility] Serum or plasma sodium measu rement (moles/volume)Ordered By: Ramon Chang on 12-21-2021 Sodium [Moles/Vol] 139 mmol/L 136-146 [facility] Serum or plasma total biliru bin measurement (mass/volume)Ordered By: Ramon Chang on 12-21-2021 Bilirubin [Mass/Vol] 0.5 mg/dL 0.3-1.2 [facility] Serum or plasma total carbon dioxide measurement (moles/volume)Ordered By: Ramon Chang on 12-21-2021 CO2 [Moles/Vol] 25.7 mmol/L 22.0-30.0 [facility] Serum or plasma urea nitroge n measurement (mass/volume)Ordered By: Ramon Chang on 12-21-2021 Urea nitrogen [Mass/Vol] 11 mg/dL 9-23 [facility] No Panel InformationOrdered By: Ramon Chang on 12-18-2021 [employer] and Parasite Result 1 [facility] Albumin [Mass/volume] in Ser um or PlasmaOrdered By: Ramon Chang on 12-13-2021 Albumin [Mass/Vol] 3.8 g/dL 3.2-5.5 [facility] Amylaseon 12-13-2021 Amylase 26 U/L Low 28-100 U/L [facility] Other Basophils Auto (Bld) [#/Vol] Ordered By: Ramon Chang on 12-13-2021 Basophils (Bld) [#/Vol] 0.1 10*3/uL 0.0-0.2 [facility] Basophils/100 WBC Auto (Bld) Ordered By: Ramon Chang on 12-13-2021 Basophils/100 WBC (Bld) 0.5 % . [facility] Blood hemoglobin measurement (mass/volume)Ordered By: Ramon Chang on 12-13-2021 Hemoglobin (Bld) [Mass/Vol] 12.5 g/dL 11.8-15.4 [facility] Blood leukocytes automated c ount (number/volume)Ordered By: Ramon Chang on 12-13-2021 WBC (Bld) [#/Vol] 10.6 10*3/uL 4.5-11.0 [facility] Clostridioides difficile tox in B tcdB gene [Presence] in Stool by CHEY with probe deteOrdered By: Ramon Chang on 12-13-2021 C. difficile toxin B tcdB gene CHEY+probe Ql (Stl) Positive Negative [facility] Comment on above: Testing performed by RT-PCR Clostridium Difficileon Clostridium Difficile Nor [place] Other Complete Blood Count Auto Di ffon 12-13-2021 Basophils (Bld) [#/Vol] [id number] 10*3/uL Normal 0.0-0.2 10*3/uL [facility] Other Basophils/100 WBC (Bld) 0.500 % . % [facility] Other Eosinophils (Bld) [#/Vol] 0.345379298 10*3/uL Normal 0.0-0.45 10*3/uL [facility] Other Eosinophils/100 WBC (Bld) 3.200 % . % [facility] Other Erythrocyte distribution width (RBC) [Ratio] 13.500 % Normal 11.9-15.3 % [facility] Other Hematocrit (Bld) [Volume fraction] 38.500 % Normal 34.0-46.4 % [facility] Other Hemoglobin (Bld) [Mass/Vol] 12.769929 g/dL Normal 11.8-15.4 g/dL [facility] Other Lymphocytes (Bld) [#/Vol] 1.918318950 10*3/uL Normal 1.00-4.8 10*3/uL [facility] Other Lymphocytes/100 WBC (Bld) 14.500 % . % [facility] Other MCH (RBC) [Entitic mass] 28.8000 pg Normal 24.7-34.3 pg [facility] Other MCV (RBC) [Entitic vol] 88.4000 fL Normal 80-100 fL [facility] Other Monocytes (Bld) [#/Vol] 0.619096886 10*3/uL High 0.0-0.8 10*3/uL [facility] Other Monocytes/100 WBC (Bld) 8.100 % . % [facility] Other Neutrophils (Bld) [#/Vol] 7.915720040 10*3/uL High 1.8-7.7 10*3/uL [facility] Other Neutrophils/100 WBC (Bld) 73.700 % . % [facility] Other Platelet mean volume (Bld) [Entitic vol] 10.0000 fL Normal 6.3-10.7 fL [facility] Other RBC (Bld) [#/Vol] 4.5306757825 10*6/uL Normal 3. 60-5.00 10*6/uL [facility] Other WBC (Bld) [#/Vol] 10.915929960 10*3/uL Normal 3. 8-11.6 10*3/uL [facility] Other Complete Blood Count Auto Diff 10.6 10*3/uL Normal 4.5-11.0 10*3/uL [facility] Other Complete Blood Count Auto Diff 32.6 g/dL Normal 32.0-35.0 g/dL [facility] Other Complete Blood Count Auto Diff 0.1 % Normal 0-0.5 % [facility] Other Complete Blood Count Auto Di ffOrdered By: Ramon Chang on 12-13-2021 Platelets (Bld) [#/Vol] 310 10*3/uL 150-450 [facility] Creatinine and Glomerular fi ltration rate.predicted panel (S/P/Bld)Ordered By: Ramon Chang on 12-13-2021 Creatinine [Mass/Vol] 1.32 mg/dL 0.44-1.03 [facility] Eosinophils Auto (Bld) [#/Vo l]Ordered By: Ramon Chang on 12-13-2021 Eosinophils (Bld) [#/Vol] 0.3 10*3/uL 0.0-0.45 [facility] Eosinophils/100 WBC Auto (Bl d)Ordered By: Ramon Chang on 12-13-2021 Eosinophils/100 WBC (Bld) 3.2 % . [facility] Erythrocyte distribution wid th Auto (RBC) [Ratio]Ordered By: Ramon Chang on 12-13-2021 Erythrocyte distribution width (RBC) [Ratio] 13.5 % 11.9-15.3 [facility] Estimated glomerular filtrat ion rate (GFR) non- AmericanOrdered By: Ramon Chang on 12-13-2021 GFR/1.73 sq M.predicted among non-blacks MDRD (S/P/Bld) [Vol rate/Area] 40 mL/Min [facility] Giardia lamblia Ag [Presence ] in Stool by ImmunoassayOrdered By: Ramon Chang on 12-13-2021 G. lamblia Ag IA Ql (Stl) Negative Negative [facility] Comment on above: Performed at: [address] [id number] Actor Understudy: Madhav Alvarado PhD, Phone: [phone] Globulin Calc (S) [Mass/Vol] Ordered By: Ramon Chang on 12-13-2021 Globulin (S) [Mass/Vol] 2.9 g/dL [facility] Hematocrit Auto (Bld) [Volum e fraction]Ordered By: Ramon Chang on 12-13-2021 Hematocrit (Bld) [Volume fraction] 38.5 % 34.0-46.4 [facility] Laboratory - Chemistry and C hemistry - challengeOrdered By: Ramon Chang on 12-13-2021 Lipase [Catalytic activity/Vol] 27.0 U/L 22-51 [facility] - Hematology and Cell countsOrdered By: Ramon Chang on 12-13-2021 Nucleated RBC/100 WBC (Bld) [Ratio] 0.1 % 0-0.5 [facility] Lactoferrin, Stool WBCon Lactoferrin, Stool WBC [facility] Other Lymphocytes Auto (Bld) [#/Vo l]Ordered By: Ramon Chang on 12-13-2021 Lymphocytes (Bld) [#/Vol] 1.5 10*3/uL 1.00-4.8 [facility] Lymphocytes/100 WBC Auto (Bl d)Ordered By: Ramon Chang on 12-13-2021 Lymphocytes/100 WBC (Bld) 14.5 % . [facility] MCH Auto (RBC) [Entitic mass ]Ordered By: Ramon Chang on 12-13-2021 MCH (RBC) [Entitic mass] 28.8 pg 24.7-34.3 [facility] MCHC Auto (RBC) [Mass/Vol]Or dered By: Ramon Chang on 12-13-2021 MCHC (RBC) [Mass/Vol] 32.6 g/dL 32.0-35.0 [facility] MCV Auto (RBC) [Entitic vol] Ordered By: Ramon Chang on 12-13-2021 MCV (RBC) [Entitic vol] 88.4 fL 80-100 [facility] Monocytes Auto (Bld) [#/Vol] Ordered By: Ramon Chang on 08-04-2022 Monocytes (Bld) [#/Vol] 0.9 10*3/uL 0.0-0.8 [facility] Monocytes/100 WBC Auto (Bld) Ordered By: Ramon Chang on 12-13-2021 Monocytes/100 WBC (Bld) 8.1 % . [facility] Neutrophils Auto (Bld) [#/Vo l]Ordered By: Ramon Chang on 12-13-2021 Neutrophils (Bld) [#/Vol] 7.8 10*3/uL 1.8-7.7 [facility] Neutrophils/100 WBC Auto (Bl d)Ordered By: Ramon Chang on 12-13-2021 Neutrophils/100 WBC (Bld) 73.7 % . [facility] No Panel InformationOrdered By: Ramon Chang on 12-13-2021 Estimated GFR () 48 mL/Min [facility] Comment on above: GFR estimated refere nce range: According to KDOQI guidelines, <60 ml/min/1.73m2 is sufficient to diagnose a patient with chronic kidney disease. Pharmacy Creatinine Clearance (Chem N/A [facility] Platelet mean volume Auto (B ld) [Entitic vol]Ordered By: Ramon Chang on 12-13-2021 Platelet mean volume (Bld) [Entitic vol] 10.0 fL 6.3-10.7 [facility] Protein [Mass/volume] in Ser um or PlasmaOrdered By: Ramon Chang on 12-13-2021 Protein [Mass/Vol] 6.7 g/dL 6.1-7.9 [facility] RBC Auto (Bld) [#/Vol]Ordere d By: Ramon Chang on 12-13-2021 RBC (Bld) [#/Vol] 4.35 10*6/uL 3.60-5.00 [facility] Serum or plasma alanine jameson otransferase measurement without P-5'-P (enzymatic activiOrdered By: Ramon Chang on 12-13-2021 ALT No additional P-5'-P [Catalytic activity/Vol] 61 U/L 10-60 [facility] Serum or plasma albumin/glob ulin mass ratioOrdered By: Ramon Chang on 12-13-2021 Albumin/Globulin [Mass ratio] 1.3 {ratio} [facility] Serum or plasma alkaline oli sphatase measurement (enzymatic activity/volume)Ordered By: Ramon Chang on 12-13-2021 ALP [Catalytic activity/Vol] 244 U/L 32-92 [facility] Serum or plasma amylase renato urement (enzymatic activity/volume)Ordered By: Ramon Chang on 12-13-2021 Amylase [Catalytic activity/Vol] 26 U/L 28-100 [facility] Serum or plasma aspartate am inotransferase measurement (enzymatic activity/volume)Ordered By: Ramon Chang on 12-13-2021 AST [Catalytic activity/Vol] 68 U/L 10-42 [facility] Serum or plasma calcium renato urement (mass/volume)Ordered By: Ramon Chang on 12-13-2021 Calcium [Mass/Vol] 9.5 mg/dL 8.2-10.2 [facility] Serum or plasma chloride raisa surement (moles/volume)Ordered By: Ramon Chang on 12-13-2021 Chloride [Moles/Vol] 103 mmol/L 95-114 [facility] Serum or plasma glucose renato urement (mass/volume)Ordered By: Ramon Chang on 12-13-2021 Glucose [Mass/Vol] 93 mg/dL 70-100 [facility] Comment on above: ADA recommended refe rence range Random Glucose Reference Range is dependent on time and content of last meal. Glucose of more than 200 mg/dL in a nonstressed, ambulatory subject supports the diagnosis of Diabetes Mellitus. Serum or plasma potassium me asurement (moles/volume)Ordered By: Ramon Chang on 12-13-2021 Potassium [Moles/Vol] 3.9 mmol/L 3.5-5.1 [facility] Serum or plasma sodium measu rement (moles/volume)Ordered By: Ramon Chang on 12-13-2021 Sodium [Moles/Vol] 136 mmol/L 136-146 [facility] Serum or plasma total biliru bin measurement (mass/volume)Ordered By: Ramon Chang on 12-13-2021 Bilirubin [Mass/Vol] 0.9 mg/dL 0.3-1.2 [facility] Serum or plasma total carbon dioxide measurement (moles/volume)Ordered By: Ramon Chang on 12-13-2021 CO2 [Moles/Vol] 25.9 mmol/L 22.0-30.0 [facility] Serum or plasma urea nitroge n measurement (mass/volume)Ordered By: Ramon Chang on 12-13-2021 Urea nitrogen [Mass/Vol] 13 mg/dL 9- [facility] Ophthalmic Eye Examon 2021 Ophthalmic Eye Exam DOCUMENT REVIEWED BY : Blanca Bar OD PhD DOCUMENT SIGNED ELECTRONICALLY BY Blanca Bar OD PhD ON 10/19/2021 04:22:05 PM [address] [id number] [address] [place] [address] [phone] THIS EXAM WAS COMPLETED ON: 10/16/2021 00:00:00 BY: Blanca Bar OD PhD Meenu Diallo performed [id number] Exam Date: Saturday, October 16, 2021 PATIENT [...] DATE-TIME: 10/16/2021 10:38:52 AM 10/16/2021 10:38:52 AM BURNISHER AND BUMPER: robert jones EXTERNAL EYE EXAM: LID: Good [...] CUP TO DISC: .20 .20 OPTIC DISC: [place] VITREOUS: Clear. [place]tran ring Clear [...] 457 wendy (more content not included)... Normal tabulate Quick Testingon 2020 Result Positive [facility] Other PROGRESSon 04-15-2019 PROGRESS HNO ID: [id number] Author: Tata Mae V Service: ? Author [...] MD April 15, 2019 1:38 PM Normal [facility] PROGRESS HNO ID: [id number] Author: Connie Rivera (Sarahi) Juvenal Service: ? Author Type: EMAIL MANAGER Type: Progress Notes Filed: 05/15/2019 8:41 [...] with all of its relevant components. Connie Sanford OD April 15, 2019 1:18 PM Normal [facility] Vital Signs Date Time Vital Sign Value Performing Clinician Facility 07-19-2024 08:52-0400 Body height 154.94 cm Ramon Schwerer DO Work Phone: [facility] 07-19-2024 08:52-0400 Body mass index (BMI) [Ratio] 27.6 kg/m2 Ramon Schwerer DO Work Phone: [facility] 07-19-2024 08:52-0400 Body weight 66.22 kg Ramon Schwerer DO Work Phone: [facility] 06-17-2024 09:53-0500 Body height 154.94 cm Ramon Schwerer DO Work Phone: [facility] 06-17-2024 09:53-0500 Body temperature 97.8 [degF] Ramon Schwerer DO Work Phone: [facility] 06-17-2024 09:53-0500 Body weight 67.3 kg Ramon Schwerer DO Work Phone: [facility] 06-17-2024 09:53-0500 Diastolic blood pressure 82 mm[Hg] Ramon Schwerer DO Work Phone: [facility] 06-17-2024 09:53-0500 Heart rate 94 /min Ramon Schwerer DO Work Phone: [facility] 06-17-2024 09:53-0500 Respiratory rate 16 /min Ramon Schwerer DO Work Phone: [facility] 06-17-2024 09:53-0500 SaO2% (BldA) [Mass fraction] 97 % Ramon Schwerer DO Work Phone: [facility] 06-17-2024 09:53-0500 Systolic blood pressure 145 mm[Hg] Ramon Schwerer DO Work Phone: [facility] 06-17-2024 08:50-0500 Body height 154.94 cm [facility] 06-17-2024 08:50-0500 Body mass index (BMI) [Ratio] 28 kg/m2 [facility] 06-17-2024 08:50-0500 Body temperature 98.3 [degF] [facility] 06-17-2024 08:50-0500 Body weight 67.35 kg [facility] 06-17-2024 08:50-0500 Diastolic blood pressure 68 mm[Hg] [facility] 06-17-2024 08:50-0500 Heart rate 101 /min [facility] 06-17-2024 08:50-0500 SaO2% (BldA) [Mass fraction] 96 % [facility] 06-17-2024 08:50-0500 Systolic blood pressure 108 mm[Hg] [facility] 04-29-2024 10:48-0500 Body mass index (BMI) [Ratio] 25.58 kg/m2 Susana Angela-Nossek SOLE CONDITIONER-WAX PATTERN REPAIRER Work Phone: [facility] 04-29-2024 10:48-0500 Body weight 67.59 kg Susana Angela-Nossek SOLE CONDITIONER-WAX PATTERN REPAIRER Work Phone: [facility] 04-29-2024 10:48-0500 Diastolic blood pressure 80 mm[Hg] Susana Angela-Nossek SOLE CONDITIONER-WAX PATTERN REPAIRER Work Phone: [facility] 04-29-2024 10:48-0500 Heart rate 98 /min Susana Angela-Nossek SOLE CONDITIONER-WAX PATTERN REPAIRER Work Phone: [facility] 04-29-2024 10:48-0500 Systolic blood pressure 120 mm[Hg] Susana Angela-Nossek SOLE CONDITIONER-WAX PATTERN REPAIRER Work Phone: [facility] 02-24-2024 14:48-0400 Body mass index (BMI) [Ratio] 25.58 kg/m2 Susana Angela-Nossek SOLE CONDITIONER-WAX PATTERN REPAIRER Work Phone: [facility] 02-24-2024 14:48-0400 Body weight 67.59 kg Susana Angela-Nossek SOLE CONDITIONER-WAX PATTERN REPAIRER Work Phone: [facility] 02-24-2024 14:48-0400 Diastolic blood pressure 70 mm[Hg] Susana Angela-Nossek SOLE CONDITIONER-WAX PATTERN REPAIRER Work Phone: [facility] 02-24-2024 14:48-0400 Heart rate 98 /min Susana Angela-Nossek SOLE CONDITIONER-WAX PATTERN REPAIRER Work Phone: [facility] 02-24-2024 14:48-0400 Systolic blood pressure 118 mm[Hg] Susana Angela-Nossek SOLE CONDITIONER-WAX PATTERN REPAIRER Work Phone: [facility] 01-11-2024 18:58-0400 Body temperature 97.9 [degF] DO Ramon Schwerer Work Phone: [facility] 01-11-2024 18:58-0400 Diastolic blood pressure 67 mm[Hg] DO Ramon Schwerer Work Phone: [facility] 01-11-2024 18:58-0400 Heart rate 84 /min DO Ramon Schwerer Work Phone: [facility] 01-11-2024 18:58-0400 Respiratory rate 18 /min DO Ramon Schwerer Work Phone: [facility] 01-11-2024 18:58-0400 SaO2% (BldA) [Mass fraction] 98 % DO Ramon Schwerer Work Phone: [facility] 01-11-2024 18:58-0400 Systolic blood pressure 148 mm[Hg] DO Ramon Schwerer Work Phone: [facility] 01-11-2024 18:57-0400 Body height 154.94 cm DO Ramon Schwerer Work Phone: [facility] 01-11-2024 18:57-0400 Body weight 69 kg DO Ramon Schwerer Work Phone: [facility] 10-22-2023 08:02-0400 Body height 154.94 cm DO Ramon Schwerer Work Phone: [facility] 10-22-2023 08:02-0400 Body mass index (BMI) [Ratio] 29.2 kg/m2 DO Ramon Schwerer Work Phone: [facility] 10-22-2023 08:02-0400 Body weight 70.3 kg DO Ramon Schwerer Work Phone: [facility] 09-18-2023 09:51-0400 Body height 154.94 cm DO Ramon Schwerer Work Phone: [facility] 09-18-2023 09:51-0400 Body mass index (BMI) [Ratio] 29.9 kg/m2 DO Ramon Schwerer Work Phone: [facility] 09-18-2023 09:51-0400 Body temperature 96.7 [degF] DO Ramon Schwerer Work Phone: [facility] 09-18-2023 09:51-0400 Body weight 71.78 kg DO Ramon Schwerer Work Phone: [facility] 09-18-2023 09:51-0400 Diastolic blood pressure 60 mm[Hg] DO Ramon Schwerer Work Phone: [facility] 09-18-2023 09:51-0400 Heart rate 86 /min DO Ramon Schwerer Work Phone: [facility] 09-18-2023 09:51-0400 Respiratory rate 16 /min DO Ramon Schwerer Work Phone: [facility] 09-18-2023 09:51-0400 SaO2% (BldA) [Mass fraction] 96 % DO Ramon Schwerer Work Phone: [facility] 09-18-2023 09:51-0400 Systolic blood pressure 110 mm[Hg] DO Ramon Schwerer Work Phone: [facility] 08-23-2023 07:23-0400 Body height 154.94 cm DO Ramon Schwerer Work Phone: [facility] 08-23-2023 07:23-0400 Body weight 73 kg DO Ramon Schwerer Work Phone: [facility] 08-23-2023 07:21-0400 Body temperature 98 [degF] DO Ramon Schwerer Work Phone: [facility] 08-23-2023 07:21-0400 Diastolic blood pressure 58 mm[Hg] DO Ramon Schwerer Work Phone: [facility] 08-23-2023 07:21-0400 Heart rate 95 /min DO Ramon Schwerer Work Phone: [facility] 08-23-2023 07:21-0400 Respiratory rate 18 /min DO Ramon Schwerer Work Phone: [facility] 08-23-2023 07:21-0400 SaO2% (BldA) [Mass fraction] 97 % DO Ramon Schwerer Work Phone: [facility] 08-23-2023 07:21-0400 Systolic blood pressure 109 mm[Hg] DO Ramon Schwerer Work Phone: [facility] 07-23-2023 08:04-0400 Body height 154.94 cm DO Ramon Schwerer Work Phone: [facility] 07-23-2023 08:04-0400 Body mass index (BMI) [Ratio] 31.4 kg/m2 DO Ramon Schwerer Work Phone: [facility] 07-23-2023 08:04-0400 Body weight 75.29 kg DO Ramon Schwerer Work Phone: [facility] 06-10-2023 17:30-0500 Body height 154.94 cm DO Ramon Schwerer Work Phone: [facility] 06-10-2023 17:30-0500 Body weight 79.83 kg DO Ramon Schwerer Work Phone: [facility] 05-29-2023 09:00-0500 Body height 154.94 cm Albertina Eriberto Other [facility] 05-29-2023 09:00-0500 Body mass index (BMI) [Ratio] 33.63 kg/m2 Albertina Eriberto Other [facility] Other 05-29-2023 09:00-0500 Body temperature 99.8 [degF] Albertina Eriberto Other [facility] Other 05-29-2023 09:00-0500 Body weight 80.74 kg Albertina Eriberto Other [facility] Other 05-29-2023 09:00-0500 Body weight 80.73 kg DO Ramon Schwerer Work Phone: [facility] 05-29-2023 09:00-0500 Respiratory rate 18 /min Albertina Eriberto Other [facility] Other 05-29-2023 09:00-0500 SaO2% (BldA) [Mass fraction] 94 % Albertina Eriberto Other [facility] Other 03-24-2023 08:15-0500 Body height 154.94 cm Janeth Rodriguez Other [facility] Other 03-24-2023 08:15-0500 Body mass index (BMI) [Ratio] 37.03 kg/m2 Janeth Rodriguez Other [facility] Other 03-24-2023 08:15-0500 Body weight 88.91 kg Janeth Rodriguez Other [facility] Other 01-24-2023 10:30-0400 Body height 154.94 cm Ramon Schwerer Other [facility] Other 01-24-2023 10:30-0400 Body mass index (BMI) [Ratio] 37.16 kg/m2 Ramon Schwerer Other [facility] Other 01-24-2023 10:30-0400 Body temperature 96.8 [degF] Ramon Schwerer Other [facility] Other 01-24-2023 10:30-0400 Body weight 89.22 kg Ramon Schwerer Other [facility] Other 01-24-2023 10:30-0400 Diastolic blood pressure 82 mm[Hg] Ramon Schwerer Other [facility] Other 01-24-2023 10:30-0400 SaO2% (BldA) [Mass fraction] 94 % Ramon Schwerer Other [facility] Other 01-24-2023 10:30-0400 Systolic blood pressure 136 mm[Hg] Ramon Schwerer Other [facility] Other 11-20-2022 08:15-0400 Body height 154.94 cm Jf Toro Other [facility] Other 11-20-2022 08:15-0400 Body mass index (BMI) [Ratio] 37.79 kg/m2 Jf Toro Other [facility] Other 11-20-2022 08:15-0400 Body weight 90.72 kg Jf Toro Other [facility] Other 10-10-2022 09:20-0400 Body height 154.94 cm Park Eddie Other [facility] Other 10-10-2022 09:20-0400 Body mass index (BMI) [Ratio] 38.18 kg/m2 Park Eddie Other [facility] Other 10-10-2022 09:20-0400 Body temperature 96.9 [degF] Park Eddie Other [facility] Other 10-10-2022 09:20-0400 Body weight 91.67 kg Park Eddie Other [facility] Other 10-10-2022 09:20-0400 Diastolic blood pressure 70 mm[Hg] Park Eddie Other [facility] Other 10-10-2022 09:20-0400 Respiratory rate 18 /min Park Eddie Other [facility] Other 10-10-2022 09:20-0400 SaO2% (BldA) [Mass fraction] 93 % Park Eddie Other [facility] Other 10-10-2022 09:20-0400 Systolic blood pressure 114 mm[Hg] Park Eddie Other [facility] Other 05-01-2022 14:30-0500 Body height 154.94 cm Christiano Marcelasamuelar Other [facility] Other 05-01-2022 14:30-0500 Body mass index (BMI) [Ratio] 34.23 kg/m2 Christiano Marcelasamuelar Other [facility] Other 05-01-2022 14:30-0500 Body weight 82.19 kg Christiano Marcelasamuelar Other [facility] Other 05-01-2022 14:30-0500 Diastolic blood pressure 77 mm[Hg] Christiano Darioy Other [facility] Other 05-01-2022 14:30-0500 Systolic blood pressure 110 mm[Hg] Christiano Darioy Other [facility] Other 04-30-2022 09:15-0500 Body height 154.94 cm Chitra Singh Other [facility] Other 04-15-2022 09:00-0500 Body height 154.94 cm Jf Toro Other [facility] Other 04-15-2022 09:00-0500 Body mass index (BMI) [Ratio] 34.14 kg/m2 Jf Toro Other [facility] Other 04-15-2022 09:00-0500 Body weight 81.97 kg Jf Toro Other [facility] Other 04-11-2022 15:30-0500 Body height 154.94 cm Maty Scally Other [facility] Other 04-11-2022 15:30-0500 Body mass index (BMI) [Ratio] 34.14 kg/m2 Maty Scally Other [facility] Other 04-11-2022 15:30-0500 Body weight 81.97 kg Maty Scally Other [facility] Other 04-11-2022 15:30-0500 Diastolic blood pressure 68 mm[Hg] Maty Scally Other [facility] Other 04-11-2022 15:30-0500 Respiratory rate 18 /min Maty Scally Other [facility] Other 04-11-2022 15:30-0500 SaO2% (BldA) [Mass fraction] 100 % Maty Scally Other [facility] Other 04-11-2022 15:30-0500 Systolic blood pressure 121 mm[Hg] Maty Scally Other [facility] Other 02-07-2022 11:00-0400 Body height 154.94 cm Maty Scally Other [facility] Other 02-07-2022 11:00-0400 Body mass index (BMI) [Ratio] 33.97 kg/m2 Maty Scally Other [facility] Other 02-07-2022 11:00-0400 Body weight 81.56 kg Maty Scally Other [facility] Other 02-07-2022 11:00-0400 Diastolic blood pressure 74 mm[Hg] Maty Scally Other [facility] Other 02-07-2022 11:00-0400 Respiratory rate 18 /min Maty Scally Other [facility] Other 02-07-2022 11:00-0400 SaO2% (BldA) [Mass fraction] 100 % Maty Scally Other [facility] Other 02-07-2022 11:00-0400 Systolic blood pressure 130 mm[Hg] Maty Scally Other [facility] Other 01-09-2022 14:30-0400 Body height 154.94 cm Maty Scally Other [facility] Other 01-09-2022 14:30-0400 Body mass index (BMI) [Ratio] 34.18 kg/m2 Maty Scally Other [facility] Other 01-09-2022 14:30-0400 Body weight 82.06 kg Maty Scally Other [facility] Other 01-09-2022 14:30-0400 Diastolic blood pressure 65 mm[Hg] Maty Scally Other [facility] Other 01-09-2022 14:30-0400 Respiratory rate 18 /min Maty Scally Other [facility] Other 01-09-2022 14:30-0400 SaO2% (BldA) [Mass fraction] 98 % Maty Rodas Other [facility] Other 01-09-2022 14:30-0400 Systolic blood pressure 112 mm[Hg] Maty Rodas Other [facility] Other 12-21-2021 10:00-0400 Body height 154.94 cm Ramon Schwerer Other [facility] Other 12-21-2021 10:00-0400 Body mass index (BMI) [Ratio] 34.38 kg/m2 Ramon Schwerer Other [facility] Other 12-21-2021 10:00-0400 Body temperature 97.3 [degF] Ramon Schwerer Other [facility] Other 12-21-2021 10:00-0400 Body weight 82.56 kg Ramon Schwerer Other [facility] Other 12-21-2021 10:00-0400 Diastolic blood pressure 76 mm[Hg] Ramon Schwerer Other [facility] Other 12-21-2021 10:00-0400 SaO2% (BldA) [Mass fraction] 97 % Ramon Schwerer Other [facility] Other 12-21-2021 10:00-0400 Systolic blood pressure 122 mm[Hg] Ramon Schwerer Other [facility] Other 12-13-2021 08:45-0400 Body height 154.94 cm Ramon Schwerer Other [facility] Other 12-13-2021 08:45-0400 Body temperature 97.8 [degF] Ramon Schwerer Other [facility] Other 12-13-2021 08:45-0400 Diastolic blood pressure 72 mm[Hg] Ramon Schwerer Other [facility] Other 12-13-2021 08:45-0400 SaO2% (BldA) [Mass fraction] 98 % Ramon Schwerer Other [facility] Other 12-13-2021 08:45-0400 Systolic blood pressure 110 mm[Hg] Ramon Schwerer Other [facility] Other 10-25-2021 12:40-0400 Body height 157.48 cm Park Eddie Other [facility] Other 10-25-2021 12:40-0400 Body mass index (BMI) [Ratio] 33.69 kg/m2 Park Eddie Other [facility] Other 10-25-2021 12:40-0400 Body temperature 97.1 [degF] Park Eddie Other [facility] Other 10-25-2021 12:40-0400 Body weight 83.55 kg Park Eddie Other [facility] Other 10-25-2021 12:40-0400 Diastolic blood pressure 78 mm[Hg] Park Eddie Other [facility] Other 10-25-2021 12:40-0400 Respiratory rate 18 /min Park Eddie Other [facility] Other 10-25-2021 12:40-0400 SaO2% (BldA) [Mass fraction] 93 % Park Eddie Other [facility] Other 10-25-2021 12:40-0400 Systolic blood pressure 117 mm[Hg] Park Eddie Other [facility] Other 09-10-2021 09:45-0400 Body height 157.48 cm Ramon Schwerer Other [facility] Other 09-10-2021 09:45-0400 Body mass index (BMI) [Ratio] 32.41 kg/m2 Ramon Schwerer Other [facility] Other 09-10-2021 09:45-0400 Body temperature 97.3 [degF] Ramon Schwerer Other [facility] Other 09-10-2021 09:45-0400 Body weight 80.38 kg Ramon Schwerer Other [facility] Other 09-10-2021 09:45-0400 Diastolic blood pressure 82 mm[Hg] Ramon Schwerer Other [facility] Other 09-10-2021 09:45-0400 SaO2% (BldA) [Mass fraction] 96 % Ramon Schwerer Other [facility] Other 09-10-2021 09:45-0400 Systolic blood pressure 122 mm[Hg] Ramon Chang Other [facility] Other 04-11-2021 10:00-0500 Body height 157.48 cm Bev Alcantara Other [facility] Other 04-11-2021 10:00-0500 Body mass index (BMI) [Ratio] 35.84 kg/m2 Bev Colemanmond Other [facility] Other 04-11-2021 10:00-0500 Body temperature 97 [degF] Bev Maricruz Other [facility] Other 04-11-2021 10:00-0500 Body weight 88.91 kg Bev Colemanmond Other [facility] Other 04-11-2021 10:00-0500 Respiratory rate 18 /min Bev Colemanmond Other [facility] Other 04-11-2021 10:00-0500 SaO2% (BldA) [Mass fraction] 94 % Bev Colemanmond Other [facility] Other 03-07-2021 10:50-0400 Body height 157.48 cm Bev Colemanmond Other [facility] Other 03-07-2021 10:50-0400 Body mass index (BMI) [Ratio] 11.16 kg/m2 Bev Maricruz Other [facility] Other 03-07-2021 10:50-0400 Body temperature 99.9 [degF] Bev Maricruz Other [facility] Other 03-07-2021 10:50-0400 Body weight 27.67 kg Bev Alcantara Other [facility] Other 03-07-2021 10:50-0400 Diastolic blood pressure 74 mm[Hg] Bev Alcantara Other [facility] Other 03-07-2021 10:50-0400 Respiratory rate 18 /min Bev Alcantara Other [facility] Other 03-07-2021 10:50-0400 SaO2% (BldA) [Mass fraction] 97 % Bev Alcantara Other [facility] Other 03-07-2021 10:50-0400 Systolic blood pressure 108 mm[Hg] Bev Alcantara Other [facility] Other Encounters Encounter Date Encounter Type Care Provider Facility Start: 07-23-2024 End: 07-23-2024 Emergency department patient visit [facility] Start: 07-19-2024 End: 07-19-2024 ambulatory Ramon E Schwerer DO Work Phone: [facility] Work Phone: Start: 07-19-2024 End: 07-19-2024 Patient encounter procedure Ramon Schwerer DO Work Phone: [facility] Work Phone: Start: 07-01-2024 End: 07-01-2024 Patient encounter procedure Ramon Schwerer DO Work Phone: [facility] [place] Work Phone: Start: 07-01-2024 End: 07-01-2024 ambulatory Ramon E Schwerer DO Work Phone: [facility] Work Phone: Start: 06-17-2024 End: 06-17-2024 Emergency department patient visit Ramon Chang DO Work Phone: [facility] Work Phone: Start: 06-17-2024 End: 06-17-2024 ambulatory [facility] Work Phone: Start: 06-17-2024 End: 06-17-2024 Patient encounter procedure [facility] Work Phone: Start: 05-01-2024 End: 05-01-2024 Emergency department patient visit [facility] Start: 04-29-2024 End: 04-29-2024 Bamboo flowsheet Susana Tiffany Angela-Nossek SOLE CONDITIONER-WAX PATTERN REPAIRER Work Phone: [facility] Start: 04-29-2024 End: 04-29-2024 Bamboo flowsheet Susana Tiffany Angela-Nossek SOLE CONDITIONER-WAX PATTERN REPAIRER Work Phone: [facility] Start: 04-29-2024 End: 04-29-2024 Office outpatient visit 25 minutes Susana Tiffany Angela-Nossek SOLE CONDITIONER-WAX PATTERN REPAIRER Work Phone: [facility] Comment on above: Insomnia, unspecifie d type Start: 04-29-2024 End: 04-29-2024 ambulatory SUSANA Tiffany ANGELA-NOSSEK Not Available Start: 04-19-2024 End: 04-19-2024 Refill Susana Tiffany Angela-Nossek SOLE CONDITIONER-WAX PATTERN REPAIRER Work Phone: [facility] Comment on above: Generalized anxiety disorder (CMS/HCC); Moderate episode of recurrent major depressive disorder (CMS/HCC); Insomnia, unspecified type Start: 03-24-2024 End: 03-24-2024 Emergency department patient visit RAMON CHANG [facility] Start: 03-14-2024 End: 03-14-2024 Emergency department patient visit BELLO Molina GURPREET [facility] Start: 03-01-2024 End: 03-01-2024 ambulatory DO Ramon Chang Work Phone: [facility] Work Phone: Start: 03-01-2024 End: 03-01-2024 Patient encounter procedure DO Ramon Chang Work Phone: [facility] Work Phone: Start: 02-24-2024 End: 02-24-2024 Office outpatient visit 25 minutes Susana Hydesealvarez SOLE CONDITIONER-WAX PATTERN REPAIRER Work Phone: [facility] Comment on above: Generalized anxiety disorder (CMS/HCC); Moderate episode of recurrent major depressive disorder (CMS/HCC) Start: 02-24-2024 End: 02-24-2024 ambulatory SUSANA Tiffany ANGELA-NOSSEK Not Available Start: 02-24-2024 End: 02-24-2024 Bamboo flowsheet Susana Swansonor-Nossek SOLE CONDITIONER-WAX PATTERN REPAIRER Work Phone: [facility] Start: 02-24-2024 End: 02-24-2024 Bamboo flowsheet Susana Swansonor-Nossek SOLE CONDITIONER-WAX PATTERN REPAIRER Work Phone: [facility] Start: 01-14-2024 End: 01-14-2024 ambulatory [facility] Ambulatory Start: 01-14-2024 Non-patient / Non-visit DO Ramon Chang Work Phone: [facility] [place] Work Phone: Start: 01-11-2024 End: 01-11-2024 Emergency department patient visit DO Ramon Chang Work Phone: [facility]Emergency Room Work Phone: Start: 11-27-2023 End: 11-27-2023 ambulatory SUSANA Allen ANGELAESPERANZAAlvarez Not Available Start: 11-25-2023 End: 11-25-2023 ambulatory [facility] Ambulatory Start: 11-11-2023 End: 11-11-2023 ambulatory [facility] Ambulatory Start: 2023 Non-patient / Non-visit DO Ramon Schwerer Work Phone: [facility] Nephrology [place] Work Phone: Start: 10-22-2023 End: 10-22-2023 ambulatory DO Ramon E Schwerer Work Phone: [facility] Work Phone: Start: 10-22-2023 End: 10-22-2023 Patient encounter procedure DO Ramon Schwerer Work Phone: [facility] Work Phone: Start: 10-07-2023 End: 10-07-2023 ambulatory [facility] Ambulatory Start: 09-18-2023 End: 09-18-2023 ambulatory DO Ramon E Schwerer Work Phone: [facility] Work Phone: Start: 09-18-2023 End: 09-18-2023 Patient encounter procedure DO Ramon Schwerer Work Phone: [facility] Nephrology [place] Work Phone: Start: 09-03-2023 End: 09-03-2023 Patient encounter procedure DO Ramon Schwerer Work Phone: [facility]-Lab Main [place] Work Phone: Start: 09-03-2023 End: 09-03-2023 ambulatory DO Ramon E Schwerer Work Phone: [facility] Work Phone: Start: 08-26-2023 Non-patient / Non-visit DO Ramon Schwerer Work Phone: [facility] Work Phone: Start: 08-23-2023 End: 08-23-2023 Emergency department patient visit DO Ramon Schwerer Work Phone: [facility]Emergency [facility] Work Phone: Start: 08-12-2023 End: 08-12-2023 ambulatory SUSANA Tiffany SARAVIA Not Available Start: 08-05-2023 Non-patient / Non-visit DO Ramon Schwerer Work Phone: [facility] Work Phone: Start: 07-23-2023 End: 07-23-2023 Patient encounter procedure DO Ramon Schwerer Work Phone: [facility] [place] [facility] Work Phone: Start: 07-01-2023 End: 07-01-2023 ambulatory [facility] Ambulatory Start: 06-23-2023 End: 06-23-2023 ambulatory Ramon Schwerer Other [facility] Other Start: 06-23-2023 Telephone encounter Ramon Schwerer [facility] Start: 06-16-2023 End: 06-16-2023 ambulatory Ramon Schwerer Other [employer] Other Start: 06-16-2023 Telephone encounter Ramon Schwerer [facility] [place] Start: 06-10-2023 End: 06-10-2023 ambulatory Ramon Schwerer Other [employer] Other Start: 06-10-2023 Telephone encounter Ramon Schwerer [facility] [place] Start: 06-10-2023 End: 06-10-2023 Patient encounter procedure DO Ramon Schwerer Work Phone: [facility]- Start: 05-29-2023 End: 05-29-2023 ambulatory Albertina Eriberto Other [employer] Other Start: 05-29-2023 Office outpatient visit 15 minutes Albertina Eriberto [facility] Urgent [facility] [place] Start: 05-29-2023 End: 05-29-2023 Patient encounter procedure DO Ramon Schwerer Work Phone: [facility]- Start: 05-13-2023 End: 05-13-2023 ambulatory SUSANA SARAVIA Not Available Start: 05-01-2023 End: 05-01-2023 ambulatory Ramon Schwerer Other [employer] Other Start: 05-01-2023 Telephone encounter Ramon Schwerer [facility] [place] Start: 04-10-2023 End: 04-10-2023 ambulatory Ramon Schwerer Other [employer] Other Start: 04-10-2023 Telephone encounter Ramon Schwerer [facility] [place] Start: 03-24-2023 End: 03-24-2023 ambulatory Janeth Rodriguez Other [employer] Other Start: 03-24-2023 Office outpatient visit 15 minutes Janeth Rodriguez [facility] [place] [facility] Start: 01-24-2023 End: 01-24-2023 ambulatory Ramon Schwerer Other [employer] Other Start: 01-24-2023 Office outpatient visit 25 minutes Ramon Schwerer [facility] [place] Start: 01-06-2023 End: 01-06-2023 ambulatory Park Eddie Other [employer] Other Start: 01-06-2023 Telephone encounter Park Eddie [facility] Start: 11-20-2022 End: 11-20-2022 ambulatory Jf Muna Other [employer] Other Start: 11-20-2022 Office outpatient visit 15 minutes Jf Toro [facility] [place] [facility] Start: 10-10-2022 End: 10-10-2022 ambulatory Park Eddie Other [employer] Other Start: 10-10-2022 Office outpatient visit 25 minutes Park Eddie [facility] [place] Start: 10-04-2022 End: 10-04-2022 Patient encounter procedure DO Ramon Schwerer Work Phone: [facility] Start: 09-03-2022 End: 09-03-2022 ambulatory DO Ramon E Schwerer Work Phone: [facility] Work Phone: Start: 09-03-2022 End: 09-03-2022 Patient encounter procedure DO Ramon Schwerer Work Phone: [facility]-Lab [facility] Start: 09-02-2022 End: 09-02-2022 Patient encounter procedure DO Ramon Schwerer Work Phone: [facility] Work Phone: Start: 08-23-2022 End: 08-23-2022 ambulatory Ramon Schwerer Other [employer] Other Start: 08-23-2022 Telephone encounter Ramon Schwerer [facility] [place] Start: 08-12-2022 End: 08-12-2022 ambulatory Ramon Schwerer Other [employer] Other Start: 08-12-2022 Nursing evaluation o f patient and report Ramon Schwerer [facility] [place] Start: 08-12-2022 Telephone encounter Ramon Schwerer [facility] Start: 07-22-2022 End: 07-22-2022 ambulatory Ramon Schwerer Other [employer] Other Start: 07-22-2022 Telephone encounter Ramon Schwerer [facility] [place] Start: 06-25-2022 End: 06-25-2022 ambulatory Ramon Schwerer Other [employer] Other Start: 06-25-2022 Telephone encounter Ramon Schwerer [facility] [place] Start: 06-06-2022 End: 06-06-2022 ambulatory Ramon Schwerer Other [employer] Other Start: 06-06-2022 Nursing evaluation o f patient and report Ramon Schwerer [facility] Medicine [place] Start: 05-31-2022 End: 05-31-2022 ambulatory Aziz Bakhous Other [employer] Other Start: 05-31-2022 Telephone encounter Aziz Bakhous [facility] Neph[facility] Start: 05-01-2022 End: 05-01-2022 ambulatory Christiano Beyer Other [employer] Other Start: 05-01-2022 Patient encounter procedure Christiano Beyer [facility] Gastroenterology Start: 04-30-2022 End: 04-30-2022 ambulatory Chitra Singh Other [employer] Other Start: 04-30-2022 IBT FOR OBESITY GROU P 2-10 30M Chitra Papafloyd [facility] Start: 04-30-2022 Telephone encounter Ramon Chang [facility] Start: 04-18-2022 End: 04-18-2022 ambulatory Ramon Chang Other [employer] Other Start: 04-18-2022 Telephone encounter Ramon Chang [facility] Start: 04-15-2022 End: 04-15-2022 ambulatory Jf Youngley Other [employer] Other Start: 04-15-2022 Office outpatient visit 15 minutes Jf Toro [facility] Start: 04-11-2022 (FCCCWMNF/U) Weight Management f/u Maty Rodas [facility] Start: 04-11-2022 End: 04-11-2022 ambulatory Maty Adrianna Other [employer] Other Start: 03-27-2022 End: 03-27-2022 ambulatory Maty Adrianna Other [employer] Other Start: 03-27-2022 Telephone encounter [facility] Start: 03-25-2022 End: 03-25-2022 ambulatory Ramon Mirandavanessa Other [employer] Other Start: 03-25-2022 Nursing evaluation o f patient and report Ramon Gironute [facility] Start: 03-25-2022 Telephone encounter [facility]y [facility] Start: 03-21-2022 End: 03-21-2022 ambulatory Maty Rodas Other [employer] Other Start: 03-21-2022 Telephone encounter Maty Scally [facility] Start: 03-18-2022 End: 03-18-2022 ambulatory DO Ramon E Schwerer Work Phone: [facility] Work Phone: Start: 03-18-2022 End: 03-18-2022 Patient encounter procedure DO Ramon Schwerer Work Phone: [facility] Start: 03-12-2022 End: 03-12-2022 ambulatory Ramon Schwerer Other [employer] Other Start: 03-12-2022 Telephone encounter Ramon Schwerer [facility] Start: 02-21-2022 End: 02-21-2022 ambulatory Ramon Schwerer Other [employer] Other Start: 02-21-2022 Nursing evaluation o f patient and report Ramon Schwerer [facility] Start: 02-18-2022 End: 02-18-2022 ambulatory Jf Toro Other [employer] Other Start: 02-18-2022 Office outpatient visit 15 minutes Jf Toro [facility] Start: 02-07-2022 Registered Recurring DO Kaitli n Schwerer Work Phone: [facility]-Weight Management Start: 02-07-2022 (FCCCWMNF/U) Weight Management f/u Maty Rodas [facility] Start: 02-07-2022 End: 02-07-2022 ambulatory Maty Rodas Other [employer] Other Start: 01-21-2022 End: 01-21-2022 ambulatory Ramon Schwerer Other [employer] Other Start: 01-21-2022 Nursing evaluation o f patient and report Ramon Breeerer [facility] Start: 01-09-2022 (FCCCWMNF/U) Weight Management f/u Maty Rodas [facility] Start: 01-09-2022 End: 01-09-2022 ambulatory Maty Rodas Other [employer] Other Start: 01-09-2022 Registered Recurring DO Marbin paulina Schwerer Work Phone: [facility] Start: 01-08-2022 End: 01-08-2022 ambulatory Ramon Schwerer Other [employer] Other Start: 01-08-2022 Telephone encounter Ramon Gironerer [facility] Start: 01-08-2022 End: 01-08-2022 Patient encounter procedure DO Ramon Schwerer Work Phone: [facility] Start: 12-25-2021 End: 12-25-2021 ambulatory Maty Rodas Other [employer] Other Start: 12-25-2021 Telephone encounter Maty Rodas [facility] Start: 12-21-2021 End: 12-21-2021 ambulatory Ramon Schwerer Other [employer] Other Start: 12-21-2021 Office outpatient visit 15 minutes Ramon Schwerer [facility] Start: 12-21-2021 End: 12-21-2021 Patient encounter procedure DO Ramon Schwerer Work Phone: [facility] Start: 12-13-2021 End: 12-13-2021 ambulatory Ramon Schwerer Other [employer] Other Start: 12-13-2021 Office outpatient visit 25 minutes Ramon Chang [facility] Start: 12-13-2021 [facility] Start: 12-13-2021 End: 12-13-2021 Patient encounter procedure DO Ramon Chang Work Phone: [facility] Start: 11-21-2021 End: 11-21-2021 ambulatory Maty Rodas Other [employer] Other Start: 11-21-2021 Telephone encounter Maty Gutierrez [facility] Start: 11-08-2021 End: 11-08-2021 ambulatory Ramon Chang Other [employer] Other Start: 11-08-2021 Nursing evaluation o f patient and report [facility] Start: 11-07-2021 End: 11-07-2021 ambulatory Chitra Singh Other [employer] Other Start: 11-07-[address] [facility] Start: 10-25-2021 End: 10-25-2021 ambulatory Park Eddie Other [employer] Other Start: 10-25-2021 Office outpatient visit 25 minutes Park Eddie [facility] Neph[facility] Start: 10-19-2021 Patient encounter procedure Edgard Brady Work Phone: [facility]Xdsptbon ook Work Phone: Start: 10-16-2021 ambulatory Blanca Serrano Facility:[id number] Start: 10-16-2021 Patient encounter procedure Edgard Brady Work Phone: RU-Dclsmvoxryzly-Jgvvadg 3200 Work Phone: Start: 10-02-2021 End: 10-02-2021 ambulatory Ramon Schwerer Other [employer] Other Start: 10-02-2021 Nursing evaluation o f patient and report Ramon Schwerer [facility] [place] Start: 10-01-2021 End: 10-01-2021 ambulatory Chitra Singh Other [employer] Other Start: 10-01-2021 Telephone encounter Chitra Singh [facility] Start: 09-10-2021 End: 09-10-2021 ambulatory Ramon Schwerer Other [employer] Other Start: 09-10-2021 Office outpatient visit 25 minutes Ramon Schwerer [facility] [place] Start: 09-10-2021 Telephone encounter Ramon Schwerer [facility] [place] Start: 09-09-2021 End: 09-09-2021 ambulatory Ramon Schwerer Other [employer] Other Start: 09-09-2021 Encounter by RegisterPatient Ramon Schwerer [facility] [place] Start: 09-03-2021 End: 09-03-2021 ambulatory Ramon Schwerer Other [employer] Other Start: 09-03-2021 Nursing evaluation o f patient and report Ramon Schwerer [facility] [place] Start: 09-03-2021 Telephone encounter Ramon Schwerer [facility] [place] Start: 08-28-2021 ambulatory Blanca Serrano Facility:[id number] Start: 07-30-2021 End: 07-30-2021 ambulatory Ramon Schwerer Other [employer] Other Start: 07-30-2021 Encounter by compute r link Ramon Schwerer [facility] [place] Start: 07-21-2021 End: 07-21-2021 ambulatory Ramon Schwerer Other [employer] Other Start: 07-21-2021 Encounter by Slingjot r link Ramon Schwerer [facility] Start: 07-20-2021 End: 07-20-[address] MARIA ESTHER LARA Facility: Start: 06-04-2021 End: 06-04-2021 ambulatory Ramon Schwerer Other [employer] Other Start: 06-04-2021 Telephone encounter Ramon Schwerer [facility] Start: 05-31-2021 End: 05-31-2021 ambulatory Ramon Schwerer Other [employer] Other Start: 05-31-2021 Telephone encounter Ramon Schwerer [facility] [place] Start: 05-29-2021 End: 05-29-2021 ambulatory Ramon Schwerer Other [employer] Other Start: 05-29-2021 Telephone encounter Ramon Schwerer [facility] Start: 04-12-2021 End: 04-12-2021 ambulatory Ramon Schwerer Other [employer] Other Start: 04-12-2021 Telephone encounter Ramon Schwerer [facility] [employer] Start: 04-11-2021 (URG) Urgent Care Visit Bev Alcantara [facility] [place] Start: 04-11-2021 End: 04-11-2021 ambulatory Bev Alcantara Other [employer] Other Start: 03-07-2021 Office outpatient visit 15 minutes Bev Alcantara [facility] [place] Start: 03-07-2021 Telephone encounter Ramon Schwerer [facility] [place] Start: 08-01-2020 End: 08-02-[address] NONE LISTED REQUEST Facility: Start: 02-16-2019 Patient encounter procedure Dragan Sánchez WN-Hkvjxigzocfux-Hizxmmdb B102 Work Phone: Start: 01-22-2019 Patient encounter procedure Dragan Sánchez KS-Bqneoraxwusdt-Epboqddr B102 Work Phone: Procedures Date Procedure Procedure Detail Performing Clinician Start: 09-03-2023 Urine culture DO Marbin paulina Charlene Work Phone: Start: 07-01-2023 CORNEAL TOPOGRAPHY - OU - BOTH EYES BLANCA SERRANO Start: 09-02-2022 Screening mammograph y of bilateral breasts DO Ramon Chang Work Phone: History of No histor y of surgery Dragan Sánchez Lactoferrin measurement DO Alvarez shelia Charlene Work Phone: No history of surgery Edgard Brady Work Phone: Ova and Parasite Result 1 DO Ramon Chang Work Phone: Ova OR parasites identification DO Ramon Chang Work Phone: Plan of Treatment Date Care Activity Detail Author Start: 07-28-2024 End: 07-28-2024 Patient encounter procedure 07/28/2024 9:30 AM EDT Office Visit [facility] [address] [facility] [address] [place] [id number] Susana Saravia, SOLE CONDITIONER-WAX PATTERN REPAIRER [address] [place] [address] [place] [address] [facility] Start: 07-01-2024 [facility] Start: 05-24-2024 End: 05-24-2024 Social Work 05/24/2024 10:30 AM EST Social Work [facility] [address] [facility] [address] [place] [id number] Wolf Rangel, WHITE SUGAR SUPERVISOR [facility] Start: 04-29-2024 End: 04-29-2024 Patient encounter procedure 04/29/2024 11:00 AM EST Office Visit [facility] [address] [place] [address] [place] [address] Susana Saravia, SOLE CONDITIONER-WAX PATTERN REPAIRER [address] [place] [address] [place] [address] Arrived [facility] Comment on above: Arrived Start: 04-28-2024 End: 04-28-2024 Patient encounter procedure 04/28/2024 8:30 AM EST Office Visit [facility] [address] [place] [address] [place] [address] Susana Saravia, SOLE CONDITIONER-WAX PATTERN REPAIRER [address] [place] [address] [place] [address] [facility] Start: 02-24-2024 End: 02-24-2024 Patient encounter procedure 02/24/2024 3:00 PM EDT Office Visit [facility] [address] [place] [address] [place] [address] Susana Saravia, SOLE CONDITIONER-WAX PATTERN REPAIRER [address] [place] [address] [place] [address] Arrived [facility] Comment on above: Arrived Start: 01-11-2024 Influenza vaccination Influenza Vacc ine (#1) [facility] Start: 09-03-2023 Bacteria identified in Urine by Culture [facility] Start: 10-22-2022 EPVDILATED, Provider : Blanca Serrano, Status: Pen, Time: 10:15 AM EPVDILATED, Provider: Blanca Serrano, Status: Pen, Time: 10:15 AM NF-Xmkqlgwixeggp-Mui well 3200 Work Phone: Start: 01-09-2022 Registered Recurring Registered Recu rring [facility] Start: 01-08-2022 End: 01-08-2022 Patient encounter procedure Departed Clinical [facility] [place] Start: 12-21-2021 End: 12-21-2021 Patient encounter procedure Departed Clinical [facility] Start: 1993 Screening for malign ant neoplasm of breast Mammogram [facility] Start: 1953 Screening for malign ant neoplasm of colon [facility] Comprehensive metabo lic 1999 panel - Serum or Plasma [facility] DXA Skeletal system.axial Views for bone density [facility] F5 gene mutations fo und [Identifier] in Blood or Tissue by Molecular genetics method Nominal [facility] Patient Education [facility] Work Phone: Patient referral [facility] Work Phone: Renal function 1999 panel - Serum or Plasma [facility] Immunizations Immunization Date Immunization Notes Care Provider Fa cility 03-04-2024 COVID-19 (PFIZER) 12Y and older [facility] 03-04-2024 influenza, high dose seasonal, preservative-free [facility] 10-14-2023 RSV, preF3, adj, pf [facility] 10-14-2023 tetanus toxoid, redu susannah diphtheria toxoid, and acellular pertussis vaccine, adsorbed [facility] 03-02-2023 COVID-19 (PFIZER) 12Y and older [facility] 03-02-2023 influenza virus vaccine, unspecified formulation Susana Saravia SOLE CONDITIONER-WAX PATTERN REPAIRER Work Phone: [facility] 11-23-2022 zoster vaccine recombinant [facility] 08-31-2022 zoster vaccine recombinant [facility] 03-10-2022 influenza, seasonal, injectable Park Eddie Other [facility] 11-20-2021 COVID-19 Comirnaty (Pfizer) Tri-Sucrose 12+ [facility] 03-20-2021 influenza virus vaccine, unspecified formulation DO Ramon Mirandar Work Phone: [facility] 03-20-2021 influenza, high dose seasonal, preservative-free Ramon Chang Other [facility] Other 11-28-2020 B-12 - up to 1000 mcg Bev Maricruz Other [employer] Other 08-01-2020 COVID-19 Vaccine Pfi zer - Documentation Purposes Only Bev Maricruz Other [facility] 07-10-2020 COVID-19 Vaccine Pfi zer - Documentation Purposes Only Bev Maricruz Other [facility] 05-01-2020 Kenalog -40 mg Bev Maricruz Other [employer] Other 03-06-2020 pneumococcal conjuga te vaccine, 13 valent Bev Maricruz Other [facility] 10-26-2019 Kenalog -40 mg Bev Maricruz Other [employer] Other 03-05-2019 pneumococcal polysaccharide vaccine, 23 valent Bev Maricruz Other [facility] 02-16-2019 Kenalog -40 mg Bev Maricruz Other [employer] Other 02-09-2019 pneumococcal conjuga te vaccine, 13 valent Bev Maricruz Other [facility] Payers Date Payer Category Payer Medicare MEDICARE Member Subscriber Plan / Payer (Effective 2008-Present) Name: Yuni Archibald Member ID: [id number] Relation to Subscriber: Self Name: Yuni Archibald Subscriber ID: [id number] Payer ID: STATE Group ID: Not on file Type: Medicare Address: [place] [id number] 2007 Government (not [facility] care or Medicaid) [id number] 1959 Medicare [id number] 1959 Self-pay 1959 Unknown [id number] 1953 Unknown [id number] 2.16.840.1.312116.3.579. 2.593 1953 Unknown [id number] 2.16.840.1.672007.3.579. 2.356 1953 Unknown [id number] 2.16.840.1.394113.3.579. 2.356 1953 Unknown [id number] 2.16.840.1.112858.3.579. 2.1244 1953 Unknown [id number] 2.16.840.1.013337.3.579. 2.1244 1953 Unknown [id number] 2.16.840.1.347968.3.579. 2.1244 1953 Unknown [id number] 2.16.840.1.525985.3.579. 2.1244 1953 Unknown [id number] 2.16.840.1.767121.3.579. 2.1244 1953 Unknown [id number] 2.16.840.1.957750.3.579. 2.1259 1953 Unknown [id number] 2.16.840.1.854357.3.579. 2.1259 1953 Unknown [id number] 2.16.840.1.457851.3.579. 2.1259 1953 Unknown [id number] 2.16.840.1.756330.3.579. 2.1259 1953 Unknown [id number] 2.16.840.1.288439.3.579. 2.1259 1953 Unknown [id number] 2.16.840.1.587321.3.579. 2.1286 1953 Unknown [id number] 2.16.840.1.417677.3.579. 2.1286 1953 Unknown [id number] 2.16.840.1.438533.3.579. 2.1286 1953 Unknown [id number] 2.16.840.1.403828.3.579. 2.1286 Unknown [id number] 2.16.840.1.268763.3.579. 2.593 Unknown Unknown [id number] 2.16.840.1.981587.3.579. 2.531 Unknown [id number] 2.16.840.1.306971.3.579. 2.531 Unknown [id number] Unknown [id number] Unknown [id number] Social History Date Type Detail Facility Assertion Unknown if ever smoked [facility] [place] [facility] Work Phone: Start: 11-27-2023 End: 04-29-2024 Never a smoker Never a smoker VP-Fpxqyygaruiyp-Rhz [facility] [address] Work Phone: Start: 11-27-2023 End: 04-29-2024 Sex Assigned At [facility] Other Start: 10-20-2020 End: 06-17-2024 Tobacco smoking status NHIS Never smoked tobacco (finding) [facility] Start: 1955 Sex Assigned At Female F [facility] Start: 09-21-2022 Tobacco use and exposure Smokeless tobacco non-user [facility] Start: 11-27-2023 End: 04-29-2024 Alcoholic beverage intake Ex-drinker (finding) [facility] Start: 03-12-2023 Alcohol Comment 2-3 coffee/pop [facility] Start: 09-26-2022 Gender identity Identifies as female gender (finding) [facility] Start: 09-26-2022 Sexual orientation Heterosexual (fin ding) [facility] Start: 04-29-2024 Education 17 [facility] Start: 04-29-2024 Alcohol Comment 2-3 coffee/pop daily [facility] Start: 06-17-2024 End: 07-19-2024 Sex Female (finding) [facility] NEGATED: Highlighted row - - HG-Wcfpmtuzdhtdq-Xck t pineda [facility]102 Work Phone: Medical Equipment [...] status health issues are not documented Disease LL-Xrbmaixpnaylf-Fl [employer] [address] Work Phone: Mental Status Date Assessment Result Facility NEGATED: Highlighted row Cognitive function [Interpretation] Cognitive status health issues are not documented Disease DT-Lppusnjwejanw-Rr stYuyuto Work Phone: Clinical Notes 03-07-2021 to 06-17-2024 [...] June 17 8:35am Hyperlipidemia, mixed acute Feb ruary 2024 8:35am Hypothyroidism (acquired) acute June 17 8:35am Iron deficiency anemia acute Fe bruary 2024 8:35am Medicare annual wellness visit, subsequent acute June 17, 2024 8:35am Vitamin D deficiency acute Febr uary 2024 8:35am Hypertension, essential chronic F ebruary 2024 8:35am [facility] Work Phone: 1(838) 348-652002-06-2025 Evaluation note* Diagnosis Onset Date Resolution Status Admit Date B12 deficiency acute June 172024 8:35am Jah hy kid w cr kid I-IV acute June 17, 2024 8:35am CKD (chronic kidney disease) stage 3, GFR 30-59 ml/min acute Februa ry 2024 8:35am Family history of factor V deficiency acute June 17 8:35am Hyperlipidemia, mixed acute Feb ruary 2024 8:35am Hypothyroidism (acquired) acute June 17, 2024 8:35am Iron deficiency anemia acute Fe bruary 2024 8:35am Medicare annual wellness vis it, subsequent acute June 17 8:35am Vitamin D deficiency acute Febr uary 2024 8:35am Hypertension, essential chronic F ebruary 2024 8:35am Left hip pain acute July 19, 2024 8:46am Trochanteric bursitis, left hip acut e July 19, 2024 8:46am [facility] Work Phone: 1(289) 543-178012-19-2024 History of Present illness Narrative* Susana Saravia, SOLE CONDITIONER-WAX PATTERN REPAIRER - 04/29/2024 11:00 AM EST Images from [...] problems. Psychosocial stressors include grieving. Involved in alevism. SUBJECTIVE: PAST MEDICAL HISTORY: Past Medical History: Diagnosis Date Anxiety Depression (CMS/HCC) Disease of thyroid gland (CMS/HCC) History of drug abuse (CMS/HCC) ALLERGIES: No Known Allergies SURGICAL HISTORY: No past surgical history on file. FAMILY HISTORY: Family History Problem Relation Name Age of Onset Depression Mother Yuni Palacios Anxiety disorder Mother Yuni Palacios Heart disease Father Sharif Suzanne Alcohol abuse Father Sharif [place] Stroke Father Sharif Suzanne Kidney cancer Sister Depression Brother Robert Palacios SOCIAL HISTORY: Social History Tobacco Use Smoking [...] and Time Memory/Concentration Short term intact and penitentiary intact Insight/Judgement Good OBJECTIVE: Visit Vitals BP [...] up: 3 months [id number] Telephone encounter Note* Telephone Encounter - Amber Villalobos - 04/19/2024 9:10 AM EST Patient called in needing 90 day supply of Sertraline sent to her Meds by Mail. [facility]villeZftrxkswtm56-13-1957 Miscellaneous Notes* Telephone Encounter - Amber Villalobos - 04/19/2024 9:10 AM EST Patient called in needing 90 day supply of Sertraline sent to her Meds by Mail. * Telephone Encounter - Mireya Flanagan - 04/19/2024 8:39 AM EST Patient would like a refill on Amitriptyline. She would like 30 tablets sent to [facility] in [place] and 90 tablets sent to her Meds by Mail mail order company. documented in this encounterSaint [facility]–SmithvilleKqekrykakt93-74-1211 Telephone encounter Note* Telephone Encounter - Mireya Flanagan - 04/19/2024 8:39 AM EST Patient would like a refill on Amitriptyline. She would like 30 tablets sent to [facility] in [place] and 90 tablets sent to her Meds by Mail mail order company. 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 Continue to take the ywga-jbc-ptfusuc Delsym for your cough as needed. Follow-up [...] has been taking Delsym for her cough vebb-zov-utfvutr as well as Tylenol for her fevers and chills. Patient was tested for COVID flu and RSV via PCR and tested positive for influenza A. Patient is being encouraged to rest drink plenty of fluids continue the Tylenol and Delsym dlrb-fyb-oudwwti as needed. She is aware that she can take bqjl-cnu-scuhjpq cold and flu medicine for symptom management. She is encouraged to follow-up with her PCP. Patient is to go to the ER if she develops shortness of breath, difficulty breathing, chest pain, or pain with taking a deep breath. [facility] Other 11-13-2023 Evaluation note* Encounter Date Diagnosis [...] in the office today and providing supervision. [facility] Other 09-15-2023 Evaluation note* Encounter Date Diagnosis [...] but this feels different. continue bland diet. [facility] Other 08-28-2023 Evaluation note* Encounter Date Diagnosis Assessment Notes Treatment Notes Treatment Clinical Notes Dec, Vitamin D deficiency (ICD-10 - E55.9) [facility] Other 07-12-2023 Evaluation note* Encounter Date Diagnosis [...] tolerated injection well with no adverse reactions. [facility] Other 06-01-2023 Evaluation note* Encounter Date Diagnosis Assessment Notes Treatment Notes Treatment Clinical Notes Oct, Jah hy kid w cr kid I-IV (ICD-10 - [...] LFTs and lipid profile periodically with PCP [facility] Other 04-03-2023 Evaluation note* Encounter Date Diagnosis Assessment Notes Treatment Notes Treatment Clinical Notes Aug, B12 deficiency (ICD-10 - E53.8) Aug, Chronic kidney disease, stage 3 unspecified (ICD-10 - N18.30) Aug, Hyperlipidemia, mixed (ICD-10 - E78.2) [facility] Other 01-26-2023 Evaluation note* Encounter Date Diagnosis Assessment Notes Treatment Notes Treatment Clinical Notes May, B12 deficiency (ICD-10 - E53.8) [facility] Other 01-20-2023 Evaluation note* Encounter Date Diagnosis Assessment Notes Treatment Notes Treatment Clinical Notes May, Vitamin D deficiency (ICD-10 - E55.9) [facility] Other 12-21-2022 Evaluation note* Encounter Date Diagnosis Assessment Notes Treatment Notes Treatment Clinical Notes Apr, Diarrhea (ICD-10 - R19.7) CONTINUE COLESTID 2 TABLETS DAILY MAY START BENEFIBER Apr, GERD (gastroesophageal reflux disease) (ICD-10 - K21.9) CONTINUE PANTOPRAZOLE 40 MG TWICE A DAY [facility] Other 12-20-2022 Evaluation note* Encounter Date Diagnosis [...] patient set personal goal using given handout. [facility] Other 12-05-2022 Evaluation note* Encounter Date Diagnosis [...] tolerated the injection well without adverse reaction. [facility] Other 12-01-2022 Evaluation note* Encounter Date Diagnosis [...] health affects her food choices reports he Apr, Generalized anxiety disorder (ICD-10 - F41.1) Stable, [...] 3 x per week. Decrease screen time. [facility] Other 11-14-2022 Evaluation note* Encounter Date Diagnosis Assessment Notes Treatment Notes Treatment Clinical Notes Mar, B12 deficiency (ICD-10 - E53.8) [facility] Other 10-13-2022 Evaluation note* Encounter Date Diagnosis Assessment Notes Treatment Notes Treatment Clinical Notes Feb, B12 deficiency (ICD-10 - E53.8) [facility] Other 10-10-2022 Evaluation note* Encounter Date Diagnosis [...] vacation to proceed with injection. Patient given [employer] handout for stretching exerceses [facility] Other 09-29-2022 Evaluation note* Encounter Date Diagnosis [...] 3 x per week. Decrease screen time. [facility] Other 09-12-2022 Evaluation note* Encounter Date Diagnosis Assessment Notes Treatment Notes Treatment Clinical Notes Jan, B12 deficiency (ICD-10 - E53.8) [facility] Other 08-31-2022 Evaluation note* Encounter Date Diagnosis [...] was counseling done by myself, Lizet BILL. [facility] Other 08-30-2022 Evaluation note* Encounter Date Diagnosis Assessment Notes Treatment Notes Treatment Clinical Notes Dec, Diarrhea, unspecified type (ICD-10 - R19.7) [facility] Other 08-12-2022 Evaluation note* Encounter Date Diagnosis Assessment Notes Treatment Notes Treatment Clinical Notes Dec, C. difficile diarrhea (ICD-10 - A04.72) elevated alk phos on last labs. will recheck labs today. Over all seems to be improving. Had a set back yesterday into today. She will call in 3 days after she finishes round of [employer] with an update on her diarrhea. [facility] Other 08-04-2022 Evaluation note* Encounter Date Diagnosis [...] week. Dec, B12 deficiency (ICD-10 - E53.8) [facility] Other 07-13-2022 Evaluation note* Encounter Date Diagnosis [...] and in that case will send to [facility] pharmacy for [facility] pay ibrahim, in that case she will need to set up account with them for payment and shipment [facility] Other 06-30-2022 Evaluation note* Encounter Date Diagnosis Assessment Notes Treatment Notes Treatment Clinical Notes Oct, B12 deficiency (ICD-10 - E53.8) [facility] Other 06-16-2022 Evaluation note* Encounter Date Diagnosis Assessment Notes Treatment Notes Treatment Clinical Notes Oct, Jah hy kid w cr kid I-IV (ICD-10 - [...] resume the magnesium oxide 400 mg daily. [facility] Other 05-24-2022 Evaluation note* Encounter Date Diagnosis Assessment Notes Treatment Notes Treatment Clinical Notes September, B12 deficiency (ICD-10 - E53.8) [facility] Other 05-02-2022 Evaluation note* Encounter Date Diagnosis [...] is interested in the weight managament clinic. [facility] Other 04-25-2022 Evaluation note* Encounter Date Diagnosis Assessment Notes Treatment Notes Treatment Clinical Notes Aug, Neurodermatitis (ICD-10 - L28.0) Aug, Hypothyroidism (acquired) (ICD-10 - E03.9) [facility] Other 03-21-2022 Evaluation note* Encounter Date Diagnosis Assessment Notes Treatment Notes Treatment Clinical Notes Jul, Neurodermatitis (ICD-10 - L28.0) Jul, Hyperlipidemia, mixe d (ICD-10 - E78.2) [facility] Other 01-24-2022 Evaluation note* Encounter Date Diagnosis Assessment Notes Treatment Notes Treatment Clinical Notes May, Abnormal mammogram (ICD-10 - R92.8) [facility] Other 01-18-2022 Evaluation note* Encounter Date Diagnosis Assessment Notes Treatment Notes Treatment Clinical Notes May, Vitamin D deficiency (ICD-10 - E55.9) [facility] Other 12-01-2021 Evaluation note* Encounter Date Diagnosis [...] Patient care instructions given in writting by [facility] document. Additional time spent conducting pre-visit phone call, screening for symptoms, instructions on social distancing, application and removal of PPE, and cleaning of examination room, equipment and supplies was preformed. Patient education given for testing methodology and results. Patient care instructions given in writting by [facility] document. [facility] Other 10-27-2021 Evaluation note* Encounter Date Diagnosis [...] Feb, Atopic neurodermatit is (ICD-10 - L20.81) [facility] Other Evaluation noteNo InformationNort [employer] Other evaluvxtry noteN[facility] [employer] Other Evaludjrgy noteNo assessment information available [facility] Work Phone: Evaluation note* Diagnosis Onset Date Resolution Status Left hip pain acute Trochanteric bursitis, left hip acute [facility] Work Phone: Evaluation note* Diagnosis Onset Date Resolution Status Left hip pain acute Trochanteric bursitis, left hip acute Jah hy kid w cr kid I-IV acu te CKD (chronic kidney disease) stage 3, GFR 30-59 ml/min acute Hyperlipidemia, mixed acute Hypomagnesemia acute Vitamin D deficiency acute [facility] Work Phone: Evaluation note* Diagnosis Onset Date Resolution Status Jah hy kid w cr kid I-IV acu te CKD (chronic kidney disease) stage 3, GFR 30-59 ml/min acute Hyperlipidemia, mixed acute Hypomagnesemia acute Vitamin D deficiency acute Left hip pain acute Trochanteric bursitis, left hip acute [facility] Work Phone: Evaluation note* Diagnosis Generalized anxiety [...] Surgical History Hospitalization History Pneumonia, UTI 10/2020 [facility] Other History general Narrative - ReportedNoBanter! Other History general Narrative - Reported* Type [...] Surgical History Hospitalization History Pneumonia, UTI 10/2020 [facility] Other Hospital Discharge instructions Additional Instructions Follow-up with your eye doctor Return to ED if you develop worsening [facility] Work Phone: Summary Purpose Family History No Family History Records FoundUnknown Family Member Name Dates Details Denies No [...] history of mental disorder Unknown Advance Directives No Advanced Directives Records Found Advance Directive Response Recorded Date/ Time Advance [...] Complaint Cough, Congestion Fever, Vomiting, Here The 18th 4 Month follow up Amb Documentation left eye problem Reason for Visit Left hip pain Trochanteric bursitis, left hip Chief Complaint Fever, Vomiting, Her e The 18th 4 Month follow up Amb Documentation left [...] e03.9 i10 e78.2 RENAL 1 yr f/u KAELA F/U Reason for Visit Jah hy kid w cr kid I-IV CKD (chronic kidney disease) stage 3, GFR 30-59 ml/min Hyperlipidemia, mixed Hypomagnesemia Vitamin D deficiency Left hip pain Trochanteric bursitis, left hip Chief Complaint October/U Amb Documentation Bilat eye pain, watery Reason [...] kid w cr kid I-IV June 17 8:35am CKD (chronic kidney disease) stage 3, GF R 30-59 ml/min June 17, 2024 8:35am Family history of factor V deficiency Fe bruary 2024 8:35am Hyperlipidemia, mixed June 17, 2024 [...] Family history of factor V deficiency Fe bruary 2024 8:35am Hyperlipidemia, mixed June 17, 2024 [...] section and content) DATE CREATED AUTHOR 05/15/2019 [facility] DATE CREATED AUTHOR AUTHOR'S ORGANIZ ATION 07/23/2021 [facility] DATE CREATED AUTHOR AUTHOR'S ORGANIZ ATION 10/20/2021 [employer] DATE CREATED AUTHOR AUTHOR'S ORGANIZ ATION 02/08/2022 [facility] DATE CREATED AUTHOR AUTHOR'S ORGANIZ ATION 03/19/2024 [facility] tals Ambulatory DATE CREATED AUTHOR AUTHOR'S ORGANIZ ATION 05/02/2024 [facility] EPIC DATE CREATED AUTHOR AUTHOR'S ORGANIZ ATION 07/09/2024 [facility] DATE CREATED AUTHOR AUTHOR'S ORGANIZ ATION 07/25/2024 [facility] REASON FOR VISIT (unrecogniz ed section and [...] , DO Primary Care Provider Active Start: January [...] Chang DO Primary Care Provider Active Start: July 23, 2023 End: July 23, 2023 Jf Toro DO Active Start: July 23, 2023 End: July 23, 2023 Janeth Rodriguez NP-C Attending Provider Active Start: July 23, 2023 End: July 23, 2023 Genetic Coordinator Relationship Specialty Start Date End Date Ramon Chang DO [address] [facility] [place] [phone] PCP - General Family Medicine 10/02/22 Genetic Coordinator Relationship Specialty Start Date End Date Ramon Chang DO [address] [facility] [place] [phone] PCP - General Family Medicine 10/02/22 Team [...] March 01, 2024 End: March 01, 2024 Genetic Coordinator Relationship Specialty Start Date End Date Ramon Chang DO [address] [facility] [place] [phone] PCP - General Family Medicine 10/02/22 Genetic Coordinator Relationship Specialty Start Date End Date Ramon Chang DO [address] [place] [phone] PCP - [facility] Family Medicine 10/02/22 Genetic Coordinator Relationship Specialty Start Date End Date Ramon Chang DO [address] [place] [address] PCP - [facility] 10/02/22 Team Status: Inactive Member Role Status Dates Ramon Chang DO Primary Care Pro vider, Attending Provider Active Start: June 17, 2024 End: June 17, 2024 Team Status: Inactive Member Role Status Dates Ramon Chang DO Primary Care Provider Active Start: June 17, 2024 End: June 17, 2024 Mo Alcantara APRN Emergency Provider Active Start: June 17, 2024 End: June 17, 2024 Team Status: Inactive Member Role Status Dates Ramon Chang DO Primary Care Pro vider, Attending Provider Active Start: July 01, 2024 End: July 01, 2024 Team Status: Inactive Member Role Status Dates Ramon Chang DO Primary Care Provider Active Start: July 19, 2024 End: July 19, 2024 Jf Toro DO Attending Provider Active S tart: July 19, [...] BE BASED ON THE PRIMARY CLINICAL RECORDS. [facility] [employer] [facility]. provides no warranty or guarantee of the accuracy or completeness of information in this document.
--- NOTE | 2024-07-27 03:06 | ECG_ITS ---
[facility] Date: 2024-07-27 Pat Name: CEE ARCHIBALD Department: Room: - Gender: Female Relationship Advisor: : 1955 Requested By: [id number] Order Number: [id number] Reading MD: ARVIND CHADWICK Measurements Intervals [place] Rate: 69 P: 50 CT: 154 QRS: 52 QRSD: 96 T: 43 QT: 394 QTc: 413 Interpretive Statements 1100 Sinus rhythm 9110 normal ECG Compared to ECG 08/17/2019 10:44:46 No significant changes Electronically Signed On 07-27-2024 14:54:57 EDT by ARVIND CHADWICK
--- NOTE | 2024-07-27 03:07 | ED.GENADUL1 ---
HPI HPI - General Adult General Chief complaint: Syncope Stated complaint: SYNCOPE Time Seen by Provider: 07/27/24 03:02 Source: patient Mode of arrival: ambulance Limitations: no limitations History of Present Illness HPI narrative: 68-year-old female presents to the emergency department for syncope. She states she was asleep on the couch and her dog woke her up and she stood up too quickly and she took a few steps when she got up and she passed out. She hit the left side of her face and she states that her arms hurt. No chest pain or injury to her arms or legs. No abdominal pain. Related Data Home Medications ?Medication ?Instructions ?Recorded ?Confirmed amitriptyline 50 mg tablet 50 mg PO BEDTIME 07/25/24 07/27/24 atorvastatin 10 mg tablet 10 mg PO DAILY 07/25/24 07/27/24 cyanocobalamin (vitamin B-12) 1,000 mcg IM .qmonth 07/25/24 07/27/24 1,000 mcg/mL injection solution ergocalciferol (vitamin D2) 1,250 1,250 mcg PO QWEEK 07/25/24 07/27/24 mcg (50,000 unit) capsule hydroxyzine HCl 25 mg tablet 25 mg PO Q8H PRN itching 07/25/24 07/27/24 levothyroxine 75 mcg tablet 75 mcg PO DAILY 07/25/24 07/27/24 Previous Rx's ?Medication ?Instructions ?Recorded ketorolac 0.4 % eye drops 1 drp ophthalmic (eye) Q6H 3 days 07/25/24 #5 mL tobramycin 0.3 % eye drops 2 drp ophthalmic (eye) Q4H #5 mL 07/25/24 ibuprofen 800 mg tablet 800 mg PO Q8H PRN pain #20 tabs 07/27/24 methocarbamol 500 mg tablet 500 mg PO Q8H PRN pain #20 tabs 07/27/24 Allergies Allergy/AdvReac Type Severity Reaction Status Date / Time No Known Drug Allergies Allergy Verified 07/27/24 03:01 Opioid HPI Opioid Management Most Recent Opioid Data: Last Pain Scale 10 07/27/24 03:56 07/27/24 Last ED Pain Assessment 07/27/24 03:05 Last MAR Pain Assessment 07/27/24 03:56 Review of Systems ROS Narrative A ten point review of systems is negative except as noted above. PFSH PFSH Social History Little interest or pleasure in doing things: not at all Feeling down, depressed, or hopeless: not at all Exam Narrative Exam Narrative: Nurses note and vital signs reviewed and patient is not hypoxic. General: The patient appears in no apparent distress. C-collar is in place Skin: Warm, dry, no pallor noted. There is no rash noted. Head: Normocephalic, atraumatic Eye: EOMI. PERRL Ears, Nose, Mouth, and Throat: oral mucosa is moist. Nares patent. Cardiovascular: Regular Rate and Rhythm Respiratory: Patient is in no distress, no accessory muscle use, lungs are, no CVA tenderness bilaterally to percussion. GI: Soft and nontender Musculoskeletal: No palpable tenderness to extremities. Joints have full range of motion Neurological: A&O, normal speech; upper and lower extremity strength intact Psychiatric: Cooperative Constitutional Vital Signs, click to edit/add: Last Vital Signs Temp 98.3 F 07/27/24 02:51 Pulse 77 07/27/24 04:34 Resp 16 07/27/24 04:34 BP 134/84 07/27/24 04:34 Pulse Ox 97 07/27/24 04:34 O2 Del Method Room Air 07/27/24 04:34 Course Vital Signs Vital signs: Vital Signs Temperature 98.3 F 07/27/24 02:51 Pulse Rate 72 07/27/24 02:51 Respiratory Rate 18 07/27/24 02:51 Blood Pressure 118/60 07/27/24 02:51 Pulse Oximetry 99 07/27/24 02:51 Oxygen Delivery Method Room Air 07/27/24 02:51 Temperature 98.3 F 07/27/24 02:51 Pulse Rate 77 07/27/24 04:34 Respiratory Rate 16 07/27/24 04:34 Blood Pressure 134/84 07/27/24 04:34 Pulse Oximetry 97 07/27/24 04:34 Oxygen Delivery Method Room Air 07/27/24 04:34 Medical Decision Making [facility] Narrative Medical decision making narrative: Her workup including CT brain and CT C-spine are negative. She does not have any motor deficits. She will follow-up with her PCP in a few days if she does not improve. She was given IV Ativan and IV Toradol here and prescribed Robaxin and ibuprofen. Treatment diagnosis and follow-up were discussed with the patient. She appears to have passed out because she stood up too quickly after being woken up abruptly. Differential Diagnosis Differential Diagnosis: Head contusion, intracranial hemorrhage, C-spine fracture Lab Data Lab results reviewed: Yes I reviewed the patient's lab results Labs: Lab Results 07/27/24 Range/Units 03:10 WBC 14.0 H (4.0-11.0) 10^3/uL RBC 4.56 (4.20-5.40) 10^6/uL Hgb 13.9 (12.0-16.0) g/dL Hct 41.1 (36.0-48.0) % MCV 90.1 (81.0-99.0) fL MCH 30.5 (26.7-34.0) pg MCHC 33.8 (29.9-35.2) g/dL RDW 13.2 (11.0-15.0) % Plt Count 390 (150-450) 10^3/uL MPV 10.3 (9.5-13.5) fL Neut % (Auto) 73.7 (43.0-75.0) % Lymph % (Auto) 17.3 L (20.5-60.0) % Stark % (Auto) 6.4 (1.7-12.0) % Eos % (Auto) 0.7 L (0.9-7.0) % Baso % (Auto) 0.3 (0.2-2.0) % Neut # (Auto) 10.3 H (1.4-6.5) 10^3/uL Lymph # (Auto) 2.4 (1.2-3.8) 10^3/uL Stark # (Auto) 0.9 H (0.3-0.8) 10^3/uL Eos # (Auto) 0.1 (0.0-0.7) 10^3/uL Baso # (Auto) 0.0 (0.0-0.1) 10^3/uL Abs Immat Gran (auto) 0.23 H (0.00-0.03) 10^3/uL Imm/Tot Granulo (auto) 1.6 H (0.0-0.5) % Sodium 139 (136-145) mmol/L Potassium 3.7 (3.5-5.1) mmol/L Chloride 103 (98-107) mmol/L Carbon Dioxide 29.4 (21.0-32.0) mmol/L Anion Gap 10.3 BUN 16.0 (7.0-18.0) mg/dL Creatinine 1.10 H (0.55-1.02) mg/dL Est GFR ( Amer) 59 L (>=60 mL/min/1.73m^2) Est GFR (Non-Af Amer) 49 L (>=60 mL/min/1.73m^2) BUN/Creatinine Ratio 14.5 Glucose 124 H (74-106) mg/dL Calcium 9.2 (8.5-10.1) mg/dL Troponin I High Sens <4.0 L (4.0-51.3) pg/mL Imaging Data CT brain, CT C-spine: Radiologist's impression: CT brain: No acute intracranial hemorrhage CT C-spine: No acute cervical spine fracture ECG Data Attestation: I personally reviewed and interpreted this ECG as follows: (EKG on my interpretation shows normal sinus rhythm with rate of 69 and no acute change) Discharge Plan Discharge Chief Complaint: Syncope Clinical Impression: Syncope, Head injury Patient Disposition: Home, Self-Care Time of Disposition Decision: 04:51 Condition: Good Mode of Transportation: Private Vehicle Prescriptions / Home Meds: New methocarbamol 500 mg tablet 500 mg PO Q8H PRN (Reason: pain) Qty: 20 0RF ibuprofen 800 mg tablet 800 mg PO Q8H PRN (Reason: pain) Qty: 20 0RF No Action levothyroxine 75 mcg tablet 75 mcg PO DAILY hydroxyzine HCl 25 mg tablet 25 mg PO Q8H PRN (Reason: itching) ergocalciferol (vitamin D2) 1,250 mcg (50,000 unit) capsule 1,250 mcg PO QWEEK cyanocobalamin (vitamin B-12) 1,000 mcg/mL solution 1,000 mcg IM .qmonth atorvastatin 10 mg tablet 10 mg PO DAILY amitriptyline 50 mg tablet 50 mg PO BEDTIME tobramycin 0.3 % drops 2 drp ophthalmic (eye) Q4H Qty: 5 0RF ketorolac 0.4 % drops 1 drp ophthalmic (eye) Q6H 3 Days Qty: 5 0RF Print Language: Danish Instructions: Syncope (ED), Head Injury (ED) Referrals: Ricarda Chang DO [Primary Care Provider] - 1 week
--- NOTE | 2024-07-27 03:09 | PC.NURSE ---
C/O bilateral arm pain from shoulder to hand, yells out when moved. Good radial pulse full sensation
[2024-07-27 03:34] LABS: Basophils Percent Auto 0.3 % (0.2-2.0); Eosinophils Absolute Auto 0.1 10^3/uL (0.0-0.7); Eosinophils Percent Auto 0.7 % (0.9-7.0); Hematocrit 41.1 % (36.0-48.0); Hemoglobin 13.9 g/dL (12.0-16.0); Immature Granulocytes Abs Auto 0.23 10^3/uL (0.00-0.03); Immature Granulocytes Pct Auto 1.6 % (0.0-0.5); Lymphocytes Absolute Auto 2.4 10^3/uL (1.2-3.8); Lymphocytes Percent Auto 17.3 % (20.5-60.0); Mean Corpuscular HGB Conc 33.8 g/dL (29.9-35.2); Mean Corpuscular Hemoglobin 30.5 pg (26.7-34.0); Mean Corpuscular Volume 90.1 fL (81.0-99.0); Mean Platelet Volume 10.3 fL (9.5-13.5); Monocytes Absolute Auto 0.9 10^3/uL (0.3-0.8); Monocytes Percent Auto 6.4 % (1.7-12.0); Neutrophils Absolute Auto 10.3 10^3/uL (1.4-6.5); Neutrophils Percent Auto 73.7 % (43.0-75.0); Platelet Count 390 10^3/uL (150-450); Red Blood Count 4.56 10^6/uL (4.20-5.40); Red Cell Distribution Width 13.2 % (11.0-15.0)
[2024-07-27 03:37] LABS: Anion Gap 10.3; BUN Creatinine Ratio 14.5; Calcium 9.2 mg/dL (8.5-10.1); Carbon Dioxide 29.4 mmol/L (21.0-32.0); Chloride 103 mmol/L (98-107); Estimated GFR (African America 59 (>=60 mL/min/1.73m^2); Estimated GFR (Non-African Ame 49 (>=60 mL/min/1.73m^2); Glucose 124 mg/dL (74-106); Potassium 3.7 mmol/L (3.5-5.1); Sodium 139 mmol/L (136-145); Troponin I High Sensitivity <4.0 pg/mL (4.0-51.3)
[2024-07-27] MEDS: KETOROLAC TROMETHAMINE 30 MG/ML VIAL IVP (03:56)
[2024-07-27] MEDS: LORAZEPAM 2 MG/ML VIAL 0.5 MG IV (04:26)
[2024-07-27 04:34] VITALS: BP 134/84; PULSE 77; O2SAT 97
== END 2024-07-27 05:20 | disposition home or self-care (01) ==
PROVIDERS: Emergency Provider Emergency Medicine
DX: S09.90XA Unspecified injury of head, initial encounter (principal); W18.39XA Other fall on same level, initial encounter; R55 Syncope and collapse
CPT/HCPCS: 36415; 70450; 72125; 80048; 84484; 85025; 93005; 96374; 96375; 99285; J1885; J2060

== ENCOUNTER 2024-11-11 13:33 | Emergency (ER) | payer OTHER, MEDICARE, SELFPAY ==
--- OUTSIDE RECORDS SUMMARY | 2024-11-11 13:41 | XMS_ITS | Clinical Summary ---
Author Organization [facility] Address [address] [place] [address] Phone Care Team Providers Care Aircraft Shipping Checker Name Role Phone Hans Orta MD Primary Care Provider Unav ailable Allergies Active Allergy Reactions Criticality Noted Date Comments Aripiprazole Unknown 11/08/2015 Lips move involuntary Divalproex Other 11/08/2015 Sluggishness, slurred speech Terconazole Other 11/08/2015 Medications amitriptyline (Elavil) 25 mg tablet Take 1 tablet (25 mg) by mouth once daily at bedtime. 1 Active benzonatate (Tessalon) 200 mg capsule TAKE 1 CAPSULE BY MOUTH THREE TIMES DAILY NEEDED cough 4 Active ergocalciferol (Vitamin D-2) 1.25 MG (60587 UT) capsule Take 1 capsule (1,250 mcg) by mouth 1 (one) time per week. Active ferrous sulfate, 325 mg ferrous sulfate, tablet Take 1 tablet by mouth once daily. Active folic acid (Folvite) 1 mg tablet Take 1 tablet (1 mg) by mouth once daily. Active hydrOXYzine pamoate (Vistaril) 25 mg capsule Take by mouth. 1 Active levothyroxine (Synthroid) 25 mcg tablet Take by mouth. Acti ve LORazepam (Ativan) 1 mg tablet Take 1 tablet (1 mg) by mouth once daily. Active magnesium oxide (Mag-Ox) 400 mg (241.3 mg magnesium) tablet Take 1 tablet (400 mg) by mouth once daily. Active multivitamin with minerals iron-free (Centrum Silver) Take by mouth. Activ e ondansetron (Zofran) 4 mg tablet TAKE 1 TABLET BY MOUTH up to TWICE DAILY NEEDED FOR NAUSEA 4 Active Protonix 40 mg EC tablet Take 1 tablet (40 mg) by mouth. Active propranolol (Inderal) 80 mg tablet Take 1 tablet (80 mg) by mouth once daily. Active sertraline (Zoloft) 100 mg tablet Take 1 tablet (100 mg) by mouth once daily. 3 Active sodium chloride 0.9 % nebulizer solutionIndicat ions:Keratoconj unctivitis sicca of both eyes not specified as Sjogren's (100) 5 ml non-preserved vials, Use off-label to insert into bowl of scleral contact lens prior to insertion 500 mL 3 4 Active cycloSPORINE (Restasis) 0.05 % ophthalmic emulsionIndicat ions:Dry eyes Administer 1 drop into both eyes 2 times a day. 60 each 2 5 Active Active Problems Problem Noted Date Diagnosed Date Superficial punctate keratitis of both eyes 090 08/2023 Encounters Date Type Department Care Team Description 10/01/2024 Scanned Document [facility] [address] [place] [address] Scanning, Generic Provider 09/14/2024 11:00 AM EDT Office Visit [facility] [address] [facility] [address] [place] [address] Ingrid Rosario B, OD Keratoconus of both eyes (Primary Dx); Corneal scars, both eyes; Superficial punctate keratitis of both eyes; Keratoconjunctiviti s sicca of both eyes not specified as Sjogren's; Age-related nuclear cataract of both eyes 09/14/2024 Travel 09/07/2024 Travel from Last 3 Months Family History Medical History Relation Name Comments Glaucoma Father Macular degeneration Mother Dry Relation Name Status Comments Father Mother Social History Tobacco Use Types Packs/Day Years Used Date Smoking Tobacco: Never Tobacco Cessation:Counseling Given: Not Answered Alcohol Use Standard Drinks/Week Comments Never 0 (1 standard drink = 0.6 oz pur e alcohol) Comments Unknown Sex and Gender Information Value Date Recorded Sex Assigned at Female 10/16/2022 12:40 PM EDT Legal Sex Female 7:26 PM EST Gender Identity Female 10/16/2022 12:40 PM EDT Sexual Orientation Not on file Plan of Treatment Upcoming Encounters Date Type Department Care Team (Late st Contact Info) Description 02/01/2025 10:45 AM EDT Office Visit [facility] [place] [address] [place] [address] [place] [address] [place] [address] Department of Ophthalmology [place] [id number] Health Maintenance Due Date Last Done Comments Bone Density Scan 1953 CT Colonography 1955 Colonoscopy 1955 Colorectal Cancer Screening 1955 FIT-DNA (Cologuard) 1955 FIT 1955 Lipid Panel 1955 Medicare Annual Wellness Visit (AWV) 1955 Sigmoidoscopy 1955 TSH Level 1955 Hepatitis C Screening 10/29/1971 Mammogram 1993 COVID-19 Vaccine (5 - Pfizer risk 2023- season) 2024 03/04/2024, 03/02/2023, 03/10/2022, Additional history exists Influenza Vaccine (#1) 2025 , 03/02/2023, 03/10/2022, Additional history exists DTaP/Tdap/Td Vaccines (3 - Td or Tdap) 10/13/2033 10/14/2023, 08/17/2019 Pneumococcal Vaccine Completed 03/06/2020, 03/05/2019, 02/09/2019 Zoster Vaccines Completed 11/23/2022, 08/31/2022 RSV High Risk: (Elderly (60+) or Population) Completed 10/14/2023 HIB Vaccines Aged Out No longer eligi ble based on patient's age to complete this topic HPV Vaccines (No Doses Required) Completed Hepatitis A Vaccines Aged Out No long er eligible based on patient's age to complete this topic Hepatitis B Vaccines Aged Out No long er eligible based on patient's age to complete this topic IPV Vaccines Aged Out No longer eligi ble based on patient's age to complete this topic Meningococcal Vaccine Aged Out No rae jimmie eligible based on patient's age to complete this topic Rotavirus Vaccines Aged Out No longer eligible based on patient's age to complete this topic Procedures Procedure Name Priority Date/Time Associated Diagnosis Comments ECHOCARDIOGRAM 10/01/2024 CORNEAL TOPOGRAPHY - OU - BOTH EYES Routine 09/14/2024 2:48 PM EDT Keratoconus of both eyes from Last 3 Months Results * Echocardiogram (10/01/2024) Narrative 10/01/2024 Ordered by an unspecified provider. us Generic Provider Scanning CV ECHO PROCEDURES Fin al Result * Corneal Topography - OU - Both Eyes (09/14/2024 2:48 PM EDT) Pach Thinnest (OS) 484 microns Pach Thinnest (OD) 484 microns K Max (OS) 62.2 diopters K Max (OD) 56.3 diopters SimK Flat (OS) 48.8 diopters SimK Flat (OD) 49.2 diopters SimK Steep (OS) 54.9 diopters SimK Steep (OD) 52.9 diopters Narrative Ingrid Rosario, OD - 09/14/2024 2:48 PM EDT Right Eye Progression has been stable. Findings include definite keratoconus. SimK Steep was 52.9 diopters. SimK Flat was 49.2 diopters. K Max was 56.3 diopters. Pach thinnest was 484 microns. Left Eye Progression has been stable. Findings include definite keratoconus. SimK Steep was 54.9 diopters. SimK Flat was 48.8 diopters. K Max was 62.2 diopters. Pach thinnest was 484 microns. Ingridkayden Rosario OD SERJIO shepard Result from Last 3 Months Insurance MEDICARE PART A AND B [facility] MED [facility] MEDICARE PART A AND B [facility] Care Teams Aircraft Shipping Checker Relationship Specialty Start Date End Date Hans Orta MD PCP - General 01/10/19
--- OUTSIDE RECORDS SUMMARY | 2024-11-11 13:41 | XMS_ITS | Clinical Summary ---
Author Organization [facility] Address [address] [place] [phone] Care Team Providers Care Grassland Conservationist Name Role Phone Hans Orta MD Primary Care Provider Unavai lable Allergies No known active allergies Medications NAPROXEN PO take by mouth. Active Levothyroxine Sodium (SYNTHROID PO) take by mouth. Active TRAZODONE HCL PO take by mouth. Active Hypromellose (ARTIFICIAL TEARS OP) apply to eye. PRN OU Active LORazepam 1 MG PO TABS 1 mg 2 times daily. Active clozapine (CLOZARIL) 25 MG PO TABS 25 mg 2 times daily. Active buPROPion (WELLBUTRIN XL) 300 MG PO tablet XL 1 Tab daily. Active buPROPion (WELLBUTRIN XL) 150 MG PO tablet XL 1 Tab daily. Active duloxetine (CYMBALTA) [address] Active Active Problems Problem Noted Date Diagnosed Date Keratoconus, unspecified Overview (05/08/2009): OU Cornea ulcer Overview (05/08/2009): S/P OS Senile nuclear sclerosis Overview (05/08/2009): TRACE OU Family History Medical History Relation Name Comments Cataract Father Glaucoma Father Vision Problems Father GLAUCOMA Age-Related Macular Degeneration Mother Blindness Neg Hx Retinal Detachment Neg Hx Relation Name Status Comments Father Mother Social History Tobacco Use Types Packs/Day Years Used Date Smoking Tobacco: Never Smokeless Tobacco: Never Alcohol Use Standard Drinks/Week Comments No 0 (1 standard drink = 0.6 oz pur e alcohol) Comments Unknown Sex and Gender Information Value Date Recorded Sex Assigned at Not on file Legal Sex Female 2:46 PM EST Gender Identity Not on file Sexual Orientation Not on file Plan of Treatment Health Maintenance Due Date Last Done Comments DEXA SCAN DISCUSSION 1955 HEPATITIS C VIRUS SCREENING 1955 TETANUS 1955 TDAP (ADULT) 1972 CERVICAL CANCER SCREENING DISCUSSION 1974 LIPID SCREENING 1993 MAMMOGRAM SCREENING DISCUSSION 1993 COLORECTAL CANCER SCREENING DISCUSSION 1998 PNEUMOCOCCAL VACCINE SERIES (1 of 1 - PCV) 10/29/2003 ZOSTER (SHINGLES) VACCINE (1 of 2) 10/29/2003 COVID-19 VACCINE ( - 2023-2 5 season) 2024 INFLUENZA VACCINE (Season Ended) 2025 RSV VACCINE (1 - 1-dose 75+ series) 2028 HEP B VACCINE Aged Out No longer elig ible based on patient's age to complete this topic Insurance MEDICARE A AND B [facility] Care Teams Grassland Conservationist Relationship Specialty Start Date End Date Hans Orta MD PCP - General 03/26/09
--- OUTSIDE RECORDS SUMMARY | 2024-11-11 13:41 | XMS_ITS | Encounter Summary ---
Author Organization [facility] Address [address] [place] [address] Phone Care Team Providers Care Photo Lab Manager Name Role Phone Hans Orta MD Primary Care Provider Unav ailable Encounter Details Date Type Department Care Team (Late st Contact Info) Description 10/01/2024 Scanned Document [facility] [address] [place] [address] Scanning, Generic Provider Social History Tobacco Use Types Packs/Day Years Used Date Smoking Tobacco: Never Alcohol Use Standard Drinks/Week Comments Never 0 (1 standard drink = 0.6 oz pur e alcohol) Comments Unknown Sex and Gender Information Value Date Recorded Sex Assigned at Female 10/16/2022 12:40 PM EDT Legal Sex Female 7:26 PM EST Gender Identity Female 10/16/2022 12:40 PM EDT Sexual Orientation Not on file COVID-19 Exposure Response Date Recorded In the last 10 days, have yo u been in contact with someone who was confirmed or suspected to have Coronavirus/COVID-19? No / Unsure 09/14/2024 10:53 AM EDT documented as of this encounter Plan of Treatment Upcoming Encounters Date Type Department Care Team (Late st Contact Info) Description 02/01/2025 10:45 AM EDT Office Visit [facility] [address] [facility] [address] [place] [phone] [place] [address] Department [place] [address] documented as of this encounter Procedures Procedure Name Priority Date/Time Associated Diagnosis Comments ECHOCARDIOGRAM 10/01/2024 documented in this encounter Results * Echocardiogram (10/01/2024) Narrative 10/01/2024 Ordered by an unspecified provider. us Generic Provider Scanning CV ECHO PROCEDURES Fin al Result documented in this encounter Visit Diagnoses Not on filedocumented in this encounter Care Teams Photo Lab Manager Relationship Specialty Start Date End Date Hans Orta MD PCP - General 01/10/19 documented as of this encounter
[2024-11-11 13:50] VITALS: BP 121/84; PULSE 115; TEMP 37.1; O2SAT 95; BMI 30.2
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
[2024-11-11 14:05] LABS: Hematocrit 35.1 % (36.0-48.0); Hemoglobin 11.8 g/dL (12.0-16.0); Immature Granulocytes Abs Auto 0.03 10^3/uL (0.00-0.03); Immature Granulocytes Pct Auto 0.4 % (0.0-0.5); Lymphocytes Absolute Auto 1.9 10^3/uL (1.2-3.8); Mean Corpuscular HGB Conc 33.6 g/dL (29.9-35.2); Mean Corpuscular Hemoglobin 30.6 pg (26.7-34.0); Mean Corpuscular Volume 90.9 fL (81.0-99.0); Platelet Count 290 10^3/uL (150-450); Red Blood Count 3.86 10^6/uL (4.20-5.40); White Blood Count 8.0 10^3/uL (4.0-11.0)
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
[2024-11-11] MEDS: MORPHINE SULFATE 2 MG/ML SYRINGE IV (14:09)
[2024-11-11 14:20] LABS: Alanine Aminotransferase 15 U/L (14-59); Albumin Globulin Ratio 0.9; Albumin Level 3.3 g/dL (3.4-5.0); Alkaline Phosphatase 90 U/L (46-116); Anion Gap 11.5; Aspartate Amino Transferase 14 U/L (15-37); Blood Urea Nitrogen 21.0 mg/dL (7.0-18.0); Calcium 9.3 mg/dL (8.5-10.1); Carbon Dioxide 31.6 mmol/L (21.0-32.0); Chloride 103 mmol/L (98-107); Estimated GFR (African America 54 (>=60 mL/min/1.73m^2); Estimated GFR (Non-African Ame 44 (>=60 mL/min/1.73m^2); Globulin 3.7 g/dL; Glucose 86 mg/dL (74-106); Potassium 4.1 mmol/L (3.5-5.1); Sodium 142 mmol/L (136-145); Total Protein 7.0 g/dL (6.4-8.2)
[2024-11-11] MEDS: KETOROLAC TROMETHAMINE 30 MG/ML VIAL IVP (15:31)
[2024-11-11 15:35] VITALS: BP 105/63; PULSE 92; O2SAT 95
[2024-11-11 15:36] VITALS: O2SAT 95
== END 2024-11-11 15:49 | disposition home or self-care (01) ==
PROVIDERS: Nurse Practitioner; Emergency Provider Emergency Medicine
DX: S39.012A Strain of muscle, fascia and tendon of lower back, initial encounter (principal); S29.012A Strain of muscle and tendon of back wall of thorax, initial encounter; S20.214A Contusion of middle front wall of thorax, initial encounter; S80.12XA Contusion of left lower leg, initial encounter; S80.11XA Contusion of right lower leg, initial encounter; R07.9 Chest pain, unspecified; S12.300D Unspecified displaced fracture of fourth cervical vertebra, subsequent encounter for fracture with routine healing; V49.49XA Driver injured in collision with other motor vehicles in traffic accident, initial encounter
CPT/HCPCS: 36415; 70450; 71260; 72125; 72128; 72131; 74177; 80053; 85025; 96374; 96375; 99285; J1885; J2270; Q9967